=== PATIENT | female | born 1940 | race Asian ===

== ENCOUNTER 2017-07-13 07:22 | Emergency (ER) | payer MEDICARE, OTHER ==
[~2017-07-13] VITALS: Ht 157.5 cm; Wt 63.5 kg
[2017-07-13] MEDS ORDERED: UNOBMED (07:23)
--- NOTE | 2017-07-13 07:32 | Emergency Room Report ---
History of Present Illness General Chief Complaint: To Be Triaged Source: Patient, Family Member, EMS Present Illness HPI 76-year-old female brought in by ambulance with acute worsening of chronic dizziness now associated with headache on top of head and vomiting. The patient and daughter states that she has high blood pressure but neither of known medication she states her blood pressure. patient does take meclizine, Plavix, and Tylenol. Patient and daughter deny any recent trauma. The patient denies neck stiffness neck pain, fever chills, sick contacts recently Denied chest pain, shortness of breath. Allergies: Coded Allergies: SULFAMETHOXAZOLE (Verified Allergy, Unknown, 07/13/17) TRIMETHOPRIM (Verified Allergy, Unknown, 07/13/17) Uncoded Allergies: SULFA (Allergy, Unknown, 07/13/17) Patient History Past Medical History: other - ?HTN Past Surgical History: none Pertinent Family History: none Social History: Denies: smoking, alcohol use, drug use Last Menstrual Period: Unk Now: No Immunizations: UTD Reviewed Nursing Documentation: PMH: Agreed, PSxH: Agreed Nursing Documentation-PMH Hx Hypertension: Yes Review of Systems All Other Systems: negative except mentioned in HPI Physical Exam Vital Signs Date Time Temp Pulse Resp B/P (MAP) Pulse Ox O2 Delivery O2 Flow Rate FiO2 07/13/17 07:19 98.2 74 20 215/120 99 Room Air Sp02 EP Interpretation: reviewed, normal General Appearance: normal inspection, well appearing, alert, GCS 15, non-toxic , moderate distress, other - Writhing on stretcher, eyes closed Head: normocephalic, atraumatic Eyes: bilateral eye PERRL, bilateral eye EOMI ENT: normal ENT inspection, hearing grossly normal, normal pharynx, no angioedema, normal voice, TMs + canals normal, uvula midline, moist mucus membranes Neck: normal inspection, full range of motion, supple, thyroid normal, no meningismus, no bony tend Respiratory: normal inspection, lungs clear, normal breath sounds, no rhonchi, no respiratory distress, no retraction, no accessory muscle use, no wheezing, speaking full sentences Cardiovascular #1: regular rate, rhythm, no edema, no JVD, normal capillary refill Gastrointestinal: normal inspection, normal bowel sounds, non tender, soft, no mass, no peritonitis, non-distended, no guarding, no hernia, no pulsatile mass Genitourinary: no CVA tenderness Musculoskeletal: normal inspection, back normal, normal range of motion, no calf tenderness, pelvis stable, Krissy's Sign negative Neurologic: normal inspection, alert, oriented x3, responsive, hospice physician III-XII nml as tested, motor strength/tone normal, cerebellar normal, normal gait, speech normal Psychiatric: normal inspection, judgement/insight normal, mood/affect normal, no suicidal/homicidal ideation, no delusions Skin: normal inspection, normal color, no rash Lymphatic: normal inspection, no adenopathy Procedures Critical Care Time Critical Care Time CC time 45min Critical care time endorsed for this patient for acute posterior CVA with edema/ mass effect Critical care time includes review of laboratory tests, imaging, review of EMR, review of paperwork from SNF (if available), discussion with patient and family (if available), review of code status/POLS (if available). Critical care time also likely includes assessment of fluid status, stabilization of vital signs, dosing of mannitol, and discussion with neurosurgery Dr Baldwin at [facility]. Critical care time does not include any procedures which are documented elsewhere in this EMR. Medical Decision Making Diagnostic Impression: Primary Impression: Dizziness Additional Impressions: Headache Qualified Codes: G44.209 - Tension-type headache, unspecified, not intractable Cerebrovascular accident involving posterior circulation ER Course Patient found to have left cerebellar hemisphere infarct with associated edema, swelling and mild mass effect in the posterior fossa I spoke to Dr. Baldwin a [facility] neurosurgery, accepted the patient for immediate transfer to neurosurgical ICU Agrees with our plan to give IV mannitol at 1 g per kilogram Recommended keeping blood pressure high Recommended holding aspirin for now given possibility patient might need surgical decompression Patient endorsed for transfer at 8:20 AM. Airway patent, neurologically intact. Will initiate LAFD rescue transferred EKG Diagnostic Results Rate: normal Rhythm: NSR ST Segments: no acute changes ASA given to the pt in ED: No Rhythm Strip Diag. Results EP Interpretation: yes Rate: 70 Rhythm: NSR, no PVC's, no ectopy Last Vital Signs Date Time Temp Pulse Resp B/P (MAP) Pulse Ox O2 Delivery O2 Flow Rate FiO2 07/13/17 07:19 98.2 74 20 215/120 99 Room Air Status: improved Disposition: ADMITTED INPATIENT Condition: Critical SWATI YARBROUGH M.D. Jul 13, 2017 07:32
[2017-07-13 08:00] VITALS: BP 194/91
[2017-07-13 08:14] LABS: HEMATOCRIT 43.9 % (37.0-47.0); HEMOGLOBIN 14.8 G/DL (12.0-16.0); MEAN CORPUSCULAR VOLUME 90 FL (80-99); PLATELET COUNT 187 K/UL (150-450); RED BLOOD COUNT 4.88 M/UL (4.20-5.40); RED CELL DISTRIBUTION WIDTH 10.8 % (11.6-14.8); WHITE BLOOD COUNT 18.8 K/UL (4.8-10.8)
[2017-07-13 08:15] VITALS: BP 200/92
[2017-07-13] MEDS ORDERED: Mannitol 20% IV 500 ML IV ONE (08:15)
[2017-07-13 08:28] LABS: ANION GAP 13 mmol/L (5-15); BLOOD UREA NITROGEN 14 mg/dL (7-18); CALCIUM 8.8 MG/DL (8.5-10.1); CARBON DIOXIDE 24 MMOL/L (21-32); CHLORIDE 101 MMOL/L (98-107); POTASSIUM 3.3 MMOL/L (3.5-5.1); SODIUM 138 MMOL/L (136-145)
[2017-07-13 08:30] VITALS: BP 193/95
[2017-07-13 08:33] LABS: INR 0.9 (0.9-1.1)
[2017-07-13 08:43] LABS: ALANINE AMINOTRANSFERASE 25 U/L (12-78); ALBUMIN 4.2 G/DL (3.4-5.0); ALKALINE PHOSPHATASE 54 U/L (46-116); ASPARTATE AMINO TRANSFERASE 34 U/L (15-37); BILIRUBIN,TOTAL 0.7 MG/DL (0.2-1.0); CKMB 1.6 NG/ML (0.0-3.6); CREATINE KINASE 130 U/L (26-308)
[2017-07-13 08:45] VITALS: BP 193/95
[2017-07-13 08:50] VITALS: BP 193/95
[2017-07-13 09:44] LABS: APPEARANCE,URINE CLEAR; BILIRUBIN, URINE NEGATIVE (NEGATIVE); COLOR,URINE PALE YELLOW; GLUCOSE, URINE (UA) 3+ (NEGATIVE); KETONES,URINE NEGATIVE (NEGATIVE); LEUKOCYTE ESTERASE ,URINE NEGATIVE (NEGATIVE); NITRITE,URINE NEGATIVE (NEGATIVE); PH,URINE 7 (4.5-8.0); PROTEIN,URINE 2+ (NEGATIVE); UROBILINOGEN,URINE NORMAL MG/DL (0.0-1.0)
--- NOTE | 2017-07-16 00:06 | Cardiology Report ---
APPROVED REPORT EKG Measurement Heart [id number] Normal sinus rhythm Nonspecific T wave abnormality Prolonged QT Abnormal ECG
--- NOTE | 2017-07-16 13:44 | Diagnostic Imaging Report ---
Indication: Dizziness Technique: Continuous helical CT scanning of the head was performed utilizing automated exposure control without intravenous contrast material. Axial and coronal reconstructions were obtained. Comparison: None CT dose: Total DLP 1431 mGycm; CTDI vol 70.4 mGy Findings: There is an approximately 4.3 x 4.5 x 4 cm area of edema involving the left cerebellum with adjacent mass effect on the fourth ventricle. No intracranial hemorrhage is identified. There is atrophy. Periventricular and subcortical hypoattenuation are seen. Sellar and suprasellar regions are grossly unremarkable. There is mucosal thickening of the left maxillary sinus. Mastoid air cells are clear. No focal lesions of the bony calvarium or soft tissues of the scalp are seen. Impression: Low-density with mass effect in the left cerebellum suggestive of acute infarct. Correlation with MRI recommended. Atrophy and chronic ischemic microvascular changes. Findings discussed with Dr. Man at 0830 hours [address] phone. The CT scanner at [facility] is accredited by the [employer] and the scans are performed using protocols designed to limit radiation exposure to as low as reasonably achievable to attain images of sufficient resolution adequate for diagnostic evaluation.
--- NOTE | 2017-07-16 13:44 | Diagnostic Imaging Report ---
Indication: Chest pain Technique: XRAY Chest 1v Comparison: None Findings: Cardiac silhouette is prominent. There is mild central pulmonary vascular congestion. There is no consolidation or pleural effusion. Degenerative changes of the spine are seen. Impression: Cardiomegaly with mild pulmonary vascular congestion.
== END 2017-07-13 08:50 | disposition short-term general hospital (02) ==
LOC: EDBD 07:22 → EMR 08:17
DX: I63.9 Cerebral infarction, unspecified (principal); I10 Essential (primary) hypertension; Z88.2 Allergy status to sulfonamides
CPT/HCPCS: 36415; 70450; 71045; 80053; 81003; 82550; 82553; 84484; 85007; 85025; 85610; 93005; 99291; J2150; J2405

== ENCOUNTER 2017-09-12 19:06 | Inpatient (IN) | payer MEDICARE, OTHER ==
[~2017-09-12] VITALS: Ht 160 cm; Wt 61.0 kg
[~2017-09-12 19:06] MED LIST: UNOBMED
[2017-09-12 19:57] LABS: BASOPHILS % (AUTO) 0.7 % (0.0-2.0); EOSINOPHILS % (AUTO) 1.3 % (0.0-3.0); LYMPHOCYTES % (AUTO) 10.7 % (20.0-45.0); MEAN CORPUSCULAR VOLUME 88 FL (80-99); MONOCYTES % (AUTO) 4.8 % (1.0-10.0); NEUTROPHILS % (AUTO) 82.5 % (45.0-75.0); PLATELET COUNT 492 K/UL (150-450); RED BLOOD COUNT 4.31 M/UL (4.20-5.40); RED CELL DISTRIBUTION WIDTH 13.1 % (11.6-14.8); WHITE BLOOD COUNT 13.2 K/UL (4.8-10.8)
[2017-09-12 20:26] LABS: ANION GAP 12 mmol/L (5-15); BLOOD UREA NITROGEN 15 mg/dL (7-18); CALCIUM 10.2 MG/DL (8.5-10.1); CARBON DIOXIDE 26 MMOL/L (21-32); CHLORIDE 97 MMOL/L (98-107); CREATININE 0.6 MG/DL (0.55-1.30); POTASSIUM 4.1 MMOL/L (3.5-5.1); SODIUM 135 MMOL/L (136-145)
--- NOTE | 2017-09-12 20:37 | Emergency Room Report ---
History of Present Illness General Chief Complaint: Vomiting Source: Medical Record, EMS Present Illness HPI 76Female brought in by EMS for 1 episode of vomiting at custodial. Patient herself is nonverbal, has trach. Patient was transferred from here to [facility] 2 months prior for cerebellar infarct. There are no family members or friends bedside provide additional information at this time Allergies: Coded Allergies: SULFAMETHOXAZOLE (Verified Allergy, Unknown, 07/13/17) TRIMETHOPRIM (Verified Allergy, Unknown, 07/13/17) Uncoded Allergies: SULFA (Allergy, Unknown, 07/13/17) Patient History Past Medical History: CVA/TIA Past Surgical History: other - trach Pertinent Family History: none Social History: Denies: smoking, alcohol use, drug use Now: No Immunizations: UTD Reviewed Nursing Documentation: PMH: Agreed, PSxH: Agreed Nursing Documentation-PMH Hx Cardiac Problems: Yes Hx Hypertension: Yes Hx Diabetes: Yes Hx Cerebrovascular Accident: Yes Review of Systems All Other Systems: negative except mentioned in HPIlimited - non verbak Physical Exam Vital Signs Date Time Temp Pulse Resp B/P (MAP) Pulse Ox O2 Delivery O2 Flow Rate FiO2 09/12/17 19:08 98.2 78 20 111/74 96 Nasal Cannula 3.0 98.2 Sp02 EP Interpretation: reviewed, normal General Appearance: normal inspection, well appearing, no apparent distress, alert, non-toxic, other - Purposeful movement, not responding to commands Head: normocephalic, atraumatic Eyes: bilateral eye PERRL, bilateral eye EOMI ENT: normal ENT inspection, normal pharynx, TMs + canals normal, uvula midline , moist mucus membranes, other - Trach collar Neck: normal inspection, full range of motion, supple, thyroid normal, no meningismus, no bony tend Respiratory: normal inspection, lungs clear, normal breath sounds, no rhonchi, no respiratory distress, no retraction, no accessory muscle use, no wheezing, speaking full sentences Cardiovascular #1: regular rate, rhythm, no edema, no JVD, normal capillary refill Gastrointestinal: normal inspection, normal bowel sounds, non tender, soft, no mass, no peritonitis, non-distended, no guarding, no hernia, no pulsatile mass Genitourinary: no CVA tenderness, other - Myers cath in place Musculoskeletal: normal inspection, back normal, normal range of motion, no calf tenderness, pelvis stable, Krissy's Sign negative Neurologic: normal inspection, alert, responsive, router tender III-XII nml as tested, motor strength/tone normal, cerebellar normal, normal gait, speech normal Psychiatric: normal inspection, judgement/insight normal, mood/affect normal, no suicidal/homicidal ideation, no delusions Skin: normal inspection, normal color, no rash Lymphatic: normal inspection, no adenopathy Medical Decision Making Diagnostic Impression: Primary Impression: Vomiting Qualified Codes: R11.10 - Vomiting, unspecified Additional Impression: Status post CVA ER Course Vital signs are stable, afebrile Abdomen is soft nondistended nontender non-peritoneal ?Aspiration PNA given previous CVA, trach - no obvious infiltate on CXR UA pending no additional episodes of vomiting in ER since Zofran was given Leuks elevated Unknown source at this time - UA is pending Empiric Abx given Endorsed to Dr Rodriguez for med/surg admission at 836pm Rhythm Strip Diag. Results EP Interpretation: yes Rate: 97 Rhythm: NSR, no PVC's, no ectopy Last Vital Signs Date Time Temp Pulse Resp B/P (MAP) Pulse Ox O2 Delivery O2 Flow Rate FiO2 09/12/17 19:08 98.2 78 20 111/74 96 Nasal Cannula 3.0 98.2 Status: improved Disposition: ADMITTED INPATIENT Condition: Serious SWATI YARBROUGH M.D. Sep 12, 2017 20:37
[2017-09-12 20:38] VITALS: BP 111/70
[2017-09-12 20:40] LABS: ALANINE AMINOTRANSFERASE 43 U/L (12-78); ALBUMIN 2.7 G/DL (3.4-5.0); ALBUMIN/GLOBULIN RATIO 0.6 (1.0-2.7); ALKALINE PHOSPHATASE 92 U/L (46-116); ASPARTATE AMINO TRANSFERASE 24 U/L (15-37); BILIRUBIN,TOTAL 0.3 MG/DL (0.2-1.0); CKMB 1.4 NG/ML (0.0-3.6); CREATINE KINASE 28 U/L (26-308)
[2017-09-12] MEDS ORDERED: Clindamycin 900mg 50 ML IVPB ONE (20:45)
[2017-09-12] MEDS ORDERED: Nitroglycerin Subl 0.4mg tab SL PRN (21:30)
[2017-09-12] MEDS ORDERED: Miralax 17gm pkt ORAL PRN (21:30)
[2017-09-12] MEDS ORDERED: Mylanta II UD 30ml ORAL PRN (21:30)
[2017-09-12 21:41] LABS: APPEARANCE,URINE CLEAR; BILIRUBIN, URINE NEGATIVE (NEGATIVE); COLOR,URINE YELLOW; GLUCOSE, URINE (UA) NEGATIVE (NEGATIVE); KETONES,URINE NEGATIVE (NEGATIVE); LEUKOCYTE ESTERASE ,URINE NEGATIVE (NEGATIVE); NITRITE,URINE NEGATIVE (NEGATIVE); PH,URINE 6 (4.5-8.0); PROTEIN,URINE NEGATIVE (NEGATIVE); UROBILINOGEN,URINE NORMAL MG/DL (0.0-1.0)
[2017-09-12 22:20] VITALS: BP 131/80
[2017-09-12] MEDS ORDERED: METOPROLOL SUCC25 MG ORAL (22:50)
[2017-09-12] MEDS ORDERED: FLORASTOR250 MG ORAL (22:50)
[2017-09-12] MEDS ORDERED: ASPIR 8181 MG ORAL (22:50)
[2017-09-12] MEDS ORDERED: CIPROFLOXA400 MG/40 IV (22:50)
[2017-09-12] MEDS ORDERED: ATORVASTATIN CA40 MG ORAL (22:50)
[2017-09-12] MEDS ORDERED: HEPARIN SO5000 UNIT2 SUBQ (22:50)
[2017-09-12] MEDS ORDERED: FAMOTIDINE10 MG GT (22:50)
[2017-09-12 23:57] VITALS: BP 129/77
[2017-09-13] VITALS (7 sets, daily range): BP systolic 101–139; BP diastolic 66–92
[2017-09-13] MEDS: D5 1/2NS 1,000 ML IV SCH ×3 (01:59→23:44)
[2017-09-13 07:00] LABS: ALANINE AMINOTRANSFERASE 41 U/L (12-78); ALBUMIN 2.8 G/DL (3.4-5.0); ALBUMIN/GLOBULIN RATIO 0.6 (1.0-2.7); ALKALINE PHOSPHATASE 90 U/L (46-116); AMYLASE 74 U/L (25-115); ANION GAP 7 mmol/L (5-15); ASPARTATE AMINO TRANSFERASE 24 U/L (15-37); BILIRUBIN,TOTAL 0.3 MG/DL (0.2-1.0); BLOOD UREA NITROGEN 17 mg/dL (7-18); CALCIUM 9.8 MG/DL (8.5-10.1); CARBON DIOXIDE 28 MMOL/L (21-32); CHLORIDE 100 MMOL/L (98-107); CREATININE 0.7 MG/DL (0.55-1.30); SODIUM 135 MMOL/L (136-145)
[2017-09-13 07:10] LABS: BASOPHILS % (AUTO) 0.9 % (0.0-2.0); EOSINOPHILS % (AUTO) 1.2 % (0.0-3.0); HEMATOCRIT 36.2 % (37.0-47.0); HEMOGLOBIN 12.6 G/DL (12.0-16.0); LYMPHOCYTES % (AUTO) 17.5 % (20.0-45.0); MEAN CORPUSCULAR VOLUME 89 FL (80-99); MONOCYTES % (AUTO) 7.1 % (1.0-10.0); NEUTROPHILS % (AUTO) 73.4 % (45.0-75.0); PLATELET COUNT 468 K/UL (150-450); RED BLOOD COUNT 4.07 M/UL (4.20-5.40); RED CELL DISTRIBUTION WIDTH 12.9 % (11.6-14.8); WHITE BLOOD COUNT 12.1 K/UL (4.8-10.8)
[2017-09-13] MEDS: Piperacillin/Tazobactam 4.5 GM in D5W 110 ML IVPB SCH ×2 (08:50→15:25)
--- NOTE | 2017-09-13 08:58 | Diagnostic Imaging Report ---
Indication: Shortness of breath Technique: One view of the chest Comparison: 07/13/2017 Findings: Lungs and pleural spaces are clear. The heart size is normal. There is a tracheostomy, which is new since the prior study. Improved inspiration since the prior exam. Impression: Interim tracheostomy placement. No acute process
--- NOTE | 2017-09-13 10:42 | GI Initial Consult Note ---
Tiffanie Simeon N.PMikayla 09/13/17 1042: History of Present Illness General Date patient seen: Sep 13, 2017 Time patient seen: 10:40 Reason for Hospitalization: Vomiting Referring physician: KATIE MONTE Reason for Consultation: VOMITING Present Illness HPI 76Female brought in by EMS for 1 episode of vomiting at [facility]. Patient herself is nonverbal, has trach. Patient was transferred from here to [facility] 2 months prior for cerebellar infarct. There are no family members or friends bedside provide additional information at this time GI consulted for vomiting. ROS limited, nonverbal and trached. Pt assessed , no s/sx of active vomiting at this time. GT present, c/d/i NPO at this time. Patient presents today with mild leukocytosis. CXR reviewed shows no acute process. Unknown history of colonoscopy. Home Meds Reported Medications Saccharomyces Boulardii (FLORASTOR*) 250 Mg Capsule, 250 MG ORAL TWICE A DAY, CAP 09/12/17 Aspirin* (ASPIR 81*) 81 Mg Tablet.dr, 81 MG ORAL DAILY, TAB 09/12/17 Heparin Sod (Porcine) (HEPARIN SODIUM*) 5 000/1 Ml Vial, 5000 UNITS SUBQ EVERY 12 HOURS, VIAL 09/12/17 Famotidine (FAMOTIDINE) 10 Mg Tablet, 20 MG GT DAILY, #30 TAB 0 Refills 09/12/17 Metoprolol Succinate* (METOPROLOL SUCCINATE*) 25 Mg Tab.er.24h, 25 MG ORAL DAILY , TAB 09/12/17 Atorvastatin Calcium* (ATORVASTATIN CALCIUM*) 40 Mg Tablet, 40 MG ORAL BEDTIME, TAB 09/12/17 Ciprofloxacin Lactate (CIPROFLOXACIN) 400 Mg/40 Ml Vial, 500 MG IV, VIAL 09/12/17 Unable to Obtain Medications (UNABLE TO OBTAIN MEDS) 1 Ea Ea 07/13/17 Med list reviewed/reconciled: Yes Allergies: Coded Allergies: SULFAMETHOXAZOLE (Verified Allergy, Unknown, 07/13/17) TRIMETHOPRIM (Verified Allergy, Unknown, 07/13/17) Patient History Limited by: medical condition History Provided By: Medical Record PMH Narrative Past Medical History: CVA/TIA Past Surgical History: other - trach Pertinent Family History: none Social History: Denies: smoking, alcohol use, drug use Now: No Immunizations: UTD Reviewed Nursing Documentation: PMH: Agreed, PSxH: Agreed Nursing Documentation-PMH Hx Cardiac Problems: Yes Hx Hypertension: Yes Hx Diabetes: Yes Hx Cerebrovascular Accident: Yes Review of Systems All Other Systems: limited Physical Exam Vital Signs Date Time Temp Pulse Resp B/P (MAP) Pulse Ox O2 Delivery O2 Flow Rate FiO2 09/12/17 19:08 98.2 78 20 111/74 96 Nasal Cannula 3.0 98.2 09/13/17 01:00 35 Sp02 EP Interpretation: reviewed, normal Labs Laboratory Tests Test 09/12/17 19:30 09/12/17 20:45 09/13/17 05:40 White Blood Count 13.2 K/UL (4.8-10.8) H 12.1 K/UL (4.8-10.8) H Red Blood Count 4.31 M/UL (4.20-5.40) 4.07 M/UL (4.20-5.40) L Hemoglobin 13.0 G/DL (12.0-16.0) 12.6 G/DL (12.0-16.0) Hematocrit 38.0 % (37.0-47.0) 36.2 % (37.0-47.0) L Mean Corpuscular Volume 88 FL (80-99) 89 FL (80-99) Mean Corpuscular Hemoglobin 30.2 PG (27.0-31.0) 30.9 PG (27.0-31.0) Mean Corpuscular Hemoglobin Concent 34.2 G/DL (32.0-36.0) 34.8 G/DL (32.0-36.0) Red Cell Distribution Width 13.1 % (11.6-14.8) 12.9 % (11.6-14.8) Platelet Count 492 K/UL (150-450) H 468 K/UL (150-450) H Mean Platelet Volume 5.9 FL (6.5-10.1) L 6.2 FL (6.5-10.1) L Neutrophils (%) (Auto) 82.5 % (45.0-75.0) H 73.4 % (45.0-75.0) Lymphocytes (%) (Auto) 10.7 % (20.0-45.0) L 17.5 % (20.0-45.0) L Monocytes (%) (Auto) 4.8 % (1.0-10.0) 7.1 % (1.0-10.0) Eosinophils (%) (Auto) 1.3 % (0.0-3.0) 1.2 % (0.0-3.0) Basophils (%) (Auto) 0.7 % (0.0-2.0) 0.9 % (0.0-2.0) Sodium Level 135 MMOL/L (136-145) L 135 MMOL/L (136-145) L Potassium Level 4.1 MMOL/L (3.5-5.1) 4.0 MMOL/L (3.5-5.1) Chloride Level 97 MMOL/L (98-107) L 100 MMOL/L (98-107) Carbon Dioxide Level 26 MMOL/L (21-32) 28 MMOL/L (21-32) Anion Gap 12 mmol/L (5-15) 7 mmol/L (5-15) Blood Urea Nitrogen 15 mg/dL (7-18) 17 mg/dL (7-18) Creatinine 0.6 MG/DL (0.55-1.30) 0.7 MG/DL (0.55-1.30) Estimat Glomerular Filtration Rate mL/min (>60) mL/min (>60) Glucose Level 148 MG/DL (74-106) H 131 MG/DL (74-106) H Lactic Acid Level 0.80 mmol/L (0.66-2.22) Calcium Level 10.2 MG/DL (8.5-10.1) H 9.8 MG/DL (8.5-10.1) Total Bilirubin 0.3 MG/DL (0.2-1.0) 0.3 MG/DL (0.2-1.0) Aspartate Amino Transf (AST/SGOT) 24 U/L (15-37) 24 U/L (15-37) Alanine Aminotransferase (ALT/SGPT) 43 U/L (12-78) 41 U/L (12-78) Alkaline Phosphatase 92 U/L (46-116) 90 U/L (46-116) Total Creatine Kinase 28 U/L (26-308) Creatine Kinase MB 1.4 NG/ML (0.0-3.6) Creatine Kinase MB Relative Index 5.0 Troponin I 0.000 ng/mL (0.000-0.056) Total Protein 7.6 G/DL (6.4-8.2) 7.3 G/DL (6.4-8.2) Albumin 2.7 G/DL (3.4-5.0) L 2.8 G/DL (3.4-5.0) L Globulin 4.9 g/dL 4.5 g/dL Albumin/Globulin Ratio 0.6 (1.0-2.7) L 0.6 (1.0-2.7) L Urine Color Yellow Urine Appearance Clear Urine pH 6 (4.5-8.0) Urine Specific [place] 1.010 (1.005-1.035) Urine Protein Negative (NEGATIVE) Urine Glucose (UA) Negative (NEGATIVE) Urine Ketones Negative (NEGATIVE) Urine Occult Blood Negative (NEGATIVE) Urine Nitrite Negative (NEGATIVE) Urine Bilirubin Negative (NEGATIVE) Urine Urobilinogen Normal MG/DL (0.0-1.0) Urine Leukocyte Esterase Negative (NEGATIVE) Activated Partial Thromboplast Time 26 SEC (23-33) Amylase Level 74 U/L (25-115) Lipase 315 U/L (73-393) General Appearance: well appearing, no apparent distress, alert Head: normocephalic EENT: PERRL/EOMI, normal ENT inspection Neck: supple, tracheotomy Respiratory: normal breath sounds, no respiratory distress Cardiovascular: normal rate Gastrointestinal: normal inspection, non tender, soft, normal bowel sounds, non -distended, gt - c/d/i Rectal: deferred Genitourinary: no CVA tenderness Musculoskeletal: normal inspection, back normal Neurologic: alert, responsive Skin: normal inspection, normal color, no rash, warm/dry, palpation normal, well hydrated Lymphatic: normal inspection, no adenopathy Current Medications Current Medications Medications (Trade) Dose Ordered Sig/Gavino Route PRN Reason Start Time Stop Time Status Last Admin Dose Admin Acetaminophen (Tylenol) 650 mg Q4H PRN ORAL fever 09/12/17 21:30 10/12/17 21:29 Al Hydroxide/Mg Hydroxide (Mylanta II) 30 ml Q6H PRN ORAL dyspepsia 09/12/17 21:30 10/12/17 21:29 Dextrose (Dextrose 50%) STAT PRN IV Hypoglycemia 09/12/17 21:30 10/12/17 21:29 Dextrose/Sodium Chloride 1,000 ml @ 75 mls/hr [id number] IV 09/12/17 21:30 10/12/17 21:29 09/13/17 01:59 Diphenhydramine HCl (Benadryl) 25 mg Q6H PRN ORAL Itching/Pruritis 09/12/17 21:30 10/12/17 21:29 Heparin Sodium (Porcine) (Heparin 5000 units/ml) 5,000 units EVERY 12 HOURS SUBQ 09/13/17 09:00 10/13/17 08:59 Morphine Sulfate (Morphine Sulfate) 2 mg EVERY 4 HOURS PRN IVP severe Pain (Pain Scale 7-10) 09/12/17 21:30 09/19/17 21:29 Nitroglycerin (Ntg) 0.4 mg Q5M X 3 DOSES PRN SL Prn Chest Pain 09/12/17 21:30 10/12/17 21:29 Ondansetron HCl (Zofran) 4 mg Q6H PRN IVP Nausea & Vomiting 09/12/17 21:30 10/12/17 21:29 Pantoprazole (Protonix) 40 mg DAILY IVP 09/13/17 09:00 10/13/17 08:59 Piperacillin Sod/ Tazobactam Sod 4.5 gm/Dextrose 110 ml @ 27.5 mls/hr EVERY 8 HOURS IVPB 09/13/17 06:00 09/18/17 05:59 09/13/17 08:50 Polyethylene Glycol (Miralax) 17 gm HSPRN PRN ORAL Constipation 09/12/17 21:30 10/12/17 21:29 Temazepam (Restoril) 15 mg HSPRN PRN ORAL Insomnia 09/12/17 21:30 09/19/17 21:29 GI: Plan Problems: (1) G tube feedings (2) Tracheostomy in place (3) CVA (cerebral vascular accident) (4) Vomiting Plan symptomatic treatment start low dose reglan zofran prn ok to start GTFs per dietary electrolyte correction bowel regime ppi fu labs Discussed with Dr. Mendez. Thank you for this patient referral, we will follow. DOTTIE MENDEZ 09/23/17 2820: History of Present Illness General Reason for Hospitalization: Vomiting Present Illness Home Meds Reported Medications Saccharomyces Boulardii (FLORASTOR*) 250 Mg Capsule, 250 MG ORAL TWICE A DAY, CAP 09/12/17 Aspirin* (ASPIR 81*) 81 Mg Tablet.dr, 81 MG ORAL DAILY, TAB 09/12/17 Heparin Sod (Porcine) (HEPARIN SODIUM*) 5 000/1 Ml Vial, 5000 UNITS SUBQ EVERY 12 HOURS, VIAL 09/12/17 Famotidine (FAMOTIDINE) 10 Mg Tablet, 20 MG GT DAILY, #30 TAB 0 Refills 09/12/17 Metoprolol Succinate* (METOPROLOL SUCCINATE*) 25 Mg Tab.er.24h, 25 MG ORAL DAILY , TAB 09/12/17 Atorvastatin Calcium* (ATORVASTATIN CALCIUM*) 40 Mg Tablet, 40 MG ORAL BEDTIME, TAB 09/12/17 Ciprofloxacin Lactate (CIPROFLOXACIN) 400 Mg/40 Ml Vial, 500 MG IV, VIAL 09/12/17 Unable to Obtain Medications (UNABLE TO OBTAIN MEDS) 1 Ea Ea 07/13/17 Allergies: Coded Allergies: SULFAMETHOXAZOLE (Verified Allergy, Unknown, 07/13/17) TRIMETHOPRIM (Verified Allergy, Unknown, 07/13/17) GI: Plan Plan The patient was seen and examined at bedside and all new and available data was reviewed in the patients chart. I agree with the above findings, impression and plan. (Patient seen earlier today. Signature stamp does not reflect patient encounter time.). - MD Cailin Dacosta Anh Royal Soto Sep 13, 2017 10:42 DOTTIE MENDEZ Sep 23, 2017 12:27
[2017-09-13] MEDS: Pantoprazole Inj IVP SCH (11:01)
[2017-09-13] MEDS: Heparin 5000 units/ml inj SUBQ SCH ×2 (11:02→21:34)
--- NOTE | 2017-09-13 12:26 | Neurology Progress Note ---
Objective Physical Exam Last Vital Signs Date Time Temp Pulse Resp B/P (MAP) Pulse Ox O2 Delivery O2 Flow Rate FiO2 09/13/17 09:00 97.9 97 20 124/78 96 97.9 09/13/17 08:05 T-piece 10.0 35 Laboratory Tests Test 09/12/17 19:30 09/12/17 20:45 09/13/17 05:40 White Blood Count 13.2 K/UL (4.8-10.8) H 12.1 K/UL (4.8-10.8) H Red Blood Count 4.31 M/UL (4.20-5.40) 4.07 M/UL (4.20-5.40) L Hemoglobin 13.0 G/DL (12.0-16.0) 12.6 G/DL (12.0-16.0) Hematocrit 38.0 % (37.0-47.0) 36.2 % (37.0-47.0) L Mean Corpuscular Volume 88 FL (80-99) 89 FL (80-99) Mean Corpuscular Hemoglobin 30.2 PG (27.0-31.0) 30.9 PG (27.0-31.0) Mean Corpuscular Hemoglobin Concent 34.2 G/DL (32.0-36.0) 34.8 G/DL (32.0-36.0) Red Cell Distribution Width 13.1 % (11.6-14.8) 12.9 % (11.6-14.8) Platelet Count 492 K/UL (150-450) H 468 K/UL (150-450) H Mean Platelet Volume 5.9 FL (6.5-10.1) L 6.2 FL (6.5-10.1) L Neutrophils (%) (Auto) 82.5 % (45.0-75.0) H 73.4 % (45.0-75.0) Lymphocytes (%) (Auto) 10.7 % (20.0-45.0) L 17.5 % (20.0-45.0) L Monocytes (%) (Auto) 4.8 % (1.0-10.0) 7.1 % (1.0-10.0) Eosinophils (%) (Auto) 1.3 % (0.0-3.0) 1.2 % (0.0-3.0) Basophils (%) (Auto) 0.7 % (0.0-2.0) 0.9 % (0.0-2.0) Sodium Level 135 MMOL/L (136-145) L 135 MMOL/L (136-145) L Potassium Level 4.1 MMOL/L (3.5-5.1) 4.0 MMOL/L (3.5-5.1) Chloride Level 97 MMOL/L (98-107) L 100 MMOL/L (98-107) Carbon Dioxide Level 26 MMOL/L (21-32) 28 MMOL/L (21-32) Anion Gap 12 mmol/L (5-15) 7 mmol/L (5-15) Blood Urea Nitrogen 15 mg/dL (7-18) 17 mg/dL (7-18) Creatinine 0.6 MG/DL (0.55-1.30) 0.7 MG/DL (0.55-1.30) Estimat Glomerular Filtration Rate mL/min (>60) mL/min (>60) Glucose Level 148 MG/DL (74-106) H 131 MG/DL (74-106) H Lactic Acid Level 0.80 mmol/L (0.66-2.22) Calcium Level 10.2 MG/DL (8.5-10.1) H 9.8 MG/DL (8.5-10.1) Total Bilirubin 0.3 MG/DL (0.2-1.0) 0.3 MG/DL (0.2-1.0) Aspartate Amino Transf (AST/SGOT) 24 U/L (15-37) 24 U/L (15-37) Alanine Aminotransferase (ALT/SGPT) 43 U/L (12-78) 41 U/L (12-78) Alkaline Phosphatase 92 U/L (46-116) 90 U/L (46-116) Total Creatine Kinase 28 U/L (26-308) Creatine Kinase MB 1.4 NG/ML (0.0-3.6) Creatine Kinase MB Relative Index 5.0 Troponin I 0.000 ng/mL (0.000-0.056) Total Protein 7.6 G/DL (6.4-8.2) 7.3 G/DL (6.4-8.2) Albumin 2.7 G/DL (3.4-5.0) L 2.8 G/DL (3.4-5.0) L Globulin 4.9 g/dL 4.5 g/dL Albumin/Globulin Ratio 0.6 (1.0-2.7) L 0.6 (1.0-2.7) L Urine Color Yellow Urine Appearance Clear Urine pH 6 (4.5-8.0) Urine Specific [place] 1.010 (1.005-1.035) Urine Protein Negative (NEGATIVE) Urine Glucose (UA) Negative (NEGATIVE) Urine Ketones Negative (NEGATIVE) Urine Occult Blood Negative (NEGATIVE) Urine Nitrite Negative (NEGATIVE) Urine Bilirubin Negative (NEGATIVE) Urine Urobilinogen Normal MG/DL (0.0-1.0) Urine Leukocyte Esterase Negative (NEGATIVE) Activated Partial Thromboplast Time 26 SEC (23-33) Amylase Level 74 U/L (25-115) Lipase 315 U/L (73-393) Impression/Recommendations Recommendations #[id number] JOSÉ MIGUEL ODONNELL Sep 13, 2017 12:26
[2017-09-13 13:14] LABS: CHOLESTEROL 184 MG/DL (< 200); HDL CHOLESTEROL 53 MG/DL (40-60); TRIGLYCERIDES 207 MG/DL (30-150)
--- NOTE | 2017-09-13 13:39 | History & Physical ---
History and Physical History & Physicial [id number] Job ID [id number] Sep 13, 2017 13:39
--- NOTE | 2017-09-13 15:08 | Diagnostic Imaging Report ---
Indications: Altered mental status Technique: Spiral acquisitions obtained through the brain. Angled axial and coronal 5 x 5 mm slices were reconstructed. Total dose length product 1425.35 mGycm. CTDI vol(s) 70.38 mGy. Dose reduction achieved using automated exposure control Comparison: 07/13/2017 Findings: Interim occipital craniectomy. There is encephalomalacia of the left occipital lobe, consistent with postsurgical change. There is associated ex vacuo dilatation of the fourth ventricle. There is also ex vacuo dilatation of the extra-axial CSF space on the right. Interim development of focal area of encephalomalacia in the parasagittal high right frontal lobe. There is some overlying cortical calcifications or extra-axial calcifications, presumably dystrophic. No acute intracranial hemorrhage or edema. No mass effect or midline shift. There is generalized age-related enlargement of the ventricles and extra-axial CSF spaces. No mass effect nor midline shift. The remainder of the calvarium is intact. Impression: Postsurgical changes of the occiput and left side of the cerebellum, as described. Right frontal focal encephalomalacia, overlying cortical or extra-axial dystrophic calcifications, new since prior study Other chronic and age-related changes, as described Negative for acute intracranial bleed or mass effect The CT scanner at [facility] is accredited by the [employer] and the scans are performed using protocols designed to limit radiation exposure to as low as reasonably achievable to attain images of sufficient resolution adequate for diagnostic evaluation.
[2017-09-13] MEDS: Metoclopramide 10mg/10ml Liq GT SCH ×2 (15:26→21:33)
--- NOTE | 2017-09-13 15:38 | Consultation ---
History of Present Illness General Chief Complaint: Vomiting Referring physician: KATIE MONTE Reason for Consultation: VOMITING Present Illness Allergies: Coded Allergies: SULFAMETHOXAZOLE (Verified Allergy, Unknown, 07/13/17) TRIMETHOPRIM (Verified Allergy, Unknown, 07/13/17) Medication History Scheduled Aspirin* (Aspir 81*), 81 MG ORAL DAILY, (Reported) Atorvastatin Calcium* (Atorvastatin Calcium*), 40 MG ORAL BEDTIME, (Reported) Famotidine (Famotidine), 20 MG GT DAILY, (Reported) Heparin Sod (Porcine) (Heparin Sodium*), 5,000 UNITS SUBQ EVERY 12 HOURS, ( Reported) Metoprolol Succinate* (Metoprolol Succinate*), 25 MG ORAL DAILY, (Reported) Saccharomyces Boulardii (Florastor*), 250 MG ORAL TWICE A DAY, (Reported) Miscellaneous Medications Ciprofloxacin Lactate (Ciprofloxacin), 500 MG IV, (Reported) Unable to Obtain Medications (Unable To Obtain Meds), (Reported) Patient History Healthcare decision maker Resuscitation status Advanced Directive on File Yes Physical Exam Last 24 Hour Vital Signs Date Time Temp Pulse Resp B/P (MAP) Pulse Ox O2 Delivery O2 Flow Rate FiO2 09/13/17 14:28 T-piece 10.0 35 09/13/17 14:28 98 T-piece 10.0 35 09/13/17 12:00 97.9 101 20 116/70 98 97.9 09/13/17 09:00 97.9 97 20 124/78 96 97.9 09/13/17 08:05 96 T-piece 10.0 35 09/13/17 08:05 T-piece 10.0 35 09/13/17 08:00 97.9 103 20 113/78 100 97.9 09/13/17 04:00 98.4 98 18 139/92 98 Room Air 98.4 09/13/17 01:00 96 T-piece 10.0 35 09/13/17 01:00 T-piece 10.0 35 09/12/17 23:57 97.9 90 20 129/77 100 Trach Collar 97.9 09/12/17 23:11 98.2 105 16 131/80 99 Trach Collar 3.0 98.2 09/12/17 22:20 98.2 105 16 131/80 99 Trach Collar 98.2 09/12/17 20:38 98.2 97 15 111/70 100 Trach Collar 98.2 09/12/17 19:08 98.2 78 20 111/74 96 Nasal Cannula 3.0 98.2 Intake and Output 09/12/17 09/13/17 19:00 07:00 Output Total 700 ml Balance -700 ml Output Urine Total 700 ml Laboratory Tests Test 09/12/17 19:30 09/12/17 20:45 09/13/17 05:40 09/13/17 12:22 White Blood Count 13.2 K/UL (4.8-10.8) H 12.1 K/UL (4.8-10.8) H Red Blood Count 4.31 M/UL (4.20-5.40) 4.07 M/UL (4.20-5.40) L Hemoglobin 13.0 G/DL (12.0-16.0) 12.6 G/DL (12.0-16.0) Hematocrit 38.0 % (37.0-47.0) 36.2 % (37.0-47.0) L Mean Corpuscular Volume 88 FL (80-99) 89 FL (80-99) Mean Corpuscular Hemoglobin 30.2 PG (27.0-31.0) 30.9 PG (27.0-31.0) Mean Corpuscular Hemoglobin Concent 34.2 G/DL (32.0-36.0) 34.8 G/DL (32.0-36.0) Red Cell Distribution Width 13.1 % (11.6-14.8) 12.9 % (11.6-14.8) Platelet Count 492 K/UL (150-450) H 468 K/UL (150-450) H Mean Platelet Volume 5.9 FL (6.5-10.1) L 6.2 FL (6.5-10.1) L Neutrophils (%) (Auto) 82.5 % (45.0-75.0) H 73.4 % (45.0-75.0) Lymphocytes (%) (Auto) 10.7 % (20.0-45.0) L 17.5 % (20.0-45.0) L Monocytes (%) (Auto) 4.8 % (1.0-10.0) 7.1 % (1.0-10.0) Eosinophils (%) (Auto) 1.3 % (0.0-3.0) 1.2 % (0.0-3.0) Basophils (%) (Auto) 0.7 % (0.0-2.0) 0.9 % (0.0-2.0) Sodium Level 135 MMOL/L (136-145) L 135 MMOL/L (136-145) L Potassium Level 4.1 MMOL/L (3.5-5.1) 4.0 MMOL/L (3.5-5.1) Chloride Level 97 MMOL/L (98-107) L 100 MMOL/L (98-107) Carbon Dioxide Level 26 MMOL/L (21-32) 28 MMOL/L (21-32) Anion Gap 12 mmol/L (5-15) 7 mmol/L (5-15) Blood Urea Nitrogen 15 mg/dL (7-18) 17 mg/dL (7-18) Creatinine 0.6 MG/DL (0.55-1.30) 0.7 MG/DL (0.55-1.30) Estimat Glomerular Filtration Rate mL/min (>60) mL/min (>60) Glucose Level 148 MG/DL (74-106) H 131 MG/DL (74-106) H Lactic Acid Level 0.80 mmol/L (0.66-2.22) Calcium Level 10.2 MG/DL (8.5-10.1) H 9.8 MG/DL (8.5-10.1) Total Bilirubin 0.3 MG/DL (0.2-1.0) 0.3 MG/DL (0.2-1.0) Aspartate Amino Transf (AST/SGOT) 24 U/L (15-37) 24 U/L (15-37) Alanine Aminotransferase (ALT/SGPT) 43 U/L (12-78) 41 U/L (12-78) Alkaline Phosphatase 92 U/L (46-116) 90 U/L (46-116) Total Creatine Kinase 28 U/L (26-308) Creatine Kinase MB 1.4 NG/ML (0.0-3.6) Creatine Kinase MB Relative Index 5.0 Troponin I 0.000 ng/mL (0.000-0.056) Total Protein 7.6 G/DL (6.4-8.2) 7.3 G/DL (6.4-8.2) Albumin 2.7 G/DL (3.4-5.0) L 2.8 G/DL (3.4-5.0) L Globulin 4.9 g/dL 4.5 g/dL Albumin/Globulin Ratio 0.6 (1.0-2.7) L 0.6 (1.0-2.7) L Urine Color Yellow Urine Appearance Clear Urine pH 6 (4.5-8.0) Urine Specific [place] 1.010 (1.005-1.035) Urine Protein Negative (NEGATIVE) Urine Glucose (UA) Negative (NEGATIVE) Urine Ketones Negative (NEGATIVE) Urine Occult Blood Negative (NEGATIVE) Urine Nitrite Negative (NEGATIVE) Urine Bilirubin Negative (NEGATIVE) Urine Urobilinogen Normal MG/DL (0.0-1.0) Urine Leukocyte Esterase Negative (NEGATIVE) Activated Partial Thromboplast Time 26 SEC (23-33) Amylase Level 74 U/L (25-115) Lipase 315 U/L (73-393) Triglycerides Level 207 MG/DL (30-150) H Cholesterol Level 184 MG/DL (< 200) LDL Cholesterol 102 mg/dL (<100) H HDL Cholesterol 53 MG/DL (40-60) Cholesterol/HDL Ratio 3.5 (3.3-4.4) Vitamin B12 Level 1157 PG/ML (193-986) H Height (Feet): 5 Height (Inches): 3.00 Weight (Pounds): 130 Medications Current Medications Medications (Trade) Dose Ordered Sig/Gavino Route PRN Reason Start Time Stop Time Status Last Admin Dose Admin Acetaminophen (Tylenol) 650 mg Q4H PRN ORAL fever 09/12/17 21:30 10/12/17 21:29 Al Hydroxide/Mg Hydroxide (Mylanta II) 30 ml Q6H PRN ORAL dyspepsia 09/12/17 21:30 10/12/17 21:29 Dextrose (Dextrose 50%) STAT PRN IV Hypoglycemia 09/12/17 21:30 10/12/17 21:29 Dextrose/Sodium Chloride 1,000 ml @ 75 mls/hr [id number] IV 09/12/17 21:30 10/12/17 21:29 09/13/17 01:59 Diphenhydramine HCl (Benadryl) 25 mg Q6H PRN ORAL Itching/Pruritis 09/12/17 21:30 10/12/17 21:29 Docusate Sodium (Colace) 100 mg TWICE A DAY ORAL 09/13/17 18:00 10/13/17 17:59 Heparin Sodium (Porcine) (Heparin 5000 units/ml) 5,000 units EVERY 12 HOURS SUBQ 09/13/17 09:00 10/13/17 08:59 09/13/17 11:02 Metoclopramide HCl (Reglan) 5 mg Q8HR GT 09/13/17 14:00 10/13/17 17:59 09/13/17 15:26 Morphine Sulfate (Morphine Sulfate) 2 mg EVERY 4 HOURS PRN IVP severe Pain (Pain Scale 7-10) 09/12/17 21:30 09/19/17 21:29 Nitroglycerin (Ntg) 0.4 mg Q5M X 3 DOSES PRN SL Prn Chest Pain 09/12/17 21:30 10/12/17 21:29 Ondansetron HCl (Zofran) 4 mg Q6H PRN IVP Nausea & Vomiting 09/12/17 21:30 10/12/17 21:29 Pantoprazole (Protonix) 40 mg DAILY IVP 09/13/17 09:00 10/13/17 08:59 09/13/17 11:01 Piperacillin Sod/ Tazobactam Sod 4.5 gm/Dextrose 110 ml @ 27.5 mls/hr EVERY 8 HOURS IVPB 09/13/17 06:00 09/18/17 05:59 09/13/17 15:25 Polyethylene Glycol (Miralax) 17 gm HSPRN PRN ORAL Constipation 09/12/17 21:30 10/12/17 21:29 Temazepam (Restoril) 15 mg HSPRN PRN ORAL Insomnia 09/12/17 21:30 09/19/17 21:29 JEREMY ESQUEDA Sep 13, 2017 15:38
--- NOTE | 2017-09-13 16:26 | Consultation ---
Consult Note Consult Note [id number] ALEXANDER OTERO M.D. Sep 13, 2017 16:25
[2017-09-13] MEDS ORDERED: Metoclopramide 10mg/10ml Liq GT SCH (18:00)
[2017-09-13] MEDS: Docusate 100mg cap ORAL SCH (19:31)
--- NOTE | 2017-09-13 22:15 | Consultation ---
DATE OF CONSULTATION: 09/13/2017 NEUROLOGICAL CONSULTATION CONSULTING PHYSICIAN: Carlos Mustafa M.D. REQUESTING PHYSICIAN: Alexis Rodriguez D.O. HISTORY OF PRESENT ILLNESS: This 76-year-old female, resident of a nursing facility, was brought to emergency room, as she developed recurrent episodes of vomiting of dark coloration. The patient is nonverbal, unable provide with any history. This was compiled from medical records. Note that the patient who has multiple stroke risk factors developed a cerebellar stroke and was discharged from [facility] two months ago, now in a rehabilitation facility. As the patient was brought to emergency room, her vital signs were stable, blood pressure 111/74 and temperature 98.2 degrees. The patient has significant respiratory insufficiency. She is intubated and unable to speak. Her abdomen was soft. No distention, nontender and non-peritoneal. Suspected to have aspiration pneumonia. Her laboratory work included CBC study with WBC 13.2, normal coagulation. Chemistry panel with blood sugar 148, calcium 10.2 and repeat study of 9.8. Albumin 2.8. Urinalysis was normal. Imaging limited to chest x-ray revealed interim tracheostomy placement. No acute process noted. According to review of records, the patient was admitted to this facility on 07/13/2017 with worsening of her chronic dizziness, now associated with severe headache, nausea and vomiting, elevated blood pressure, as the patient was maintained on Plavix. She had a CT scan of the brain that was obtained, this revealed left cerebellar hemisphere infarct with associated edema, swelling, mild mass effect in the posterior fossa. The patient was transported to the neurosurgical ICU at [facility], being treated initially with IV Mannitol. At that point, she was still airway patent and neurologically intact. PAST MEDICAL HISTORY: The patient has a history of hypertension, diabetes and hyperlipidemia. MEDICATIONS: Treatment prior to admission included aspirin, atorvastatin, famotidine, subcutaneous heparin, metoprolol, and Florastor. ALLERGIES: Trimethoprim/sulfamethoxazole. SOCIAL HISTORY: The patient now resides in a nursing facility rehabilitation. FAMILY HISTORY: Noncontributory. REVIEW OF SYSTEMS: Unable to obtain due to the patient's status. PHYSICAL EXAMINATION: GENERAL: A well-developed and well-nourished female, not in acute distress. There is shaved area of the scalp in the frontal region. Neck is supple. The patient is intubated. The patient has a trach and somewhat labored breathing. VITAL SIGNS: Blood pressure 124/70, temperature 97.9 degrees and heart rate of 103. HEENT: Head normocephalic. Eyes, ears, nose and throat are clear. NECK: Supple. No meningeal signs. MUSCULOSKELETAL: Unremarkable . There are no deformities. Peripheral pulses are 1+ and symmetric. Both arms in soft restraints. MENTAL STATUS: The patient is drowsy, but arousable. She has a good eye contact. She was able to follow simple commands with normal right and left orientation. CRANIAL NERVE V: Normal corneal responses. CRANIAL NERVE VII: No facial asymmetry. CRANIAL NERVE VIII: Grossly normal hearing. CRANIAL NERVE IX THROUGH XII: Reduced gag response. MOTOR EXAMINATION: Able to lift both upper and lower extremities against the gravity. Normal hand track laminating machine tender. Deep tendon reflexes are 2+ on the left and 1+ on the right. Plantar responses flexor. SENSORY EXAMINATION: No response to pin stimulation. Unable to test coordination. IMPRESSION: 1. Status post recent ischemic cerebellar infarct with mass effect. 2. Respiratory insufficiency. 3. New onset of vomiting, rule out a stroke extension and posterior circulation. 4. Hypertension. 5. History of diabetes. RECOMMENDATION: Get a CT of the brain without contrast. Continue with GI workup. Continue symptomatic treatments including statins and aspirin. Thank you for allowing me to see this interesting patient in neurological consultation. Carlos Mustafa M.D. DR: SHIRLEY JOB#: [id number] CC:
--- NOTE | 2017-09-13 23:01 | History and Physical Report ---
DATE OF ADMISSION: 09/12/2017 INTERNAL MEDICINE HISTORY AND PHYSICAL REASON FOR ADMISSION: Nausea and vomiting, DNR/DNI. IDENTIFYING DATA: The patient is a pleasant 76-year-old female with past medical history for one episode of vomiting at the detention, is nonverbal, has a trach, difficult to obtain further history, history of CVA and TIA. The patient also was admitted to [facility] for a cerebral infarct in the past. There are no family members in the room at this time to obtain collaborative history. We have consulted gastrointestinal service as well as Neurology and Pulmonary team for further evaluation and care and Dr. Childs has left with orders at this time already. PAST MEDICAL HISTORY: CVA and TIA. PAST SURGICAL HISTORY: Tracheostomy. ALLERGIES: Bactrim and . FAMILY HISTORY: Noncontributory. SOCIAL HISTORY: No alcohol, tobacco, or illicit drug use noted in the past. REVIEW OF SYSTEMS: Difficult to obtain status. PHYSICAL EXAMINATION: GENERAL: No acute distress. VITAL SIGNS: Reviewed. PULMONARY: Decreased breath sounds. Some crackles at the bases. Status post trach. CARDIOVASCULAR: Regular rate. No S3 or S4. ABDOMEN: Soft, nontender, and nondistended. EXTREMITIES: No cyanosis, swelling, or edema noted. LABORATORY DATA: WBC is , and platelets 168,000. PTT of 26. BUN of 17, creatinine 0.7. ASSESSMENT AND RECOMMENDATIONS: 1. Nausea or vomiting, x1 episode. The patient has been seen by GI Service. Further recommendations to follow. Symptomatic treatment with low-dose Reglan as well as Zofran and continue G-tube feeds per dietary recommendations. 2. tracheostomy. Continue to monitor. 3. CVA history. Neurology has been consulted. 4. Hyponatremia . 5. Leukocytosis, potentially secondary to reactive process. 6. Thrombocytosis, potentially secondary to reactive process. Continue to closely monitor. Obtain CBC tomorrow morning. I appreciate the consultation and continue to closely monitor primary team. Nader Landis M.D. DR: CHERYL JOB#: [id number] CC:
--- NOTE | 2017-09-14 02:15 | Consultation ---
DATE OF CONSULTATION: 09/13/2017 INFECTIOUS DISEASE CONSULTATION CONSULTING PHYSICIAN: Melecio Walton M.D. REFERRING PHYSICIAN: Alexis Rodriguez D.O. REASON FOR CONSULTATION: Evaluation of patient for leukocytosis, possible need for antibiotics. HISTORY OF PRESENT ILLNESS: The patient is a 76-year-old year female, who [facility] and vomiting. The patient is nonverbal. The patient was found to have leukocytosis. An Infectious Disease consultation has been requested for further evaluation of the patient's antibiotic management. PAST MEDICAL HISTORY: 1. Hypertension. 2. COPD. 3. Diabetes. 4. History of CVA. ALLERGIES: Sulfa. MEDICATIONS: The patient is on IV Zosyn. SOCIAL HISTORY: [facility]. PHYSICAL EXAMINATION: VITAL SIGNS: Temperature 98 degrees, pulse 86, respiratory rate 18, and blood pressure 113/71. HEENT: No pale conjunctivae. No icterus. NECK: No lymphadenopathy. CHEST: Clear. HEART: S1 and S2. ABDOMEN: Soft. PEG tube in place. NEUROLOGIC: Nonverbal. SKIN: No rash. LABORATORY AND DIAGNOSTIC DATA: Labs, white blood cells at the time of admission is 18.8 and today is 12.1, hemoglobin 12.6. UA unremarkable. BUN 17 and creatinine 0.7. ALT, AST, and alkaline phosphatase unremarkable. Head CT, postsurgical changes of the left side of cerebellum. Chest x-ray, no acute process. ASSESSMENT: The patient is a 76-year-old female with: 1. Leukocytosis, mostly due to acute stress. 2. The patient is afebrile. 3. No evidence of pneumonia or urinary tract infection. PLAN: 1. We will discontinue antibiotics. 2. Monitor blood culture. 3. Monitor CBC. 4. Monitor BMP. 5. We will follow GI recommendations. 6. Based on the patient's clinical course and labs, we will do further recommendations. Thank you, Dr. Alexis Rodriguez, for allowing me to participate in the care of this patient. I will follow the patient with you during this hospitalization. Meleico Walton M.D. DR: DAVID JOB#: [id number] CC:
[2017-09-14 03:10] VITALS: BP 102/59
[2017-09-14] MEDS: Metoclopramide 10mg/10ml Liq GT SCH ×3 (05:57→22:23)
[2017-09-14 07:53] LABS: BASOPHILS % (AUTO) 1.6 % (0.0-2.0); EOSINOPHILS % (AUTO) 6.1 % (0.0-3.0); HEMATOCRIT 34.2 % (37.0-47.0); HEMOGLOBIN 11.6 G/DL (12.0-16.0); LYMPHOCYTES % (AUTO) 16.1 % (20.0-45.0); MEAN CORPUSCULAR VOLUME 89 FL (80-99); MONOCYTES % (AUTO) 7.6 % (1.0-10.0); NEUTROPHILS % (AUTO) 68.6 % (45.0-75.0); PLATELET COUNT 378 K/UL (150-450); RED BLOOD COUNT 3.83 M/UL (4.20-5.40); RED CELL DISTRIBUTION WIDTH 12.9 % (11.6-14.8); WHITE BLOOD COUNT 7.8 K/UL (4.8-10.8)
[2017-09-14 08:14] LABS: ALANINE AMINOTRANSFERASE 37 U/L (12-78); ALBUMIN 2.6 G/DL (3.4-5.0); ALBUMIN/GLOBULIN RATIO 0.6 (1.0-2.7); ALKALINE PHOSPHATASE 84 U/L (46-116); ANION GAP 9 mmol/L (5-15); ASPARTATE AMINO TRANSFERASE 27 U/L (15-37); BILIRUBIN,TOTAL 0.3 MG/DL (0.2-1.0); BLOOD UREA NITROGEN 11 mg/dL (7-18); CALCIUM 9.6 MG/DL (8.5-10.1); CARBON DIOXIDE 26 MMOL/L (21-32); CHLORIDE 101 MMOL/L (98-107); CREATININE 0.7 MG/DL (0.55-1.30); POTASSIUM 3.6 MMOL/L (3.5-5.1); SODIUM 136 MMOL/L (136-145)
[2017-09-14 08:18] LABS: PHOSPHORUS 3.4 MG/DL (2.5-4.9)
[2017-09-14 08:21] VITALS: BP 115/67
[2017-09-14] MEDS: Docusate 100mg cap ORAL SCH (09:31)
[2017-09-14] MEDS: Pantoprazole Inj IVP SCH (09:31)
[2017-09-14] MEDS: Heparin 5000 units/ml inj SUBQ SCH ×2 (09:46→22:26)
--- NOTE | 2017-09-14 11:14 | Pulmonology Progress Note ---
Assessment/Plan Problems: (1) Aspiration pneumonia (2) Vomiting (3) CVA (cerebral vascular accident) (4) Tracheostomy in place (5) G tube feedings (6) Status post CVA Assessment/Plan respiratory treatment iv abx check cultures tolerating feeding dvt prophylaxis. Subjective ROS Limited/Unobtainable: No Constitutional: Reports: no symptoms HEENT: Repors: no symptoms Respiratory: Reports: no symptoms Allergies: Coded Allergies: SULFAMETHOXAZOLE (Verified Allergy, Unknown, 07/13/17) TRIMETHOPRIM (Verified Allergy, Unknown, 07/13/17) Objective Last 24 Hour Vital Signs Date Time Temp Pulse Resp B/P (MAP) Pulse Ox O2 Delivery O2 Flow Rate FiO2 09/14/17 08:21 97.5 107 21 115/67 97 97.5 09/14/17 07:58 104 20 T-piece 10.0 35 09/14/17 07:58 T-piece 10.0 35 09/14/17 07:58 94 T-piece 10.0 35 09/14/17 03:10 97.3 101 20 102/59 93 T-piece 97.3 09/13/17 23:52 98.4 113 20 131/79 97 T-piece 98.4 09/13/17 23:50 95 T-piece 10.0 35 09/13/17 23:50 T-piece 10.0 35 09/13/17 23:50 110 20 T-piece 10.0 35 09/13/17 19:38 98 20 T-piece 10.0 35 09/13/17 19:37 T-piece 10.0 35 09/13/17 19:37 96 T-piece 10.0 35 09/13/17 19:21 97.7 100 20 101/66 T-piece 10.0 35 97.7 09/13/17 16:00 98.1 98 20 113/71 98 98.1 09/13/17 14:28 T-piece 10.0 35 09/13/17 14:28 98 T-piece 10.0 35 09/13/17 12:00 97.9 101 20 116/70 98 97.9 Intake and Output 09/13/17 09/14/17 19:00 07:00 Intake Total 110 ml 1400 ml Output Total 250 ml Balance -140 ml 1400 ml Intake Free Water 120 ml IV Total 75 ml 825 ml Tube Feeding 35 ml 455 ml Output Urine Total 250 ml Objective General Appearance: WD/WN HEENT: normocephalic, atraumatic, trach intact Respiratory/Chest: chest wall non-tender, lungs clear Breasts: no masses Cardiovascular: normal peripheral pulses, regular rhythm Abdomen: normal bowel sounds, soft, non tender, Gtube Genitourinary: normal external genitalia Extremities: no cyanosis Skin: no lesions Microbiology Date/Time Source Procedure Growth Status 09/12/17 19:40 Blood Blood Culture - Preliminary NO GROWTH AFTER 24 HOURS Resulted 09/12/17 19:30 Blood Blood Culture - Preliminary NO GROWTH AFTER 24 HOURS Resulted Laboratory Tests 09/13/17 12:22: Triglycerides Level 207H, Cholesterol Level 184, LDL Cholesterol 102H, HDL Cholesterol 53, Cholesterol/HDL Ratio 3.5, Vitamin B12 Level 1157H 09/14/17 06:05: White Blood Count 7.8, Red Blood Count 3.83L, Hemoglobin 11.6L, Hematocrit 34.2L , Mean Corpuscular Volume 89, Mean Corpuscular Hemoglobin 30.4, Mean Corpuscular Hemoglobin Concent 34.0, Red Cell Distribution Width 12.9, Platelet Count 378, Mean Platelet Volume 6.1L, Neutrophils (%) (Auto) 68.6, Lymphocytes ( %) (Auto) 16.1L, Monocytes (%) (Auto) 7.6, Eosinophils (%) (Auto) 6.1H, Basophils (%) (Auto) 1.6, Sodium Level 136, Potassium Level 3.6, Chloride Level 101, Carbon Dioxide Level 26, Anion Gap 9, Blood Urea Nitrogen 11, Creatinine 0.7, Estimat Glomerular Filtration Rate , Glucose Level 140H, Calcium Level 9.6 , Phosphorus Level 3.4, Magnesium Level 1.7L, Total Bilirubin 0.3, Aspartate Amino Transf (AST/SGOT) 27, Alanine Aminotransferase (ALT/SGPT) 37, Alkaline Phosphatase 84, Total Protein 6.9, Albumin 2.6L, Globulin 4.3, Albumin/Globulin Ratio 0.6L Current Medications Medications (Trade) Dose Ordered Sig/Gavino Route PRN Reason Start Time Stop Time Status Last Admin Dose Admin Acetaminophen (Tylenol) 650 mg Q4H PRN ORAL fever 09/12/17 21:30 10/12/17 21:29 Al Hydroxide/Mg Hydroxide (Mylanta II) 30 ml Q6H PRN ORAL dyspepsia 09/12/17 21:30 10/12/17 21:29 Dextrose (Dextrose 50%) STAT PRN IV Hypoglycemia 09/12/17 21:30 10/12/17 21:29 Dextrose/Sodium Chloride 1,000 ml @ 75 mls/hr [id number] IV 09/12/17 21:30 10/12/17 21:29 09/13/17 23:44 Diphenhydramine HCl (Benadryl) 25 mg Q6H PRN ORAL Itching/Pruritis 09/12/17 21:30 10/12/17 21:29 Docusate Sodium (Colace) 100 mg TWICE A DAY ORAL 09/13/17 18:00 10/13/17 17:59 09/14/17 09:31 Heparin Sodium (Porcine) (Heparin 5000 units/ml) 5,000 units EVERY 12 HOURS SUBQ 09/13/17 09:00 10/13/17 08:59 09/14/17 09:46 Magnesium Sulfate 100 ml @ 100 mls/hr Q1H IVPB 09/14/17 10:00 09/14/17 11:59 09/14/17 09:40 Metoclopramide HCl (Reglan) 5 mg Q8HR GT 09/13/17 14:00 10/13/17 17:59 09/14/17 05:57 Morphine Sulfate (Morphine Sulfate) 2 mg EVERY 4 HOURS PRN IVP severe Pain (Pain Scale 7-10) 09/12/17 21:30 09/19/17 21:29 Nitroglycerin (Ntg) 0.4 mg Q5M X 3 DOSES PRN SL Prn Chest Pain 09/12/17 21:30 10/12/17 21:29 Ondansetron HCl (Zofran) 4 mg Q6H PRN IVP Nausea & Vomiting 09/12/17 21:30 10/12/17 21:29 Pantoprazole (Protonix) 40 mg DAILY IVP 09/13/17 09:00 10/13/17 08:59 09/14/17 09:31 Polyethylene Glycol (Miralax) 17 gm HSPRN PRN ORAL Constipation 09/12/17 21:30 10/12/17 21:29 Temazepam (Restoril) 15 mg HSPRN PRN ORAL Insomnia 09/12/17 21:30 09/19/17 21:29 JEREMY ESQUEDA Sep 14, 2017 11:14
[2017-09-14 11:46] VITALS: BP 111/67
[2017-09-14 16:00] VITALS: BP 112/65
[2017-09-14] MEDS: D5 1/2NS 1,000 ML IV SCH (16:09)
[2017-09-14] MEDS: Docusate 100mg/10ml Liq GT SCH (18:00)
--- NOTE | 2017-09-14 18:59 | General Progress Note ---
Assessment/Plan Assessment/Plan Assessment (1) G tube feedings/dysphagia (2) Tracheostomy in place (3) CVA (cerebral vascular accident) (4) Vomiting Plan symptomatic treatment reglan zofran prn GTFs per dietary electrolyte correction bowel regime ppi fu labs Subjective Allergies: Coded Allergies: SULFAMETHOXAZOLE (Verified Allergy, Unknown, 07/13/17) TRIMETHOPRIM (Verified Allergy, Unknown, 07/13/17) Subjective minimally verbal no events overnight Objective Last 24 Hour Vital Signs Date Time Temp Pulse Resp B/P (MAP) Pulse Ox O2 Delivery O2 Flow Rate FiO2 09/14/17 16:00 98.1 98 20 112/65 96 98.1 09/14/17 12:48 T-piece 10.0 35 09/14/17 12:48 106 20 T-piece 10.0 35 09/14/17 12:48 95 T-piece 10.0 35 09/14/17 11:46 97.6 105 21 111/67 96 97.6 09/14/17 08:21 97.5 107 21 115/67 97 97.5 09/14/17 07:58 104 20 T-piece 10.0 35 09/14/17 07:58 T-piece 10.0 35 09/14/17 07:58 94 T-piece 10.0 35 09/14/17 03:10 97.3 101 20 102/59 93 T-piece 97.3 09/13/17 23:52 98.4 113 20 131/79 97 T-piece 98.4 09/13/17 23:50 95 T-piece 10.0 35 09/13/17 23:50 T-piece 10.0 35 09/13/17 23:50 110 20 T-piece 10.0 35 09/13/17 19:38 98 20 T-piece 10.0 35 09/13/17 19:37 T-piece 10.0 35 09/13/17 19:37 96 T-piece 10.0 35 09/13/17 19:21 97.7 100 20 101/66 T-piece 10.0 35 97.7 Intake and Output 09/13/17 09/14/17 19:00 07:00 Intake Total 110 ml 1515 ml Output Total 250 ml Balance -140 ml 1515 ml Free Water 180 ml IV Total 75 ml 825 ml Tube Feeding 35 ml 510 ml Output Urine Total 250 ml Laboratory Tests 09/14/17 06:05: White Blood Count 7.8, Red Blood Count 3.83L, Hemoglobin 11.6L, Hematocrit 34.2L , Mean Corpuscular Volume 89, Mean Corpuscular Hemoglobin 30.4, Mean Corpuscular Hemoglobin Concent 34.0, Red Cell Distribution Width 12.9, Platelet Count 378, Mean Platelet Volume 6.1L, Neutrophils (%) (Auto) 68.6, Lymphocytes ( %) (Auto) 16.1L, Monocytes (%) (Auto) 7.6, Eosinophils (%) (Auto) 6.1H, Basophils (%) (Auto) 1.6, Sodium Level 136, Potassium Level 3.6, Chloride Level 101, Carbon Dioxide Level 26, Anion Gap 9, Blood Urea Nitrogen 11, Creatinine 0.7, Estimat Glomerular Filtration Rate , Glucose Level 140H, Calcium Level 9.6 , Phosphorus Level 3.4, Magnesium Level 1.7L, Total Bilirubin 0.3, Aspartate Amino Transf (AST/SGOT) 27, Alanine Aminotransferase (ALT/SGPT) 37, Alkaline Phosphatase 84, Total Protein 6.9, Albumin 2.6L, Globulin 4.3, Albumin/Globulin Ratio 0.6L Height (Feet): 5 Height (Inches): 3.00 Weight (Pounds): 130 Objective Thin woman NCAT (+) trach coarse BS RR soft ND NT, (+) GT no edema HUMBERTO LOU Sep 14, 2017 18:59
[2017-09-14 20:00] VITALS: BP 115/66
--- NOTE | 2017-09-14 21:20 | Infectious Diseases Prog Note ---
Assessment/Plan Assessment/Plan ASSESSMENT: The patient is a 76-year-old female with: Leukocytosis, mostly due to acute stress, SP afebrile. No evidence of pneumonia or urinary tract infection. Chest x-ray, no acute process. Hypertension. COPD. Diabetes. History of CVA PLAN: monitor pt off of antibiotics Monitor blood culture. Monitor CBC. Monitor BMP. follow GI recommendations. Subjective Allergies: Coded Allergies: SULFAMETHOXAZOLE (Verified Allergy, Unknown, 07/13/17) TRIMETHOPRIM (Verified Allergy, Unknown, 07/13/17) Subjective WBC: Nl Objective Vital Signs Last 24 Hour Vital Signs Date Time Temp Pulse Resp B/P (MAP) Pulse Ox O2 Delivery O2 Flow Rate FiO2 09/14/17 20:00 97.3 94 16 115/66 99 97.3 09/14/17 19:13 97 T-piece 10.0 35 09/14/17 19:13 T-piece 10.0 35 09/14/17 19:13 102 20 T-piece 10.0 35 09/14/17 16:00 98.1 98 20 112/65 96 98.1 09/14/17 12:48 T-piece 10.0 35 09/14/17 12:48 106 20 T-piece 10.0 35 09/14/17 12:48 95 T-piece 10.0 35 09/14/17 11:46 97.6 105 21 111/67 96 97.6 09/14/17 08:21 97.5 107 21 115/67 97 97.5 09/14/17 07:58 104 20 T-piece 10.0 35 09/14/17 07:58 T-piece 10.0 35 09/14/17 07:58 94 T-piece 10.0 35 09/14/17 03:10 97.3 101 20 102/59 93 T-piece 97.3 09/13/17 23:52 98.4 113 20 131/79 97 T-piece 98.4 09/13/17 23:50 95 T-piece 10.0 35 09/13/17 23:50 T-piece 10.0 35 09/13/17 23:50 110 20 T-piece 10.0 35 Height (Feet): 5 Height (Inches): 3.00 Weight (Pounds): 130 HEENT: anicteric Respiratory/Chest: no respiratory distress Cardiovascular: regular rhythm Abdomen: soft, non tender Microbiology Date/Time Source Procedure Growth Status 09/12/17 19:40 Blood Blood Culture - Preliminary NO GROWTH AFTER 24 HOURS Resulted 09/12/17 19:30 Blood Blood Culture - Preliminary NO GROWTH AFTER 24 HOURS Resulted Laboratory Tests Test 09/14/17 06:05 White Blood Count 7.8 K/UL (4.8-10.8) Red Blood Count 3.83 M/UL (4.20-5.40) L Hemoglobin 11.6 G/DL (12.0-16.0) L Hematocrit 34.2 % (37.0-47.0) L Mean Corpuscular Volume 89 FL (80-99) Mean Corpuscular Hemoglobin 30.4 PG (27.0-31.0) Mean Corpuscular Hemoglobin Concent 34.0 G/DL (32.0-36.0) Red Cell Distribution Width 12.9 % (11.6-14.8) Platelet Count 378 K/UL (150-450) Mean Platelet Volume 6.1 FL (6.5-10.1) L Neutrophils (%) (Auto) 68.6 % (45.0-75.0) Lymphocytes (%) (Auto) 16.1 % (20.0-45.0) L Monocytes (%) (Auto) 7.6 % (1.0-10.0) Eosinophils (%) (Auto) 6.1 % (0.0-3.0) H Basophils (%) (Auto) 1.6 % (0.0-2.0) Sodium Level 136 MMOL/L (136-145) Potassium Level 3.6 MMOL/L (3.5-5.1) Chloride Level 101 MMOL/L (98-107) Carbon Dioxide Level 26 MMOL/L (21-32) Anion Gap 9 mmol/L (5-15) Blood Urea Nitrogen 11 mg/dL (7-18) Creatinine 0.7 MG/DL (0.55-1.30) Estimat Glomerular Filtration Rate mL/min (>60) Glucose Level 140 MG/DL (74-106) H Calcium Level 9.6 MG/DL (8.5-10.1) Phosphorus Level 3.4 MG/DL (2.5-4.9) Magnesium Level 1.7 MG/DL (1.8-2.4) L Total Bilirubin 0.3 MG/DL (0.2-1.0) Aspartate Amino Transf (AST/SGOT) 27 U/L (15-37) Alanine Aminotransferase (ALT/SGPT) 37 U/L (12-78) Alkaline Phosphatase 84 U/L (46-116) Total Protein 6.9 G/DL (6.4-8.2) Albumin 2.6 G/DL (3.4-5.0) L Globulin 4.3 g/dL Albumin/Globulin Ratio 0.6 (1.0-2.7) L Current Medications Medications (Trade) Dose Ordered Sig/Gavino Route PRN Reason Start Time Stop Time Status Last Admin Dose Admin Acetaminophen (Tylenol) 650 mg Q4H PRN ORAL fever 09/12/17 21:30 10/12/17 21:29 Al Hydroxide/Mg Hydroxide (Mylanta II) 30 ml Q6H PRN ORAL dyspepsia 09/12/17 21:30 10/12/17 21:29 Dextrose (Dextrose 50%) STAT PRN IV Hypoglycemia 09/12/17 21:30 10/12/17 21:29 Diphenhydramine HCl (Benadryl) 25 mg Q6H PRN ORAL Itching/Pruritis 09/12/17 21:30 10/12/17 21:29 Docusate Sodium (Colace) 100 mg BID GT 09/14/17 18:00 10/14/17 17:59 Heparin Sodium (Porcine) (Heparin 5000 units/ml) 5,000 units EVERY 12 HOURS SUBQ 09/13/17 09:00 10/13/17 08:59 09/14/17 09:46 Metoclopramide HCl (Reglan) 5 mg Q8HR GT 09/13/17 14:00 10/13/17 17:59 09/14/17 14:58 Morphine Sulfate (Morphine Sulfate) 2 mg EVERY 4 HOURS PRN IVP severe Pain (Pain Scale 7-10) 09/12/17 21:30 09/19/17 21:29 Nitroglycerin (Ntg) 0.4 mg Q5M X 3 DOSES PRN SL Prn Chest Pain 09/12/17 21:30 10/12/17 21:29 Ondansetron HCl (Zofran) 4 mg Q6H PRN IVP Nausea & Vomiting 09/12/17 21:30 10/12/17 21:29 Pantoprazole (Protonix) 40 mg DAILY IVP 09/13/17 09:00 10/13/17 08:59 09/14/17 09:31 Polyethylene Glycol (Miralax) 17 gm HSPRN PRN ORAL Constipation 09/12/17 21:30 10/12/17 21:29 Temazepam (Restoril) 15 mg HSPRN PRN ORAL Insomnia 09/12/17 21:30 09/19/17 21:29 ALEXANDER OTERO M.D. Sep 14, 2017 21:20
--- NOTE | 2017-09-14 22:05 | Wound Care Consultation ---
Wound Assessment Wound Assessment #1: Wound Number: 1 Wound Present on Admission: Yes New Wound: No Status Change of Wound: No Wound Location Body Site Modif: mid Wound Location Body Site: other - Sacrococcygeal Wound Type: pressure ulcer Nicol Test: Does not Nicol Pressure Ulcer Stage: Deep Tissue Injury - SDTI Wound Thickness: Full Thickness Wound Length: 5.5 Wound Width: 4.5 Wound Depth: utd Percent of Wound [place]/Red: 100 - DEEP Wound Drainage Amount: None Wound Drainage Odor: None/Absent Tissue Surrounding Wound: Erythemic Wound General Appearance: Reddened - DEEP Wound Assessment #2: Wound Number: 2 Wound Present on Admission: Yes New Wound: No Status Change of Wound: No Wound Location Body Site: perineal area Wound Type: erosion Nicol Test: Does not Nicol Rashes: Mable w/erosion Wound Thickness: Partial Thickness Percent of Wound [place]/Red: 100 Wound Drainage Amount: None Wound Drainage Odor: None/Absent Tissue Surrounding Wound: Erythemic Wound General Appearance: Reddened Wound Comment #1 Sacrococcygeal SDTI pressure ulcer #2 Mable with erosion on perineal/perianal area Recommendation -Local wound care per protocol -Keep clean and dry -Turn and reposition -Offload both heels -Heel protector on both heels -Optimize nutrition -Low air loss mattress -Assess and f/u accordingly for any changes JAVIER CARDENAS RN Sep 14, 2017 22:05
[2017-09-14] MEDS: Morphine Sulfate 2mg/ml Inj IVP PRN (22:24)
[2017-09-15] VITALS: BP 118/75
[2017-09-15 04:00] VITALS: BP 128/75
[2017-09-15] MEDS: Metoclopramide 10mg/10ml Liq GT SCH ×3 (05:20→21:31)
[2017-09-15] MEDS: Morphine Sulfate 2mg/ml Inj IVP PRN ×2 (05:21→21:38)
[2017-09-15 07:16] LABS: BASOPHILS % (AUTO) 1.5 % (0.0-2.0); EOSINOPHILS % (AUTO) 5.7 % (0.0-3.0); HEMATOCRIT 34.5 % (37.0-47.0); HEMOGLOBIN 11.9 G/DL (12.0-16.0); LYMPHOCYTES % (AUTO) 22.1 % (20.0-45.0); MEAN CORPUSCULAR VOLUME 90 FL (80-99); MONOCYTES % (AUTO) 9.6 % (1.0-10.0); NEUTROPHILS % (AUTO) 61.1 % (45.0-75.0); PLATELET COUNT 350 K/UL (150-450); RED BLOOD COUNT 3.85 M/UL (4.20-5.40); RED CELL DISTRIBUTION WIDTH 13.1 % (11.6-14.8); WHITE BLOOD COUNT 6.6 K/UL (4.8-10.8)
[2017-09-15 07:24] LABS: ALANINE AMINOTRANSFERASE 34 U/L (12-78); ALBUMIN 2.6 G/DL (3.4-5.0); ALBUMIN/GLOBULIN RATIO 0.6 (1.0-2.7); ALKALINE PHOSPHATASE 83 U/L (46-116); ANION GAP 8 mmol/L (5-15); ASPARTATE AMINO TRANSFERASE 21 U/L (15-37); BILIRUBIN,TOTAL 0.2 MG/DL (0.2-1.0); BLOOD UREA NITROGEN 10 mg/dL (7-18); CALCIUM 9.8 MG/DL (8.5-10.1); CARBON DIOXIDE 28 MMOL/L (21-32); CHLORIDE 102 MMOL/L (98-107); CREATININE 0.6 MG/DL (0.55-1.30); PHOSPHORUS 2.8 MG/DL (2.5-4.9); POTASSIUM 3.6 MMOL/L (3.5-5.1); SODIUM 138 MMOL/L (136-145)
[2017-09-15 08:00] VITALS: BP 123/77
[2017-09-15] MEDS: Docusate 100mg/10ml Liq GT SCH ×2 (08:26→17:41)
[2017-09-15] MEDS: Pantoprazole Inj IVP SCH (08:27)
[2017-09-15] MEDS: Heparin 5000 units/ml inj SUBQ SCH ×2 (08:29→21:39)
[2017-09-15 12:14] VITALS: BP 110/61
--- NOTE | 2017-09-15 12:31 | General Progress Note ---
Assessment/Plan Assessment/Plan 1. Nausea or vomiting, x1 episode. --> The patient has been seen by GI Service. Further recommendations to follow. --> Symptomatic treatment with low-dose Reglan as well as Zofran and continue G- tube feeds per dietary recommendations. 2. Status post tracheostomy. Continue to monitor. 3. CVA history. Neurology has been consulted. 4. Hyponatremia. 5. Leukocytosis, potentially secondary to reactive process. 6. Thrombocytosis, potentially secondary to reactive process. Continue to closely monitor. --> downtrended from yesterday and improved. Subjective Date patient seen: Sep 14, 2017 Constitutional: Denies: no symptoms, chills, diaphoresis, fever, malaise, weakness, other HEENT: Denies: no symptoms, eye pain, blurred vision, tearing, double vision, ear pain, ear discharge, nose pain, nose congestion, throat pain, throat swelling, mouth pain, mouth swelling, other Cardiovascular: Denies: no symptoms, chest pain, edema, irregular heart rate, lightheadedness, palpitations, syncope, other Respiratory: Denies: no symptoms, cough, orthopnea, shortness of breath, SOB with excertion, SOB at rest, sputum, stridor, wheezing, other Gastrointestinal/Abdominal: Denies: no symptoms, abdomen distended, abdominal pain, black stools, tarry stools, blood in stool, constipated, diarrhea, difficulty swallowing, nausea, poor appetite, poor fluid intake, rectal bleeding , vomiting, other Genitourinary: Denies: no symptoms, burning, discharge, frequency, flank pain, hematuria, incontinence, pain, urgency, other Neurologic/Psychiatric: Denies: no symptoms, anxiety, depressed, emotional problems, headache, numbness, paresthesia, pre-existing deficit, seizure, tingling, tremors, weakness, other Allergies: Coded Allergies: SULFAMETHOXAZOLE (Verified Allergy, Unknown, 07/13/17) TRIMETHOPRIM (Verified Allergy, Unknown, 07/13/17) Subjective Platelets downtrended and improved. No fever. Objective Last 24 Hour Vital Signs Date Time Temp Pulse Resp B/P (MAP) Pulse Ox O2 Delivery O2 Flow Rate FiO2 09/15/17 12:14 98.2 89 18 110/61 95 Trach Collar 98.2 09/15/17 08:00 97.9 95 18 123/77 97 Room Air 97.9 09/15/17 07:52 T-piece 8.0 35 09/15/17 07:50 103 20 T-piece 8.0 35 09/15/17 07:50 95 T-piece 8.0 35 09/15/17 05:51 97.3 09/15/17 05:21 97.3 09/15/17 04:00 97.3 93 17 128/75 97 97.3 09/15/17 00:00 97.0 99 18 118/75 93 97.0 09/14/17 23:51 T-piece 10.0 35 09/14/17 23:51 96 T-piece 10.0 35 09/14/17 23:51 104 20 T-piece 10.0 35 09/14/17 22:24 97.3 09/14/17 20:00 97.3 94 16 115/66 99 97.3 09/14/17 19:13 97 T-piece 10.0 35 09/14/17 19:13 T-piece 10.0 35 09/14/17 19:13 102 20 T-piece 10.0 35 09/14/17 16:00 98.1 98 20 112/65 96 98.1 09/14/17 12:48 T-piece 10.0 35 09/14/17 12:48 106 20 T-piece 10.0 35 09/14/17 12:48 95 T-piece 10.0 35 09/14/17 11:46 97.6 105 21 111/67 96 97.6 Intake and Output 09/14/17 09/15/17 20:00 08:00 Intake Total 665 ml 730 ml Output Total 850 ml Balance -185 ml 730 ml Intake Oral 0 ml Free Water 60 ml 120 ml Tube Feeding 605 ml 610 ml Output Urine Total 850 ml # Bowel Movements 4 1 Laboratory Tests 09/15/17 05:30: White Blood Count 6.6, Red Blood Count 3.85L, Hemoglobin 11.9L, Hematocrit 34.5L , Mean Corpuscular Volume 90, Mean Corpuscular Hemoglobin 31.0, Mean Corpuscular Hemoglobin Concent 34.6, Red Cell Distribution Width 13.1, Platelet Count 350, Mean Platelet Volume 6.0L, Neutrophils (%) (Auto) 61.1, Lymphocytes ( %) (Auto) 22.1, Monocytes (%) (Auto) 9.6, Eosinophils (%) (Auto) 5.7H, Basophils (%) (Auto) 1.5, Sodium Level 138, Potassium Level 3.6, Chloride Level 102, Carbon Dioxide Level 28, Anion Gap 8, Blood Urea Nitrogen 10, Creatinine 0.6, Estimat Glomerular Filtration Rate , Glucose Level 138H, Calcium Level 9.8 , Phosphorus Level 2.8, Magnesium Level 1.7L, Total Bilirubin 0.2, Aspartate Amino Transf (AST/SGOT) 21, Alanine Aminotransferase (ALT/SGPT) 34, Alkaline Phosphatase 83, Total Protein 7.0, Albumin 2.6L, Globulin 4.4, Albumin/Globulin Ratio 0.6L Height (Feet): 5 Height (Inches): 3.00 Weight (Pounds): 130 General Appearance: no apparent distress Respiratory/Chest: decreased breath sounds Abdomen: non tender, soft Edema: trace edema Nader Landis Sep 15, 2017 12:31
--- NOTE | 2017-09-15 12:42 | Pulmonology Progress Note ---
Assessment/Plan Problems: (1) Aspiration pneumonia (2) Vomiting (3) CVA (cerebral vascular accident) (4) Tracheostomy in place (5) G tube feedings (6) Status post CVA Assessment/Plan respiratory treatment iv abx check cultures tolerating feeding dvt prophylaxis. Subjective ROS Limited/Unobtainable: No Constitutional: Reports: no symptoms HEENT: Repors: no symptoms Respiratory: Reports: no symptoms Allergies: Coded Allergies: SULFAMETHOXAZOLE (Verified Allergy, Unknown, 07/13/17) TRIMETHOPRIM (Verified Allergy, Unknown, 07/13/17) Objective Last 24 Hour Vital Signs Date Time Temp Pulse Resp B/P (MAP) Pulse Ox O2 Delivery O2 Flow Rate FiO2 09/15/17 12:14 98.2 89 18 110/61 95 Trach Collar 98.2 09/15/17 08:00 97.9 95 18 123/77 97 Room Air 97.9 09/15/17 07:52 T-piece 8.0 35 09/15/17 07:50 103 20 T-piece 8.0 35 09/15/17 07:50 95 T-piece 8.0 35 09/15/17 05:51 97.3 09/15/17 05:21 97.3 09/15/17 04:00 97.3 93 17 128/75 97 97.3 09/15/17 00:00 97.0 99 18 118/75 93 97.0 09/14/17 23:51 T-piece 10.0 35 09/14/17 23:51 96 T-piece 10.0 35 09/14/17 23:51 104 20 T-piece 10.0 35 09/14/17 22:24 97.3 09/14/17 20:00 97.3 94 16 115/66 99 97.3 09/14/17 19:13 97 T-piece 10.0 35 09/14/17 19:13 T-piece 10.0 35 09/14/17 19:13 102 20 T-piece 10.0 35 09/14/17 16:00 98.1 98 20 112/65 96 98.1 09/14/17 12:48 T-piece 10.0 35 09/14/17 12:48 106 20 T-piece 10.0 35 09/14/17 12:48 95 T-piece 10.0 35 Intake and Output 09/14/17 09/15/17 19:00 07:00 Intake Total 665 ml 785 ml Output Total 850 ml Balance -185 ml 785 ml Intake Oral 0 ml Free Water 60 ml 120 ml Tube Feeding 605 ml 665 ml Output Urine Total 850 ml # Bowel Movements 4 1 Objective General Appearance: WD/WN HEENT: normocephalic, atraumatic, trach intact Respiratory/Chest: chest wall non-tender, lungs clear Breasts: no masses Cardiovascular: normal peripheral pulses, regular rhythm Abdomen: normal bowel sounds, soft, non tender, Gtube Genitourinary: normal external genitalia Extremities: no cyanosis Skin: no lesions Microbiology Date/Time Source Procedure Growth Status 09/12/17 19:40 Blood Blood Culture - Preliminary NO GROWTH AFTER 48 HOURS Resulted 09/12/17 19:30 Blood Blood Culture - Preliminary NO GROWTH AFTER 48 HOURS Resulted 09/12/17 20:26 Nasal Nares MRSA Culture - Final NO METHICILLIN RESISTANT STAPH AUREUS... Complete 09/12/17 20:26 Rectum VRE Culture - Final NO VANCOMYCIN RESISTANT ENTEROCOCCUS ... Complete Laboratory Tests 09/15/17 05:30: White Blood Count 6.6, Red Blood Count 3.85L, Hemoglobin 11.9L, Hematocrit 34.5L , Mean Corpuscular Volume 90, Mean Corpuscular Hemoglobin 31.0, Mean Corpuscular Hemoglobin Concent 34.6, Red Cell Distribution Width 13.1, Platelet Count 350, Mean Platelet Volume 6.0L, Neutrophils (%) (Auto) 61.1, Lymphocytes ( %) (Auto) 22.1, Monocytes (%) (Auto) 9.6, Eosinophils (%) (Auto) 5.7H, Basophils (%) (Auto) 1.5, Sodium Level 138, Potassium Level 3.6, Chloride Level 102, Carbon Dioxide Level 28, Anion Gap 8, Blood Urea Nitrogen 10, Creatinine 0.6, Estimat Glomerular Filtration Rate , Glucose Level 138H, Calcium Level 9.8 , Phosphorus Level 2.8, Magnesium Level 1.7L, Total Bilirubin 0.2, Aspartate Amino Transf (AST/SGOT) 21, Alanine Aminotransferase (ALT/SGPT) 34, Alkaline Phosphatase 83, Total Protein 7.0, Albumin 2.6L, Globulin 4.4, Albumin/Globulin Ratio 0.6L Current Medications Medications (Trade) Dose Ordered Sig/Gavino Route PRN Reason Start Time Stop Time Status Last Admin Dose Admin Acetaminophen (Tylenol) 650 mg Q4H PRN ORAL fever 09/12/17 21:30 10/12/17 21:29 Al Hydroxide/Mg Hydroxide (Mylanta II) 30 ml Q6H PRN ORAL dyspepsia 09/12/17 21:30 10/12/17 21:29 Clotrimazole (Lotrimin) 1 applic EVERY 12 HOURS TOPIC 09/15/17 09:00 10/15/17 08:59 09/15/17 10:25 Dextrose (Dextrose 50%) STAT PRN IV Hypoglycemia 09/12/17 21:30 10/12/17 21:29 Diphenhydramine HCl (Benadryl) 25 mg Q6H PRN ORAL Itching/Pruritis 09/12/17 21:30 10/12/17 21:29 Docusate Sodium (Colace) 100 mg BID GT 09/14/17 18:00 10/14/17 17:59 Heparin Sodium (Porcine) (Heparin 5000 units/ml) 5,000 units EVERY 12 HOURS SUBQ 09/13/17 09:00 10/13/17 08:59 09/15/17 08:29 Magnesium Sulfate 100 ml @ 100 mls/hr Q1H IVPB 09/15/17 12:30 09/15/17 14:29 09/15/17 12:33 Metoclopramide HCl (Reglan) 5 mg Q8HR GT 09/13/17 14:00 10/13/17 17:59 09/15/17 05:20 Morphine Sulfate (Morphine Sulfate) 2 mg EVERY 4 HOURS PRN IVP severe Pain (Pain Scale 7-10) 09/12/17 21:30 09/19/17 21:29 09/15/17 05:21 Nitroglycerin (Ntg) 0.4 mg Q5M X 3 DOSES PRN SL Prn Chest Pain 09/12/17 21:30 10/12/17 21:29 Ondansetron HCl (Zofran) 4 mg Q6H PRN IVP Nausea & Vomiting 09/12/17 21:30 10/12/17 21:29 Pantoprazole (Protonix) 40 mg DAILY IVP 09/13/17 09:00 10/13/17 08:59 09/15/17 08:27 Polyethylene Glycol (Miralax) 17 gm HSPRN PRN ORAL Constipation 09/12/17 21:30 10/12/17 21:29 Temazepam (Restoril) 15 mg HSPRN PRN ORAL Insomnia 09/12/17 21:30 09/19/17 21:29 09/14/17 22:24 JEREMY ESQUEDA Sep 15, 2017 12:41
[2017-09-15 16:00] VITALS: BP 117/74
--- NOTE | 2017-09-15 16:34 | Cardiology Report ---
APPROVED REPORT EKG Measurement Heart [id number] Normal sinus rhythm Left axis deviation Possible Lateral infarct, age undetermined Inferior infarct, age undetermined Abnormal ECG
--- NOTE | 2017-09-15 17:08 | General Progress Note ---
Assessment/Plan Assessment/Plan Assessment (1) G tube feedings/dysphagia (2) Tracheostomy in place (3) CVA (cerebral vascular accident) (4) Vomiting Plan symptomatic treatment reglan zofran prn GTFs per dietary electrolyte correction bowel regime ppi fu labs Subjective Allergies: Coded Allergies: SULFAMETHOXAZOLE (Verified Allergy, Unknown, 07/13/17) TRIMETHOPRIM (Verified Allergy, Unknown, 07/13/17) Subjective minimally verbal no events overnight Objective Last 24 Hour Vital Signs Date Time Temp Pulse Resp B/P (MAP) Pulse Ox O2 Delivery O2 Flow Rate FiO2 09/15/17 16:00 97.3 92 20 117/74 99 Room Air 97.3 09/15/17 12:59 T-piece 8.0 35 09/15/17 12:58 97 T-piece 8.0 35 09/15/17 12:14 98.2 89 18 110/61 95 Trach Collar 98.2 09/15/17 08:00 97.9 95 18 123/77 97 Room Air 97.9 09/15/17 07:52 T-piece 8.0 35 09/15/17 07:50 103 20 T-piece 8.0 35 09/15/17 07:50 95 T-piece 8.0 35 09/15/17 05:51 97.3 09/15/17 05:21 97.3 09/15/17 04:00 97.3 93 17 128/75 97 97.3 09/15/17 00:00 97.0 99 18 118/75 93 97.0 09/14/17 23:51 T-piece 10.0 35 09/14/17 23:51 96 T-piece 10.0 35 09/14/17 23:51 104 20 T-piece 10.0 35 09/14/17 22:24 97.3 09/14/17 20:00 97.3 94 16 115/66 99 97.3 09/14/17 19:13 97 T-piece 10.0 35 09/14/17 19:13 T-piece 10.0 35 09/14/17 19:13 102 20 T-piece 10.0 35 Intake and Output 09/14/17 09/15/17 19:00 07:00 Intake Total 665 ml 785 ml Output Total 850 ml Balance -185 ml 785 ml Intake Oral 0 ml Free Water 60 ml 120 ml Tube Feeding 605 ml 665 ml Output Urine Total 850 ml # Bowel Movements 4 1 Laboratory Tests 09/15/17 05:30: White Blood Count 6.6, Red Blood Count 3.85L, Hemoglobin 11.9L, Hematocrit 34.5L , Mean Corpuscular Volume 90, Mean Corpuscular Hemoglobin 31.0, Mean Corpuscular Hemoglobin Concent 34.6, Red Cell Distribution Width 13.1, Platelet Count 350, Mean Platelet Volume 6.0L, Neutrophils (%) (Auto) 61.1, Lymphocytes ( %) (Auto) 22.1, Monocytes (%) (Auto) 9.6, Eosinophils (%) (Auto) 5.7H, Basophils (%) (Auto) 1.5, Sodium Level 138, Potassium Level 3.6, Chloride Level 102, Carbon Dioxide Level 28, Anion Gap 8, Blood Urea Nitrogen 10, Creatinine 0.6, Estimat Glomerular Filtration Rate , Glucose Level 138H, Calcium Level 9.8 , Phosphorus Level 2.8, Magnesium Level 1.7L, Total Bilirubin 0.2, Aspartate Amino Transf (AST/SGOT) 21, Alanine Aminotransferase (ALT/SGPT) 34, Alkaline Phosphatase 83, Total Protein 7.0, Albumin 2.6L, Globulin 4.4, Albumin/Globulin Ratio 0.6L Height (Feet): 5 Height (Inches): 3.00 Weight (Pounds): 130 Objective Thin woman NCAT (+) trach coarse BS RR soft ND NT, (+) GT no edema HUMBERTO LOU Sep 15, 2017 17:07
[2017-09-15 20:00] VITALS: BP 111/62
[2017-09-16] VITALS: BP 116/68
[2017-09-16 04:00] VITALS: BP 114/72
[2017-09-16] MEDS: Metoclopramide 10mg/10ml Liq GT SCH ×3 (05:21→20:57)
[2017-09-16 07:26] LABS: ALANINE AMINOTRANSFERASE 32 U/L (12-78); ALBUMIN 2.7 G/DL (3.4-5.0); ALBUMIN/GLOBULIN RATIO 0.6 (1.0-2.7); ALKALINE PHOSPHATASE 86 U/L (46-116); ANION GAP 5 mmol/L (5-15); ASPARTATE AMINO TRANSFERASE 23 U/L (15-37); BILIRUBIN,TOTAL 0.2 MG/DL (0.2-1.0); BLOOD UREA NITROGEN 12 mg/dL (7-18); CALCIUM 9.5 MG/DL (8.5-10.1); CARBON DIOXIDE 30 MMOL/L (21-32); CHLORIDE 101 MMOL/L (98-107); CREATININE 0.7 MG/DL (0.55-1.30); POTASSIUM 4.1 MMOL/L (3.5-5.1); SODIUM 136 MMOL/L (136-145)
[2017-09-16 07:29] LABS: BASOPHILS % (AUTO) 0.9 % (0.0-2.0); EOSINOPHILS % (AUTO) 2.5 % (0.0-3.0); HEMATOCRIT 34.9 % (37.0-47.0); HEMOGLOBIN 12.1 G/DL (12.0-16.0); LYMPHOCYTES % (AUTO) 12.4 % (20.0-45.0); MEAN CORPUSCULAR VOLUME 90 FL (80-99); MONOCYTES % (AUTO) 6.8 % (1.0-10.0); NEUTROPHILS % (AUTO) 77.4 % (45.0-75.0); PLATELET COUNT 350 K/UL (150-450); RED BLOOD COUNT 3.88 M/UL (4.20-5.40)
[2017-09-16 08:00] VITALS: BP 102/66
[2017-09-16] MEDS: Docusate 100mg/10ml Liq GT SCH ×2 (09:28→17:04)
[2017-09-16] MEDS: Pantoprazole Inj IVP SCH (09:28)
[2017-09-16] MEDS: Heparin 5000 units/ml inj SUBQ SCH ×2 (09:30→20:49)
--- NOTE | 2017-09-16 10:56 | General Progress Note ---
Assessment/Plan Assessment/Plan 1. Nausea or vomiting, x1 episode. --> The patient has been seen by GI Service. Further recommendations to follow. --> Symptomatic treatment with low-dose Reglan as well as Zofran and continue G- tube feeds per dietary recommendations. 2. Status post tracheostomy. Continue to monitor. 3. CVA history. Neurology has been consulted. 4. Hyponatremia. 5. Leukocytosis, potentially secondary to reactive process. 6. Thrombocytosis, potentially secondary to reactive process. Continue to closely monitor. --> downtrended from yesterday and improved. Subjective Date patient seen: Sep 15, 2017 Constitutional: Denies: no symptoms, chills, diaphoresis, fever, malaise, weakness, other HEENT: Denies: no symptoms, eye pain, blurred vision, tearing, double vision, ear pain, ear discharge, nose pain, nose congestion, throat pain, throat swelling, mouth pain, mouth swelling, other Cardiovascular: Denies: no symptoms, chest pain, edema, irregular heart rate, lightheadedness, palpitations, syncope, other Respiratory: Denies: no symptoms, cough, orthopnea, shortness of breath, SOB with excertion, SOB at rest, sputum, stridor, wheezing, other Gastrointestinal/Abdominal: Denies: no symptoms, abdomen distended, abdominal pain, black stools, tarry stools, blood in stool, constipated, diarrhea, difficulty swallowing, nausea, poor appetite, poor fluid intake, rectal bleeding , vomiting, other Genitourinary: Denies: no symptoms, burning, discharge, frequency, flank pain, hematuria, incontinence, pain, urgency, other Allergies: Coded Allergies: SULFAMETHOXAZOLE (Verified Allergy, Unknown, 07/13/17) TRIMETHOPRIM (Verified Allergy, Unknown, 07/13/17) Subjective On Gtube feedings. H/H stable. No acute events. Objective Last 24 Hour Vital Signs Date Time Temp Pulse Resp B/P (MAP) Pulse Ox O2 Delivery O2 Flow Rate FiO2 09/16/17 08:00 98.4 104 18 102/66 97 98.4 09/16/17 07:16 116 20 T-piece 10.0 35 09/16/17 07:16 T-piece 10.0 35 09/16/17 07:16 96 T-piece 8.0 35 09/16/17 04:00 98.1 90 18 114/72 100 Trach Collar 10.0 35 98.1 09/16/17 01:11 T-piece 10.0 35 09/16/17 01:11 98 T-piece 10.0 35 09/16/17 00:00 98.4 91 18 116/68 100 Trach Collar 10.0 35 98.4 09/15/17 22:08 97.3 09/15/17 21:38 97.3 09/15/17 20:04 Room Air 10.0 35 09/15/17 20:04 99 Room Air 10.0 35 09/15/17 20:03 90 20 Room Air 10.0 35 09/15/17 20:00 98.2 90 20 111/62 100 Trach Collar 10.0 35 98.2 09/15/17 16:00 97.3 92 20 117/74 99 Room Air 97.3 09/15/17 12:59 T-piece 8.0 35 09/15/17 12:58 97 T-piece 8.0 35 09/15/17 12:14 98.2 89 18 110/61 95 Trach Collar 98.2 Intake and Output 09/15/17 09/16/17 19:00 07:00 Intake Total 505 ml 900 ml Output Total 500 ml 500 ml Balance 5 ml 400 ml Free Water 120 ml Tube Feeding 505 ml 780 ml Output Urine Total 500 ml 500 ml # Voids 4 # Bowel Movements 2 1 Laboratory Tests 09/16/17 06:00: White Blood Count 11.0#H, Red Blood Count 3.88L, Hemoglobin 12.1, Hematocrit 34.9L, Mean Corpuscular Volume 90, Mean Corpuscular Hemoglobin 31.3H, Mean Corpuscular Hemoglobin Concent 34.8, Red Cell Distribution Width 13.0, Platelet Count 350, Mean Platelet Volume 6.3L, Neutrophils (%) (Auto) 77.4H, Lymphocytes (%) (Auto) 12.4L, Monocytes (%) (Auto) 6.8, Eosinophils (%) (Auto) 2.5, Basophils (%) (Auto) 0.9, Sodium Level 136, Potassium Level 4.1, Chloride Level 101, Carbon Dioxide Level 30, Anion Gap 5, Blood Urea Nitrogen 12, Creatinine 0.7, Estimat Glomerular Filtration Rate , Glucose Level 141H, Calcium Level 9.5 , Phosphorus Level 3.0, Magnesium Level 1.9, Total Bilirubin 0.2, Aspartate Amino Transf (AST/SGOT) 23, Alanine Aminotransferase (ALT/SGPT) 32, Alkaline Phosphatase 86, Total Protein 7.1, Albumin 2.7L, Globulin 4.4, Albumin/Globulin Ratio 0.6L Height (Feet): 5 Height (Inches): 3.00 Weight (Pounds): 130 General Appearance: confused Respiratory/Chest: decreased breath sounds Abdomen: non tender, soft Nader Landis Sep 16, 2017 10:56
[2017-09-16 12:00] VITALS: BP 127/74
--- NOTE | 2017-09-16 12:27 | GI Progress Note ---
Assessment/Plan Problems: (1) G tube feedings ICD Codes: Z93.1 - Gastrostomy status SNOMED: 872888529, 133222530 (2) Vomiting ICD Codes: R11.10 - Vomiting, unspecified SNOMED: 795487920 Qualifiers: Qualified Codes: R11.10 - Vomiting, unspecified Status: stable Status Narrative Discussed with Dr. Jhaveri. Assessment/Plan symptomatic treatment reglan zofran prn GTFs per dietary electrolyte correction bowel regime ppi fu labs Subjective Gastrointestinal/Abdominal: Reports: no symptoms Objective Last 24 Hour Vital Signs Date Time Temp Pulse Resp B/P (MAP) Pulse Ox O2 Delivery O2 Flow Rate FiO2 09/16/17 12:00 98.8 108 19 127/74 98 98.8 09/16/17 11:42 T-piece 10.0 35 09/16/17 11:42 95 T-piece 8.0 35 09/16/17 08:00 98.4 104 18 102/66 97 98.4 09/16/17 07:16 116 20 T-piece 10.0 35 09/16/17 07:16 T-piece 10.0 35 09/16/17 07:16 96 T-piece 8.0 35 09/16/17 04:00 98.1 90 18 114/72 100 Trach Collar 10.0 35 98.1 09/16/17 01:11 T-piece 10.0 35 09/16/17 01:11 98 T-piece 10.0 35 09/16/17 00:00 98.4 91 18 116/68 100 Trach Collar 10.0 35 98.4 09/15/17 22:08 97.3 09/15/17 21:38 97.3 09/15/17 20:04 Room Air 10.0 35 09/15/17 20:04 99 Room Air 10.0 35 09/15/17 20:03 90 20 Room Air 10.0 35 09/15/17 20:00 98.2 90 20 111/62 100 Trach Collar 10.0 35 98.2 09/15/17 16:00 97.3 92 20 117/74 99 Room Air 97.3 09/15/17 12:59 T-piece 8.0 35 09/15/17 12:58 97 T-piece 8.0 35 Intake and Output 09/15/17 09/16/17 19:00 07:00 Intake Total 505 ml 965 ml Output Total 500 ml 500 ml Balance 5 ml 465 ml Free Water 120 ml Tube Feeding 505 ml 845 ml Output Urine Total 500 ml 500 ml # Voids 4 # Bowel Movements 2 1 Laboratory Tests Test 09/16/17 06:00 White Blood Count 11.0 K/UL (4.8-10.8) #H Red Blood Count 3.88 M/UL (4.20-5.40) L Hemoglobin 12.1 G/DL (12.0-16.0) Hematocrit 34.9 % (37.0-47.0) L Mean Corpuscular Volume 90 FL (80-99) Mean Corpuscular Hemoglobin 31.3 PG (27.0-31.0) H Mean Corpuscular Hemoglobin Concent 34.8 G/DL (32.0-36.0) Red Cell Distribution Width 13.0 % (11.6-14.8) Platelet Count 350 K/UL (150-450) Mean Platelet Volume 6.3 FL (6.5-10.1) L Neutrophils (%) (Auto) 77.4 % (45.0-75.0) H Lymphocytes (%) (Auto) 12.4 % (20.0-45.0) L Monocytes (%) (Auto) 6.8 % (1.0-10.0) Eosinophils (%) (Auto) 2.5 % (0.0-3.0) Basophils (%) (Auto) 0.9 % (0.0-2.0) Sodium Level 136 MMOL/L (136-145) Potassium Level 4.1 MMOL/L (3.5-5.1) Chloride Level 101 MMOL/L (98-107) Carbon Dioxide Level 30 MMOL/L (21-32) Anion Gap 5 mmol/L (5-15) Blood Urea Nitrogen 12 mg/dL (7-18) Creatinine 0.7 MG/DL (0.55-1.30) Estimat Glomerular Filtration Rate mL/min (>60) Glucose Level 141 MG/DL (74-106) H Calcium Level 9.5 MG/DL (8.5-10.1) Phosphorus Level 3.0 MG/DL (2.5-4.9) Magnesium Level 1.9 MG/DL (1.8-2.4) Total Bilirubin 0.2 MG/DL (0.2-1.0) Aspartate Amino Transf (AST/SGOT) 23 U/L (15-37) Alanine Aminotransferase (ALT/SGPT) 32 U/L (12-78) Alkaline Phosphatase 86 U/L (46-116) Total Protein 7.1 G/DL (6.4-8.2) Albumin 2.7 G/DL (3.4-5.0) L Globulin 4.4 g/dL Albumin/Globulin Ratio 0.6 (1.0-2.7) L Height (Feet): 5 Height (Inches): 3.00 Weight (Pounds): 130 General Appearance: WD/WN, no apparent distress, alert Cardiovascular: normal rate Respiratory/Chest: normal breath sounds, no respiratory distress Abdominal Exam: normal bowel sounds, non tender, soft, GT site - c/d/i Extremities: non-tender Tiffanie Simeon N.P. Sep 16, 2017 12:27
--- NOTE | 2017-09-16 13:54 | General Progress Note ---
Assessment/Plan Problem List: (1) Status post CVA ICD Codes: Z86.73 - Personal history of transient ischemic attack (TIA), and cerebral infarction without residual deficits SNOMED: 618693027 (2) Vomiting ICD Codes: R11.10 - Vomiting, unspecified SNOMED: 575798500 Qualifiers: Qualified Codes: R11.10 - Vomiting, unspecified (3) CVA (cerebral vascular accident) ICD Codes: I63.9 - Cerebral infarction, unspecified SNOMED: 257300506 (4) Tracheostomy in place ICD Codes: Z93.0 - Tracheostomy status SNOMED: 591251281 (5) G tube feedings ICD Codes: Z93.1 - Gastrostomy status SNOMED: 694368949, 541218095 (6) Aspiration pneumonia ICD Codes: J69.0 - Pneumonitis due to inhalation of food and vomit SNOMED: 315385748 Status: unchanged Assessment/Plan vetn abx bp bs control cbc bmp am Subjective Constitutional: Reports: weakness Allergies: Coded Allergies: SULFAMETHOXAZOLE (Verified Allergy, Unknown, 07/13/17) TRIMETHOPRIM (Verified Allergy, Unknown, 07/13/17) All Systems: reviewed and negative except above Subjective trach vent asleep Objective Last 24 Hour Vital Signs Date Time Temp Pulse Resp B/P (MAP) Pulse Ox O2 Delivery O2 Flow Rate FiO2 09/16/17 12:00 98.8 108 19 127/74 98 98.8 09/16/17 11:42 T-piece 10.0 35 09/16/17 11:42 95 T-piece 8.0 35 09/16/17 08:00 98.4 104 18 102/66 97 98.4 09/16/17 07:16 116 20 T-piece 10.0 35 09/16/17 07:16 T-piece 10.0 35 09/16/17 07:16 96 T-piece 8.0 35 09/16/17 04:00 98.1 90 18 114/72 100 Trach Collar 10.0 35 98.1 09/16/17 01:11 T-piece 10.0 35 09/16/17 01:11 98 T-piece 10.0 35 09/16/17 00:00 98.4 91 18 116/68 100 Trach Collar 10.0 35 98.4 09/15/17 22:08 97.3 09/15/17 21:38 97.3 09/15/17 20:04 Room Air 10.0 35 09/15/17 20:04 99 Room Air 10.0 35 09/15/17 20:03 90 20 Room Air 10.0 35 09/15/17 20:00 98.2 90 20 111/62 100 Trach Collar 10.0 35 98.2 09/15/17 16:00 97.3 92 20 117/74 99 Room Air 97.3 Intake and Output 09/15/17 09/16/17 19:00 07:00 Intake Total 505 ml 965 ml Output Total 500 ml 500 ml Balance 5 ml 465 ml Free Water 120 ml Tube Feeding 505 ml 845 ml Output Urine Total 500 ml 500 ml # Voids 4 # Bowel Movements 2 1 Laboratory Tests 09/16/17 06:00: White Blood Count 11.0#H, Red Blood Count 3.88L, Hemoglobin 12.1, Hematocrit 34.9L, Mean Corpuscular Volume 90, Mean Corpuscular Hemoglobin 31.3H, Mean Corpuscular Hemoglobin Concent 34.8, Red Cell Distribution Width 13.0, Platelet Count 350, Mean Platelet Volume 6.3L, Neutrophils (%) (Auto) 77.4H, Lymphocytes (%) (Auto) 12.4L, Monocytes (%) (Auto) 6.8, Eosinophils (%) (Auto) 2.5, Basophils (%) (Auto) 0.9, Sodium Level 136, Potassium Level 4.1, Chloride Level 101, Carbon Dioxide Level 30, Anion Gap 5, Blood Urea Nitrogen 12, Creatinine 0.7, Estimat Glomerular Filtration Rate , Glucose Level 141H, Calcium Level 9.5 , Phosphorus Level 3.0, Magnesium Level 1.9, Total Bilirubin 0.2, Aspartate Amino Transf (AST/SGOT) 23, Alanine Aminotransferase (ALT/SGPT) 32, Alkaline Phosphatase 86, Total Protein 7.1, Albumin 2.7L, Globulin 4.4, Albumin/Globulin Ratio 0.6L Height (Feet): 5 Height (Inches): 3.00 Weight (Pounds): 130 General Appearance: lethargic EENT: normal ENT inspection Neck: normal alignment Cardiovascular: normal peripheral pulses, normal rate, regular rhythm Respiratory/Chest: decreased breath sounds Abdomen: normal bowel sounds, non tender, soft Extremities: normal inspection Edema: no edema noted Arm (L), no edema noted Arm (R), no edema noted Leg (L), no edema noted Leg (R), no edema noted Pedal (L), no edema noted Pedal (R), no edema noted Generalized Neurologic: motor weakness Skin: normal pigmentation, warm/dry KATIE MONTE Sep 16, 2017 13:54
--- NOTE | 2017-09-16 14:03 | Infectious Diseases Prog Note ---
Assessment/Plan Assessment/Plan ASSESSMENT: The patient is a 76-year-old female with: Leukocytosis, mostly due to acute stress, -mild, recurrent afebrile. -u/a neg -Bcx NTD No evidence of pneumonia or urinary tract infection. Chest x-ray, no acute process. Hypertension. COPD. Diabetes. History of CVA PLAN: monitor pt off of antibiotics Monitor blood culture. Monitor CBC. Monitor BMP. Subjective Allergies: Coded Allergies: SULFAMETHOXAZOLE (Verified Allergy, Unknown, 07/13/17) TRIMETHOPRIM (Verified Allergy, Unknown, 07/13/17) Subjective afebrile mild leukocytosis cx NTD Objective Vital Signs Last 24 Hour Vital Signs Date Time Temp Pulse Resp B/P (MAP) Pulse Ox O2 Delivery O2 Flow Rate FiO2 09/16/17 12:00 98.8 108 19 127/74 98 98.8 09/16/17 11:42 T-piece 10.0 35 09/16/17 11:42 95 T-piece 8.0 35 09/16/17 08:00 98.4 104 18 102/66 97 98.4 09/16/17 07:16 116 20 T-piece 10.0 35 09/16/17 07:16 T-piece 10.0 35 09/16/17 07:16 96 T-piece 8.0 35 09/16/17 04:00 98.1 90 18 114/72 100 Trach Collar 10.0 35 98.1 09/16/17 01:11 T-piece 10.0 35 09/16/17 01:11 98 T-piece 10.0 35 09/16/17 00:00 98.4 91 18 116/68 100 Trach Collar 10.0 35 98.4 09/15/17 22:08 97.3 09/15/17 21:38 97.3 09/15/17 20:04 Room Air 10.0 35 09/15/17 20:04 99 Room Air 10.0 35 09/15/17 20:03 90 20 Room Air 10.0 35 09/15/17 20:00 98.2 90 20 111/62 100 Trach Collar 10.0 35 98.2 09/15/17 16:00 97.3 92 20 117/74 99 Room Air 97.3 Height (Feet): 5 Height (Inches): 3.00 Weight (Pounds): 130 Objective General Appearance: lethargic EENT: normal ENT inspection Neck: normal alignment Cardiovascular: normal peripheral pulses, normal rate, regular rhythm Respiratory/Chest: decreased breath sounds Abdomen: normal bowel sounds, non tender, soft Extremities: normal inspection Edema: no edema noted Arm (L), no edema noted Arm (R), no edema noted Leg (L), no edema noted Leg (R), no edema noted Pedal (L), no edema noted Pedal (R), no edema noted Generalized Neurologic: motor weakness Skin: normal pigmentation, warm/dry Laboratory Tests Test 09/16/17 06:00 White Blood Count 11.0 K/UL (4.8-10.8) #H Red Blood Count 3.88 M/UL (4.20-5.40) L Hemoglobin 12.1 G/DL (12.0-16.0) Hematocrit 34.9 % (37.0-47.0) L Mean Corpuscular Volume 90 FL (80-99) Mean Corpuscular Hemoglobin 31.3 PG (27.0-31.0) H Mean Corpuscular Hemoglobin Concent 34.8 G/DL (32.0-36.0) Red Cell Distribution Width 13.0 % (11.6-14.8) Platelet Count 350 K/UL (150-450) Mean Platelet Volume 6.3 FL (6.5-10.1) L Neutrophils (%) (Auto) 77.4 % (45.0-75.0) H Lymphocytes (%) (Auto) 12.4 % (20.0-45.0) L Monocytes (%) (Auto) 6.8 % (1.0-10.0) Eosinophils (%) (Auto) 2.5 % (0.0-3.0) Basophils (%) (Auto) 0.9 % (0.0-2.0) Sodium Level 136 MMOL/L (136-145) Potassium Level 4.1 MMOL/L (3.5-5.1) Chloride Level 101 MMOL/L (98-107) Carbon Dioxide Level 30 MMOL/L (21-32) Anion Gap 5 mmol/L (5-15) Blood Urea Nitrogen 12 mg/dL (7-18) Creatinine 0.7 MG/DL (0.55-1.30) Estimat Glomerular Filtration Rate mL/min (>60) Glucose Level 141 MG/DL (74-106) H Calcium Level 9.5 MG/DL (8.5-10.1) Phosphorus Level 3.0 MG/DL (2.5-4.9) Magnesium Level 1.9 MG/DL (1.8-2.4) Total Bilirubin 0.2 MG/DL (0.2-1.0) Aspartate Amino Transf (AST/SGOT) 23 U/L (15-37) Alanine Aminotransferase (ALT/SGPT) 32 U/L (12-78) Alkaline Phosphatase 86 U/L (46-116) Total Protein 7.1 G/DL (6.4-8.2) Albumin 2.7 G/DL (3.4-5.0) L Globulin 4.4 g/dL Albumin/Globulin Ratio 0.6 (1.0-2.7) L Current Medications Medications (Trade) Dose Ordered Sig/Gavino Route PRN Reason Start Time Stop Time Status Last Admin Dose Admin Acetaminophen (Tylenol) 650 mg Q4H PRN ORAL fever 09/12/17 21:30 10/12/17 21:29 Al Hydroxide/Mg Hydroxide (Mylanta II) 30 ml Q6H PRN ORAL dyspepsia 09/12/17 21:30 10/12/17 21:29 Clotrimazole (Lotrimin) 1 applic EVERY 12 HOURS TOPIC 09/15/17 09:00 10/15/17 08:59 09/16/17 09:28 Dextrose (Dextrose 50%) STAT PRN IV Hypoglycemia 09/12/17 21:30 10/12/17 21:29 Diphenhydramine HCl (Benadryl) 25 mg Q6H PRN ORAL Itching/Pruritis 09/12/17 21:30 10/12/17 21:29 Docusate Sodium (Colace) 100 mg BID GT 09/14/17 18:00 10/14/17 17:59 09/16/17 09:28 Heparin Sodium (Porcine) (Heparin 5000 units/ml) 5,000 units EVERY 12 HOURS SUBQ 09/13/17 09:00 10/13/17 08:59 09/16/17 09:30 Metoclopramide HCl (Reglan) 5 mg Q8HR GT 09/13/17 14:00 10/13/17 17:59 09/15/17 05:20 Morphine Sulfate (Morphine Sulfate) 2 mg EVERY 4 HOURS PRN IVP severe Pain (Pain Scale 7-10) 09/12/17 21:30 09/19/17 21:29 09/15/17 21:38 Nitroglycerin (Ntg) 0.4 mg Q5M X 3 DOSES PRN SL Prn Chest Pain 09/12/17 21:30 10/12/17 21:29 Ondansetron HCl (Zofran) 4 mg Q6H PRN IVP Nausea & Vomiting 09/12/17 21:30 10/12/17 21:29 Pantoprazole (Protonix) 40 mg DAILY IVP 09/13/17 09:00 10/13/17 08:59 09/16/17 09:28 Polyethylene Glycol (Miralax) 17 gm HSPRN PRN ORAL Constipation 09/12/17 21:30 10/12/17 21:29 Temazepam (Restoril) 15 mg HSPRN PRN ORAL Insomnia 09/12/17 21:30 09/19/17 21:29 09/15/17 21:38 Marion Conway M.D. Sep 16, 2017 14:03
[2017-09-16 16:00] VITALS: BP 120/69
--- NOTE | 2017-09-16 18:00 | Pulmonology Progress Note ---
Assessment/Plan Problems: (1) Aspiration pneumonia (2) Vomiting (3) CVA (cerebral vascular accident) (4) Tracheostomy in place (5) G tube feedings (6) Status post CVA Assessment/Plan improving respiratory treatment iv abx check cultures tolerating feeding dvt prophylaxis. Subjective ROS Limited/Unobtainable: No Constitutional: Reports: no symptoms HEENT: Repors: no symptoms Respiratory: Reports: no symptoms Allergies: Coded Allergies: SULFAMETHOXAZOLE (Verified Allergy, Unknown, 07/13/17) TRIMETHOPRIM (Verified Allergy, Unknown, 07/13/17) Objective Last 24 Hour Vital Signs Date Time Temp Pulse Resp B/P (MAP) Pulse Ox O2 Delivery O2 Flow Rate FiO2 09/16/17 16:00 101.7 120 20 120/69 Room Air 101.7 09/16/17 12:00 98.8 108 19 127/74 98 98.8 09/16/17 11:42 T-piece 10.0 35 09/16/17 11:42 95 T-piece 8.0 35 09/16/17 08:00 98.4 104 18 102/66 97 98.4 09/16/17 07:16 116 20 T-piece 10.0 35 09/16/17 07:16 T-piece 10.0 35 09/16/17 07:16 96 T-piece 8.0 35 09/16/17 04:00 98.1 90 18 114/72 100 Trach Collar 10.0 35 98.1 09/16/17 01:11 T-piece 10.0 35 09/16/17 01:11 98 T-piece 10.0 35 09/16/17 00:00 98.4 91 18 116/68 100 Trach Collar 10.0 35 98.4 09/15/17 22:08 97.3 09/15/17 21:38 97.3 09/15/17 20:04 Room Air 10.0 35 09/15/17 20:04 99 Room Air 10.0 35 09/15/17 20:03 90 20 Room Air 10.0 35 09/15/17 20:00 98.2 90 20 111/62 100 Trach Collar 10.0 35 98.2 Intake and Output 09/15/17 09/16/17 19:00 07:00 Intake Total 505 ml 965 ml Output Total 500 ml 500 ml Balance 5 ml 465 ml Free Water 120 ml Tube Feeding 505 ml 845 ml Output Urine Total 500 ml 500 ml # Voids 4 # Bowel Movements 2 1 Objective General Appearance: WD/WN HEENT: normocephalic, atraumatic, trach intact Respiratory/Chest: chest wall non-tender, lungs clear Breasts: no masses Cardiovascular: normal peripheral pulses, regular rhythm Abdomen: normal bowel sounds, soft, non tender, Gtube Genitourinary: normal external genitalia Extremities: no cyanosis Skin: no lesions Laboratory Tests 09/16/17 06:00: White Blood Count 11.0#H, Red Blood Count 3.88L, Hemoglobin 12.1, Hematocrit 34.9L, Mean Corpuscular Volume 90, Mean Corpuscular Hemoglobin 31.3H, Mean Corpuscular Hemoglobin Concent 34.8, Red Cell Distribution Width 13.0, Platelet Count 350, Mean Platelet Volume 6.3L, Neutrophils (%) (Auto) 77.4H, Lymphocytes (%) (Auto) 12.4L, Monocytes (%) (Auto) 6.8, Eosinophils (%) (Auto) 2.5, Basophils (%) (Auto) 0.9, Sodium Level 136, Potassium Level 4.1, Chloride Level 101, Carbon Dioxide Level 30, Anion Gap 5, Blood Urea Nitrogen 12, Creatinine 0.7, Estimat Glomerular Filtration Rate , Glucose Level 141H, Calcium Level 9.5 , Phosphorus Level 3.0, Magnesium Level 1.9, Total Bilirubin 0.2, Aspartate Amino Transf (AST/SGOT) 23, Alanine Aminotransferase (ALT/SGPT) 32, Alkaline Phosphatase 86, Total Protein 7.1, Albumin 2.7L, Globulin 4.4, Albumin/Globulin Ratio 0.6L Current Medications Medications (Trade) Dose Ordered Sig/Gavino Route PRN Reason Start Time Stop Time Status Last Admin Dose Admin Acetaminophen (Tylenol) 650 mg Q4H PRN ORAL fever 09/12/17 21:30 10/12/17 21:29 Al Hydroxide/Mg Hydroxide (Mylanta II) 30 ml Q6H PRN ORAL dyspepsia 09/12/17 21:30 10/12/17 21:29 Clotrimazole (Lotrimin) 1 applic EVERY 12 HOURS TOPIC 09/15/17 09:00 10/15/17 08:59 09/16/17 09:28 Dextrose (Dextrose 50%) STAT PRN IV Hypoglycemia 09/12/17 21:30 10/12/17 21:29 Diphenhydramine HCl (Benadryl) 25 mg Q6H PRN ORAL Itching/Pruritis 09/12/17 21:30 10/12/17 21:29 Docusate Sodium (Colace) 100 mg BID GT 09/14/17 18:00 10/14/17 17:59 09/16/17 09:28 Heparin Sodium (Porcine) (Heparin 5000 units/ml) 5,000 units EVERY 12 HOURS SUBQ 09/13/17 09:00 10/13/17 08:59 09/16/17 09:30 Metoclopramide HCl (Reglan) 5 mg Q8HR GT 09/13/17 14:00 10/13/17 17:59 09/15/17 05:20 Morphine Sulfate (Morphine Sulfate) 2 mg EVERY 4 HOURS PRN IVP severe Pain (Pain Scale 7-10) 09/12/17 21:30 09/19/17 21:29 09/15/17 21:38 Nitroglycerin (Ntg) 0.4 mg Q5M X 3 DOSES PRN SL Prn Chest Pain 09/12/17 21:30 10/12/17 21:29 Ondansetron HCl (Zofran) 4 mg Q6H PRN IVP Nausea & Vomiting 09/12/17 21:30 10/12/17 21:29 Pantoprazole (Protonix) 40 mg DAILY IVP 09/13/17 09:00 10/13/17 08:59 09/16/17 09:28 Polyethylene Glycol (Miralax) 17 gm HSPRN PRN ORAL Constipation 09/12/17 21:30 10/12/17 21:29 Temazepam (Restoril) 15 mg HSPRN PRN ORAL Insomnia 09/12/17 21:30 09/19/17 21:29 09/15/17 21:38 JEREMY ESQUEDA Sep 16, 2017 18:00
[2017-09-16 20:00] VITALS: BP_SYST 147; BP_SYST 91; BP_DIAS 57; BP_DIAS 83
[2017-09-17] VITALS: BP 103/59
[2017-09-17 04:00] VITALS: BP 113/73
[2017-09-17] MEDS: Metoclopramide 10mg/10ml Liq GT SCH ×3 (05:04→21:31)
[2017-09-17 05:30] LABS: BILIRUBIN, URINE NEGATIVE (NEGATIVE); GLUCOSE, URINE (UA) NEGATIVE (NEGATIVE); KETONES,URINE NEGATIVE (NEGATIVE); NITRITE,URINE NEGATIVE (NEGATIVE); PH,URINE 6.5 (4.5-8.0); PROTEIN,URINE 2+ (NEGATIVE); UROBILINOGEN,URINE NORMAL MG/DL (0.0-1.0)
[2017-09-17 06:30] LABS: APPEARANCE,URINE SLIGHTLY CLOUDY; COLOR,URINE YELLOW; LEUKOCYTE ESTERASE ,URINE 2+ (NEGATIVE)
[2017-09-17 06:58] LABS: EOSINOPHILS % (AUTO) 1.6 % (0.0-3.0); HEMATOCRIT 34.7 % (37.0-47.0); HEMOGLOBIN 11.9 G/DL (12.0-16.0); LYMPHOCYTES % (AUTO) 16.3 % (20.0-45.0); MEAN CORPUSCULAR VOLUME 90 FL (80-99); MONOCYTES % (AUTO) 8.2 % (1.0-10.0); NEUTROPHILS % (AUTO) 72.8 % (45.0-75.0); PLATELET COUNT 300 K/UL (150-450); RED BLOOD COUNT 3.84 M/UL (4.20-5.40); RED CELL DISTRIBUTION WIDTH 13.3 % (11.6-14.8)
[2017-09-17 07:11] LABS: ANION GAP 8 mmol/L (5-15); BLOOD UREA NITROGEN 17 mg/dL (7-18); CARBON DIOXIDE 30 MMOL/L (21-32); CHLORIDE 100 MMOL/L (98-107); CREATININE 0.8 MG/DL (0.55-1.30); POTASSIUM 3.9 MMOL/L (3.5-5.1); SODIUM 138 MMOL/L (136-145)
[2017-09-17 08:00] VITALS: BP 116/69
[2017-09-17] MEDS: Pantoprazole Inj IVP SCH (08:31)
[2017-09-17] MEDS: Docusate 100mg/10ml Liq GT SCH ×2 (08:33→17:26)
[2017-09-17] MEDS: Heparin 5000 units/ml inj SUBQ SCH ×2 (08:33→21:30)
--- NOTE | 2017-09-17 10:05 | Diagnostic Imaging Report ---
Indication: Abnormal chest sounds Technique: One view of the chest Comparison: 09/12/2017 Findings: Patient is rotated to the right. There is a tracheostomy. There is equivocal minimal interstitial congestion. Heart size is normal. The aorta is tortuous Impression: Very questionable minimal interstitial congestion No acute process otherwise. This agrees with the preliminary interpretation provided overnight by [facility] teleradiology service.
[2017-09-17 11:41] VITALS: BP 101/55
--- NOTE | 2017-09-17 12:39 | General Progress Note ---
Assessment/Plan Assessment/Plan 1. Nausea or vomiting, x1 episode. --> The patient has been seen by GI Service. Further recommendations to follow. --> Symptomatic treatment with low-dose Reglan as well as Zofran and continue G- tube feeds per dietary recommendations. 2. Status post tracheostomy. Continue to monitor. 3. CVA history. Neurology has been consulted. 4. Hyponatremia. 5. Leukocytosis, potentially secondary to reactive process. 6. Thrombocytosis, potentially secondary to reactive process. Continue to closely monitor. --> downtrended from yesterday and improved. --> Platelets now WNL Subjective Date patient seen: Sep 16, 2017 Constitutional: Denies: no symptoms, chills, diaphoresis, fever, malaise, weakness, other HEENT: Denies: no symptoms, eye pain, blurred vision, tearing, double vision, ear pain, ear discharge, nose pain, nose congestion, throat pain, throat swelling, mouth pain, mouth swelling, other Cardiovascular: Denies: no symptoms, chest pain, edema, irregular heart rate, lightheadedness, palpitations, syncope, other Respiratory: Denies: no symptoms, cough, orthopnea, shortness of breath, SOB with excertion, SOB at rest, sputum, stridor, wheezing, other Gastrointestinal/Abdominal: Denies: no symptoms, abdomen distended, abdominal pain, black stools, tarry stools, blood in stool, constipated, diarrhea, difficulty swallowing, nausea, poor appetite, poor fluid intake, rectal bleeding , vomiting, other Genitourinary: Denies: no symptoms, burning, discharge, frequency, flank pain, hematuria, incontinence, pain, urgency, other Neurologic/Psychiatric: Denies: no symptoms, anxiety, depressed, emotional problems, headache, numbness, paresthesia, pre-existing deficit, seizure, tingling, tremors, weakness, other Hematologic/Lymphatic: Reports: anemia Allergies: Coded Allergies: SULFAMETHOXAZOLE (Verified Allergy, Unknown, 07/13/17) TRIMETHOPRIM (Verified Allergy, Unknown, 07/13/17) Subjective On Gtube feedings. H/H stable. On vent. No fever. Objective Last 24 Hour Vital Signs Date Time Temp Pulse Resp B/P (MAP) Pulse Ox O2 Delivery O2 Flow Rate FiO2 09/17/17 11:41 98.2 96 20 101/55 96 98.2 09/17/17 08:20 101 20 T-piece 10.0 35 09/17/17 08:20 T-piece 10.0 35 09/17/17 08:20 98 T-piece 8.0 35 09/17/17 08:00 98.2 107 20 116/69 95 98.2 09/17/17 04:49 98.6 09/17/17 04:45 98.6 98.6 09/17/17 04:00 100.7 105 19 113/73 97 100.7 09/17/17 03:50 100.7 09/17/17 00:00 99.0 111 19 103/59 95 99.0 09/16/17 23:57 98 T-piece 8.0 35 09/16/17 23:57 T-piece 10.0 35 09/16/17 20:00 99.3 113 19 147/83 96 99.3 09/16/17 19:19 T-piece 10.0 35 09/16/17 19:19 95 T-piece 8.0 35 09/16/17 19:19 109 20 T-piece 10.0 35 09/16/17 18:15 100.6 09/16/17 16:00 101.7 120 20 120/69 Room Air 101.7 Intake and Output 09/16/17 09/17/17 19:00 07:00 Intake Total 915 ml 780 ml Output Total 375 ml 275 ml Balance 540 ml 505 ml Free Water 200 ml Tube Feeding 715 ml 780 ml Output Urine Total 375 ml 275 ml # Bowel Movements 3 3 Laboratory Tests 09/17/17 03:45: Urine Color Yellow, Urine Appearance Slightly cloudy, Urine pH 6.5, Urine Specific Clements 1.010, Urine Protein 2+H, Urine Glucose (UA) Negative, Urine Ketones Negative, Urine Occult Blood 5+H, Urine Nitrite Negative, Urine Bilirubin Negative, Urine Urobilinogen Normal, Urine Leukocyte Esterase 2+H, Urine RBC TntcH, Urine WBC 15-20H, Urine Squamous Epithelial Cells Few, Urine Bacteria Few 09/17/17 05:35: White Blood Count 12.0H, Red Blood Count 3.84L, Hemoglobin 11.9L, Hematocrit 34.7L, Mean Corpuscular Volume 90, Mean Corpuscular Hemoglobin 31.0, Mean Corpuscular Hemoglobin Concent 34.3, Red Cell Distribution Width 13.3, Platelet Count 300, Mean Platelet Volume 6.7, Neutrophils (%) (Auto) 72.8, Lymphocytes (% ) (Auto) 16.3L, Monocytes (%) (Auto) 8.2, Eosinophils (%) (Auto) 1.6, Basophils (%) (Auto) 1.0, Sodium Level 138, Potassium Level 3.9, Chloride Level 100, Carbon Dioxide Level 30, Anion Gap 8, Blood Urea Nitrogen 17, Creatinine 0.8, Estimat Glomerular Filtration Rate , Glucose Level 150H, Calcium Level 10.0 Height (Feet): 5 Height (Inches): 3.00 Weight (Pounds): 130 General Appearance: no apparent distress Respiratory/Chest: lungs clear Abdomen: soft Nader Landis Sep 17, 2017 12:39
--- NOTE | 2017-09-17 12:56 | Infectious Diseases Prog Note ---
Assessment/Plan Assessment/Plan ASSESSMENT: The patient is a 76-year-old female with: Fever/leukocytosis (recurrent)- possible due to UTI. r/o bacteremia; r/o DVT -repeat u/a 09/16 wbc 15-20; ucx p -Bcx p -CXR: Very questionable minimal interstitial congestion. No acute process otherwise. Previous Leukocytosis, mostly due to acute stress -u/a neg -Bcx NTD No evidence of pneumonia or urinary tract infection. Chest x-ray, no acute process. Hypertension. COPD. Diabetes. History of CVA PLAN: -Start empiric IV Cefepime pending cultures Monitor blood culture. Monitor CBC. Monitor BMP. V.duplex BLE Subjective Allergies: Coded Allergies: SULFAMETHOXAZOLE (Verified Allergy, Unknown, 07/13/17) TRIMETHOPRIM (Verified Allergy, Unknown, 07/13/17) Subjective febrile Tm 101.7 yesterday, today Tm 100.7 WBC 12 u/a with pyuria CXR no acute disease. Objective Vital Signs Last 24 Hour Vital Signs Date Time Temp Pulse Resp B/P (MAP) Pulse Ox O2 Delivery O2 Flow Rate FiO2 09/17/17 11:41 98.2 96 20 101/55 96 98.2 09/17/17 08:20 101 20 T-piece 10.0 35 09/17/17 08:20 T-piece 10.0 35 09/17/17 08:20 98 T-piece 8.0 35 09/17/17 08:00 98.2 107 20 116/69 95 98.2 09/17/17 04:49 98.6 09/17/17 04:45 98.6 98.6 09/17/17 04:00 100.7 105 19 113/73 97 100.7 09/17/17 03:50 100.7 09/17/17 00:00 99.0 111 19 103/59 95 99.0 09/16/17 23:57 98 T-piece 8.0 35 09/16/17 23:57 T-piece 10.0 35 09/16/17 20:00 99.3 113 19 147/83 96 99.3 09/16/17 19:19 T-piece 10.0 35 09/16/17 19:19 95 T-piece 8.0 35 09/16/17 19:19 109 20 T-piece 10.0 35 09/16/17 18:15 100.6 09/16/17 16:00 101.7 120 20 120/69 Room Air 101.7 Height (Feet): 5 Height (Inches): 3.00 Weight (Pounds): 130 Objective General Appearance: lethargic EENT: normal ENT inspection Neck: normal alignment Cardiovascular: normal peripheral pulses, normal rate, regular rhythm Respiratory/Chest: decreased breath sounds Abdomen: normal bowel sounds, non tender, soft Extremities: normal inspection Edema: no edema noted Arm (L), no edema noted Arm (R), no edema noted Leg (L), no edema noted Leg (R), no edema noted Pedal (L), no edema noted Pedal (R), no edema noted Generalized Neurologic: motor weakness Skin: normal pigmentation, warm/dry Laboratory Tests Test 09/17/17 03:45 09/17/17 05:35 Urine Color Yellow Urine Appearance Slightly cloudy Urine pH 6.5 (4.5-8.0) Urine Specific [place] 1.010 (1.005-1.035) Urine Protein 2+ (NEGATIVE) H Urine Glucose (UA) Negative (NEGATIVE) Urine Ketones Negative (NEGATIVE) Urine Occult Blood 5+ (NEGATIVE) H Urine Nitrite Negative (NEGATIVE) Urine Bilirubin Negative (NEGATIVE) Urine Urobilinogen Normal MG/DL (0.0-1.0) Urine Leukocyte Esterase 2+ (NEGATIVE) H Urine RBC Tntc /HPF (0 - 2) H Urine WBC 15-20 /HPF (0 - 2) H Urine Squamous Epithelial Cells Few /LPF (NONE/OCC) Urine Bacteria Few /HPF (NONE) White Blood Count 12.0 K/UL (4.8-10.8) H Red Blood Count 3.84 M/UL (4.20-5.40) L Hemoglobin 11.9 G/DL (12.0-16.0) L Hematocrit 34.7 % (37.0-47.0) L Mean Corpuscular Volume 90 FL (80-99) Mean Corpuscular Hemoglobin 31.0 PG (27.0-31.0) Mean Corpuscular Hemoglobin Concent 34.3 G/DL (32.0-36.0) Red Cell Distribution Width 13.3 % (11.6-14.8) Platelet Count 300 K/UL (150-450) Mean Platelet Volume 6.7 FL (6.5-10.1) Neutrophils (%) (Auto) 72.8 % (45.0-75.0) Lymphocytes (%) (Auto) 16.3 % (20.0-45.0) L Monocytes (%) (Auto) 8.2 % (1.0-10.0) Eosinophils (%) (Auto) 1.6 % (0.0-3.0) Basophils (%) (Auto) 1.0 % (0.0-2.0) Sodium Level 138 MMOL/L (136-145) Potassium Level 3.9 MMOL/L (3.5-5.1) Chloride Level 100 MMOL/L (98-107) Carbon Dioxide Level 30 MMOL/L (21-32) Anion Gap 8 mmol/L (5-15) Blood Urea Nitrogen 17 mg/dL (7-18) Creatinine 0.8 MG/DL (0.55-1.30) Estimat Glomerular Filtration Rate mL/min (>60) Glucose Level 150 MG/DL (74-106) H Calcium Level 10.0 MG/DL (8.5-10.1) Current Medications Medications (Trade) Dose Ordered Sig/Gavino Route PRN Reason Start Time Stop Time Status Last Admin Dose Admin Acetaminophen (Tylenol) 650 mg Q4H PRN ORAL fever 09/12/17 21:30 10/12/17 21:29 09/17/17 03:50 Al Hydroxide/Mg Hydroxide (Mylanta II) 30 ml Q6H PRN ORAL dyspepsia 09/12/17 21:30 10/12/17 21:29 Clotrimazole (Lotrimin) 1 applic EVERY 12 HOURS TOPIC 09/15/17 09:00 10/15/17 08:59 09/17/17 08:34 Dextrose (Dextrose 50%) STAT PRN IV Hypoglycemia 09/12/17 21:30 10/12/17 21:29 Diphenhydramine HCl (Benadryl) 25 mg Q6H PRN ORAL Itching/Pruritis 09/12/17 21:30 10/12/17 21:29 Docusate Sodium (Colace) 100 mg BID GT 09/14/17 18:00 10/14/17 17:59 09/17/17 08:33 Heparin Sodium (Porcine) (Heparin 5000 units/ml) 5,000 units EVERY 12 HOURS SUBQ 09/13/17 09:00 10/13/17 08:59 09/17/17 08:33 Metoclopramide HCl (Reglan) 5 mg Q8HR GT 09/13/17 14:00 10/13/17 17:59 09/17/17 05:04 Morphine Sulfate (Morphine Sulfate) 2 mg EVERY 4 HOURS PRN IVP severe Pain (Pain Scale 7-10) 09/12/17 21:30 09/19/17 21:29 09/15/17 21:38 Nitroglycerin (Ntg) 0.4 mg Q5M X 3 DOSES PRN SL Prn Chest Pain 09/12/17 21:30 10/12/17 21:29 Ondansetron HCl (Zofran) 4 mg Q6H PRN IVP Nausea & Vomiting 09/12/17 21:30 10/12/17 21:29 Pantoprazole (Protonix) 40 mg DAILY IVP 09/13/17 09:00 10/13/17 08:59 09/17/17 08:31 Polyethylene Glycol (Miralax) 17 gm HSPRN PRN ORAL Constipation 09/12/17 21:30 10/12/17 21:29 Temazepam (Restoril) 15 mg HSPRN PRN ORAL Insomnia 09/12/17 21:30 09/19/17 21:29 09/15/17 21:38 Marion Conway M.D. Sep 17, 2017 12:56
--- NOTE | 2017-09-17 14:51 | General Progress Note ---
Assessment/Plan Problem List: (1) Status post CVA ICD Codes: Z86.73 - Personal history of transient ischemic attack (TIA), and cerebral infarction without residual deficits SNOMED: 084511647 (2) Vomiting ICD Codes: R11.10 - Vomiting, unspecified SNOMED: 558723300 Qualifiers: Qualified Codes: R11.10 - Vomiting, unspecified (3) CVA (cerebral vascular accident) ICD Codes: I63.9 - Cerebral infarction, unspecified SNOMED: 842507780 (4) Tracheostomy in place ICD Codes: Z93.0 - Tracheostomy status SNOMED: 560097197 (5) G tube feedings ICD Codes: Z93.1 - Gastrostomy status SNOMED: 889866921, 652791016 (6) Aspiration pneumonia ICD Codes: J69.0 - Pneumonitis due to inhalation of food and vomit SNOMED: 219336574 Status: unchanged Assessment/Plan vetn abx bp bs control cbc bmp am ltach eval Subjective Constitutional: Reports: weakness Allergies: Coded Allergies: SULFAMETHOXAZOLE (Verified Allergy, Unknown, 07/13/17) TRIMETHOPRIM (Verified Allergy, Unknown, 07/13/17) All Systems: reviewed and negative except above Subjective trach vent asleep Objective Last 24 Hour Vital Signs Date Time Temp Pulse Resp B/P (MAP) Pulse Ox O2 Delivery O2 Flow Rate FiO2 09/17/17 11:41 98.2 96 20 101/55 96 98.2 09/17/17 08:20 101 20 T-piece 10.0 35 09/17/17 08:20 T-piece 10.0 35 09/17/17 08:20 98 T-piece 8.0 35 09/17/17 08:00 98.2 107 20 116/69 95 98.2 09/17/17 04:49 98.6 09/17/17 04:45 98.6 98.6 09/17/17 04:00 100.7 105 19 113/73 97 100.7 09/17/17 03:50 100.7 09/17/17 00:00 99.0 111 19 103/59 95 99.0 09/16/17 23:57 98 T-piece 8.0 35 09/16/17 23:57 T-piece 10.0 35 09/16/17 20:00 99.3 113 19 147/83 96 99.3 09/16/17 19:19 T-piece 10.0 35 09/16/17 19:19 95 T-piece 8.0 35 09/16/17 19:19 109 20 T-piece 10.0 35 09/16/17 18:15 100.6 09/16/17 16:00 101.7 120 20 120/69 Room Air 101.7 Intake and Output 09/16/17 09/17/17 19:00 07:00 Intake Total 915 ml 895 ml Output Total 375 ml 275 ml Balance 540 ml 620 ml Free Water 200 ml 50 ml Tube Feeding 715 ml 845 ml Output Urine Total 375 ml 275 ml # Bowel Movements 3 3 Laboratory Tests 09/17/17 03:45: Urine Color Yellow, Urine Appearance Slightly cloudy, Urine pH 6.5, Urine Specific [place] 1.010, Urine Protein 2+H, Urine Glucose (UA) Negative, Urine Ketones Negative, Urine Occult Blood 5+H, Urine Nitrite Negative, Urine Bilirubin Negative, Urine Urobilinogen Normal, Urine Leukocyte Esterase 2+H, Urine RBC TntcH, Urine WBC 15-20H, Urine Squamous Epithelial Cells Few, Urine Bacteria Few 09/17/17 05:35: White Blood Count 12.0H, Red Blood Count 3.84L, Hemoglobin 11.9L, Hematocrit 34.7L, Mean Corpuscular Volume 90, Mean Corpuscular Hemoglobin 31.0, Mean Corpuscular Hemoglobin Concent 34.3, Red Cell Distribution Width 13.3, Platelet Count 300, Mean Platelet Volume 6.7, Neutrophils (%) (Auto) 72.8, Lymphocytes (% ) (Auto) 16.3L, Monocytes (%) (Auto) 8.2, Eosinophils (%) (Auto) 1.6, Basophils (%) (Auto) 1.0, Sodium Level 138, Potassium Level 3.9, Chloride Level 100, Carbon Dioxide Level 30, Anion Gap 8, Blood Urea Nitrogen 17, Creatinine 0.8, Estimat Glomerular Filtration Rate , Glucose Level 150H, Calcium Level 10.0 Height (Feet): 5 Height (Inches): 3.00 Weight (Pounds): 130 General Appearance: lethargic EENT: normal ENT inspection Neck: normal alignment Cardiovascular: normal peripheral pulses, normal rate, regular rhythm Respiratory/Chest: decreased breath sounds Abdomen: normal bowel sounds, non tender, soft Extremities: normal inspection Edema: no edema noted Arm (L), no edema noted Arm (R), no edema noted Leg (L), no edema noted Leg (R), no edema noted Pedal (L), no edema noted Pedal (R), no edema noted Generalized Neurologic: motor weakness Skin: normal pigmentation, warm/dry KATIE MONTE Sep 17, 2017 14:51
[2017-09-17] MEDS ORDERED: Cefepime HCl 1 GM in D5W 55 ML IVPB SCH (15:00)
[2017-09-17] MEDS: Cefepime HCl 1 GM in NS 55 ML IVPB SCH (15:15)
[2017-09-17 16:00] VITALS: BP 114/68
--- NOTE | 2017-09-17 16:35 | GI Progress Note ---
Assessment/Plan Problems: (1) G tube feedings ICD Codes: Z93.1 - Gastrostomy status SNOMED: 762494509, 771114730 (2) Vomiting ICD Codes: R11.10 - Vomiting, unspecified SNOMED: 891227413 Qualifiers: Qualified Codes: R11.10 - Vomiting, unspecified Status: unchanged Status Narrative Discussed with Dr. Jhaveri. Assessment/Plan symptomatic treatment / supportive care reglan zofran prn GTFs per dietary electrolyte correction bowel regime ppi fu labs Subjective Subjective limited Objective Last 24 Hour Vital Signs Date Time Temp Pulse Resp B/P (MAP) Pulse Ox O2 Delivery O2 Flow Rate FiO2 09/17/17 11:41 98.2 96 20 101/55 96 98.2 09/17/17 08:20 101 20 T-piece 10.0 35 09/17/17 08:20 T-piece 10.0 35 09/17/17 08:20 98 T-piece 8.0 35 09/17/17 08:00 98.2 107 20 116/69 95 98.2 09/17/17 04:49 98.6 09/17/17 04:45 98.6 98.6 09/17/17 04:00 100.7 105 19 113/73 97 100.7 09/17/17 03:50 100.7 09/17/17 00:00 99.0 111 19 103/59 95 99.0 09/16/17 23:57 98 T-piece 8.0 35 09/16/17 23:57 T-piece 10.0 35 09/16/17 20:00 99.3 113 19 147/83 96 99.3 09/16/17 19:19 T-piece 10.0 35 09/16/17 19:19 95 T-piece 8.0 35 09/16/17 19:19 109 20 T-piece 10.0 35 09/16/17 18:15 100.6 Intake and Output 09/16/17 09/17/17 19:00 07:00 Intake Total 915 ml 895 ml Output Total 375 ml 275 ml Balance 540 ml 620 ml Free Water 200 ml 50 ml Tube Feeding 715 ml 845 ml Output Urine Total 375 ml 275 ml # Bowel Movements 3 3 Laboratory Tests Test 09/17/17 03:45 09/17/17 05:35 Urine Color Yellow Urine Appearance Slightly cloudy Urine pH 6.5 (4.5-8.0) Urine Specific [place] 1.010 (1.005-1.035) Urine Protein 2+ (NEGATIVE) H Urine Glucose (UA) Negative (NEGATIVE) Urine Ketones Negative (NEGATIVE) Urine Occult Blood 5+ (NEGATIVE) H Urine Nitrite Negative (NEGATIVE) Urine Bilirubin Negative (NEGATIVE) Urine Urobilinogen Normal MG/DL (0.0-1.0) Urine Leukocyte Esterase 2+ (NEGATIVE) H Urine RBC Tntc /HPF (0 - 2) H Urine WBC 15-20 /HPF (0 - 2) H Urine Squamous Epithelial Cells Few /LPF (NONE/OCC) Urine Bacteria Few /HPF (NONE) White Blood Count 12.0 K/UL (4.8-10.8) H Red Blood Count 3.84 M/UL (4.20-5.40) L Hemoglobin 11.9 G/DL (12.0-16.0) L Hematocrit 34.7 % (37.0-47.0) L Mean Corpuscular Volume 90 FL (80-99) Mean Corpuscular Hemoglobin 31.0 PG (27.0-31.0) Mean Corpuscular Hemoglobin Concent 34.3 G/DL (32.0-36.0) Red Cell Distribution Width 13.3 % (11.6-14.8) Platelet Count 300 K/UL (150-450) Mean Platelet Volume 6.7 FL (6.5-10.1) Neutrophils (%) (Auto) 72.8 % (45.0-75.0) Lymphocytes (%) (Auto) 16.3 % (20.0-45.0) L Monocytes (%) (Auto) 8.2 % (1.0-10.0) Eosinophils (%) (Auto) 1.6 % (0.0-3.0) Basophils (%) (Auto) 1.0 % (0.0-2.0) Sodium Level 138 MMOL/L (136-145) Potassium Level 3.9 MMOL/L (3.5-5.1) Chloride Level 100 MMOL/L (98-107) Carbon Dioxide Level 30 MMOL/L (21-32) Anion Gap 8 mmol/L (5-15) Blood Urea Nitrogen 17 mg/dL (7-18) Creatinine 0.8 MG/DL (0.55-1.30) Estimat Glomerular Filtration Rate mL/min (>60) Glucose Level 150 MG/DL (74-106) H Calcium Level 10.0 MG/DL (8.5-10.1) Height (Feet): 5 Height (Inches): 3.00 Weight (Pounds): 130 Abdominal Exam: GT site - c/d/i Tiffanie Simeon N.P. Sep 17, 2017 16:35
[2017-09-17 20:00] VITALS: BP 110/64
--- NOTE | 2017-09-17 21:30 | Pulmonology Progress Note ---
Assessment/Plan Problems: (1) Aspiration pneumonia (2) Vomiting (3) CVA (cerebral vascular accident) (4) Tracheostomy in place (5) G tube feedings (6) Status post CVA Assessment/Plan improving respiratory treatment iv abx check cultures tolerating feeding dvt prophylaxis. Subjective ROS Limited/Unobtainable: No Allergies: Coded Allergies: SULFAMETHOXAZOLE (Verified Allergy, Unknown, 07/13/17) TRIMETHOPRIM (Verified Allergy, Unknown, 07/13/17) Objective Last 24 Hour Vital Signs Date Time Temp Pulse Resp B/P (MAP) Pulse Ox O2 Delivery O2 Flow Rate FiO2 09/17/17 20:00 98.2 101 18 110/64 97 98.2 09/17/17 16:00 98.2 101 20 114/68 97 98.2 09/17/17 11:41 98.2 96 20 101/55 96 98.2 09/17/17 08:20 101 20 T-piece 10.0 35 09/17/17 08:20 T-piece 10.0 35 09/17/17 08:20 98 T-piece 8.0 35 09/17/17 08:00 98.2 107 20 116/69 95 98.2 09/17/17 04:49 98.6 09/17/17 04:45 98.6 98.6 09/17/17 04:00 100.7 105 19 113/73 97 100.7 09/17/17 03:50 100.7 09/17/17 00:00 99.0 111 19 103/59 95 99.0 09/16/17 23:57 98 T-piece 8.0 35 09/16/17 23:57 T-piece 10.0 35 Intake and Output 09/16/17 09/17/17 19:00 07:00 Intake Total 915 ml 895 ml Output Total 375 ml 275 ml Balance 540 ml 620 ml Free Water 200 ml 50 ml Tube Feeding 715 ml 845 ml Output Urine Total 375 ml 275 ml # Bowel Movements 3 3 Objective General Appearance: WD/WN HEENT: normocephalic, atraumatic, trach intact Respiratory/Chest: chest wall non-tender, lungs clear Breasts: no masses Cardiovascular: normal peripheral pulses, regular rhythm Abdomen: normal bowel sounds, soft, non tender, Gtube Genitourinary: normal external genitalia Extremities: no cyanosis Skin: no lesions Laboratory Tests 09/17/17 03:45: Urine Color Yellow, Urine Appearance Slightly cloudy, Urine pH 6.5, Urine Specific [place] 1.010, Urine Protein 2+H, Urine Glucose (UA) Negative, Urine Ketones Negative, Urine Occult Blood 5+H, Urine Nitrite Negative, Urine Bilirubin Negative, Urine Urobilinogen Normal, Urine Leukocyte Esterase 2+H, Urine RBC TntcH, Urine WBC 15-20H, Urine Squamous Epithelial Cells Few, Urine Bacteria Few 09/17/17 05:35: White Blood Count 12.0H, Red Blood Count 3.84L, Hemoglobin 11.9L, Hematocrit 34.7L, Mean Corpuscular Volume 90, Mean Corpuscular Hemoglobin 31.0, Mean Corpuscular Hemoglobin Concent 34.3, Red Cell Distribution Width 13.3, Platelet Count 300, Mean Platelet Volume 6.7, Neutrophils (%) (Auto) 72.8, Lymphocytes (% ) (Auto) 16.3L, Monocytes (%) (Auto) 8.2, Eosinophils (%) (Auto) 1.6, Basophils (%) (Auto) 1.0, Sodium Level 138, Potassium Level 3.9, Chloride Level 100, Carbon Dioxide Level 30, Anion Gap 8, Blood Urea Nitrogen 17, Creatinine 0.8, Estimat Glomerular Filtration Rate , Glucose Level 150H, Calcium Level 10.0 Current Medications Medications (Trade) Dose Ordered Sig/Gavino Route PRN Reason Start Time Stop Time Status Last Admin Dose Admin Acetaminophen (Tylenol) 650 mg Q4H PRN ORAL fever 09/12/17 21:30 10/12/17 21:29 09/17/17 03:50 Al Hydroxide/Mg Hydroxide (Mylanta II) 30 ml Q6H PRN ORAL dyspepsia 09/12/17 21:30 10/12/17 21:29 Cefepime HCl 1 gm/ Sodium Chloride 55 ml @ 110 mls/hr Q12H IVPB 09/17/17 15:00 09/24/17 23:59 09/17/17 15:15 Clotrimazole (Lotrimin) 1 applic EVERY 12 HOURS TOPIC 09/15/17 09:00 10/15/17 08:59 09/17/17 08:34 Dextrose (Dextrose 50%) STAT PRN IV Hypoglycemia 09/12/17 21:30 10/12/17 21:29 Diphenhydramine HCl (Benadryl) 25 mg Q6H PRN ORAL Itching/Pruritis 09/12/17 21:30 10/12/17 21:29 Docusate Sodium (Colace) 100 mg BID GT 09/14/17 18:00 10/14/17 17:59 09/17/17 08:33 Heparin Sodium (Porcine) (Heparin 5000 units/ml) 5,000 units EVERY 12 HOURS SUBQ 09/13/17 09:00 10/13/17 08:59 09/17/17 08:33 Metoclopramide HCl (Reglan) 5 mg Q8HR GT 09/13/17 14:00 10/13/17 17:59 09/17/17 14:56 Morphine Sulfate (Morphine Sulfate) 2 mg EVERY 4 HOURS PRN IVP severe Pain (Pain Scale 7-10) 09/12/17 21:30 09/19/17 21:29 09/15/17 21:38 Nitroglycerin (Ntg) 0.4 mg Q5M X 3 DOSES PRN SL Prn Chest Pain 09/12/17 21:30 10/12/17 21:29 Ondansetron HCl (Zofran) 4 mg Q6H PRN IVP Nausea & Vomiting 09/12/17 21:30 10/12/17 21:29 Pantoprazole (Protonix) 40 mg DAILY IVP 09/13/17 09:00 10/13/17 08:59 09/17/17 08:31 Polyethylene Glycol (Miralax) 17 gm HSPRN PRN ORAL Constipation 09/12/17 21:30 10/12/17 21:29 Temazepam (Restoril) 15 mg HSPRN PRN ORAL Insomnia 09/12/17 21:30 09/19/17 21:29 09/15/17 21:38 Valerio Childs MD Sep 17, 2017 21:30
[2017-09-18] VITALS (7 sets, daily range): BP systolic 110–150; BP diastolic 61–112
[2017-09-18] MEDS: Cefepime HCl 1 GM in NS 55 ML IVPB SCH ×2 (03:29→14:06)
[2017-09-18] MEDS: Metoclopramide 10mg/10ml Liq GT SCH ×3 (06:07→21:39)
[2017-09-18] MEDS: Docusate 100mg/10ml Liq GT SCH ×3 (08:48→18:00)
[2017-09-18] MEDS: Pantoprazole Inj IVP SCH (08:48)
[2017-09-18] MEDS: Heparin 5000 units/ml inj SUBQ SCH ×2 (08:50→21:45)
[2017-09-18 09:30] LABS: BASOPHILS % (AUTO) 1.2 % (0.0-2.0); EOSINOPHILS % (AUTO) 3.3 % (0.0-3.0); HEMATOCRIT 34.8 % (37.0-47.0); HEMOGLOBIN 11.9 G/DL (12.0-16.0); LYMPHOCYTES % (AUTO) 15.4 % (20.0-45.0); MEAN CORPUSCULAR VOLUME 90 FL (80-99); MONOCYTES % (AUTO) 7.6 % (1.0-10.0); NEUTROPHILS % (AUTO) 72.5 % (45.0-75.0); PLATELET COUNT 243 K/UL (150-450); RED BLOOD COUNT 3.85 M/UL (4.20-5.40); RED CELL DISTRIBUTION WIDTH 12.8 % (11.6-14.8); WHITE BLOOD COUNT 9.8 K/UL (4.8-10.8)
[2017-09-18 09:53] LABS: ANION GAP 8 mmol/L (5-15); BLOOD UREA NITROGEN 16 mg/dL (7-18); CALCIUM 10.1 MG/DL (8.5-10.1); CARBON DIOXIDE 28 MMOL/L (21-32); CHLORIDE 101 MMOL/L (98-107); CREATININE 0.6 MG/DL (0.55-1.30); POTASSIUM 4.6 MMOL/L (3.5-5.1); SODIUM 137 MMOL/L (136-145)
--- NOTE | 2017-09-18 10:00 | General Progress Note ---
Assessment/Plan Assessment/Plan 1. Nausea or vomiting, x1 episode. --> The patient has been seen by GI Service. Further recommendations to follow. --> Symptomatic treatment with low-dose Reglan as well as Zofran and continue G- tube feeds per dietary recommendations. 2. Status post tracheostomy. Continue to monitor. 3. CVA history. Neurology has been consulted. 4. Hyponatremia. 5. Leukocytosis, potentially secondary to reactive process. --> Improved 6. Thrombocytosis, potentially secondary to reactive process. Continue to closely monitor. --> downtrended from yesterday and improved. --> Platelets now WNL Subjective Date patient seen: Sep 17, 2017 Constitutional: Denies: no symptoms, chills, diaphoresis, fever, malaise, weakness, other HEENT: Denies: no symptoms, eye pain, blurred vision, tearing, double vision, ear pain, ear discharge, nose pain, nose congestion, throat pain, throat swelling, mouth pain, mouth swelling, other Cardiovascular: Denies: no symptoms, chest pain, edema, irregular heart rate, lightheadedness, palpitations, syncope, other Respiratory: Denies: no symptoms, cough, orthopnea, shortness of breath, SOB with excertion, SOB at rest, sputum, stridor, wheezing, other Gastrointestinal/Abdominal: Denies: no symptoms, abdomen distended, abdominal pain, black stools, tarry stools, blood in stool, constipated, diarrhea, difficulty swallowing, nausea, poor appetite, poor fluid intake, rectal bleeding , vomiting, other Genitourinary: Denies: no symptoms, burning, discharge, frequency, flank pain, hematuria, incontinence, pain, urgency, other Neurologic/Psychiatric: Denies: no symptoms, anxiety, depressed, emotional problems, headache, numbness, paresthesia, pre-existing deficit, seizure, tingling, tremors, weakness, other Hematologic/Lymphatic: Reports: anemia Allergies: Coded Allergies: SULFAMETHOXAZOLE (Verified Allergy, Unknown, 07/13/17) TRIMETHOPRIM (Verified Allergy, Unknown, 07/13/17) Subjective On trach/vent. No new events overnight. Objective Last 24 Hour Vital Signs Date Time Temp Pulse Resp B/P (MAP) Pulse Ox O2 Delivery O2 Flow Rate FiO2 09/18/17 08:00 98.1 104 20 150/112 96 98.1 09/18/17 07:23 95 T-piece 8.0 35 09/18/17 07:23 T-piece 8.0 35 09/18/17 07:22 73 20 T-piece 8.0 35 09/18/17 04:00 98.6 105 19 120/62 94 98.6 09/18/17 00:00 98.4 102 17 110/61 98.4 09/17/17 20:00 98.2 101 18 110/64 97 98.2 09/17/17 19:00 T-piece 10.0 35 09/17/17 19:00 99 T-piece 8.0 35 09/17/17 19:00 100 20 T-piece 10.0 35 09/17/17 16:00 98.2 101 20 114/68 97 98.2 09/17/17 11:41 98.2 96 20 101/55 96 98.2 Intake and Output 09/17/17 09/18/17 19:00 07:00 Intake Total 860 ml 490 ml Output Total 400 ml Balance 460 ml 490 ml Free Water 80 ml 100 ml Tube Feeding 780 ml 390 ml Output Urine Total 400 ml # Bowel Movements 1 2 Laboratory Tests 09/18/17 08:55: White Blood Count 9.8, Red Blood Count 3.85L, Hemoglobin 11.9L, Hematocrit 34.8L , Mean Corpuscular Volume 90, Mean Corpuscular Hemoglobin 30.8, Mean Corpuscular Hemoglobin Concent 34.1, Red Cell Distribution Width 12.8, Platelet Count 243, Mean Platelet Volume 7.0, Neutrophils (%) (Auto) 72.5, Lymphocytes (% ) (Auto) 15.4L, Monocytes (%) (Auto) 7.6, Eosinophils (%) (Auto) 3.3H, Basophils (%) (Auto) 1.2, Sodium Level [Pending], Potassium Level [Pending], Chloride Level [Pending], Carbon Dioxide Level [Pending], Blood Urea Nitrogen [ Pending], Creatinine [Pending], Estimat Glomerular Filtration Rate [Pending], Glucose Level [Pending], Calcium Level [Pending] Height (Feet): 5 Height (Inches): 3.00 Weight (Pounds): 130 General Appearance: no apparent distress Respiratory/Chest: decreased breath sounds Abdomen: soft Kleynberg,Nader L. Sep 18, 2017 10:00
--- NOTE | 2017-09-18 11:17 | GI Progress Note ---
Assessment/Plan Problems: (1) G tube feedings ICD Codes: Z93.1 - Gastrostomy status SNOMED: 416307687, 044493278 (2) Vomiting ICD Codes: R11.10 - Vomiting, unspecified SNOMED: 106171914 Qualifiers: Qualified Codes: R11.10 - Vomiting, unspecified Status: stable Status Narrative Discussed with Dr. Jhaveri. Assessment/Plan symptomatic treatment / supportive care reglan zofran prn GTFs per dietary electrolyte correction bowel regime ppi fu labs Subjective Subjective limited Objective Last 24 Hour Vital Signs Date Time Temp Pulse Resp B/P (MAP) Pulse Ox O2 Delivery O2 Flow Rate FiO2 09/18/17 08:05 98 131/70 09/18/17 08:00 98.1 104 20 150/112 96 98.1 09/18/17 07:23 95 T-piece 8.0 35 09/18/17 07:23 T-piece 8.0 35 09/18/17 07:22 73 20 T-piece 8.0 35 09/18/17 04:00 98.6 105 19 120/62 94 98.6 09/18/17 00:00 98.4 102 17 110/61 98.4 09/17/17 20:00 98.2 101 18 110/64 97 98.2 09/17/17 19:00 T-piece 10.0 35 09/17/17 19:00 99 T-piece 8.0 35 09/17/17 19:00 100 20 T-piece 10.0 35 09/17/17 16:00 98.2 101 20 114/68 97 98.2 09/17/17 11:41 98.2 96 20 101/55 96 98.2 Intake and Output 09/17/17 09/18/17 19:00 07:00 Intake Total 860 ml 490 ml Output Total 400 ml Balance 460 ml 490 ml Free Water 80 ml 100 ml Tube Feeding 780 ml 390 ml Output Urine Total 400 ml # Bowel Movements 1 2 Laboratory Tests Test 09/18/17 08:55 White Blood Count 9.8 K/UL (4.8-10.8) Red Blood Count 3.85 M/UL (4.20-5.40) L Hemoglobin 11.9 G/DL (12.0-16.0) L Hematocrit 34.8 % (37.0-47.0) L Mean Corpuscular Volume 90 FL (80-99) Mean Corpuscular Hemoglobin 30.8 PG (27.0-31.0) Mean Corpuscular Hemoglobin Concent 34.1 G/DL (32.0-36.0) Red Cell Distribution Width 12.8 % (11.6-14.8) Platelet Count 243 K/UL (150-450) Mean Platelet Volume 7.0 FL (6.5-10.1) Neutrophils (%) (Auto) 72.5 % (45.0-75.0) Lymphocytes (%) (Auto) 15.4 % (20.0-45.0) L Monocytes (%) (Auto) 7.6 % (1.0-10.0) Eosinophils (%) (Auto) 3.3 % (0.0-3.0) H Basophils (%) (Auto) 1.2 % (0.0-2.0) Sodium Level 137 MMOL/L (136-145) Potassium Level 4.6 MMOL/L (3.5-5.1) Chloride Level 101 MMOL/L (98-107) Carbon Dioxide Level 28 MMOL/L (21-32) Anion Gap 8 mmol/L (5-15) Blood Urea Nitrogen 16 mg/dL (7-18) Creatinine 0.6 MG/DL (0.55-1.30) Estimat Glomerular Filtration Rate mL/min (>60) Glucose Level 143 MG/DL (74-106) H Calcium Level 10.1 MG/DL (8.5-10.1) Height (Feet): 5 Height (Inches): 3.00 Weight (Pounds): 130 General Appearance: WD/WN, no apparent distress, alert Cardiovascular: normal rate Respiratory/Chest: normal breath sounds, no respiratory distress Abdominal Exam: normal bowel sounds, non tender, soft Extremities: normal range of motion, non-tender Tiffanie Simeon N.P. Sep 18, 2017 11:17
--- NOTE | 2017-09-18 14:17 | General Progress Note ---
Assessment/Plan Problem List: (1) Status post CVA ICD Codes: Z86.73 - Personal history of transient ischemic attack (TIA), and cerebral infarction without residual deficits SNOMED: 310789679 (2) Vomiting ICD Codes: R11.10 - Vomiting, unspecified SNOMED: 622609981 Qualifiers: Qualified Codes: R11.10 - Vomiting, unspecified (3) CVA (cerebral vascular accident) ICD Codes: I63.9 - Cerebral infarction, unspecified SNOMED: 712516134 (4) Tracheostomy in place ICD Codes: Z93.0 - Tracheostomy status SNOMED: 930673672 (5) G tube feedings ICD Codes: Z93.1 - Gastrostomy status SNOMED: 784421095, 788061901 (6) Aspiration pneumonia ICD Codes: J69.0 - Pneumonitis due to inhalation of food and vomit SNOMED: 640975391 Status: unchanged Assessment/Plan vetn abx bp bs control dc if clear by id gi and pulm Subjective Constitutional: Reports: weakness Allergies: Coded Allergies: SULFAMETHOXAZOLE (Verified Allergy, Unknown, 07/13/17) TRIMETHOPRIM (Verified Allergy, Unknown, 07/13/17) All Systems: reviewed and negative except above Subjective trach vent asleep Objective Last 24 Hour Vital Signs Date Time Temp Pulse Resp B/P (MAP) Pulse Ox O2 Delivery O2 Flow Rate FiO2 09/18/17 12:36 T-piece 8.0 35 09/18/17 12:35 97 T-piece 8.0 35 09/18/17 12:00 98.2 90 14 141/98 98 98.2 09/18/17 08:05 98 131/70 09/18/17 08:00 98.1 104 20 150/112 96 98.1 09/18/17 07:23 95 T-piece 8.0 35 09/18/17 07:23 T-piece 8.0 35 09/18/17 07:22 73 20 T-piece 8.0 35 09/18/17 04:00 98.6 105 19 120/62 94 98.6 09/18/17 00:00 98.4 102 17 110/61 98.4 09/17/17 20:00 98.2 101 18 110/64 97 98.2 09/17/17 19:00 T-piece 10.0 35 09/17/17 19:00 99 T-piece 8.0 35 09/17/17 19:00 100 20 T-piece 10.0 35 09/17/17 16:00 98.2 101 20 114/68 97 98.2 Intake and Output 09/17/17 09/18/17 19:00 07:00 Intake Total 860 ml 555 ml Output Total 400 ml Balance 460 ml 555 ml Free Water 80 ml 100 ml Tube Feeding 780 ml 455 ml Output Urine Total 400 ml # Bowel Movements 1 2 Laboratory Tests 09/18/17 08:55: White Blood Count 9.8, Red Blood Count 3.85L, Hemoglobin 11.9L, Hematocrit 34.8L , Mean Corpuscular Volume 90, Mean Corpuscular Hemoglobin 30.8, Mean Corpuscular Hemoglobin Concent 34.1, Red Cell Distribution Width 12.8, Platelet Count 243, Mean Platelet Volume 7.0, Neutrophils (%) (Auto) 72.5, Lymphocytes (% ) (Auto) 15.4L, Monocytes (%) (Auto) 7.6, Eosinophils (%) (Auto) 3.3H, Basophils (%) (Auto) 1.2, Sodium Level 137, Potassium Level 4.6, Chloride Level 101, Carbon Dioxide Level 28, Anion Gap 8, Blood Urea Nitrogen 16, Creatinine 0.6, Estimat Glomerular Filtration Rate , Glucose Level 143H, Calcium Level 10.1 Height (Feet): 5 Height (Inches): 3.00 Weight (Pounds): 130 General Appearance: lethargic EENT: normal ENT inspection Neck: normal alignment Cardiovascular: normal peripheral pulses, normal rate, regular rhythm Respiratory/Chest: chest wall non-tender, lungs clear, normal breath sounds Abdomen: normal bowel sounds, non tender, soft Extremities: normal inspection Edema: no edema noted Arm (L), no edema noted Arm (R), no edema noted Leg (L), no edema noted Leg (R), no edema noted Pedal (L), no edema noted Pedal (R), no edema noted Generalized Neurologic: motor weakness Skin: normal pigmentation, warm/dry KATIE MONTE Sep 18, 2017 14:17
--- NOTE | 2017-09-18 16:25 | Infectious Diseases Prog Note ---
Assessment/Plan Assessment/Plan ASSESSMENT: The patient is a 76-year-old female with: Fever/leukocytosis (recurrent); improving- possible due to UTI. r/o bacteremia; r/o DVT -repeat u/a 09/16 wbc 15-20; ucx p -Bcx NTD -CXR: Very questionable minimal interstitial congestion. No acute process otherwise. -v. duplex no DVT Previous Leukocytosis, mostly due to acute stress -u/a neg -Bcx NTD No evidence of pneumonia or urinary tract infection. Chest x-ray, no acute process. Hypertension. COPD. Diabetes. History of CVA PLAN: -Continue empiric IV Cefepime #2 pending cultures Monitor blood culture. Monitor CBC. Monitor BMP. Subjective Allergies: Coded Allergies: SULFAMETHOXAZOLE (Verified Allergy, Unknown, 07/13/17) TRIMETHOPRIM (Verified Allergy, Unknown, 07/13/17) Subjective afebrile in 36hrs leukocytosis resolved ucx p bcx NTD Objective Vital Signs Last 24 Hour Vital Signs Date Time Temp Pulse Resp B/P (MAP) Pulse Ox O2 Delivery O2 Flow Rate FiO2 09/18/17 12:36 T-piece 8.0 35 09/18/17 12:35 97 T-piece 8.0 35 09/18/17 12:00 98.2 90 14 141/98 98 98.2 09/18/17 08:05 98 131/70 09/18/17 08:00 98.1 104 20 150/112 96 98.1 09/18/17 07:23 95 T-piece 8.0 35 09/18/17 07:23 T-piece 8.0 35 09/18/17 07:22 73 20 T-piece 8.0 35 09/18/17 04:00 98.6 105 19 120/62 94 98.6 09/18/17 00:00 98.4 102 17 110/61 98.4 09/17/17 20:00 98.2 101 18 110/64 97 98.2 09/17/17 19:00 T-piece 10.0 35 09/17/17 19:00 99 T-piece 8.0 35 09/17/17 19:00 100 20 T-piece 10.0 35 Height (Feet): 5 Height (Inches): 3.00 Weight (Pounds): 130 Objective General Appearance: lethargic EENT: normal ENT inspection Neck: normal alignment Cardiovascular: normal peripheral pulses, normal rate, regular rhythm Respiratory/Chest: decreased breath sounds Abdomen: normal bowel sounds, non tender, soft Extremities: normal inspection Edema: no edema noted Arm (L), no edema noted Arm (R), no edema noted Leg (L), no edema noted Leg (R), no edema noted Pedal (L), no edema noted Pedal (R), no edema noted Generalized Neurologic: motor weakness Skin: normal pigmentation, warm/dry Microbiology Date/Time Source Procedure Growth Status 09/16/17 21:13 Blood Blood Culture - Preliminary NO GROWTH AFTER 24 HOURS Resulted 09/16/17 21:08 Blood Blood Culture - Preliminary NO GROWTH AFTER 24 HOURS Resulted 09/17/17 03:45 Urine,Clean Catch Urine Culture - Preliminary Resulted Laboratory Tests Test 09/18/17 08:55 White Blood Count 9.8 K/UL (4.8-10.8) Red Blood Count 3.85 M/UL (4.20-5.40) L Hemoglobin 11.9 G/DL (12.0-16.0) L Hematocrit 34.8 % (37.0-47.0) L Mean Corpuscular Volume 90 FL (80-99) Mean Corpuscular Hemoglobin 30.8 PG (27.0-31.0) Mean Corpuscular Hemoglobin Concent 34.1 G/DL (32.0-36.0) Red Cell Distribution Width 12.8 % (11.6-14.8) Platelet Count 243 K/UL (150-450) Mean Platelet Volume 7.0 FL (6.5-10.1) Neutrophils (%) (Auto) 72.5 % (45.0-75.0) Lymphocytes (%) (Auto) 15.4 % (20.0-45.0) L Monocytes (%) (Auto) 7.6 % (1.0-10.0) Eosinophils (%) (Auto) 3.3 % (0.0-3.0) H Basophils (%) (Auto) 1.2 % (0.0-2.0) Sodium Level 137 MMOL/L (136-145) Potassium Level 4.6 MMOL/L (3.5-5.1) Chloride Level 101 MMOL/L (98-107) Carbon Dioxide Level 28 MMOL/L (21-32) Anion Gap 8 mmol/L (5-15) Blood Urea Nitrogen 16 mg/dL (7-18) Creatinine 0.6 MG/DL (0.55-1.30) Estimat Glomerular Filtration Rate mL/min (>60) Glucose Level 143 MG/DL (74-106) H Calcium Level 10.1 MG/DL (8.5-10.1) Current Medications Medications (Trade) Dose Ordered Sig/Gavino Route PRN Reason Start Time Stop Time Status Last Admin Dose Admin Acetaminophen (Tylenol) 650 mg Q4H PRN ORAL fever 09/12/17 21:30 10/12/17 21:29 09/17/17 03:50 Al Hydroxide/Mg Hydroxide (Mylanta II) 30 ml Q6H PRN ORAL dyspepsia 09/12/17 21:30 10/12/17 21:29 Cefepime HCl 1 gm/ Sodium Chloride 55 ml @ 110 mls/hr Q12H IVPB 09/17/17 15:00 09/24/17 23:59 09/18/17 14:06 Clotrimazole (Lotrimin) 1 applic EVERY 12 HOURS TOPIC 09/15/17 09:00 10/15/17 08:59 09/18/17 08:51 Dextrose (Dextrose 50%) STAT PRN IV Hypoglycemia 09/12/17 21:30 10/12/17 21:29 Diphenhydramine HCl (Benadryl) 25 mg Q6H PRN ORAL Itching/Pruritis 09/12/17 21:30 10/12/17 21:29 Docusate Sodium (Colace) 100 mg BID GT 09/14/17 18:00 10/14/17 17:59 09/17/17 08:33 Heparin Sodium (Porcine) (Heparin 5000 units/ml) 5,000 units EVERY 12 HOURS SUBQ 09/13/17 09:00 10/13/17 08:59 09/18/17 08:50 Metoclopramide HCl (Reglan) 5 mg Q8HR GT 09/13/17 14:00 10/13/17 17:59 09/18/17 13:52 Morphine Sulfate (Morphine Sulfate) 2 mg EVERY 4 HOURS PRN IVP severe Pain (Pain Scale 7-10) 09/12/17 21:30 09/19/17 21:29 09/15/17 21:38 Nitroglycerin (Ntg) 0.4 mg Q5M X 3 DOSES PRN SL Prn Chest Pain 09/12/17 21:30 10/12/17 21:29 Ondansetron HCl (Zofran) 4 mg Q6H PRN IVP Nausea & Vomiting 09/12/17 21:30 10/12/17 21:29 Pantoprazole (Protonix) 40 mg DAILY IVP 09/13/17 09:00 10/13/17 08:59 09/18/17 08:48 Polyethylene Glycol (Miralax) 17 gm HSPRN PRN ORAL Constipation 09/12/17 21:30 10/12/17 21:29 Temazepam (Restoril) 15 mg HSPRN PRN ORAL Insomnia 09/12/17 21:30 09/19/17 21:29 09/15/17 21:38 Marion Conway M.D. Sep 18, 2017 16:24
--- NOTE | 2017-09-18 19:56 | Pulmonology Progress Note ---
Assessment/Plan Problems: (1) Aspiration pneumonia (2) Vomiting (3) CVA (cerebral vascular accident) (4) Tracheostomy in place (5) G tube feedings (6) Status post CVA Assessment/Plan improving respiratory treatment iv abx check cultures tolerating feeding dvt prophylaxis. Subjective ROS Limited/Unobtainable: Yes Allergies: Coded Allergies: SULFAMETHOXAZOLE (Verified Allergy, Unknown, 07/13/17) TRIMETHOPRIM (Verified Allergy, Unknown, 07/13/17) Objective Last 24 Hour Vital Signs Date Time Temp Pulse Resp B/P (MAP) Pulse Ox O2 Delivery O2 Flow Rate FiO2 09/18/17 19:23 T-piece 10.0 35 09/18/17 19:23 114 20 T-piece 10.0 35 09/18/17 19:23 96 T-piece 10.0 35 09/18/17 16:00 97.9 100 20 127/88 100 97.9 09/18/17 12:36 T-piece 8.0 35 09/18/17 12:35 97 T-piece 8.0 35 09/18/17 12:00 98.2 90 14 141/98 98 98.2 09/18/17 08:05 98 131/70 09/18/17 08:00 98.1 104 20 150/112 96 98.1 09/18/17 07:23 95 T-piece 8.0 35 09/18/17 07:23 T-piece 8.0 35 09/18/17 07:22 73 20 T-piece 8.0 35 09/18/17 04:00 98.6 105 19 120/62 94 98.6 09/18/17 00:00 98.4 102 17 110/61 98.4 09/17/17 20:00 98.2 101 18 110/64 97 98.2 Intake and Output 09/17/17 09/18/17 19:00 07:00 Intake Total 860 ml 555 ml Output Total 400 ml Balance 460 ml 555 ml Free Water 80 ml 100 ml Tube Feeding 780 ml 455 ml Output Urine Total 400 ml # Bowel Movements 1 2 Objective General Appearance: WD/WN HEENT: normocephalic, atraumatic, trach intact Respiratory/Chest: chest wall non-tender, lungs clear Breasts: no masses Cardiovascular: normal peripheral pulses, regular rhythm Abdomen: normal bowel sounds, soft, non tender, Gtube Genitourinary: normal external genitalia Extremities: no cyanosis Skin: no lesions Microbiology Date/Time Source Procedure Growth Status 09/16/17 21:13 Blood Blood Culture - Preliminary NO GROWTH AFTER 24 HOURS Resulted 09/16/17 21:08 Blood Blood Culture - Preliminary NO GROWTH AFTER 24 HOURS Resulted 09/17/17 03:45 Urine,Clean Catch Urine Culture - Preliminary Resulted Laboratory Tests 09/18/17 08:55: White Blood Count 9.8, Red Blood Count 3.85L, Hemoglobin 11.9L, Hematocrit 34.8L , Mean Corpuscular Volume 90, Mean Corpuscular Hemoglobin 30.8, Mean Corpuscular Hemoglobin Concent 34.1, Red Cell Distribution Width 12.8, Platelet Count 243, Mean Platelet Volume 7.0, Neutrophils (%) (Auto) 72.5, Lymphocytes (% ) (Auto) 15.4L, Monocytes (%) (Auto) 7.6, Eosinophils (%) (Auto) 3.3H, Basophils (%) (Auto) 1.2, Sodium Level 137, Potassium Level 4.6, Chloride Level 101, Carbon Dioxide Level 28, Anion Gap 8, Blood Urea Nitrogen 16, Creatinine 0.6, Estimat Glomerular Filtration Rate , Glucose Level 143H, Calcium Level 10.1 Current Medications Medications (Trade) Dose Ordered Sig/Gavino Route PRN Reason Start Time Stop Time Status Last Admin Dose Admin Acetaminophen (Tylenol) 650 mg Q4H PRN ORAL fever 09/12/17 21:30 10/12/17 21:29 09/17/17 03:50 Al Hydroxide/Mg Hydroxide (Mylanta II) 30 ml Q6H PRN ORAL dyspepsia 09/12/17 21:30 10/12/17 21:29 Cefepime HCl 1 gm/ Sodium Chloride 55 ml @ 110 mls/hr Q12H IVPB 09/17/17 15:00 09/24/17 23:59 09/18/17 14:06 Clotrimazole (Lotrimin) 1 applic EVERY 12 HOURS TOPIC 09/15/17 09:00 10/15/17 08:59 09/18/17 08:51 Dextrose (Dextrose 50%) STAT PRN IV Hypoglycemia 09/12/17 21:30 10/12/17 21:29 Diphenhydramine HCl (Benadryl) 25 mg Q6H PRN ORAL Itching/Pruritis 09/12/17 21:30 10/12/17 21:29 Docusate Sodium (Colace) 100 mg BID GT 09/14/17 18:00 10/14/17 17:59 09/17/17 08:33 Heparin Sodium (Porcine) (Heparin 5000 units/ml) 5,000 units EVERY 12 HOURS SUBQ 09/13/17 09:00 10/13/17 08:59 09/18/17 08:50 Metoclopramide HCl (Reglan) 5 mg Q8HR GT 09/13/17 14:00 10/13/17 17:59 09/18/17 13:52 Morphine Sulfate (Morphine Sulfate) 2 mg EVERY 4 HOURS PRN IVP severe Pain (Pain Scale 7-10) 09/12/17 21:30 09/19/17 21:29 09/15/17 21:38 Nitroglycerin (Ntg) 0.4 mg Q5M X 3 DOSES PRN SL Prn Chest Pain 09/12/17 21:30 10/12/17 21:29 Ondansetron HCl (Zofran) 4 mg Q6H PRN IVP Nausea & Vomiting 09/12/17 21:30 10/12/17 21:29 Pantoprazole (Protonix) 40 mg DAILY IVP 09/13/17 09:00 10/13/17 08:59 09/18/17 08:48 Polyethylene Glycol (Miralax) 17 gm HSPRN PRN ORAL Constipation 09/12/17 21:30 10/12/17 21:29 Temazepam (Restoril) 15 mg HSPRN PRN ORAL Insomnia 09/12/17 21:30 09/19/17 21:29 09/15/17 21:38 Valerio Childs MD Sep 18, 2017 19:56
[2017-09-19] VITALS (7 sets, daily range): BP systolic 103–143; BP diastolic 63–82
[2017-09-19] MEDS: Cefepime HCl 1 GM in NS 55 ML IVPB SCH ×2 (03:19→15:21)
[2017-09-19] MEDS: Metoclopramide 10mg/10ml Liq GT SCH ×3 (05:14→22:36)
[2017-09-19 06:46] LABS: BASOPHILS % (AUTO) 1.1 % (0.0-2.0); EOSINOPHILS % (AUTO) 0.4 % (0.0-3.0); HEMATOCRIT 34.8 % (37.0-47.0); HEMOGLOBIN 11.7 G/DL (12.0-16.0); LYMPHOCYTES % (AUTO) 14.7 % (20.0-45.0); MEAN CORPUSCULAR VOLUME 90 FL (80-99); MONOCYTES % (AUTO) 7.8 % (1.0-10.0); PLATELET COUNT 326 K/UL (150-450); RED BLOOD COUNT 3.85 M/UL (4.20-5.40); WHITE BLOOD COUNT 11.8 K/UL (4.8-10.8)
[2017-09-19 07:11] LABS: ALANINE AMINOTRANSFERASE 22 U/L (12-78); ALBUMIN 2.5 G/DL (3.4-5.0); ALBUMIN/GLOBULIN RATIO 0.5 (1.0-2.7); ALKALINE PHOSPHATASE 88 U/L (46-116); ANION GAP 10 mmol/L (5-15); ASPARTATE AMINO TRANSFERASE 16 U/L (15-37); BILIRUBIN,TOTAL 0.4 MG/DL (0.2-1.0); BLOOD UREA NITROGEN 28 mg/dL (7-18); CALCIUM 10.2 MG/DL (8.5-10.1); CARBON DIOXIDE 27 MMOL/L (21-32); CHLORIDE 101 MMOL/L (98-107); CREATININE 0.9 MG/DL (0.55-1.30); POTASSIUM 4.6 MMOL/L (3.5-5.1); SODIUM 138 MMOL/L (136-145)
[2017-09-19] MEDS: Pantoprazole Inj IVP SCH (09:15)
[2017-09-19] MEDS: Docusate 100mg/10ml Liq GT SCH ×2 (09:15→17:57)
[2017-09-19] MEDS: Heparin 5000 units/ml inj SUBQ SCH ×2 (09:21→22:37)
--- NOTE | 2017-09-19 11:21 | GI Progress Note ---
Assessment/Plan Problems: (1) G tube feedings ICD Codes: Z93.1 - Gastrostomy status SNOMED: 215484486, 647967412 (2) Vomiting ICD Codes: R11.10 - Vomiting, unspecified SNOMED: 375753010 Qualifiers: Qualified Codes: R11.10 - Vomiting, unspecified Status: stable Status Narrative Discussed with Dr. Jhaveri. Assessment/Plan symptomatic treatment / supportive care reglan zofran prn GTFs per dietary electrolyte correction bowel regime ppi fu labs dc planning Subjective Subjective limited Objective Last 24 Hour Vital Signs Date Time Temp Pulse Resp B/P (MAP) Pulse Ox O2 Delivery O2 Flow Rate FiO2 09/19/17 08:00 98.6 83 20 143/75 91 Room Air 98.6 09/19/17 07:30 T-piece 10.0 35 09/19/17 07:30 97 T-piece 10.0 35 09/19/17 07:30 94 18 T-piece 10.0 35 09/19/17 03:47 98.4 110 20 123/75 92 Room Air 98.4 09/19/17 01:28 T-piece 10.0 35 09/19/17 01:28 95 T-piece 10.0 35 09/19/17 00:54 97.9 107 20 129/79 95 T-piece 97.9 09/18/17 19:56 96.8 122 20 124/70 93 Room Air 96.8 09/18/17 19:23 T-piece 10.0 35 09/18/17 19:23 114 20 T-piece 10.0 35 09/18/17 19:23 96 T-piece 10.0 35 09/18/17 16:00 97.9 100 20 127/88 100 97.9 09/18/17 12:36 T-piece 8.0 35 09/18/17 12:35 97 T-piece 8.0 35 09/18/17 12:00 98.2 90 14 141/98 98 98.2 Intake and Output 09/18/17 09/19/17 18:59 06:59 Intake Total 710 ml 570 ml Output Total 250 ml Balance 460 ml 570 ml Free Water 60 ml 60 ml IV Total 55 ml Tube Feeding 650 ml 455 ml Output Urine Total 250 ml # Bowel Movements 3 1 Laboratory Tests Test 09/19/17 05:30 White Blood Count 11.8 K/UL (4.8-10.8) H Red Blood Count 3.85 M/UL (4.20-5.40) L Hemoglobin 11.7 G/DL (12.0-16.0) L Hematocrit 34.8 % (37.0-47.0) L Mean Corpuscular Volume 90 FL (80-99) Mean Corpuscular Hemoglobin 30.4 PG (27.0-31.0) Mean Corpuscular Hemoglobin Concent 33.7 G/DL (32.0-36.0) Red Cell Distribution Width 13.0 % (11.6-14.8) Platelet Count 326 K/UL (150-450) Mean Platelet Volume 6.9 FL (6.5-10.1) Neutrophils (%) (Auto) 76.0 % (45.0-75.0) H Lymphocytes (%) (Auto) 14.7 % (20.0-45.0) L Monocytes (%) (Auto) 7.8 % (1.0-10.0) Eosinophils (%) (Auto) 0.4 % (0.0-3.0) Basophils (%) (Auto) 1.1 % (0.0-2.0) Sodium Level 138 MMOL/L (136-145) Potassium Level 4.6 MMOL/L (3.5-5.1) Chloride Level 101 MMOL/L (98-107) Carbon Dioxide Level 27 MMOL/L (21-32) Anion Gap 10 mmol/L (5-15) Blood Urea Nitrogen 28 mg/dL (7-18) H Creatinine 0.9 MG/DL (0.55-1.30) Estimat Glomerular Filtration Rate mL/min (>60) Glucose Level 157 MG/DL (74-106) H Calcium Level 10.2 MG/DL (8.5-10.1) H Total Bilirubin 0.4 MG/DL (0.2-1.0) Aspartate Amino Transf (AST/SGOT) 16 U/L (15-37) Alanine Aminotransferase (ALT/SGPT) 22 U/L (12-78) Alkaline Phosphatase 88 U/L (46-116) Total Protein 7.9 G/DL (6.4-8.2) Albumin 2.5 G/DL (3.4-5.0) L Globulin 5.4 g/dL Albumin/Globulin Ratio 0.5 (1.0-2.7) L Height (Feet): 5 Height (Inches): 3.00 Weight (Pounds): 130 General Appearance: WD/WN, no apparent distress, alert Cardiovascular: normal rate Respiratory/Chest: normal breath sounds, no respiratory distress Abdominal Exam: normal bowel sounds, non tender, soft, GT site - c/d/i Extremities: normal range of motion, non-tender Tiffanie Simeon N.P. Sep 19, 2017 11:21
--- NOTE | 2017-09-19 13:10 | General Progress Note ---
Assessment/Plan Assessment/Plan 1. Nausea or vomiting, x1 episode. --> The patient has been seen by GI Service. Further recommendations to follow. --> Symptomatic treatment with low-dose Reglan as well as Zofran and continue G- tube feeds per dietary recommendations. 2. Status post tracheostomy. Continue to monitor. 3. CVA history. Neurology has been consulted. 4. Hyponatremia. 5. Leukocytosis, potentially secondary to reactive process. --> Improved and downtrended. 6. Thrombocytosis, potentially secondary to reactive process. Continue to closely monitor. --> downtrended from yesterday and improved. --> Platelets now WNL Subjective Date patient seen: Sep 18, 2017 Constitutional: Denies: no symptoms, chills, diaphoresis, fever, malaise, weakness, other HEENT: Denies: no symptoms, eye pain, blurred vision, tearing, double vision, ear pain, ear discharge, nose pain, nose congestion, throat pain, throat swelling, mouth pain, mouth swelling, other Cardiovascular: Denies: no symptoms, chest pain, edema, irregular heart rate, lightheadedness, palpitations, syncope, other Respiratory: Denies: no symptoms, cough, orthopnea, shortness of breath, SOB with excertion, SOB at rest, sputum, stridor, wheezing, other Gastrointestinal/Abdominal: Denies: no symptoms, abdomen distended, abdominal pain, black stools, tarry stools, blood in stool, constipated, diarrhea, difficulty swallowing, nausea, poor appetite, poor fluid intake, rectal bleeding , vomiting, other Genitourinary: Denies: no symptoms, burning, discharge, frequency, flank pain, hematuria, incontinence, pain, urgency, other Neurologic/Psychiatric: Denies: no symptoms, anxiety, depressed, emotional problems, headache, numbness, paresthesia, pre-existing deficit, seizure, tingling, tremors, weakness, other Hematologic/Lymphatic: Reports: anemia Allergies: Coded Allergies: SULFAMETHOXAZOLE (Verified Allergy, Unknown, 07/13/17) TRIMETHOPRIM (Verified Allergy, Unknown, 07/13/17) Subjective On trach/vent. No new events overnight. Leukocytosis improved. Objective Last 24 Hour Vital Signs Date Time Temp Pulse Resp B/P (MAP) Pulse Ox O2 Delivery O2 Flow Rate FiO2 09/19/17 08:00 98.6 83 20 143/75 91 Room Air 98.6 09/19/17 07:30 T-piece 10.0 35 09/19/17 07:30 97 T-piece 10.0 35 09/19/17 07:30 94 18 T-piece 10.0 35 09/19/17 03:47 98.4 110 20 123/75 92 Room Air 98.4 09/19/17 01:28 T-piece 10.0 35 09/19/17 01:28 95 T-piece 10.0 35 09/19/17 00:54 97.9 107 20 129/79 95 T-piece 97.9 09/18/17 19:56 96.8 122 20 124/70 93 Room Air 96.8 09/18/17 19:23 T-piece 10.0 35 09/18/17 19:23 114 20 T-piece 10.0 35 09/18/17 19:23 96 T-piece 10.0 35 09/18/17 16:00 97.9 100 20 127/88 100 97.9 Intake and Output 09/18/17 09/19/17 19:00 07:00 Intake Total 710 ml 505 ml Output Total 250 ml Balance 460 ml 505 ml Free Water 60 ml 60 ml IV Total 55 ml Tube Feeding 650 ml 390 ml Output Urine Total 250 ml # Bowel Movements 3 1 Laboratory Tests 09/19/17 05:30: White Blood Count 11.8H, Red Blood Count 3.85L, Hemoglobin 11.7L, Hematocrit 34.8L, Mean Corpuscular Volume 90, Mean Corpuscular Hemoglobin 30.4, Mean Corpuscular Hemoglobin Concent 33.7, Red Cell Distribution Width 13.0, Platelet Count 326, Mean Platelet Volume 6.9, Neutrophils (%) (Auto) 76.0H, Lymphocytes ( %) (Auto) 14.7L, Monocytes (%) (Auto) 7.8, Eosinophils (%) (Auto) 0.4, Basophils (%) (Auto) 1.1, Sodium Level 138, Potassium Level 4.6, Chloride Level 101, Carbon Dioxide Level 27, Anion Gap 10, Blood Urea Nitrogen 28H, Creatinine 0.9, Estimat Glomerular Filtration Rate , Glucose Level 157H, Calcium Level 10.2H, Total Bilirubin 0.4, Aspartate Amino Transf (AST/SGOT) 16, Alanine Aminotransferase (ALT/SGPT) 22, Alkaline Phosphatase 88, Total Protein 7.9, Albumin 2.5L, Globulin 5.4, Albumin/Globulin Ratio 0.5L Height (Feet): 5 Height (Inches): 3.00 Weight (Pounds): 130 General Appearance: no apparent distress Respiratory/Chest: decreased breath sounds Abdomen: soft Nader Landis Sep 19, 2017 13:09
--- NOTE | 2017-09-19 14:21 | General Progress Note ---
Assessment/Plan Problem List: (1) Status post CVA ICD Codes: Z86.73 - Personal history of transient ischemic attack (TIA), and cerebral infarction without residual deficits SNOMED: 483385226 (2) Vomiting ICD Codes: R11.10 - Vomiting, unspecified SNOMED: 357869048 Qualifiers: Qualified Codes: R11.10 - Vomiting, unspecified (3) CVA (cerebral vascular accident) ICD Codes: I63.9 - Cerebral infarction, unspecified SNOMED: 266174038 (4) Tracheostomy in place ICD Codes: Z93.0 - Tracheostomy status SNOMED: 639258592 (5) G tube feedings ICD Codes: Z93.1 - Gastrostomy status SNOMED: 889881312, 980711294 (6) Aspiration pneumonia ICD Codes: J69.0 - Pneumonitis due to inhalation of food and vomit SNOMED: 457089705 Status: unchanged Assessment/Plan vent abx bp bs control cbc bmp am ltach if ok w family Subjective Constitutional: Reports: weakness Allergies: Coded Allergies: SULFAMETHOXAZOLE (Verified Allergy, Unknown, 07/13/17) TRIMETHOPRIM (Verified Allergy, Unknown, 07/13/17) All Systems: reviewed and negative except above Subjective trach vent asleep Objective Last 24 Hour Vital Signs Date Time Temp Pulse Resp B/P (MAP) Pulse Ox O2 Delivery O2 Flow Rate FiO2 09/19/17 13:20 98 T-piece 10.0 35 09/19/17 13:20 T-piece 10.0 35 09/19/17 08:00 98.6 83 20 143/75 91 Room Air 98.6 09/19/17 07:30 T-piece 10.0 35 09/19/17 07:30 97 T-piece 10.0 35 09/19/17 07:30 94 18 T-piece 10.0 35 09/19/17 03:47 98.4 110 20 123/75 92 Room Air 98.4 09/19/17 01:28 T-piece 10.0 35 09/19/17 01:28 95 T-piece 10.0 35 09/19/17 00:54 97.9 107 20 129/79 95 T-piece 97.9 09/18/17 19:56 96.8 122 20 124/70 93 Room Air 96.8 3/14/18 19:23 T-piece 10.0 35 09/18/17 19:23 114 20 T-piece 10.0 35 09/18/17 19:23 96 T-piece 10.0 35 09/18/17 16:00 97.9 100 20 127/88 100 97.9 Intake and Output 09/18/17 09/19/17 19:00 07:00 Intake Total 710 ml 505 ml Output Total 250 ml Balance 460 ml 505 ml Free Water 60 ml 60 ml IV Total 55 ml Tube Feeding 650 ml 390 ml Output Urine Total 250 ml # Bowel Movements 3 1 Laboratory Tests 09/19/17 05:30: White Blood Count 11.8H, Red Blood Count 3.85L, Hemoglobin 11.7L, Hematocrit 34.8L, Mean Corpuscular Volume 90, Mean Corpuscular Hemoglobin 30.4, Mean Corpuscular Hemoglobin Concent 33.7, Red Cell Distribution Width 13.0, Platelet Count 326, Mean Platelet Volume 6.9, Neutrophils (%) (Auto) 76.0H, Lymphocytes ( %) (Auto) 14.7L, Monocytes (%) (Auto) 7.8, Eosinophils (%) (Auto) 0.4, Basophils (%) (Auto) 1.1, Sodium Level 138, Potassium Level 4.6, Chloride Level 101, Carbon Dioxide Level 27, Anion Gap 10, Blood Urea Nitrogen 28H, Creatinine 0.9, Estimat Glomerular Filtration Rate , Glucose Level 157H, Calcium Level 10.2H, Total Bilirubin 0.4, Aspartate Amino Transf (AST/SGOT) 16, Alanine Aminotransferase (ALT/SGPT) 22, Alkaline Phosphatase 88, Total Protein 7.9, Albumin 2.5L, Globulin 5.4, Albumin/Globulin Ratio 0.5L Height (Feet): 5 Height (Inches): 3.00 Weight (Pounds): 130 General Appearance: lethargic EENT: normal ENT inspection Neck: normal alignment Cardiovascular: normal peripheral pulses, normal rate, regular rhythm Respiratory/Chest: chest wall non-tender, lungs clear, normal breath sounds Abdomen: normal bowel sounds, non tender, soft Extremities: normal inspection Edema: no edema noted Arm (L), no edema noted Arm (R), no edema noted Leg (L), no edema noted Leg (R), no edema noted Pedal (L), no edema noted Pedal (R), no edema noted Generalized Neurologic: motor weakness Skin: normal pigmentation, warm/dry KATIE MONTE Sep 19, 2017 14:21
--- NOTE | 2017-09-19 17:45 | Infectious Diseases Prog Note ---
Assessment/Plan Assessment/Plan ASSESSMENT: The patient is a 76-year-old female with: Fever/leukocytosis (recurrent); improving- ?aspiration pneumontiis- no obvious PNA on CXR. Ucx with <10K colonies, probably not significant -repeat u/a 09/16 wbc 15-20; ucx <10K GPC -Bcx NTD -CXR: Very questionable minimal interstitial congestion. No acute process otherwise. -v. duplex no DVT Previous Leukocytosis, mostly due to acute stress -u/a neg -Bcx NTD No evidence of pneumonia or urinary tract infection. Chest x-ray, no acute process. Hypertension. COPD. Diabetes. History of CVA PLAN: -Continue empiric IV Cefepime #3 pending cultures Monitor blood culture. Monitor CBC. Monitor BMP. -CXR am, sputum cx Subjective Allergies: Coded Allergies: SULFAMETHOXAZOLE (Verified Allergy, Unknown, 07/13/17) TRIMETHOPRIM (Verified Allergy, Unknown, 07/13/17) Subjective afebrile in> 48hrs leukocytosis recurrent mild ucx <10K GPC bcx NTD Objective Vital Signs Last 24 Hour Vital Signs Date Time Temp Pulse Resp B/P (MAP) Pulse Ox O2 Delivery O2 Flow Rate FiO2 09/19/17 16:00 97.5 70 20 121/63 99 97.5 09/19/17 13:20 98 T-piece 10.0 35 09/19/17 13:20 T-piece 10.0 35 09/19/17 12:00 97.9 90 18 113/74 90 Room Air 97.9 09/19/17 08:00 98.6 83 20 143/75 91 Room Air 98.6 09/19/17 07:30 T-piece 10.0 35 09/19/17 07:30 97 T-piece 10.0 35 09/19/17 07:30 94 18 T-piece 10.0 35 09/19/17 03:47 98.4 110 20 123/75 92 Room Air 98.4 09/19/17 01:28 T-piece 10.0 35 09/19/17 01:28 95 T-piece 10.0 35 09/19/17 00:54 97.9 107 20 129/79 95 T-piece 97.9 09/18/17 19:56 96.8 122 20 124/70 93 Room Air 96.8 09/18/17 19:23 T-piece 10.0 35 09/18/17 19:23 114 20 T-piece 10.0 35 09/18/17 19:23 96 T-piece 10.0 35 Height (Feet): 5 Height (Inches): 3.00 Weight (Pounds): 130 Objective General Appearance: lethargic EENT: normal ENT inspection Neck: normal alignment Cardiovascular: normal peripheral pulses, normal rate, regular rhythm Respiratory/Chest: decreased breath sounds Abdomen: normal bowel sounds, non tender, soft Extremities: normal inspection Edema: no edema noted Arm (L), no edema noted Arm (R), no edema noted Leg (L), no edema noted Leg (R), no edema noted Pedal (L), no edema noted Pedal (R), no edema noted Generalized Neurologic: motor weakness Skin: normal pigmentation, warm/dry Microbiology Date/Time Source Procedure Growth Status 09/16/17 21:13 Blood Blood Culture - Preliminary NO GROWTH AFTER 48 HOURS Resulted 09/16/17 21:08 Blood Blood Culture - Preliminary NO GROWTH AFTER 48 HOURS Resulted 09/17/17 03:45 Urine,Clean Catch Urine Culture - Preliminary Gram Positive Cocci Resulted Laboratory Tests Test 09/19/17 05:30 White Blood Count 11.8 K/UL (4.8-10.8) H Red Blood Count 3.85 M/UL (4.20-5.40) L Hemoglobin 11.7 G/DL (12.0-16.0) L Hematocrit 34.8 % (37.0-47.0) L Mean Corpuscular Volume 90 FL (80-99) Mean Corpuscular Hemoglobin 30.4 PG (27.0-31.0) Mean Corpuscular Hemoglobin Concent 33.7 G/DL (32.0-36.0) Red Cell Distribution Width 13.0 % (11.6-14.8) Platelet Count 326 K/UL (150-450) Mean Platelet Volume 6.9 FL (6.5-10.1) Neutrophils (%) (Auto) 76.0 % (45.0-75.0) H Lymphocytes (%) (Auto) 14.7 % (20.0-45.0) L Monocytes (%) (Auto) 7.8 % (1.0-10.0) Eosinophils (%) (Auto) 0.4 % (0.0-3.0) Basophils (%) (Auto) 1.1 % (0.0-2.0) Sodium Level 138 MMOL/L (136-145) Potassium Level 4.6 MMOL/L (3.5-5.1) Chloride Level 101 MMOL/L (98-107) Carbon Dioxide Level 27 MMOL/L (21-32) Anion Gap 10 mmol/L (5-15) Blood Urea Nitrogen 28 mg/dL (7-18) H Creatinine 0.9 MG/DL (0.55-1.30) Estimat Glomerular Filtration Rate mL/min (>60) Glucose Level 157 MG/DL (74-106) H Calcium Level 10.2 MG/DL (8.5-10.1) H Total Bilirubin 0.4 MG/DL (0.2-1.0) Aspartate Amino Transf (AST/SGOT) 16 U/L (15-37) Alanine Aminotransferase (ALT/SGPT) 22 U/L (12-78) Alkaline Phosphatase 88 U/L (46-116) Total Protein 7.9 G/DL (6.4-8.2) Albumin 2.5 G/DL (3.4-5.0) L Globulin 5.4 g/dL Albumin/Globulin Ratio 0.5 (1.0-2.7) L Current Medications Medications (Trade) Dose Ordered Sig/Gavino Route PRN Reason Start Time Stop Time Status Last Admin Dose Admin Acetaminophen (Tylenol) 650 mg Q4H PRN ORAL fever 09/12/17 21:30 10/12/17 21:29 09/17/17 03:50 Al Hydroxide/Mg Hydroxide (Mylanta II) 30 ml Q6H PRN ORAL dyspepsia 09/12/17 21:30 10/12/17 21:29 Cefepime HCl 1 gm/ Sodium Chloride 55 ml @ 110 mls/hr Q12H IVPB 09/17/17 15:00 09/24/17 23:59 09/19/17 15:21 Clotrimazole (Lotrimin) 1 applic EVERY 12 HOURS TOPIC 09/15/17 09:00 10/15/17 08:59 09/19/17 09:15 Dextrose (Dextrose 50%) STAT PRN IV Hypoglycemia 09/12/17 21:30 10/12/17 21:29 Diphenhydramine HCl (Benadryl) 25 mg Q6H PRN ORAL Itching/Pruritis 09/12/17 21:30 10/12/17 21:29 Docusate Sodium (Colace) 100 mg BID GT 09/14/17 18:00 10/14/17 17:59 09/19/17 09:15 Heparin Sodium (Porcine) (Heparin 5000 units/ml) 5,000 units EVERY 12 HOURS SUBQ 09/13/17 09:00 10/13/17 08:59 09/19/17 09:21 Metoclopramide HCl (Reglan) 5 mg Q8HR GT 09/13/17 14:00 10/13/17 17:59 09/19/17 05:14 Morphine Sulfate (Morphine Sulfate) 2 mg EVERY 4 HOURS PRN IVP severe Pain (Pain Scale 7-10) 09/12/17 21:30 09/19/17 21:29 09/15/17 21:38 Nitroglycerin (Ntg) 0.4 mg Q5M X 3 DOSES PRN SL Prn Chest Pain 09/12/17 21:30 10/12/17 21:29 Ondansetron HCl (Zofran) 4 mg Q6H PRN IVP Nausea & Vomiting 09/12/17 21:30 10/12/17 21:29 Pantoprazole (Protonix) 40 mg DAILY IVP 09/13/17 09:00 10/13/17 08:59 09/19/17 09:15 Polyethylene Glycol (Miralax) 17 gm HSPRN PRN ORAL Constipation 09/12/17 21:30 10/12/17 21:29 Temazepam (Restoril) 15 mg HSPRN PRN ORAL Insomnia 09/12/17 21:30 09/19/17 21:29 09/18/17 21:39 Marion Conway M.D. Sep 19, 2017 17:45
--- NOTE | 2017-09-19 22:13 | Pulmonology Progress Note ---
Assessment/Plan Problems: (1) Aspiration pneumonia (2) Vomiting (3) CVA (cerebral vascular accident) (4) Tracheostomy in place (5) G tube feedings (6) Status post CVA Assessment/Plan improving respiratory treatment iv abx check cultures tolerating feeding dvt prophylaxis. dc planning in process Subjective ROS Limited/Unobtainable: No Allergies: Coded Allergies: SULFAMETHOXAZOLE (Verified Allergy, Unknown, 07/13/17) TRIMETHOPRIM (Verified Allergy, Unknown, 07/13/17) Objective Last 24 Hour Vital Signs Date Time Temp Pulse Resp B/P (MAP) Pulse Ox O2 Delivery O2 Flow Rate FiO2 09/19/17 20:30 98.4 104 21 103/64 95 98.4 09/19/17 20:00 105 22 T-piece 12.0 40 09/19/17 20:00 97.3 81 20 121/82 98 97.3 09/19/17 20:00 T-piece 12.0 40 09/19/17 20:00 95 T-piece 12.0 40 09/19/17 16:00 97.5 70 20 121/63 99 97.5 09/19/17 13:20 98 T-piece 10.0 35 09/19/17 13:20 T-piece 10.0 35 09/19/17 12:00 97.9 90 18 113/74 90 Room Air 97.9 09/19/17 08:00 98.6 83 20 143/75 91 Room Air 98.6 09/19/17 07:30 T-piece 10.0 35 09/19/17 07:30 97 T-piece 10.0 35 09/19/17 07:30 94 18 T-piece 10.0 35 09/19/17 03:47 98.4 110 20 123/75 92 Room Air 98.4 09/19/17 01:28 T-piece 10.0 35 09/19/17 01:28 95 T-piece 10.0 35 09/19/17 00:54 97.9 107 20 129/79 95 T-piece 97.9 Intake and Output 09/18/17 09/19/17 19:00 07:00 Intake Total 710 ml 505 ml Output Total 250 ml Balance 460 ml 505 ml Free Water 60 ml 60 ml IV Total 55 ml Tube Feeding 650 ml 390 ml Output Urine Total 250 ml # Bowel Movements 3 1 Objective General Appearance: WD/WN HEENT: normocephalic, atraumatic, trach intact Respiratory/Chest: chest wall non-tender, lungs clear Breasts: no masses Cardiovascular: normal peripheral pulses, regular rhythm Abdomen: normal bowel sounds, soft, non tender, Gtube Genitourinary: normal external genitalia Extremities: no cyanosis Skin: no lesions Microbiology Date/Time Source Procedure Growth Status 09/17/17 03:45 Urine,Clean Catch Urine Culture - Preliminary Gram Positive Cocci Resulted Laboratory Tests 09/19/17 05:30: White Blood Count 11.8H, Red Blood Count 3.85L, Hemoglobin 11.7L, Hematocrit 34.8L, Mean Corpuscular Volume 90, Mean Corpuscular Hemoglobin 30.4, Mean Corpuscular Hemoglobin Concent 33.7, Red Cell Distribution Width 13.0, Platelet Count 326, Mean Platelet Volume 6.9, Neutrophils (%) (Auto) 76.0H, Lymphocytes ( %) (Auto) 14.7L, Monocytes (%) (Auto) 7.8, Eosinophils (%) (Auto) 0.4, Basophils (%) (Auto) 1.1, Sodium Level 138, Potassium Level 4.6, Chloride Level 101, Carbon Dioxide Level 27, Anion Gap 10, Blood Urea Nitrogen 28H, Creatinine 0.9, Estimat Glomerular Filtration Rate , Glucose Level 157H, Calcium Level 10.2H, Total Bilirubin 0.4, Aspartate Amino Transf (AST/SGOT) 16, Alanine Aminotransferase (ALT/SGPT) 22, Alkaline Phosphatase 88, Total Protein 7.9, Albumin 2.5L, Globulin 5.4, Albumin/Globulin Ratio 0.5L Current Medications Medications (Trade) Dose Ordered Sig/Gavino Route PRN Reason Start Time Stop Time Status Last Admin Dose Admin Acetaminophen (Tylenol) 650 mg Q4H PRN ORAL fever 09/12/17 21:30 10/12/17 21:29 09/17/17 03:50 Al Hydroxide/Mg Hydroxide (Mylanta II) 30 ml Q6H PRN ORAL dyspepsia 09/12/17 21:30 10/12/17 21:29 Cefepime HCl 1 gm/ Sodium Chloride 55 ml @ 110 mls/hr Q12H IVPB 09/17/17 15:00 09/24/17 23:59 09/19/17 15:21 Clotrimazole (Lotrimin) 1 applic EVERY 12 HOURS TOPIC 09/15/17 09:00 10/15/17 08:59 09/19/17 09:15 Dextrose (Dextrose 50%) STAT PRN IV Hypoglycemia 09/12/17 21:30 10/12/17 21:29 Diphenhydramine HCl (Benadryl) 25 mg Q6H PRN ORAL Itching/Pruritis 09/12/17 21:30 10/12/17 21:29 Docusate Sodium (Colace) 100 mg BID GT 09/14/17 18:00 10/14/17 17:59 09/19/17 09:15 Heparin Sodium (Porcine) (Heparin 5000 units/ml) 5,000 units EVERY 12 HOURS SUBQ 09/13/17 09:00 10/13/17 08:59 09/19/17 09:21 Metoclopramide HCl (Reglan) 5 mg Q8HR GT 09/13/17 14:00 10/13/17 17:59 09/19/17 05:14 Nitroglycerin (Ntg) 0.4 mg Q5M X 3 DOSES PRN SL Prn Chest Pain 09/12/17 21:30 10/12/17 21:29 Ondansetron HCl (Zofran) 4 mg Q6H PRN IVP Nausea & Vomiting 09/12/17 21:30 10/12/17 21:29 Pantoprazole (Protonix) 40 mg DAILY IVP 09/13/17 09:00 10/13/17 08:59 09/19/17 09:15 Polyethylene Glycol (Miralax) 17 gm HSPRN PRN ORAL Constipation 09/12/17 21:30 10/12/17 21:29 Valerio Childs MD Sep 19, 2017 22:13
[2017-09-20 00:30] VITALS: BP 105/66
[2017-09-20] MEDS: Cefepime HCl 1 GM in NS 55 ML IVPB SCH ×2 (03:52→15:17)
[2017-09-20 04:30] VITALS: BP 105/66
[2017-09-20] MEDS: Metoclopramide 10mg/10ml Liq GT SCH ×3 (05:58→23:08)
[2017-09-20 06:34] LABS: HEMATOCRIT 35.3 % (37.0-47.0); HEMOGLOBIN 11.9 G/DL (12.0-16.0); MEAN CORPUSCULAR VOLUME 90 FL (80-99); PLATELET COUNT 310 K/UL (150-450); RED BLOOD COUNT 3.94 M/UL (4.20-5.40); RED CELL DISTRIBUTION WIDTH 13.3 % (11.6-14.8); WHITE BLOOD COUNT 17.4 K/UL (4.8-10.8)
[2017-09-20 07:00] LABS: ANION GAP 11 mmol/L (5-15); BLOOD UREA NITROGEN 34 mg/dL (7-18); CALCIUM 9.8 MG/DL (8.5-10.1); CARBON DIOXIDE 27 MMOL/L (21-32); CHLORIDE 104 MMOL/L (98-107); CREATININE 0.9 MG/DL (0.55-1.30); POTASSIUM 4.4 MMOL/L (3.5-5.1); SODIUM 141 MMOL/L (136-145)
[2017-09-20 08:00] VITALS: BP 139/83
[2017-09-20] MEDS: Pantoprazole Inj IVP SCH (08:47)
[2017-09-20] MEDS: Docusate 100mg/10ml Liq GT SCH ×2 (09:02→16:44)
[2017-09-20] MEDS: Heparin 5000 units/ml inj SUBQ SCH ×2 (09:05→21:47)
--- NOTE | 2017-09-20 10:25 | Diagnostic Imaging Report ---
Indication: Shortness of breath Technique: One view of the chest Comparison: 09/16/2017 Findings: Tracheostomy remains. There is retrocardiac atelectasis. Lungs and pleural spaces are otherwise clear. Previously questioned interstitial congestive changes are not evident previously Impression: Retrocardiac atelectasis. No acute process otherwise
--- NOTE | 2017-09-20 11:03 | Infectious Diseases Prog Note ---
Assessment/Plan Assessment/Plan ASSESSMENT: The patient is a 76-year-old female with: Fever/leukocytosis (recurrent); fever improving, leukocytosis worsening- ? aspiration pneumonitis- no obvious PNA on CXR. Ucx with <10K MRSA, typically this organisms doesnt cause UTI but may cause with presence of regan catheter; also may represent seeding from blood; so far Bcx NTD -repeat u/a 09/16 wbc 15-20; ucx <10K MRSA (S Vanco, bactrim; R Tetracycline) -CXR 09/20: Retrocardiac atelectasis. No acute process otherwise -Bcx 09/16 NTD -CXR: Very questionable minimal interstitial congestion. No acute process otherwise. -v. duplex no DVT Previous Leukocytosis, mostly due to acute stress -u/a neg -Bcx NTD No evidence of pneumonia or urinary tract infection. Chest x-ray, no acute process. Hypertension. COPD. Diabetes. History of CVA PLAN: -D/c empiric IV Cefepime #3 and start IV Vancomycin pending repeat Bcx, Echo, u/ a with reflex -2 set bcx, 2d Echo, u/a with reflex, Cdiff -Switch Regan Monitor blood culture. Monitor CBC. Monitor BMP. Discussed with RN Subjective Allergies: Coded Allergies: SULFAMETHOXAZOLE (Verified Allergy, Unknown, 07/13/17) TRIMETHOPRIM (Verified Allergy, Unknown, 07/13/17) Subjective afebrile in 72hrs leukocytosis worsening ucx <10K MRSA repeat CXR clear lungs bcx NTD Objective Vital Signs Last 24 Hour Vital Signs Date Time Temp Pulse Resp B/P (MAP) Pulse Ox O2 Delivery O2 Flow Rate FiO2 09/20/17 08:00 98.1 95 20 139/83 98 98.1 09/20/17 07:29 97 20 T-piece 12.0 40 09/20/17 07:29 97 T-piece 12.0 40 09/20/17 07:29 T-piece 12.0 40 09/20/17 04:30 98.2 117 23 105/66 93 98.2 09/20/17 01:30 94 T-piece 12.0 40 09/20/17 01:30 T-piece 12.0 40 09/20/17 00:30 98.2 117 23 105/66 93 98.2 09/19/17 20:30 98.4 104 21 103/64 95 98.4 09/19/17 20:00 105 22 T-piece 12.0 40 09/19/17 20:00 97.3 81 20 121/82 98 97.3 09/19/17 20:00 T-piece 12.0 40 09/19/17 20:00 95 T-piece 12.0 40 09/19/17 16:00 97.5 70 20 121/63 99 97.5 09/19/17 13:20 98 T-piece 10.0 35 09/19/17 13:20 T-piece 10.0 35 09/19/17 12:00 97.9 90 18 113/74 90 Room Air 97.9 Height (Feet): 5 Height (Inches): 3.00 Weight (Pounds): 130 Objective General Appearance: lethargic EENT: normal ENT inspection Neck: normal alignment Cardiovascular: normal peripheral pulses, normal rate, regular rhythm Respiratory/Chest: decreased breath sounds Abdomen: normal bowel sounds, non tender, soft Extremities: normal inspection Edema: no edema noted Arm (L), no edema noted Arm (R), no edema noted Leg (L), no edema noted Leg (R), no edema noted Pedal (L), no edema noted Pedal (R), no edema noted Generalized Neurologic: motor weakness Skin: normal pigmentation, warm/dry Laboratory Tests Test 09/20/17 05:40 White Blood Count 17.4 K/UL (4.8-10.8) H Red Blood Count 3.94 M/UL (4.20-5.40) L Hemoglobin 11.9 G/DL (12.0-16.0) L Hematocrit 35.3 % (37.0-47.0) L Mean Corpuscular Volume 90 FL (80-99) Mean Corpuscular Hemoglobin 30.3 PG (27.0-31.0) Mean Corpuscular Hemoglobin Concent 33.8 G/DL (32.0-36.0) Red Cell Distribution Width 13.3 % (11.6-14.8) Platelet Count 310 K/UL (150-450) Mean Platelet Volume 7.1 FL (6.5-10.1) Neutrophils (%) (Auto) % (45.0-75.0) Lymphocytes (%) (Auto) % (20.0-45.0) Monocytes (%) (Auto) % (1.0-10.0) Eosinophils (%) (Auto) % (0.0-3.0) Basophils (%) (Auto) % (0.0-2.0) Differential Total Cells Counted 100 Neutrophils % (Manual) 82 % (45-75) H Lymphocytes % (Manual) 7 % (20-45) L Monocytes % (Manual) 6 % (1-10) Eosinophils % (Manual) 0 % (0-3) Basophils % (Manual) 0 % (0-2) Band Neutrophils 5 % (0-8) Platelet Estimate Adequate Platelet Morphology Normal Red Blood Cell Morphology Normal Sodium Level 141 MMOL/L (136-145) Potassium Level 4.4 MMOL/L (3.5-5.1) Chloride Level 104 MMOL/L (98-107) Carbon Dioxide Level 27 MMOL/L (21-32) Anion Gap 11 mmol/L (5-15) Blood Urea Nitrogen 34 mg/dL (7-18) H Creatinine 0.9 MG/DL (0.55-1.30) Estimat Glomerular Filtration Rate mL/min (>60) Glucose Level 190 MG/DL (74-106) H Calcium Level 9.8 MG/DL (8.5-10.1) Current Medications Medications (Trade) Dose Ordered Sig/Gavino Route PRN Reason Start Time Stop Time Status Last Admin Dose Admin Acetaminophen (Tylenol) 650 mg Q4H PRN ORAL fever 09/12/17 21:30 10/12/17 21:29 09/17/17 03:50 Al Hydroxide/Mg Hydroxide (Mylanta II) 30 ml Q6H PRN ORAL dyspepsia 09/12/17 21:30 10/12/17 21:29 Cefepime HCl 1 gm/ Sodium Chloride 55 ml @ 110 mls/hr Q12H IVPB 09/17/17 15:00 09/24/17 23:59 09/20/17 03:52 Clotrimazole (Lotrimin) 1 applic EVERY 12 HOURS TOPIC 09/15/17 09:00 10/15/17 08:59 09/20/17 09:02 Dextrose (Dextrose 50%) STAT PRN IV Hypoglycemia 09/12/17 21:30 10/12/17 21:29 Diphenhydramine HCl (Benadryl) 25 mg Q6H PRN ORAL Itching/Pruritis 09/12/17 21:30 10/12/17 21:29 Docusate Sodium (Colace) 100 mg BID GT 09/14/17 18:00 10/14/17 17:59 09/20/17 09:02 Heparin Sodium (Porcine) (Heparin 5000 units/ml) 5,000 units EVERY 12 HOURS SUBQ 09/13/17 09:00 10/13/17 08:59 09/20/17 09:05 Metoclopramide HCl (Reglan) 5 mg Q8HR GT 09/13/17 14:00 10/13/17 17:59 09/20/17 05:58 Nitroglycerin (Ntg) 0.4 mg Q5M X 3 DOSES PRN SL Prn Chest Pain 09/12/17 21:30 10/12/17 21:29 Ondansetron HCl (Zofran) 4 mg Q6H PRN IVP Nausea & Vomiting 09/12/17 21:30 10/12/17 21:29 Pantoprazole (Protonix) 40 mg DAILY IVP 09/13/17 09:00 10/13/17 08:59 09/20/17 08:47 Polyethylene Glycol (Miralax) 17 gm HSPRN PRN ORAL Constipation 09/12/17 21:30 10/12/17 21:29 Marion Conway M.D. Sep 20, 2017 11:03
[2017-09-20 12:00] VITALS: BP 134/85
[2017-09-20] MEDS ORDERED: Vancomycin 1250mg/D5W 250ml IVPB ONE (12:00)
--- NOTE | 2017-09-20 12:21 | General Progress Note ---
Assessment/Plan Assessment/Plan 1. Nausea or vomiting, x1 episode. --> The patient has been seen by GI Service. Further recommendations to follow. --> Symptomatic treatment with low-dose Reglan as well as Zofran and continue G- tube feeds per dietary recommendations. --> Has improved. 2. Status post tracheostomy. --> Continue to monitor. 3. CVA history. Neurology has been consulted. 4. Hyponatremia. 5. Leukocytosis, potentially secondary to reactive process. --> Improved and downtrended. 6. Thrombocytosis, potentially secondary to reactive process. Continue to closely monitor. --> downtrended from yesterday and improved. --> Platelets now WNL Subjective Date patient seen: Sep 19, 2017 Constitutional: Denies: no symptoms, chills, diaphoresis, fever, malaise, weakness, other HEENT: Denies: no symptoms, eye pain, blurred vision, tearing, double vision, ear pain, ear discharge, nose pain, nose congestion, throat pain, throat swelling, mouth pain, mouth swelling, other Cardiovascular: Denies: no symptoms, chest pain, edema, irregular heart rate, lightheadedness, palpitations, syncope, other Respiratory: Denies: no symptoms, cough, orthopnea, shortness of breath, SOB with excertion, SOB at rest, sputum, stridor, wheezing, other Gastrointestinal/Abdominal: Denies: no symptoms, abdomen distended, abdominal pain, black stools, tarry stools, blood in stool, constipated, diarrhea, difficulty swallowing, nausea, poor appetite, poor fluid intake, rectal bleeding , vomiting, other Genitourinary: Denies: no symptoms, burning, discharge, frequency, flank pain, hematuria, incontinence, pain, urgency, other Neurologic/Psychiatric: Denies: no symptoms, anxiety, depressed, emotional problems, headache, numbness, paresthesia, pre-existing deficit, seizure, tingling, tremors, weakness, other Allergies: Coded Allergies: SULFAMETHOXAZOLE (Verified Allergy, Unknown, 07/13/17) TRIMETHOPRIM (Verified Allergy, Unknown, 07/13/17) Subjective On trach/vent. No fever or chills. Objective Last 24 Hour Vital Signs Date Time Temp Pulse Resp B/P (MAP) Pulse Ox O2 Delivery O2 Flow Rate FiO2 09/20/17 08:00 98.1 95 20 139/83 98 98.1 09/20/17 07:29 97 20 T-piece 12.0 40 09/20/17 07:29 97 T-piece 12.0 40 09/20/17 07:29 T-piece 12.0 40 09/20/17 04:30 98.2 117 23 105/66 93 98.2 09/20/17 01:30 94 T-piece 12.0 40 09/20/17 01:30 T-piece 12.0 40 09/20/17 00:30 98.2 117 23 105/66 93 98.2 09/19/17 20:30 98.4 104 21 103/64 95 98.4 09/19/17 20:00 105 22 T-piece 12.0 40 09/19/17 20:00 97.3 81 20 121/82 98 97.3 09/19/17 20:00 T-piece 12.0 40 09/19/17 20:00 95 T-piece 12.0 40 09/19/17 16:00 97.5 70 20 121/63 99 97.5 09/19/17 13:20 98 T-piece 10.0 35 09/19/17 13:20 T-piece 10.0 35 Intake and Output 09/19/17 09/20/17 18:59 06:59 Intake Total 1080 ml Output Total 300 ml 550 ml Balance -300 ml 530 ml Free Water 180 ml IV Total 55 ml Tube Feeding 845 ml Output Urine Total 300 ml 550 ml # Voids 1 # Bowel Movements 1 2 Laboratory Tests 09/20/17 05:40: White Blood Count 17.4H, Red Blood Count 3.94L, Hemoglobin 11.9L, Hematocrit 35.3L, Mean Corpuscular Volume 90, Mean Corpuscular Hemoglobin 30.3, Mean Corpuscular Hemoglobin Concent 33.8, Red Cell Distribution Width 13.3, Platelet Count 310, Mean Platelet Volume 7.1, Neutrophils (%) (Auto) , Lymphocytes (%) ( Auto) , Monocytes (%) (Auto) , Eosinophils (%) (Auto) , Basophils (%) (Auto) , Differential Total Cells Counted 100, Neutrophils % (Manual) 82H, Lymphocytes % (Manual) 7L, Monocytes % (Manual) 6, Eosinophils % (Manual) 0, Basophils % ( Manual) 0, Band Neutrophils 5, Platelet Estimate Adequate, Platelet Morphology Normal, Red Blood Cell Morphology Normal, Sodium Level 141, Potassium Level 4.4 , Chloride Level 104, Carbon Dioxide Level 27, Anion Gap 11, Blood Urea Nitrogen 34H, Creatinine 0.9, Estimat Glomerular Filtration Rate , Glucose Level 190H, Calcium Level 9.8 Height (Feet): 5 Height (Inches): 3.00 Weight (Pounds): 130 General Appearance: no apparent distress Respiratory/Chest: decreased breath sounds Abdomen: soft Nader Landis MD Sep 20, 2017 12:21
--- NOTE | 2017-09-20 13:06 | GI Progress Note ---
Assessment/Plan Problems: (1) G tube feedings ICD Codes: Z93.1 - Gastrostomy status SNOMED: 273895296, 077067555 (2) Vomiting ICD Codes: R11.10 - Vomiting, unspecified SNOMED: 814194736 Qualifiers: Qualified Codes: R11.10 - Vomiting, unspecified Status: stable Status Narrative Discussed with Dr. Jhaveri. Assessment/Plan symptomatic treatment / supportive care low dose reglan zofran prn GTFs per dietary electrolyte correction bowel regime ppi fu labs dc planning Subjective Subjective limited Objective Last 24 Hour Vital Signs Date Time Temp Pulse Resp B/P (MAP) Pulse Ox O2 Delivery O2 Flow Rate FiO2 09/20/17 12:31 T-piece 12.0 40 09/20/17 12:31 96 T-piece 12.0 40 09/20/17 12:00 97.6 98 22 134/85 100 97.6 09/20/17 08:00 98.1 95 20 139/83 98 98.1 09/20/17 07:29 97 20 T-piece 12.0 40 09/20/17 07:29 97 T-piece 12.0 40 09/20/17 07:29 T-piece 12.0 40 09/20/17 04:30 98.2 117 23 105/66 93 98.2 09/20/17 01:30 94 T-piece 12.0 40 09/20/17 01:30 T-piece 12.0 40 09/20/17 00:30 98.2 117 23 105/66 93 98.2 09/19/17 20:30 98.4 104 21 103/64 95 98.4 09/19/17 20:00 105 22 T-piece 12.0 40 09/19/17 20:00 97.3 81 20 121/82 98 97.3 09/19/17 20:00 T-piece 12.0 40 09/19/17 20:00 95 T-piece 12.0 40 09/19/17 16:00 97.5 70 20 121/63 99 97.5 09/19/17 13:20 98 T-piece 10.0 35 09/19/17 13:20 T-piece 10.0 35 Intake and Output 09/19/17 09/20/17 19:00 07:00 Intake Total 65 ml 1015 ml Output Total 300 ml 550 ml Balance -235 ml 465 ml Free Water 180 ml IV Total 55 ml Tube Feeding 65 ml 780 ml Output Urine Total 300 ml 550 ml # Voids 1 # Bowel Movements 1 2 Laboratory Tests Test 09/20/17 05:40 White Blood Count 17.4 K/UL (4.8-10.8) H Red Blood Count 3.94 M/UL (4.20-5.40) L Hemoglobin 11.9 G/DL (12.0-16.0) L Hematocrit 35.3 % (37.0-47.0) L Mean Corpuscular Volume 90 FL (80-99) Mean Corpuscular Hemoglobin 30.3 PG (27.0-31.0) Mean Corpuscular Hemoglobin Concent 33.8 G/DL (32.0-36.0) Red Cell Distribution Width 13.3 % (11.6-14.8) Platelet Count 310 K/UL (150-450) Mean Platelet Volume 7.1 FL (6.5-10.1) Neutrophils (%) (Auto) % (45.0-75.0) Lymphocytes (%) (Auto) % (20.0-45.0) Monocytes (%) (Auto) % (1.0-10.0) Eosinophils (%) (Auto) % (0.0-3.0) Basophils (%) (Auto) % (0.0-2.0) Differential Total Cells Counted 100 Neutrophils % (Manual) 82 % (45-75) H Lymphocytes % (Manual) 7 % (20-45) L Monocytes % (Manual) 6 % (1-10) Eosinophils % (Manual) 0 % (0-3) Basophils % (Manual) 0 % (0-2) Band Neutrophils 5 % (0-8) Platelet Estimate Adequate Platelet Morphology Normal Red Blood Cell Morphology Normal Sodium Level 141 MMOL/L (136-145) Potassium Level 4.4 MMOL/L (3.5-5.1) Chloride Level 104 MMOL/L (98-107) Carbon Dioxide Level 27 MMOL/L (21-32) Anion Gap 11 mmol/L (5-15) Blood Urea Nitrogen 34 mg/dL (7-18) H Creatinine 0.9 MG/DL (0.55-1.30) Estimat Glomerular Filtration Rate mL/min (>60) Glucose Level 190 MG/DL (74-106) H Calcium Level 9.8 MG/DL (8.5-10.1) Height (Feet): 5 Height (Inches): 3.00 Weight (Pounds): 130 General Appearance: WD/WN, no apparent distress, alert Cardiovascular: normal rate Respiratory/Chest: normal breath sounds, no respiratory distress, other - trach Abdominal Exam: normal bowel sounds, non tender, soft, GT site - c/d/i Extremities: non-tender Tiffanie Simeon N.P. Sep 20, 2017 13:06
--- NOTE | 2017-09-20 13:31 | General Progress Note ---
Assessment/Plan Problem List: (1) Status post CVA ICD Codes: Z86.73 - Personal history of transient ischemic attack (TIA), and cerebral infarction without residual deficits SNOMED: 639859786 (2) Vomiting ICD Codes: R11.10 - Vomiting, unspecified SNOMED: 079445516 Qualifiers: Qualified Codes: R11.10 - Vomiting, unspecified (3) CVA (cerebral vascular accident) ICD Codes: I63.9 - Cerebral infarction, unspecified SNOMED: 637935034 (4) Tracheostomy in place ICD Codes: Z93.0 - Tracheostomy status SNOMED: 547471530 (5) G tube feedings ICD Codes: Z93.1 - Gastrostomy status SNOMED: 400885002, 524556193 (6) Aspiration pneumonia ICD Codes: J69.0 - Pneumonitis due to inhalation of food and vomit SNOMED: 732909133 Status: unchanged Assessment/Plan vent abx bp bs control cbc bmp am ltach if ok w family Subjective Constitutional: Reports: weakness Allergies: Coded Allergies: SULFAMETHOXAZOLE (Verified Allergy, Unknown, 07/13/17) TRIMETHOPRIM (Verified Allergy, Unknown, 07/13/17) All Systems: reviewed and negative except above Subjective trach vent asleep Objective Last 24 Hour Vital Signs Date Time Temp Pulse Resp B/P (MAP) Pulse Ox O2 Delivery O2 Flow Rate FiO2 09/20/17 12:31 T-piece 12.0 40 09/20/17 12:31 96 T-piece 12.0 40 09/20/17 12:00 97.6 98 22 134/85 100 97.6 09/20/17 08:00 98.1 95 20 139/83 98 98.1 09/20/17 07:29 97 20 T-piece 12.0 40 09/20/17 07:29 97 T-piece 12.0 40 09/20/17 07:29 T-piece 12.0 40 09/20/17 04:30 98.2 117 23 105/66 93 98.2 09/20/17 01:30 94 T-piece 12.0 40 09/20/17 01:30 T-piece 12.0 40 09/20/17 00:30 98.2 117 23 105/66 93 98.2 09/19/17 20:30 98.4 104 21 103/64 95 98.4 09/19/17 20:00 105 22 T-piece 12.0 40 09/19/17 20:00 97.3 81 20 121/82 98 97.3 09/19/17 20:00 T-piece 12.0 40 09/19/17 20:00 95 T-piece 12.0 40 09/19/17 16:00 97.5 70 20 121/63 99 97.5 Intake and Output 09/19/17 09/20/17 19:00 07:00 Intake Total 65 ml 1015 ml Output Total 300 ml 550 ml Balance -235 ml 465 ml Free Water 180 ml IV Total 55 ml Tube Feeding 65 ml 780 ml Output Urine Total 300 ml 550 ml # Voids 1 # Bowel Movements 1 2 Laboratory Tests 09/20/17 05:40: White Blood Count 17.4H, Red Blood Count 3.94L, Hemoglobin 11.9L, Hematocrit 35.3L, Mean Corpuscular Volume 90, Mean Corpuscular Hemoglobin 30.3, Mean Corpuscular Hemoglobin Concent 33.8, Red Cell Distribution Width 13.3, Platelet Count 310, Mean Platelet Volume 7.1, Neutrophils (%) (Auto) , Lymphocytes (%) ( Auto) , Monocytes (%) (Auto) , Eosinophils (%) (Auto) , Basophils (%) (Auto) , Differential Total Cells Counted 100, Neutrophils % (Manual) 82H, Lymphocytes % (Manual) 7L, Monocytes % (Manual) 6, Eosinophils % (Manual) 0, Basophils % ( Manual) 0, Band Neutrophils 5, Platelet Estimate Adequate, Platelet Morphology Normal, Red Blood Cell Morphology Normal, Sodium Level 141, Potassium Level 4.4 , Chloride Level 104, Carbon Dioxide Level 27, Anion Gap 11, Blood Urea Nitrogen 34H, Creatinine 0.9, Estimat Glomerular Filtration Rate , Glucose Level 190H, Calcium Level 9.8 Height (Feet): 5 Height (Inches): 3.00 Weight (Pounds): 130 General Appearance: lethargic EENT: normal ENT inspection Neck: normal alignment Cardiovascular: normal peripheral pulses, normal rate, regular rhythm Respiratory/Chest: chest wall non-tender, lungs clear, normal breath sounds Abdomen: normal bowel sounds, non tender, soft Extremities: normal inspection Edema: no edema noted Arm (L), no edema noted Arm (R), no edema noted Leg (L), no edema noted Leg (R), no edema noted Pedal (L), no edema noted Pedal (R), no edema noted Generalized Neurologic: motor weakness Skin: normal pigmentation, warm/dry KATIE MONTE Sep 20, 2017 13:31
--- NOTE | 2017-09-20 13:35 | Wound Nurse Progress Note ---
Wound RN Progress Note Wound Consult Reassessment- no further deterioration present to admitted sites. #1 Sacrococcygeal SDTI pressure ulcer- remains as dti noted deep red color remains present. skin still intact #2 Mable with erosion on perineal/perianal area- erosion remains present no further deterioration , noted patient with loose BM. continue to provide colette care and treatment as recommended Recommendation -Local wound care per protocol -Colette care PRN. -Keep clean and dry -Turn and reposition -Offload both heels -Heel protector on both heels -Optimize nutrition -Low air loss mattress -Assess and f/u accordingly for any changes CAROLE LLANES Sep 20, 2017 13:35
[2017-09-20] MEDS: Vancomycin oral 125mg/2.5ml ORAL SCH ×3 (13:47→21:17)
[2017-09-20 16:00] VITALS: BP 105/60
[2017-09-20 16:05] LABS: APPEARANCE,URINE SLIGHTLY CLOUDY; BILIRUBIN, URINE NEGATIVE (NEGATIVE); GLUCOSE, URINE (UA) NEGATIVE (NEGATIVE); KETONES,URINE 1+ (NEGATIVE); LEUKOCYTE ESTERASE ,URINE 1+ (NEGATIVE); NITRITE,URINE NEGATIVE (NEGATIVE); PH,URINE 5 (4.5-8.0); PROTEIN,URINE 2+ (NEGATIVE); UROBILINOGEN,URINE NORMAL MG/DL (0.0-1.0)
[2017-09-20 16:08] LABS: COLOR,URINE YELLOW
--- NOTE | 2017-09-20 16:26 | Pulmonology Progress Note ---
Assessment/Plan Problems: (1) Aspiration pneumonia (2) Vomiting (3) CVA (cerebral vascular accident) (4) Tracheostomy in place (5) G tube feedings (6) Status post CVA Assessment/Plan improving respiratory treatment iv abx check cultures tolerating feeding dvt prophylaxis. dc planning in process Subjective ROS Limited/Unobtainable: No Constitutional: Reports: no symptoms HEENT: Repors: no symptoms Respiratory: Reports: no symptoms Allergies: Coded Allergies: SULFAMETHOXAZOLE (Verified Allergy, Unknown, 07/13/17) TRIMETHOPRIM (Verified Allergy, Unknown, 07/13/17) Objective Last 24 Hour Vital Signs Date Time Temp Pulse Resp B/P (MAP) Pulse Ox O2 Delivery O2 Flow Rate FiO2 09/20/17 16:00 98.1 114 20 105/60 98 98.1 09/20/17 12:31 T-piece 12.0 40 09/20/17 12:31 96 T-piece 12.0 40 09/20/17 12:00 T-piece 15.0 35 09/20/17 12:00 97.6 98 22 134/85 100 97.6 09/20/17 08:05 T-piece 15.0 35 09/20/17 08:00 98.1 95 20 139/83 98 98.1 09/20/17 07:29 97 20 T-piece 12.0 40 09/20/17 07:29 97 T-piece 12.0 40 09/20/17 07:29 T-piece 12.0 40 09/20/17 04:30 98.2 117 23 105/66 93 98.2 09/20/17 01:30 94 T-piece 12.0 40 09/20/17 01:30 T-piece 12.0 40 09/20/17 00:30 98.2 117 23 105/66 93 98.2 09/19/17 20:30 98.4 104 21 103/64 95 98.4 09/19/17 20:00 105 22 T-piece 12.0 40 09/19/17 20:00 97.3 81 20 121/82 98 97.3 09/19/17 20:00 T-piece 12.0 40 09/19/17 20:00 95 T-piece 12.0 40 Intake and Output 09/19/17 09/20/17 19:00 07:00 Intake Total 65 ml 1015 ml Output Total 300 ml 550 ml Balance -235 ml 465 ml Free Water 180 ml IV Total 55 ml Tube Feeding 65 ml 780 ml Output Urine Total 300 ml 550 ml # Voids 1 # Bowel Movements 1 2 Objective General Appearance: WD/WN HEENT: normocephalic, atraumatic, trach intact Respiratory/Chest: chest wall non-tender, lungs clear Breasts: no masses Cardiovascular: normal peripheral pulses, regular rhythm Abdomen: normal bowel sounds, soft, non tender, Gtube Genitourinary: normal external genitalia Extremities: no cyanosis Skin: no lesions Laboratory Tests 09/20/17 05:40: White Blood Count 17.4H, Red Blood Count 3.94L, Hemoglobin 11.9L, Hematocrit 35.3L, Mean Corpuscular Volume 90, Mean Corpuscular Hemoglobin 30.3, Mean Corpuscular Hemoglobin Concent 33.8, Red Cell Distribution Width 13.3, Platelet Count 310, Mean Platelet Volume 7.1, Neutrophils (%) (Auto) , Lymphocytes (%) ( Auto) , Monocytes (%) (Auto) , Eosinophils (%) (Auto) , Basophils (%) (Auto) , Differential Total Cells Counted 100, Neutrophils % (Manual) 82H, Lymphocytes % (Manual) 7L, Monocytes % (Manual) 6, Eosinophils % (Manual) 0, Basophils % ( Manual) 0, Band Neutrophils 5, Platelet Estimate Adequate, Platelet Morphology Normal, Red Blood Cell Morphology Normal, Sodium Level 141, Potassium Level 4.4 , Chloride Level 104, Carbon Dioxide Level 27, Anion Gap 11, Blood Urea Nitrogen 34H, Creatinine 0.9, Estimat Glomerular Filtration Rate , Glucose Level 190H, Calcium Level 9.8 09/20/17 15:15: Urine Color Yellow, Urine Appearance Slightly cloudy, Urine pH 5, Urine Specific [place] 1.020, Urine Protein 2+H, Urine Glucose (UA) Negative, Urine Ketones 1+H, Urine Occult Blood 2+H, Urine Nitrite Negative, Urine Bilirubin Negative, Urine Urobilinogen Normal, Urine Leukocyte Esterase 1+H, Urine RBC 0-2 , Urine WBC 0-2, Urine Squamous Epithelial Cells Occasional, Urine Bacteria ModerateH Current Medications Medications (Trade) Dose Ordered Sig/Gavino Route PRN Reason Start Time Stop Time Status Last Admin Dose Admin Acetaminophen (Tylenol) 650 mg Q4H PRN ORAL fever 09/12/17 21:30 10/12/17 21:29 09/17/17 03:50 Al Hydroxide/Mg Hydroxide (Mylanta II) 30 ml Q6H PRN ORAL dyspepsia 09/12/17 21:30 10/12/17 21:29 Cefepime HCl 1 gm/ Sodium Chloride 55 ml @ 110 mls/hr Q12H IVPB 09/17/17 15:00 09/24/17 23:59 09/20/17 15:17 Clotrimazole (Lotrimin) 1 applic EVERY 12 HOURS TOPIC 09/15/17 09:00 10/15/17 08:59 09/20/17 09:02 Dextrose (Dextrose 50%) STAT PRN IV Hypoglycemia 09/12/17 21:30 10/12/17 21:29 Diphenhydramine HCl (Benadryl) 25 mg Q6H PRN ORAL Itching/Pruritis 09/12/17 21:30 10/12/17 21:29 Docusate Sodium (Colace) 100 mg BID GT 09/14/17 18:00 10/14/17 17:59 09/20/17 09:02 Heparin Sodium (Porcine) (Heparin 5000 units/ml) 5,000 units EVERY 12 HOURS SUBQ 09/13/17 09:00 10/13/17 08:59 09/20/17 09:05 Metoclopramide HCl (Reglan) 5 mg Q8HR GT 09/13/17 14:00 10/13/17 17:59 09/20/17 13:47 Nitroglycerin (Ntg) 0.4 mg Q5M X 3 DOSES PRN SL Prn Chest Pain 09/12/17 21:30 10/12/17 21:29 Ondansetron HCl (Zofran) 4 mg Q6H PRN IVP Nausea & Vomiting 09/12/17 21:30 10/12/17 21:29 Pantoprazole (Protonix) 40 mg DAILY IVP 09/13/17 09:00 10/13/17 08:59 09/20/17 08:47 Polyethylene Glycol (Miralax) 17 gm HSPRN PRN ORAL Constipation 09/12/17 21:30 10/12/17 21:29 Vancomycin HCl (Vanco rx to dose) 1 ea DAILY PRN MISC Per rx protocol 09/20/17 11:00 10/20/17 10:59 Vancomycin HCl (Vancomycin) 125 mg FOUR TIMES A DAY ORAL 09/20/17 13:00 09/27/17 12:59 09/20/17 13:47 Vancomycin HCl/ Dextrose 250 ml @ 166.667 mls/hr Q24H IVPB 09/21/17 11:00 09/26/17 10:59 Valerio Childs MD Sep 20, 2017 16:26
--- NOTE | 2017-09-20 17:54 | Cardiology Report ---
APPROVED REPORT EXAM: Two-dimensional and M-mode echocardiogram with Doppler and color Doppler. INDICATION R/O Endocarditis Technically difficult and limited study due to poor acoustic windows and patient position. Study quality precludes accurate assessment of regional wall motion. M-mode measurements of left ventricle not obtainable due to cardiac position (angle). Normal left ventricular chamber size, systolic function and wall motion to extent visualized. Left ventricular ejection fraction estimated to be 60-65 %. Mild left ventricular hypertrophy. Anterior Echo-free space, may be due to pericardial fat or effusion. All other cardiac chamber sizes are within normal limits. Focal aortic valve sclerosis with adequate cusp excursion. Thickened mitral valve leaflets with normal excursion. Mild mitral annulus and aortic root calcification. Pulmonic valve not visualized. Normal tricuspid valve structure. Subcostal views not obtained due to GI tube. No discrete vegetations seen, however poor valvular definition . A color flow and spectral Doppler study was performed and revealed: No aortic regurgitation. No mitral regurgitation. Mitral diastolic velocities suggest mild left ventricular dysfunction (Grade I ). Trace tricuspid regurgitation. Tricuspid systolic velocities suggests peak right ventricular systolic pressure of 22 mmHg.
[2017-09-20 20:00] VITALS: BP 93/65
[2017-09-21] VITALS: BP 124/77
[2017-09-21] MEDS: Cefepime HCl 1 GM in NS 55 ML IVPB SCH ×2 (03:43→14:49)
[2017-09-21 04:45] VITALS: BP 117/72
[2017-09-21] MEDS: Metoclopramide 10mg/10ml Liq GT SCH ×3 (06:08→21:57)
[2017-09-21 07:26] LABS: BASOPHILS % (AUTO) 1.1 % (0.0-2.0); HEMATOCRIT 34.5 % (37.0-47.0); HEMOGLOBIN 11.6 G/DL (12.0-16.0); LYMPHOCYTES % (AUTO) 18.7 % (20.0-45.0); MEAN CORPUSCULAR VOLUME 90 FL (80-99); MONOCYTES % (AUTO) 7.5 % (1.0-10.0); NEUTROPHILS % (AUTO) 68.8 % (45.0-75.0); PLATELET COUNT 277 K/UL (150-450); RED BLOOD COUNT 3.82 M/UL (4.20-5.40); RED CELL DISTRIBUTION WIDTH 12.9 % (11.6-14.8); WHITE BLOOD COUNT 9.7 K/UL (4.8-10.8)
[2017-09-21 07:53] LABS: ANION GAP 8 mmol/L (5-15); BLOOD UREA NITROGEN 27 mg/dL (7-18); CALCIUM 9.4 MG/DL (8.5-10.1); CARBON DIOXIDE 30 MMOL/L (21-32); CHLORIDE 108 MMOL/L (98-107); CREATININE 0.7 MG/DL (0.55-1.30); POTASSIUM 4.6 MMOL/L (3.5-5.1); SODIUM 145 MMOL/L (136-145)
[2017-09-21 08:00] VITALS: BP 125/61
--- NOTE | 2017-09-21 08:35 | General Progress Note ---
Assessment/Plan Problem List: (1) Status post CVA ICD Codes: Z86.73 - Personal history of transient ischemic attack (TIA), and cerebral infarction without residual deficits SNOMED: 780742046 (2) Vomiting ICD Codes: R11.10 - Vomiting, unspecified SNOMED: 917589559 Qualifiers: Qualified Codes: R11.10 - Vomiting, unspecified (3) CVA (cerebral vascular accident) ICD Codes: I63.9 - Cerebral infarction, unspecified SNOMED: 098506984 (4) Tracheostomy in place ICD Codes: Z93.0 - Tracheostomy status SNOMED: 251424928 (5) G tube feedings ICD Codes: Z93.1 - Gastrostomy status SNOMED: 973998287, 598875445 (6) Aspiration pneumonia ICD Codes: J69.0 - Pneumonitis due to inhalation of food and vomit SNOMED: 418234822 (7) UTI (urinary tract infection) ICD Codes: N39.0 - Urinary tract infection, site not specified SNOMED: 86853205 Status: unchanged Assessment/Plan vent abx bp bs control cbc bmp am ltach if ok w family Subjective Constitutional: Reports: weakness Allergies: Coded Allergies: SULFAMETHOXAZOLE (Verified Allergy, Unknown, 07/13/17) TRIMETHOPRIM (Verified Allergy, Unknown, 07/13/17) All Systems: reviewed and negative except above Subjective trach vent asleep Objective Last 24 Hour Vital Signs Date Time Temp Pulse Resp B/P (MAP) Pulse Ox O2 Delivery O2 Flow Rate FiO2 09/21/17 08:00 97.7 77 22 125/61 98 97.7 09/21/17 04:45 96.8 97 22 117/72 96 Room Air 96.8 09/21/17 03:28 T-piece 12.0 40 09/21/17 03:28 95 T-piece 12.0 40 09/21/17 00:00 97.9 81 19 124/77 97 97.9 09/20/17 21:00 98 T-piece 12.0 40 09/20/17 21:00 T-piece 12.0 40 09/20/17 20:00 111 20 T-piece 12.0 40 09/20/17 20:00 98.2 102 18 93/65 97 98.2 09/20/17 16:56 T-piece 15.0 35 09/20/17 16:00 98.1 114 20 105/60 98 98.1 09/20/17 12:31 T-piece 12.0 40 09/20/17 12:31 96 T-piece 12.0 40 09/20/17 12:00 T-piece 15.0 35 09/20/17 12:00 97.6 98 22 134/85 100 97.6 Intake and Output 09/20/17 09/21/17 19:00 07:00 Intake Total 979.99 ml 745 ml Output Total 250 ml 800 ml Balance 729.99 ml -55 ml Free Water 90 ml 30 ml IV Total 304.99 ml Tube Feeding 585 ml 715 ml Output Urine Total 250 ml 800 ml # Bowel Movements 5 8 Laboratory Tests 09/20/17 15:15: Urine Color Yellow, Urine Appearance Slightly cloudy, Urine pH 5, Urine Specific [place] 1.020, Urine Protein 2+H, Urine Glucose (UA) Negative, Urine Ketones 1+H, Urine Occult Blood 2+H, Urine Nitrite Negative, Urine Bilirubin Negative, Urine Urobilinogen Normal, Urine Leukocyte Esterase 1+H, Urine RBC 0-2 , Urine WBC 0-2, Urine Squamous Epithelial Cells Occasional, Urine Bacteria ModerateH 09/21/17 06:20: White Blood Count 9.7, Red Blood Count 3.82L, Hemoglobin 11.6L, Hematocrit 34.5L , Mean Corpuscular Volume 90, Mean Corpuscular Hemoglobin 30.3, Mean Corpuscular Hemoglobin Concent 33.6, Red Cell Distribution Width 12.9, Platelet Count 277, Mean Platelet Volume 7.3, Neutrophils (%) (Auto) 68.8, Lymphocytes (% ) (Auto) 18.7L, Monocytes (%) (Auto) 7.5, Eosinophils (%) (Auto) 4.0H, Basophils (%) (Auto) 1.1, Sodium Level 145, Potassium Level 4.6, Chloride Level 108H, Carbon Dioxide Level 30, Anion Gap 8, Blood Urea Nitrogen 27H, Creatinine 0.7, Estimat Glomerular Filtration Rate , Glucose Level 130H, Calcium Level 9.4 Height (Feet): 5 Height (Inches): 3.00 Weight (Pounds): 130 General Appearance: lethargic EENT: normal ENT inspection Neck: normal alignment Cardiovascular: normal peripheral pulses, normal rate, regular rhythm Respiratory/Chest: chest wall non-tender, lungs clear, normal breath sounds Abdomen: normal bowel sounds, non tender, soft Extremities: normal inspection Edema: no edema noted Arm (L), no edema noted Arm (R), no edema noted Leg (L), no edema noted Leg (R), no edema noted Pedal (L), no edema noted Pedal (R), no edema noted Generalized Neurologic: motor weakness Skin: normal pigmentation, warm/dry KATIE MONTE Sep 21, 2017 08:35
[2017-09-21] MEDS: Docusate 100mg/10ml Liq GT SCH ×2 (10:10→18:00)
[2017-09-21] MEDS: Pantoprazole Inj IVP SCH (10:10)
[2017-09-21] MEDS: Vancomycin oral 125mg/2.5ml ORAL SCH (10:10)
[2017-09-21] MEDS: Heparin 5000 units/ml inj SUBQ SCH ×2 (10:15→22:02)
--- NOTE | 2017-09-21 11:41 | General Progress Note ---
Assessment/Plan Problem List: (1) G tube feedings ICD Codes: Z93.1 - Gastrostomy status SNOMED: 607143582, 546056375 (2) CVA (cerebral vascular accident) ICD Codes: I63.9 - Cerebral infarction, unspecified SNOMED: 989699180 (3) Vomiting ICD Codes: R11.10 - Vomiting, unspecified SNOMED: 661394866 Qualifiers: Qualified Codes: R11.10 - Vomiting, unspecified (4) UTI (urinary tract infection) ICD Codes: N39.0 - Urinary tract infection, site not specified SNOMED: 91445740 Assessment/Plan tolerating GTF monitor labs DVT prophylaxis pending dc planning Subjective ROS Limited/Unobtainable: No Allergies: Coded Allergies: SULFAMETHOXAZOLE (Verified Allergy, Unknown, 07/13/17) TRIMETHOPRIM (Verified Allergy, Unknown, 07/13/17) Objective Last 24 Hour Vital Signs Date Time Temp Pulse Resp B/P (MAP) Pulse Ox O2 Delivery O2 Flow Rate FiO2 09/21/17 08:37 97 20 T-piece 12.0 40 09/21/17 08:37 T-piece 12.0 40 09/21/17 08:37 97 T-piece 12.0 40 09/21/17 08:00 97.7 77 22 125/61 98 97.7 09/21/17 04:45 96.8 97 22 117/72 96 Room Air 96.8 09/21/17 03:28 T-piece 12.0 40 09/21/17 03:28 95 T-piece 12.0 40 09/21/17 00:00 97.9 81 19 124/77 97 97.9 09/20/17 21:00 98 T-piece 12.0 40 09/20/17 21:00 T-piece 12.0 40 09/20/17 20:00 111 20 T-piece 12.0 40 09/20/17 20:00 98.2 102 18 93/65 97 98.2 09/20/17 16:56 T-piece 15.0 35 09/20/17 16:00 98.1 114 20 105/60 98 98.1 09/20/17 12:31 T-piece 12.0 40 09/20/17 12:31 96 T-piece 12.0 40 09/20/17 12:00 T-piece 15.0 35 09/20/17 12:00 97.6 98 22 134/85 100 97.6 Intake and Output 09/20/17 09/21/17 19:00 07:00 Intake Total 979.99 ml 745 ml Output Total 250 ml 800 ml Balance 729.99 ml -55 ml Free Water 90 ml 30 ml IV Total 304.99 ml Tube Feeding 585 ml 715 ml Output Urine Total 250 ml 800 ml # Bowel Movements 5 8 Laboratory Tests 09/20/17 15:15: Urine Color Yellow, Urine Appearance Slightly cloudy, Urine pH 5, Urine Specific [place] 1.020, Urine Protein 2+H, Urine Glucose (UA) Negative, Urine Ketones 1+H, Urine Occult Blood 2+H, Urine Nitrite Negative, Urine Bilirubin Negative, Urine Urobilinogen Normal, Urine Leukocyte Esterase 1+H, Urine RBC 0-2 , Urine WBC 0-2, Urine Squamous Epithelial Cells Occasional, Urine Bacteria ModerateH 09/21/17 06:20: White Blood Count 9.7, Red Blood Count 3.82L, Hemoglobin 11.6L, Hematocrit 34.5L , Mean Corpuscular Volume 90, Mean Corpuscular Hemoglobin 30.3, Mean Corpuscular Hemoglobin Concent 33.6, Red Cell Distribution Width 12.9, Platelet Count 277, Mean Platelet Volume 7.3, Neutrophils (%) (Auto) 68.8, Lymphocytes (% ) (Auto) 18.7L, Monocytes (%) (Auto) 7.5, Eosinophils (%) (Auto) 4.0H, Basophils (%) (Auto) 1.1, Sodium Level 145, Potassium Level 4.6, Chloride Level 108H, Carbon Dioxide Level 30, Anion Gap 8, Blood Urea Nitrogen 27H, Creatinine 0.7, Estimat Glomerular Filtration Rate , Glucose Level 130H, Calcium Level 9.4 Height (Feet): 5 Height (Inches): 3.00 Weight (Pounds): 130 General Appearance: no apparent distress EENT: normal ENT inspection Neck: supple Cardiovascular: normal rate Respiratory/Chest: decreased breath sounds Abdomen: normal bowel sounds, non tender, soft Extremities: non-tender DOTTIE MENDEZ Sep 21, 2017 11:40
[2017-09-21] MEDS: Vancomycin 1250mg/D5W 250ml IVPB SCH (11:50)
[2017-09-21 12:00] VITALS: BP 146/96
--- NOTE | 2017-09-21 12:02 | General Progress Note ---
Assessment/Plan Assessment/Plan #. Leukocytosis, potentially secondary to reactive process. --> Worsened from yesterday. --> On antibiotics. Monitor and trend cbc. #. Nausea or vomiting, x1 episode. --> The patient has been seen by GI Service. Further recommendations to follow. --> Symptomatic treatment with low-dose Reglan as well as Zofran and continue G- tube feeds per dietary recommendations. --> Has improved. #. Status post tracheostomy. --> Continue to monitor. #. CVA history. Neurology has been consulted. #. Hyponatremia. #. Thrombocytosis, potentially secondary to reactive process. Continue to closely monitor. --> downtrended from yesterday and improved. --> Platelets now WNL Subjective Date patient seen: Sep 20, 2017 Constitutional: Denies: no symptoms, chills, diaphoresis, fever, malaise, weakness, other HEENT: Denies: no symptoms, eye pain, blurred vision, tearing, double vision, ear pain, ear discharge, nose pain, nose congestion, throat pain, throat swelling, mouth pain, mouth swelling, other Cardiovascular: Denies: no symptoms, chest pain, edema, irregular heart rate, lightheadedness, palpitations, syncope, other Respiratory: Denies: no symptoms, cough, orthopnea, shortness of breath, SOB with excertion, SOB at rest, sputum, stridor, wheezing, other Gastrointestinal/Abdominal: Denies: no symptoms, abdomen distended, abdominal pain, black stools, tarry stools, blood in stool, constipated, diarrhea, difficulty swallowing, nausea, poor appetite, poor fluid intake, rectal bleeding , vomiting, other Genitourinary: Denies: no symptoms, burning, discharge, frequency, flank pain, hematuria, incontinence, pain, urgency, other Neurologic/Psychiatric: Denies: no symptoms, anxiety, depressed, emotional problems, headache, numbness, paresthesia, pre-existing deficit, seizure, tingling, tremors, weakness, other Hematologic/Lymphatic: Reports: anemia Allergies: Coded Allergies: SULFAMETHOXAZOLE (Verified Allergy, Unknown, 07/13/17) TRIMETHOPRIM (Verified Allergy, Unknown, 07/13/17) Subjective On trach/vent. Leukocytosis. On antibiotics and was seen by wound care nurse. Objective Last 24 Hour Vital Signs Date Time Temp Pulse Resp B/P (MAP) Pulse Ox O2 Delivery O2 Flow Rate FiO2 09/21/17 08:37 97 20 T-piece 12.0 40 09/21/17 08:37 T-piece 12.0 40 09/21/17 08:37 97 T-piece 12.0 40 09/21/17 08:00 97.7 77 22 125/61 98 97.7 09/21/17 04:45 96.8 97 22 117/72 96 Room Air 96.8 09/21/17 03:28 T-piece 12.0 40 09/21/17 03:28 95 T-piece 12.0 40 09/21/17 00:00 97.9 81 19 124/77 97 97.9 09/20/17 21:00 98 T-piece 12.0 40 09/20/17 21:00 T-piece 12.0 40 09/20/17 20:00 111 20 T-piece 12.0 40 09/20/17 20:00 98.2 102 18 93/65 97 98.2 09/20/17 16:56 T-piece 15.0 35 09/20/17 16:00 98.1 114 20 105/60 98 98.1 09/20/17 12:31 T-piece 12.0 40 09/20/17 12:31 96 T-piece 12.0 40 09/20/17 12:00 T-piece 15.0 35 09/20/17 12:00 97.6 98 22 134/85 100 97.6 Intake and Output 09/20/17 09/21/17 18:59 06:59 Intake Total 884.99 ml 840 ml Output Total 250 ml 800 ml Balance 634.99 ml 40 ml Free Water 60 ml 60 ml IV Total 304.99 ml Tube Feeding 520 ml 780 ml Output Urine Total 250 ml 800 ml # Bowel Movements 5 8 Laboratory Tests 09/20/17 15:15: Urine Color Yellow, Urine Appearance Slightly cloudy, Urine pH 5, Urine Specific [place] 1.020, Urine Protein 2+H, Urine Glucose (UA) Negative, Urine Ketones 1+H, Urine Occult Blood 2+H, Urine Nitrite Negative, Urine Bilirubin Negative, Urine Urobilinogen Normal, Urine Leukocyte Esterase 1+H, Urine RBC 0-2 , Urine WBC 0-2, Urine Squamous Epithelial Cells Occasional, Urine Bacteria ModerateH 09/21/17 06:20: White Blood Count 9.7, Red Blood Count 3.82L, Hemoglobin 11.6L, Hematocrit 34.5L , Mean Corpuscular Volume 90, Mean Corpuscular Hemoglobin 30.3, Mean Corpuscular Hemoglobin Concent 33.6, Red Cell Distribution Width 12.9, Platelet Count 277, Mean Platelet Volume 7.3, Neutrophils (%) (Auto) 68.8, Lymphocytes (% ) (Auto) 18.7L, Monocytes (%) (Auto) 7.5, Eosinophils (%) (Auto) 4.0H, Basophils (%) (Auto) 1.1, Sodium Level 145, Potassium Level 4.6, Chloride Level 108H, Carbon Dioxide Level 30, Anion Gap 8, Blood Urea Nitrogen 27H, Creatinine 0.7, Estimat Glomerular Filtration Rate , Glucose Level 130H, Calcium Level 9.4 Height (Feet): 5 Height (Inches): 3.00 Weight (Pounds): 130 General Appearance: confused Respiratory/Chest: decreased breath sounds Abdomen: soft Nader Landis MD Sep 21, 2017 12:02
[2017-09-21] MEDS: Vancomycin oral 125mg/2.5ml GT SCH ×3 (14:48→21:56)
[2017-09-21 15:51] VITALS: BP 132/76
--- NOTE | 2017-09-21 17:20 | Pulmonology Progress Note ---
Assessment/Plan Problems: (1) Aspiration pneumonia (2) Vomiting (3) CVA (cerebral vascular accident) (4) Tracheostomy in place (5) G tube feedings (6) Status post CVA Assessment/Plan check wbc improving respiratory treatment iv abx check cultures tolerating feeding dvt prophylaxis. dc planning in process Subjective ROS Limited/Unobtainable: Yes Interval Events: continues to be in vegatative state Allergies: Coded Allergies: SULFAMETHOXAZOLE (Verified Allergy, Unknown, 07/13/17) TRIMETHOPRIM (Verified Allergy, Unknown, 07/13/17) Objective Last 24 Hour Vital Signs Date Time Temp Pulse Resp B/P (MAP) Pulse Ox O2 Delivery O2 Flow Rate FiO2 09/21/17 15:51 97.5 81 20 132/76 98 97.5 09/21/17 12:18 98 T-piece 12.0 40 09/21/17 12:18 T-piece 12.0 40 09/21/17 12:00 97.0 89 20 146/96 99 97.0 09/21/17 08:37 97 20 T-piece 12.0 40 09/21/17 08:37 T-piece 12.0 40 09/21/17 08:37 97 T-piece 12.0 40 09/21/17 08:00 97.7 77 22 125/61 98 97.7 09/21/17 04:45 96.8 97 22 117/72 96 Room Air 96.8 09/21/17 03:28 T-piece 12.0 40 09/21/17 03:28 95 T-piece 12.0 40 09/21/17 00:00 97.9 81 19 124/77 97 97.9 09/20/17 21:00 98 T-piece 12.0 40 09/20/17 21:00 T-piece 12.0 40 09/20/17 20:00 111 20 T-piece 12.0 40 09/20/17 20:00 98.2 102 18 93/65 97 98.2 Intake and Output 09/20/17 09/21/17 19:00 07:00 Intake Total 979.99 ml 745 ml Output Total 250 ml 800 ml Balance 729.99 ml -55 ml Free Water 90 ml 30 ml IV Total 304.99 ml Tube Feeding 585 ml 715 ml Output Urine Total 250 ml 800 ml # Bowel Movements 5 8 Objective General Appearance: WD/WN HEENT: normocephalic, atraumatic, trach intact Respiratory/Chest: chest wall non-tender, lungs clear Breasts: no masses Cardiovascular: normal peripheral pulses, regular rhythm Abdomen: normal bowel sounds, soft, non tender, Gtube Genitourinary: normal external genitalia Extremities: no cyanosis Skin: no lesions Microbiology Date/Time Source Procedure Growth Status 09/19/17 20:19 Sputum Gram Stain - Final Resulted 09/19/17 20:19 Sputum Culture - Preliminary Gram Negative Naif Resulted 09/20/17 15:15 Stool Clostridium difficile Toxin Assay - Final Complete 09/20/17 15:15 Urine,Clean Catch Urine Culture - Preliminary NO GROWTH Resulted Laboratory Tests 09/21/17 06:20: White Blood Count 9.7, Red Blood Count 3.82L, Hemoglobin 11.6L, Hematocrit 34.5L , Mean Corpuscular Volume 90, Mean Corpuscular Hemoglobin 30.3, Mean Corpuscular Hemoglobin Concent 33.6, Red Cell Distribution Width 12.9, Platelet Count 277, Mean Platelet Volume 7.3, Neutrophils (%) (Auto) 68.8, Lymphocytes (% ) (Auto) 18.7L, Monocytes (%) (Auto) 7.5, Eosinophils (%) (Auto) 4.0H, Basophils (%) (Auto) 1.1, Sodium Level 145, Potassium Level 4.6, Chloride Level 108H, Carbon Dioxide Level 30, Anion Gap 8, Blood Urea Nitrogen 27H, Creatinine 0.7, Estimat Glomerular Filtration Rate , Glucose Level 130H, Calcium Level 9.4 Current Medications Medications (Trade) Dose Ordered Sig/Gavino Route PRN Reason Start Time Stop Time Status Last Admin Dose Admin Acetaminophen (Tylenol) 650 mg Q4H PRN ORAL fever 09/12/17 21:30 10/12/17 21:29 09/17/17 03:50 Al Hydroxide/Mg Hydroxide (Mylanta II) 30 ml Q6H PRN ORAL dyspepsia 09/12/17 21:30 10/12/17 21:29 Cefepime HCl 1 gm/ Sodium Chloride 55 ml @ 110 mls/hr Q12H IVPB 09/17/17 15:00 09/24/17 23:59 09/21/17 14:49 Clotrimazole (Lotrimin) 1 applic EVERY 12 HOURS TOPIC 09/15/17 09:00 10/15/17 08:59 09/21/17 09:00 Dextrose (Dextrose 50%) STAT PRN IV Hypoglycemia 09/12/17 21:30 10/12/17 21:29 Diphenhydramine HCl (Benadryl) 25 mg Q6H PRN ORAL Itching/Pruritis 09/12/17 21:30 10/12/17 21:29 Docusate Sodium (Colace) 100 mg BID GT 09/14/17 18:00 10/14/17 17:59 09/21/17 10:10 Heparin Sodium (Porcine) (Heparin 5000 units/ml) 5,000 units EVERY 12 HOURS SUBQ 09/13/17 09:00 10/13/17 08:59 09/21/17 10:15 Metoclopramide HCl (Reglan) 5 mg Q8HR GT 09/13/17 14:00 10/13/17 17:59 09/21/17 14:48 Nitroglycerin (Ntg) 0.4 mg Q5M X 3 DOSES PRN SL Prn Chest Pain 09/12/17 21:30 10/12/17 21:29 Ondansetron HCl (Zofran) 4 mg Q6H PRN IVP Nausea & Vomiting 09/12/17 21:30 10/12/17 21:29 Pantoprazole (Protonix) 40 mg DAILY IVP 09/13/17 09:00 10/13/17 08:59 09/21/17 10:10 Polyethylene Glycol (Miralax) 17 gm HSPRN PRN ORAL Constipation 09/12/17 21:30 10/12/17 21:29 Vancomycin HCl (Vanco rx to dose) 1 ea DAILY PRN MISC Per rx protocol 09/20/17 11:00 10/20/17 10:59 Vancomycin HCl (Vancomycin) 125 mg FOUR TIMES A DAY GT 09/21/17 13:00 09/28/17 12:59 09/21/17 14:48 Vancomycin HCl/ Dextrose 250 ml @ 166.667 mls/hr Q24H IVPB 09/21/17 11:00 09/26/17 10:59 09/21/17 11:50 Valerio Childs MD Sep 21, 2017 17:20
[2017-09-21 20:00] VITALS: BP 115/75
--- NOTE | 2017-09-21 20:39 | Infectious Diseases Prog Note ---
Assessment/Plan Assessment/Plan ASSESSMENT: The patient is a 76-year-old female with: Fever, SP leukocytosis (recurrent); SP f ?aspiration pneumonitis - no obvious PNA on CXR. Ucx with <10K MRSA, typically this organisms doesnt cause UTI but may cause with presence of regan catheter; also may represent seeding from blood; so far Bcx NTD -repeat u/a 09/16 wbc 15-20; ucx <10K MRSA (S Vanco, bactrim; R Tetracycline) -CXR 09/20: Retrocardiac atelectasis. No acute process otherwise -Bcx 09/16 NTD -CXR: Very questionable minimal interstitial congestion. No acute process otherwise. -v. duplex no DVT Previous Leukocytosis, mostly due to acute stress -u/a neg -Bcx NTD No evidence of pneumonia or urinary tract infection. Chest x-ray, no acute process 2d Echo,: no Veg C diff : neg Hypertension. COPD. Diabetes. History of CVA PLAN: - on empiric IV Cefepime # 4 and IV Vancomycin d# 2 pending repeat Bcx, Echo, u /a with reflex -2 set bcx, Ucx -Switch Regan Monitor blood culture. Monitor CBC. Monitor BMP. Subjective Allergies: Coded Allergies: SULFAMETHOXAZOLE (Verified Allergy, Unknown, 07/13/17) TRIMETHOPRIM (Verified Allergy, Unknown, 07/13/17) Subjective afebrile nl WBC Objective Vital Signs Last 24 Hour Vital Signs Date Time Temp Pulse Resp B/P (MAP) Pulse Ox O2 Delivery O2 Flow Rate FiO2 09/21/17 15:51 97.5 81 20 132/76 98 97.5 09/21/17 12:18 98 T-piece 12.0 40 09/21/17 12:18 T-piece 12.0 40 09/21/17 12:00 97.0 89 20 146/96 99 97.0 09/21/17 08:37 97 20 T-piece 12.0 40 09/21/17 08:37 T-piece 12.0 40 09/21/17 08:37 97 T-piece 12.0 40 09/21/17 08:00 97.7 77 22 125/61 98 97.7 09/21/17 04:45 96.8 97 22 117/72 96 Room Air 96.8 09/21/17 03:28 T-piece 12.0 40 09/21/17 03:28 95 T-piece 12.0 40 09/21/17 00:00 97.9 81 19 124/77 97 97.9 09/20/17 21:00 98 T-piece 12.0 40 09/20/17 21:00 T-piece 12.0 40 Height (Feet): 5 Height (Inches): 3.00 Weight (Pounds): 130 HEENT: anicteric Respiratory/Chest: no respiratory distress Cardiovascular: regularly irregular Abdomen: no organomegaly Microbiology Date/Time Source Procedure Growth Status 09/19/17 20:19 Sputum Gram Stain - Final Resulted 09/19/17 20:19 Sputum Culture - Preliminary Gram Negative Naif Resulted 09/20/17 15:15 Stool Clostridium difficile Toxin Assay - Final Complete 09/20/17 15:15 Urine,Clean Catch Urine Culture - Preliminary NO GROWTH Resulted Laboratory Tests Test 09/21/17 06:20 White Blood Count 9.7 K/UL (4.8-10.8) Red Blood Count 3.82 M/UL (4.20-5.40) L Hemoglobin 11.6 G/DL (12.0-16.0) L Hematocrit 34.5 % (37.0-47.0) L Mean Corpuscular Volume 90 FL (80-99) Mean Corpuscular Hemoglobin 30.3 PG (27.0-31.0) Mean Corpuscular Hemoglobin Concent 33.6 G/DL (32.0-36.0) Red Cell Distribution Width 12.9 % (11.6-14.8) Platelet Count 277 K/UL (150-450) Mean Platelet Volume 7.3 FL (6.5-10.1) Neutrophils (%) (Auto) 68.8 % (45.0-75.0) Lymphocytes (%) (Auto) 18.7 % (20.0-45.0) L Monocytes (%) (Auto) 7.5 % (1.0-10.0) Eosinophils (%) (Auto) 4.0 % (0.0-3.0) H Basophils (%) (Auto) 1.1 % (0.0-2.0) Sodium Level 145 MMOL/L (136-145) Potassium Level 4.6 MMOL/L (3.5-5.1) Chloride Level 108 MMOL/L (98-107) H Carbon Dioxide Level 30 MMOL/L (21-32) Anion Gap 8 mmol/L (5-15) Blood Urea Nitrogen 27 mg/dL (7-18) H Creatinine 0.7 MG/DL (0.55-1.30) Estimat Glomerular Filtration Rate mL/min (>60) Glucose Level 130 MG/DL (74-106) H Calcium Level 9.4 MG/DL (8.5-10.1) Current Medications Medications (Trade) Dose Ordered Sig/Gavino Route PRN Reason Start Time Stop Time Status Last Admin Dose Admin Acetaminophen (Tylenol) 650 mg Q4H PRN ORAL fever 09/12/17 21:30 10/12/17 21:29 09/17/17 03:50 Al Hydroxide/Mg Hydroxide (Mylanta II) 30 ml Q6H PRN ORAL dyspepsia 09/12/17 21:30 10/12/17 21:29 Cefepime HCl 1 gm/ Sodium Chloride 55 ml @ 110 mls/hr Q12H IVPB 09/17/17 15:00 09/24/17 23:59 09/21/17 14:49 Clotrimazole (Lotrimin) 1 applic EVERY 12 HOURS TOPIC 09/15/17 09:00 10/15/17 08:59 09/21/17 09:00 Dextrose (Dextrose 50%) STAT PRN IV Hypoglycemia 09/12/17 21:30 10/12/17 21:29 Diphenhydramine HCl (Benadryl) 25 mg Q6H PRN ORAL Itching/Pruritis 09/12/17 21:30 10/12/17 21:29 Docusate Sodium (Colace) 100 mg BID GT 09/14/17 18:00 10/14/17 17:59 09/21/17 10:10 Heparin Sodium (Porcine) (Heparin 5000 units/ml) 5,000 units EVERY 12 HOURS SUBQ 09/13/17 09:00 10/13/17 08:59 09/21/17 10:15 Metoclopramide HCl (Reglan) 5 mg Q8HR GT 09/13/17 14:00 10/13/17 17:59 09/21/17 14:48 Nitroglycerin (Ntg) 0.4 mg Q5M X 3 DOSES PRN SL Prn Chest Pain 3/8/18 21:30 10/12/17 21:29 Ondansetron HCl (Zofran) 4 mg Q6H PRN IVP Nausea & Vomiting 09/12/17 21:30 10/12/17 21:29 Pantoprazole (Protonix) 40 mg DAILY IVP 09/13/17 09:00 10/13/17 08:59 09/21/17 10:10 Polyethylene Glycol (Miralax) 17 gm HSPRN PRN ORAL Constipation 09/12/17 21:30 10/12/17 21:29 Vancomycin HCl (Vanco rx to dose) 1 ea DAILY PRN MISC Per rx protocol 09/20/17 11:00 10/20/17 10:59 Vancomycin HCl (Vancomycin) 125 mg FOUR TIMES A DAY GT 09/21/17 13:00 09/28/17 12:59 09/21/17 18:47 Vancomycin HCl/ Dextrose 250 ml @ 166.667 mls/hr Q24H IVPB 09/21/17 11:00 09/26/17 10:59 09/21/17 11:50 ALEXANDER OTERO M.D. Sep 21, 2017 20:39
--- NOTE | 2017-09-21 22:38 | Diagnostic Imaging Report ---
APPROVED REPORT CPT Code: 72709 Present Symptoms Comments: Swelling R/O DVT BILATERAL: Imaging reveals a patent deep venous system bilaterally. There is no evidence of thrombus within the femoral, popliteal or tibial segments. The greater saphenous veins are also within normal limits. Doppler indicates normal spontaneous flow within these segments.
[2017-09-22] VITALS: BP 127/79
[2017-09-22 04:00] VITALS: BP 145/93
[2017-09-22] MEDS: Cefepime HCl 1 GM in NS 55 ML IVPB SCH ×2 (04:06→15:07)
[2017-09-22] MEDS: Metoclopramide 10mg/10ml Liq GT SCH ×3 (06:41→22:19)
[2017-09-22 07:33] LABS: BASOPHILS % (AUTO) 1.3 % (0.0-2.0); EOSINOPHILS % (AUTO) 7.8 % (0.0-3.0); HEMATOCRIT 34.2 % (37.0-47.0); HEMOGLOBIN 11.6 G/DL (12.0-16.0); LYMPHOCYTES % (AUTO) 20.4 % (20.0-45.0); MEAN CORPUSCULAR VOLUME 90 FL (80-99); MONOCYTES % (AUTO) 10.2 % (1.0-10.0); NEUTROPHILS % (AUTO) 60.3 % (45.0-75.0); PLATELET COUNT 266 K/UL (150-450); RED BLOOD COUNT 3.79 M/UL (4.20-5.40); RED CELL DISTRIBUTION WIDTH 12.9 % (11.6-14.8); WHITE BLOOD COUNT 7.5 K/UL (4.8-10.8)
[2017-09-22 07:47] LABS: ANION GAP 6 mmol/L (5-15); BLOOD UREA NITROGEN 24 mg/dL (7-18); CALCIUM 9.6 MG/DL (8.5-10.1); CARBON DIOXIDE 31 MMOL/L (21-32); CHLORIDE 106 MMOL/L (98-107); CREATININE 0.7 MG/DL (0.55-1.30); POTASSIUM 4.5 MMOL/L (3.5-5.1); SODIUM 143 MMOL/L (136-145)
[2017-09-22 08:00] VITALS: BP 129/79
[2017-09-22] MEDS: Docusate 100mg/10ml Liq GT SCH ×2 (08:26→18:00)
[2017-09-22] MEDS: Pantoprazole Inj IVP SCH (08:27)
[2017-09-22] MEDS: Vancomycin oral 125mg/2.5ml GT SCH ×4 (08:27→22:19)
[2017-09-22] MEDS: Heparin 5000 units/ml inj SUBQ SCH ×2 (08:28→22:27)
--- NOTE | 2017-09-22 08:57 | General Progress Note ---
Assessment/Plan Problem List: (1) G tube feedings ICD Codes: Z93.1 - Gastrostomy status SNOMED: 240761494, 828199595 (2) CVA (cerebral vascular accident) ICD Codes: I63.9 - Cerebral infarction, unspecified SNOMED: 561050192 (3) Vomiting ICD Codes: R11.10 - Vomiting, unspecified SNOMED: 607983313 Qualifiers: Qualified Codes: R11.10 - Vomiting, unspecified (4) UTI (urinary tract infection) ICD Codes: N39.0 - Urinary tract infection, site not specified SNOMED: 68416022 Assessment/Plan tolerating GTF monitor labs DVT prophylaxis pending dc planning Subjective ROS Limited/Unobtainable: No Allergies: Coded Allergies: SULFAMETHOXAZOLE (Verified Allergy, Unknown, 07/13/17) TRIMETHOPRIM (Verified Allergy, Unknown, 07/13/17) Objective Last 24 Hour Vital Signs Date Time Temp Pulse Resp B/P (MAP) Pulse Ox O2 Delivery O2 Flow Rate FiO2 09/22/17 08:00 97.7 84 20 129/79 98 97.7 09/22/17 07:17 89 20 T-piece 12.0 40 09/22/17 07:17 99 T-piece 12.0 40 09/22/17 07:17 T-piece 12.0 40 09/22/17 04:00 97.5 98 21 145/93 99 97.5 09/22/17 01:23 T-piece 12.0 40 09/22/17 01:23 99 T-piece 12.0 40 09/22/17 00:00 98.6 92 21 127/79 97 Room Air 98.6 09/21/17 21:12 T-piece 12.0 40 09/21/17 21:12 99 T-piece 12.0 40 09/21/17 20:00 T-piece 40 09/21/17 20:00 97.5 86 21 115/75 99 Room Air 97.5 09/21/17 18:30 86 20 T-piece 12.0 40 09/21/17 15:51 97.5 81 20 132/76 98 97.5 09/21/17 12:18 98 T-piece 12.0 40 09/21/17 12:18 T-piece 12.0 40 09/21/17 12:00 97.0 89 20 146/96 99 97.0 Intake and Output 09/21/17 09/22/17 19:00 07:00 Intake Total 65 ml 800 ml Output Total 450 ml Balance -385 ml 800 ml Free Water 30 ml IV Total 55 ml Tube Feeding 65 ml 715 ml Output Urine Total 450 ml # Bowel Movements 1 Laboratory Tests 09/22/17 05:50: White Blood Count 7.5, Red Blood Count 3.79L, Hemoglobin 11.6L, Hematocrit 34.2L , Mean Corpuscular Volume 90, Mean Corpuscular Hemoglobin 30.6, Mean Corpuscular Hemoglobin Concent 33.9, Red Cell Distribution Width 12.9, Platelet Count 266, Mean Platelet Volume 7.3, Neutrophils (%) (Auto) 60.3, Lymphocytes (% ) (Auto) 20.4, Monocytes (%) (Auto) 10.2H, Eosinophils (%) (Auto) 7.8H, Basophils (%) (Auto) 1.3, Sodium Level 143, Potassium Level 4.5, Chloride Level 106, Carbon Dioxide Level 31, Anion Gap 6, Blood Urea Nitrogen 24H, Creatinine 0.7, Estimat Glomerular Filtration Rate , Glucose Level 130H, Calcium Level 9.6 Height (Feet): 5 Height (Inches): 3.00 Weight (Pounds): 130 General Appearance: no apparent distress EENT: normal ENT inspection Neck: supple Cardiovascular: normal rate Respiratory/Chest: decreased breath sounds Abdomen: normal bowel sounds, non tender, soft Extremities: non-tender DOTTIE MENDEZ Sep 22, 2017 08:57
--- NOTE | 2017-09-22 08:58 | General Progress Note ---
Assessment/Plan Problem List: (1) Status post CVA ICD Codes: Z86.73 - Personal history of transient ischemic attack (TIA), and cerebral infarction without residual deficits SNOMED: 180144325 (2) Vomiting ICD Codes: R11.10 - Vomiting, unspecified SNOMED: 908585031 Qualifiers: Qualified Codes: R11.10 - Vomiting, unspecified (3) CVA (cerebral vascular accident) ICD Codes: I63.9 - Cerebral infarction, unspecified SNOMED: 861628596 (4) Tracheostomy in place ICD Codes: Z93.0 - Tracheostomy status SNOMED: 859090430 (5) G tube feedings ICD Codes: Z93.1 - Gastrostomy status SNOMED: 029175770, 515911798 (6) Aspiration pneumonia ICD Codes: J69.0 - Pneumonitis due to inhalation of food and vomit SNOMED: 076111433 (7) UTI (urinary tract infection) ICD Codes: N39.0 - Urinary tract infection, site not specified SNOMED: 42594506 Status: unchanged Assessment/Plan vent abx bp bs control cbc bmp am ltach if ok w family Subjective Constitutional: Reports: weakness Allergies: Coded Allergies: SULFAMETHOXAZOLE (Verified Allergy, Unknown, 07/13/17) TRIMETHOPRIM (Verified Allergy, Unknown, 07/13/17) All Systems: reviewed and negative except above Subjective trach vent asleep Objective Last 24 Hour Vital Signs Date Time Temp Pulse Resp B/P (MAP) Pulse Ox O2 Delivery O2 Flow Rate FiO2 09/22/17 08:00 97.7 84 20 129/79 98 97.7 09/22/17 07:17 89 20 T-piece 12.0 40 09/22/17 07:17 99 T-piece 12.0 40 09/22/17 07:17 T-piece 12.0 40 09/22/17 04:00 97.5 98 21 145/93 99 97.5 09/22/17 01:23 T-piece 12.0 40 09/22/17 01:23 99 T-piece 12.0 40 09/22/17 00:00 98.6 92 21 127/79 97 Room Air 98.6 09/21/17 21:12 T-piece 12.0 40 09/21/17 21:12 99 T-piece 12.0 40 09/21/17 20:00 T-piece 40 09/21/17 20:00 97.5 86 21 115/75 99 Room Air 97.5 09/21/17 18:30 86 20 T-piece 12.0 40 09/21/17 15:51 97.5 81 20 132/76 98 97.5 09/21/17 12:18 98 T-piece 12.0 40 09/21/17 12:18 T-piece 12.0 40 09/21/17 12:00 97.0 89 20 146/96 99 97.0 Intake and Output 09/21/17 09/22/17 19:00 07:00 Intake Total 65 ml 800 ml Output Total 450 ml Balance -385 ml 800 ml Free Water 30 ml IV Total 55 ml Tube Feeding 65 ml 715 ml Output Urine Total 450 ml # Bowel Movements 1 Laboratory Tests 09/22/17 05:50: White Blood Count 7.5, Red Blood Count 3.79L, Hemoglobin 11.6L, Hematocrit 34.2L , Mean Corpuscular Volume 90, Mean Corpuscular Hemoglobin 30.6, Mean Corpuscular Hemoglobin Concent 33.9, Red Cell Distribution Width 12.9, Platelet Count 266, Mean Platelet Volume 7.3, Neutrophils (%) (Auto) 60.3, Lymphocytes (% ) (Auto) 20.4, Monocytes (%) (Auto) 10.2H, Eosinophils (%) (Auto) 7.8H, Basophils (%) (Auto) 1.3, Sodium Level 143, Potassium Level 4.5, Chloride Level 106, Carbon Dioxide Level 31, Anion Gap 6, Blood Urea Nitrogen 24H, Creatinine 0.7, Estimat Glomerular Filtration Rate , Glucose Level 130H, Calcium Level 9.6 Height (Feet): 5 Height (Inches): 3.00 Weight (Pounds): 130 General Appearance: lethargic EENT: normal ENT inspection Neck: normal alignment Cardiovascular: normal peripheral pulses, normal rate, regular rhythm Respiratory/Chest: chest wall non-tender, lungs clear, normal breath sounds Abdomen: normal bowel sounds, non tender, soft Extremities: normal inspection Edema: no edema noted Arm (L), no edema noted Arm (R), no edema noted Leg (L), no edema noted Leg (R), no edema noted Pedal (L), no edema noted Pedal (R), no edema noted Generalized Neurologic: motor weakness Skin: normal pigmentation, warm/dry KATIE MONTE Sep 22, 2017 08:58
[2017-09-22] MEDS: Vancomycin 1250mg/D5W 250ml IVPB SCH (10:22)
[2017-09-22 12:00] VITALS: BP 137/84
--- NOTE | 2017-09-22 12:56 | General Progress Note ---
Assessment/Plan Assessment/Plan #. Leukocytosis, potentially secondary to reactive process. --> Resolved today. --> On antibiotics. Monitor and trend cbc. #. Nausea or vomiting, x1 episode. --> The patient has been seen by GI Service. Further recommendations to follow. --> Symptomatic treatment with low-dose Reglan as well as Zofran and continue G- tube feeds per dietary recommendations. --> Has improved. #. Status post tracheostomy. --> Continue to monitor. #. CVA history. Neurology has been consulted. #. Hyponatremia. #. Thrombocytosis, potentially secondary to reactive process. Continue to closely monitor. --> downtrended from yesterday and improved. --> Platelets now WNL Subjective Date patient seen: Sep 21, 2017 Constitutional: Denies: no symptoms, chills, diaphoresis, fever, malaise, weakness, other HEENT: Denies: no symptoms, eye pain, blurred vision, tearing, double vision, ear pain, ear discharge, nose pain, nose congestion, throat pain, throat swelling, mouth pain, mouth swelling, other Cardiovascular: Denies: no symptoms, chest pain, edema, irregular heart rate, lightheadedness, palpitations, syncope, other Respiratory: Denies: no symptoms, cough, orthopnea, shortness of breath, SOB with excertion, SOB at rest, sputum, stridor, wheezing, other Gastrointestinal/Abdominal: Denies: no symptoms, abdomen distended, abdominal pain, black stools, tarry stools, blood in stool, constipated, diarrhea, difficulty swallowing, nausea, poor appetite, poor fluid intake, rectal bleeding , vomiting, other Genitourinary: Denies: no symptoms, burning, discharge, frequency, flank pain, hematuria, incontinence, pain, urgency, other Neurologic/Psychiatric: Denies: no symptoms, anxiety, depressed, emotional problems, headache, numbness, paresthesia, pre-existing deficit, seizure, tingling, tremors, weakness, other Allergies: Coded Allergies: SULFAMETHOXAZOLE (Verified Allergy, Unknown, 07/13/17) TRIMETHOPRIM (Verified Allergy, Unknown, 07/13/17) Subjective On trach/vent. Leukocytosis resolved. NAD. Objective Last 24 Hour Vital Signs Date Time Temp Pulse Resp B/P (MAP) Pulse Ox O2 Delivery O2 Flow Rate FiO2 09/22/17 12:00 98.1 91 20 137/84 98 98.1 09/22/17 08:00 97.7 84 20 129/79 98 97.7 09/22/17 07:17 89 20 T-piece 12.0 40 09/22/17 07:17 99 T-piece 12.0 40 09/22/17 07:17 T-piece 12.0 40 09/22/17 04:00 97.5 98 21 145/93 99 97.5 09/22/17 01:23 T-piece 12.0 40 09/22/17 01:23 99 T-piece 12.0 40 09/22/17 00:00 98.6 92 21 127/79 97 Room Air 98.6 09/21/17 21:12 T-piece 12.0 40 09/21/17 21:12 99 T-piece 12.0 40 09/21/17 20:00 T-piece 40 09/21/17 20:00 97.5 86 21 115/75 99 Room Air 97.5 09/21/17 18:30 86 20 T-piece 12.0 40 09/21/17 15:51 97.5 81 20 132/76 98 97.5 Intake and Output 09/21/17 09/22/17 19:00 07:00 Intake Total 65 ml 800 ml Output Total 450 ml Balance -385 ml 800 ml Free Water 30 ml IV Total 55 ml Tube Feeding 65 ml 715 ml Output Urine Total 450 ml # Bowel Movements 1 Laboratory Tests 09/22/17 05:50: White Blood Count 7.5, Red Blood Count 3.79L, Hemoglobin 11.6L, Hematocrit 34.2L , Mean Corpuscular Volume 90, Mean Corpuscular Hemoglobin 30.6, Mean Corpuscular Hemoglobin Concent 33.9, Red Cell Distribution Width 12.9, Platelet Count 266, Mean Platelet Volume 7.3, Neutrophils (%) (Auto) 60.3, Lymphocytes (% ) (Auto) 20.4, Monocytes (%) (Auto) 10.2H, Eosinophils (%) (Auto) 7.8H, Basophils (%) (Auto) 1.3, Sodium Level 143, Potassium Level 4.5, Chloride Level 106, Carbon Dioxide Level 31, Anion Gap 6, Blood Urea Nitrogen 24H, Creatinine 0.7, Estimat Glomerular Filtration Rate , Glucose Level 130H, Calcium Level 9.6 Height (Feet): 5 Height (Inches): 3.00 Weight (Pounds): 130 General Appearance: no apparent distress Respiratory/Chest: decreased breath sounds Abdomen: soft Nader Landis MD Sep 22, 2017 12:56
[2017-09-22 16:00] VITALS: BP 124/73
[2017-09-22] MEDS ORDERED: Tubing IV Secondary IV ONE (18:45)
[2017-09-22] MEDS ORDERED: NS 275ml ONE (18:45)
[2017-09-22 20:00] VITALS: BP 133/89
--- NOTE | 2017-09-22 22:19 | Pulmonology Progress Note ---
Assessment/Plan Problems: (1) Aspiration pneumonia (2) Vomiting (3) CVA (cerebral vascular accident) (4) Tracheostomy in place (5) G tube feedings (6) Status post CVA Assessment/Plan check wbc improving respiratory treatment iv abx check cultures tolerating feeding dvt prophylaxis. dc planning in process Subjective ROS Limited/Unobtainable: No Allergies: Coded Allergies: SULFAMETHOXAZOLE (Verified Allergy, Unknown, 07/13/17) TRIMETHOPRIM (Verified Allergy, Unknown, 07/13/17) Objective Last 24 Hour Vital Signs Date Time Temp Pulse Resp B/P (MAP) Pulse Ox O2 Delivery O2 Flow Rate FiO2 09/22/17 20:08 T-piece 12.0 40 09/22/17 20:08 99 T-piece 12.0 40 09/22/17 20:07 98 20 T-piece 12.0 40 09/22/17 20:00 97.5 105 17 133/89 97.5 09/22/17 16:00 98.1 89 20 124/73 99 98.1 09/22/17 13:10 T-piece 12.0 40 09/22/17 13:10 98 T-piece 12.0 40 09/22/17 12:00 98.1 91 20 137/84 98 98.1 09/22/17 08:00 97.7 84 20 129/79 98 97.7 09/22/17 07:17 89 20 T-piece 12.0 40 09/22/17 07:17 99 T-piece 12.0 40 09/22/17 07:17 T-piece 12.0 40 09/22/17 04:00 97.5 98 21 145/93 99 97.5 09/22/17 01:23 T-piece 12.0 40 09/22/17 01:23 99 T-piece 12.0 40 09/22/17 00:00 98.6 92 21 127/79 97 Room Air 98.6 Intake and Output 09/21/17 09/22/17 19:00 07:00 Intake Total 65 ml 800 ml Output Total 450 ml Balance -385 ml 800 ml Free Water 30 ml IV Total 55 ml Tube Feeding 65 ml 715 ml Output Urine Total 450 ml # Bowel Movements 1 Objective General Appearance: WD/WN HEENT: normocephalic, atraumatic, trach intact Respiratory/Chest: chest wall non-tender, lungs clear Breasts: no masses Cardiovascular: normal peripheral pulses, regular rhythm Abdomen: normal bowel sounds, soft, non tender, Gtube Genitourinary: normal external genitalia Extremities: no cyanosis Skin: no lesions Microbiology Date/Time Source Procedure Growth Status 09/20/17 12:20 Blood Blood Culture - Preliminary Resulted 09/20/17 12:05 Blood Blood Culture - Preliminary NO GROWTH AFTER 24 HOURS Resulted 09/20/17 15:15 Stool Clostridium difficile Toxin Assay - Final Complete 09/20/17 15:15 Urine,Clean Catch Urine Culture - Preliminary NO GROWTH AFTER 24 HOURS Resulted Laboratory Tests 09/22/17 05:50: White Blood Count 7.5, Red Blood Count 3.79L, Hemoglobin 11.6L, Hematocrit 34.2L , Mean Corpuscular Volume 90, Mean Corpuscular Hemoglobin 30.6, Mean Corpuscular Hemoglobin Concent 33.9, Red Cell Distribution Width 12.9, Platelet Count 266, Mean Platelet Volume 7.3, Neutrophils (%) (Auto) 60.3, Lymphocytes (% ) (Auto) 20.4, Monocytes (%) (Auto) 10.2H, Eosinophils (%) (Auto) 7.8H, Basophils (%) (Auto) 1.3, Sodium Level 143, Potassium Level 4.5, Chloride Level 106, Carbon Dioxide Level 31, Anion Gap 6, Blood Urea Nitrogen 24H, Creatinine 0.7, Estimat Glomerular Filtration Rate , Glucose Level 130H, Calcium Level 9.6 Current Medications Medications (Trade) Dose Ordered Sig/Gavino Route PRN Reason Start Time Stop Time Status Last Admin Dose Admin Acetaminophen (Tylenol) 650 mg Q4H PRN ORAL fever 09/12/17 21:30 10/12/17 21:29 09/17/17 03:50 Al Hydroxide/Mg Hydroxide (Mylanta II) 30 ml Q6H PRN ORAL dyspepsia 09/12/17 21:30 10/12/17 21:29 Cefepime HCl 1 gm/ Sodium Chloride 55 ml @ 110 mls/hr Q12H IVPB 09/17/17 15:00 09/24/17 23:59 09/22/17 15:07 Clotrimazole (Lotrimin) 1 applic EVERY 12 HOURS TOPIC 09/15/17 09:00 10/15/17 08:59 09/22/17 09:34 Dextrose (Dextrose 50%) STAT PRN IV Hypoglycemia 09/12/17 21:30 10/12/17 21:29 Diphenhydramine HCl (Benadryl) 25 mg Q6H PRN ORAL Itching/Pruritis 09/12/17 21:30 10/12/17 21:29 Docusate Sodium (Colace) 100 mg BID GT 09/14/17 18:00 10/14/17 17:59 09/22/17 08:26 Heparin Sodium (Porcine) (Heparin 5000 units/ml) 5,000 units EVERY 12 HOURS SUBQ 09/13/17 09:00 10/13/17 08:59 09/22/17 08:28 Metoclopramide HCl (Reglan) 5 mg Q8HR GT 09/13/17 14:00 10/13/17 17:59 09/22/17 13:08 Nitroglycerin (Ntg) 0.4 mg Q5M X 3 DOSES PRN SL Prn Chest Pain 09/12/17 21:30 10/12/17 21:29 Ondansetron HCl (Zofran) 4 mg Q6H PRN IVP Nausea & Vomiting 09/12/17 21:30 10/12/17 21:29 Pantoprazole (Protonix) 40 mg DAILY IVP 09/13/17 09:00 10/13/17 08:59 09/22/17 08:27 Polyethylene Glycol (Miralax) 17 gm HSPRN PRN ORAL Constipation 09/12/17 21:30 10/12/17 21:29 Vancomycin HCl (Vanco rx to dose) 1 ea DAILY PRN MISC Per rx protocol 09/20/17 11:00 10/20/17 10:59 Vancomycin HCl (Vancomycin) 125 mg FOUR TIMES A DAY GT 09/21/17 13:00 09/28/17 12:59 09/22/17 17:02 Vancomycin HCl/ Dextrose 250 ml @ 166.667 mls/hr Q24H IVPB 09/21/17 11:00 09/26/17 10:59 09/22/17 10:22 Valerio Childs MD Sep 22, 2017 22:19
--- NOTE | 2017-09-22 23:21 | General Progress Note ---
Assessment/Plan Assessment/Plan #. Nausea or vomiting, x1 episode. --> The patient has been seen by GI Service. Further recommendations to follow. --> Symptomatic treatment with low-dose Reglan as well as Zofran and continue G- tube feeds per dietary recommendations. --> Has improved. #. Status post tracheostomy. --> Continue to monitor. #. CVA history. Neurology has been consulted. #. Hyponatremia. #. Thrombocytosis, potentially secondary to reactive process. Continue to closely monitor. --> downtrended from yesterday and improved. --> Platelets now WNL #. Leukocytosis, potentially secondary to reactive process. --> Resolved today. --> On antibiotics. Monitor and trend cbc. Subjective Date patient seen: Sep 22, 2017 Constitutional: Denies: no symptoms, chills, diaphoresis, fever, malaise, weakness, other HEENT: Denies: no symptoms, eye pain, blurred vision, tearing, double vision, ear pain, ear discharge, nose pain, nose congestion, throat pain, throat swelling, mouth pain, mouth swelling, other Cardiovascular: Denies: no symptoms, chest pain, edema, irregular heart rate, lightheadedness, palpitations, syncope, other Respiratory: Denies: no symptoms, cough, orthopnea, shortness of breath, SOB with excertion, SOB at rest, sputum, stridor, wheezing, other Gastrointestinal/Abdominal: Denies: no symptoms, abdomen distended, abdominal pain, black stools, tarry stools, blood in stool, constipated, diarrhea, difficulty swallowing, nausea, poor appetite, poor fluid intake, rectal bleeding , vomiting, other Genitourinary: Denies: no symptoms, burning, discharge, frequency, flank pain, hematuria, incontinence, pain, urgency, other Neurologic/Psychiatric: Denies: no symptoms, anxiety, depressed, emotional problems, headache, numbness, paresthesia, pre-existing deficit, seizure, tingling, tremors, weakness, other Hematologic/Lymphatic: Reports: anemia Allergies: Coded Allergies: SULFAMETHOXAZOLE (Verified Allergy, Unknown, 07/13/17) TRIMETHOPRIM (Verified Allergy, Unknown, 07/13/17) Subjective NAD. H/H stable. Afebrile. Objective Last 24 Hour Vital Signs Date Time Temp Pulse Resp B/P (MAP) Pulse Ox O2 Delivery O2 Flow Rate FiO2 3/18/18 20:08 T-piece 12.0 40 09/22/17 20:08 99 T-piece 12.0 40 09/22/17 20:07 98 20 T-piece 12.0 40 09/22/17 20:00 97.5 105 17 133/89 97.5 09/22/17 16:00 98.1 89 20 124/73 99 98.1 09/22/17 13:10 T-piece 12.0 40 09/22/17 13:10 98 T-piece 12.0 40 09/22/17 12:00 98.1 91 20 137/84 98 98.1 09/22/17 08:00 97.7 84 20 129/79 98 97.7 09/22/17 07:17 89 20 T-piece 12.0 40 09/22/17 07:17 99 T-piece 12.0 40 09/22/17 07:17 T-piece 12.0 40 09/22/17 04:00 97.5 98 21 145/93 99 97.5 09/22/17 01:23 T-piece 12.0 40 09/22/17 01:23 99 T-piece 12.0 40 09/22/17 00:00 98.6 92 21 127/79 97 Room Air 98.6 Intake and Output 09/21/17 09/22/17 19:00 07:00 Intake Total 65 ml 800 ml Output Total 450 ml Balance -385 ml 800 ml Free Water 30 ml IV Total 55 ml Tube Feeding 65 ml 715 ml Output Urine Total 450 ml # Bowel Movements 1 Laboratory Tests 09/22/17 05:50: White Blood Count 7.5, Red Blood Count 3.79L, Hemoglobin 11.6L, Hematocrit 34.2L , Mean Corpuscular Volume 90, Mean Corpuscular Hemoglobin 30.6, Mean Corpuscular Hemoglobin Concent 33.9, Red Cell Distribution Width 12.9, Platelet Count 266, Mean Platelet Volume 7.3, Neutrophils (%) (Auto) 60.3, Lymphocytes (% ) (Auto) 20.4, Monocytes (%) (Auto) 10.2H, Eosinophils (%) (Auto) 7.8H, Basophils (%) (Auto) 1.3, Sodium Level 143, Potassium Level 4.5, Chloride Level 106, Carbon Dioxide Level 31, Anion Gap 6, Blood Urea Nitrogen 24H, Creatinine 0.7, Estimat Glomerular Filtration Rate , Glucose Level 130H, Calcium Level 9.6 Height (Feet): 5 Height (Inches): 3.00 Weight (Pounds): 130 General Appearance: no apparent distress Respiratory/Chest: decreased breath sounds Abdomen: soft Nader Landis MD Sep 22, 2017 23:21
[2017-09-23] MEDS: Cefepime HCl 1 GM in NS 55 ML IVPB SCH ×2 (03:15→15:21)
[2017-09-23 04:00] VITALS: BP 129/84
[2017-09-23] MEDS: Metoclopramide 10mg/10ml Liq GT SCH ×3 (05:20→21:04)
[2017-09-23 08:00] VITALS: BP 131/82
[2017-09-23 08:02] LABS: BASOPHILS % (AUTO) 0.8 % (0.0-2.0); EOSINOPHILS % (AUTO) 5.6 % (0.0-3.0); HEMATOCRIT 35.5 % (37.0-47.0); LYMPHOCYTES % (AUTO) 24.9 % (20.0-45.0); MEAN CORPUSCULAR VOLUME 89 FL (80-99); MONOCYTES % (AUTO) 7.1 % (1.0-10.0); NEUTROPHILS % (AUTO) 61.6 % (45.0-75.0); PLATELET COUNT 289 K/UL (150-450); RED BLOOD COUNT 3.97 M/UL (4.20-5.40); RED CELL DISTRIBUTION WIDTH 12.6 % (11.6-14.8); WHITE BLOOD COUNT 8.7 K/UL (4.8-10.8)
[2017-09-23 08:16] LABS: ANION GAP 7 mmol/L (5-15); BLOOD UREA NITROGEN 20 mg/dL (7-18); CALCIUM 9.7 MG/DL (8.5-10.1); CARBON DIOXIDE 31 MMOL/L (21-32); CHLORIDE 107 MMOL/L (98-107); CREATININE 0.7 MG/DL (0.55-1.30); POTASSIUM 4.4 MMOL/L (3.5-5.1); SODIUM 144 MMOL/L (136-145)
[2017-09-23] MEDS: Vancomycin oral 125mg/2.5ml GT SCH ×4 (09:00→21:04)
[2017-09-23] MEDS: Docusate 100mg/10ml Liq GT SCH ×2 (09:00→17:02)
[2017-09-23] MEDS: Pantoprazole Inj IVP SCH (09:45)
[2017-09-23] MEDS: Heparin 5000 units/ml inj SUBQ SCH ×2 (09:46→21:06)
--- NOTE | 2017-09-23 11:22 | GI Progress Note ---
Assessment/Plan Problems: (1) G tube feedings ICD Codes: Z93.1 - Gastrostomy status SNOMED: 179904715, 986071721 (2) Vomiting ICD Codes: R11.10 - Vomiting, unspecified SNOMED: 201476708 Qualifiers: Qualified Codes: R11.10 - Vomiting, unspecified Status: stable Status Narrative Discussed with Dr. Jhaveri. Assessment/Plan symptomatic treatment / supportive care low dose reglan tolerating GTF monitor labs DVT prophylaxis pending dc planning Subjective Subjective limited Objective Last 24 Hour Vital Signs Date Time Temp Pulse Resp B/P (MAP) Pulse Ox O2 Delivery O2 Flow Rate FiO2 09/23/17 08:07 89 20 T-piece 12.0 40 09/23/17 08:07 T-piece 12.0 40 09/23/17 08:07 99 T-piece 12.0 40 09/23/17 08:00 97.8 87 19 131/82 100 97.8 09/23/17 04:00 97.7 100 20 129/84 97 Room Air 97.7 09/23/17 01:51 T-piece 12.0 40 09/23/17 01:51 98 T-piece 12.0 40 09/23/17 00:00 T-piece 40 09/22/17 20:08 T-piece 12.0 40 09/22/17 20:08 99 T-piece 12.0 40 09/22/17 20:07 98 20 T-piece 12.0 40 09/22/17 20:00 T-piece 40 09/22/17 20:00 97.5 105 17 133/89 97.5 09/22/17 16:00 98.1 89 20 124/73 99 98.1 09/22/17 13:10 T-piece 12.0 40 09/22/17 13:10 98 T-piece 12.0 40 09/22/17 12:00 98.1 91 20 137/84 98 98.1 Intake and Output 09/22/17 09/23/17 19:00 07:00 Intake Total 610 ml 865 ml Output Total 1100 ml Balance 610 ml -235 ml Free Water 90 ml 30 ml IV Total 55 ml Tube Feeding 520 ml 780 ml Output Urine Total 1100 ml # Bowel Movements 1 Laboratory Tests Test 09/23/17 05:30 09/23/17 10:30 White Blood Count 8.7 K/UL (4.8-10.8) Red Blood Count 3.97 M/UL (4.20-5.40) L Hemoglobin 12.0 G/DL (12.0-16.0) Hematocrit 35.5 % (37.0-47.0) L Mean Corpuscular Volume 89 FL (80-99) Mean Corpuscular Hemoglobin 30.3 PG (27.0-31.0) Mean Corpuscular Hemoglobin Concent 33.9 G/DL (32.0-36.0) Red Cell Distribution Width 12.6 % (11.6-14.8) Platelet Count 289 K/UL (150-450) Mean Platelet Volume 7.2 FL (6.5-10.1) Neutrophils (%) (Auto) 61.6 % (45.0-75.0) Lymphocytes (%) (Auto) 24.9 % (20.0-45.0) Monocytes (%) (Auto) 7.1 % (1.0-10.0) Eosinophils (%) (Auto) 5.6 % (0.0-3.0) H Basophils (%) (Auto) 0.8 % (0.0-2.0) Sodium Level 144 MMOL/L (136-145) Potassium Level 4.4 MMOL/L (3.5-5.1) Chloride Level 107 MMOL/L (98-107) Carbon Dioxide Level 31 MMOL/L (21-32) Anion Gap 7 mmol/L (5-15) Blood Urea Nitrogen 20 mg/dL (7-18) H Creatinine 0.7 MG/DL (0.55-1.30) Estimat Glomerular Filtration Rate mL/min (>60) Glucose Level 126 MG/DL (74-106) H Calcium Level 9.7 MG/DL (8.5-10.1) Vancomycin Level Trough Pending Height (Feet): 5 Height (Inches): 3.00 Weight (Pounds): 130 General Appearance: WD/WN, no apparent distress, alert Cardiovascular: normal rate Respiratory/Chest: normal breath sounds, no respiratory distress Abdominal Exam: normal bowel sounds, non tender, soft, GT site - c/d/i Extremities: non-tender Tiffanie Simeon N.PMikayla Sep 23, 2017 11:22
[2017-09-23] MEDS: Vancomycin 1250mg/D5W 250ml IVPB SCH (11:59)
[2017-09-23 12:00] VITALS: BP 130/86
--- NOTE | 2017-09-23 14:51 | General Progress Note ---
Assessment/Plan Problem List: (1) Status post CVA ICD Codes: Z86.73 - Personal history of transient ischemic attack (TIA), and cerebral infarction without residual deficits SNOMED: 829188570 (2) Vomiting ICD Codes: R11.10 - Vomiting, unspecified SNOMED: 308481601 Qualifiers: Qualified Codes: R11.10 - Vomiting, unspecified (3) CVA (cerebral vascular accident) ICD Codes: I63.9 - Cerebral infarction, unspecified SNOMED: 482011709 (4) Tracheostomy in place ICD Codes: Z93.0 - Tracheostomy status SNOMED: 859360286 (5) G tube feedings ICD Codes: Z93.1 - Gastrostomy status SNOMED: 679956325, 966680520 (6) Aspiration pneumonia ICD Codes: J69.0 - Pneumonitis due to inhalation of food and vomit SNOMED: 119809276 (7) UTI (urinary tract infection) ICD Codes: N39.0 - Urinary tract infection, site not specified SNOMED: 14734566 Status: unchanged Assessment/Plan vent abx bp bs control cbc bmp am dc to snf if claer and if ok w family Subjective Constitutional: Reports: weakness Allergies: Coded Allergies: SULFAMETHOXAZOLE (Verified Allergy, Unknown, 07/13/17) TRIMETHOPRIM (Verified Allergy, Unknown, 07/13/17) All Systems: reviewed and negative except above Subjective trach vent asleep Objective Last 24 Hour Vital Signs Date Time Temp Pulse Resp B/P (MAP) Pulse Ox O2 Delivery O2 Flow Rate FiO2 09/23/17 12:33 98 T-piece 12.0 40 09/23/17 12:33 T-piece 12.0 40 09/23/17 12:00 97.4 91 19 130/86 96 97.4 09/23/17 08:07 89 20 T-piece 12.0 40 09/23/17 08:07 T-piece 12.0 40 09/23/17 08:07 99 T-piece 12.0 40 09/23/17 08:00 97.8 87 19 131/82 100 97.8 09/23/17 04:00 97.7 100 20 129/84 97 Room Air 97.7 09/23/17 01:51 T-piece 12.0 40 09/23/17 01:51 98 T-piece 12.0 40 09/23/17 00:00 T-piece 40 09/22/17 20:08 T-piece 12.0 40 09/22/17 20:08 99 T-piece 12.0 40 09/22/17 20:07 98 20 T-piece 12.0 40 09/22/17 20:00 T-piece 40 09/22/17 20:00 97.5 105 17 133/89 97.5 09/22/17 16:00 98.1 89 20 124/73 99 98.1 Intake and Output 09/22/17 09/23/17 19:00 07:00 Intake Total 610 ml 865 ml Output Total 1100 ml Balance 610 ml -235 ml Free Water 90 ml 30 ml IV Total 55 ml Tube Feeding 520 ml 780 ml Output Urine Total 1100 ml # Bowel Movements 1 Laboratory Tests 09/23/17 05:30: White Blood Count 8.7, Red Blood Count 3.97L, Hemoglobin 12.0, Hematocrit 35.5L , Mean Corpuscular Volume 89, Mean Corpuscular Hemoglobin 30.3, Mean Corpuscular Hemoglobin Concent 33.9, Red Cell Distribution Width 12.6, Platelet Count 289, Mean Platelet Volume 7.2, Neutrophils (%) (Auto) 61.6, Lymphocytes (% ) (Auto) 24.9, Monocytes (%) (Auto) 7.1, Eosinophils (%) (Auto) 5.6H, Basophils (%) (Auto) 0.8, Sodium Level 144, Potassium Level 4.4, Chloride Level 107, Carbon Dioxide Level 31, Anion Gap 7, Blood Urea Nitrogen 20H, Creatinine 0.7, Estimat Glomerular Filtration Rate , Glucose Level 126H, Calcium Level 9.7 09/23/17 10:30: Vancomycin Level Trough 6.8 Height (Feet): 5 Height (Inches): 3.00 Weight (Pounds): 130 General Appearance: lethargic EENT: normal ENT inspection Neck: normal alignment Cardiovascular: normal peripheral pulses, normal rate, regular rhythm, no JVD Respiratory/Chest: chest wall non-tender, lungs clear, normal breath sounds Abdomen: normal bowel sounds, non tender, soft Extremities: normal inspection Edema: no edema noted Arm (L), no edema noted Arm (R), no edema noted Leg (L), no edema noted Leg (R), no edema noted Pedal (L), no edema noted Pedal (R), no edema noted Generalized Neurologic: motor weakness Skin: normal pigmentation, warm/dry KATIE MONTE Sep 23, 2017 14:51
[2017-09-23 15:59] VITALS: BP 132/77
--- NOTE | 2017-09-23 19:02 | Infectious Diseases Prog Note ---
Assessment/Plan Assessment/Plan ASSESSMENT: The patient is a 76-year-old female with: Fever, SP leukocytosis (recurrent); SP f ?aspiration pneumonitis - resolved - no obvious PNA on CXR. Ucx with <10K MRSA, typically this organisms doesnt cause UTI but may cause with presence of regan catheter; also may represent seeding from blood; so far Bcx NTD -repeat u/a 09/16 wbc 15-20; ucx <10K MRSA (S Vanco, bactrim; R Tetracycline); rpeat u/a neg; ucx NTD -CXR 09/20: Retrocardiac atelectasis. No acute process otherwise -Bcx 09/16 NTeg -CXR: Very questionable minimal interstitial congestion. No acute process otherwise. -v. duplex no DVT 2d Echo,: (limited)no Veg C diff : neg ConS bacteremica 07/11; likelyu contaminant -09/20 + Previous Leukocytosis, mostly due to acute stress -u/a neg -Bcx NTD No evidence of pneumonia or urinary tract infection. Chest x-ray, no acute process Hypertension. COPD. Diabetes. History of CVA PLAN: - on empiric IV Cefepime # 6/7 and IV Vancomycin d# 4/5 -f/u repeat bcx 09/22 Monitor blood culture. Monitor CBC. Monitor BMP. Subjective Allergies: Coded Allergies: SULFAMETHOXAZOLE (Verified Allergy, Unknown, 07/13/17) TRIMETHOPRIM (Verified Allergy, Unknown, 07/13/17) Subjective afebrile leukocytosis resolved repeat Bcx p repaet u/a neg Objective Vital Signs Last 24 Hour Vital Signs Date Time Temp Pulse Resp B/P (MAP) Pulse Ox O2 Delivery O2 Flow Rate FiO2 09/23/17 15:59 97.6 89 21 132/77 98 97.6 09/23/17 12:33 98 T-piece 12.0 40 09/23/17 12:33 T-piece 12.0 40 09/23/17 12:00 97.4 91 19 130/86 96 97.4 09/23/17 08:07 89 20 T-piece 12.0 40 09/23/17 08:07 T-piece 12.0 40 09/23/17 08:07 99 T-piece 12.0 40 09/23/17 08:00 97.8 87 19 131/82 100 97.8 09/23/17 04:00 97.7 100 20 129/84 97 Room Air 97.7 09/23/17 01:51 T-piece 12.0 40 09/23/17 01:51 98 T-piece 12.0 40 09/23/17 00:00 T-piece 40 09/22/17 20:08 T-piece 12.0 40 09/22/17 20:08 99 T-piece 12.0 40 09/22/17 20:07 98 20 T-piece 12.0 40 09/22/17 20:00 T-piece 40 09/22/17 20:00 97.5 105 17 133/89 97.5 Height (Feet): 5 Height (Inches): 3.00 Weight (Pounds): 130 Objective General Appearance: lethargic EENT: normal ENT inspection Neck: normal alignment Cardiovascular: normal peripheral pulses, normal rate, regular rhythm Respiratory/Chest: decreased breath sounds Abdomen: normal bowel sounds, non tender, soft Extremities: normal inspection Edema: no edema noted Arm (L), no edema noted Arm (R), no edema noted Leg (L), no edema noted Leg (R), no edema noted Pedal (L), no edema noted Pedal (R), no edema noted Generalized Neurologic: motor weakness Skin: normal pigmentation, warm/dry Laboratory Tests Test 09/23/17 05:30 09/23/17 10:30 White Blood Count 8.7 K/UL (4.8-10.8) Red Blood Count 3.97 M/UL (4.20-5.40) L Hemoglobin 12.0 G/DL (12.0-16.0) Hematocrit 35.5 % (37.0-47.0) L Mean Corpuscular Volume 89 FL (80-99) Mean Corpuscular Hemoglobin 30.3 PG (27.0-31.0) Mean Corpuscular Hemoglobin Concent 33.9 G/DL (32.0-36.0) Red Cell Distribution Width 12.6 % (11.6-14.8) Platelet Count 289 K/UL (150-450) Mean Platelet Volume 7.2 FL (6.5-10.1) Neutrophils (%) (Auto) 61.6 % (45.0-75.0) Lymphocytes (%) (Auto) 24.9 % (20.0-45.0) Monocytes (%) (Auto) 7.1 % (1.0-10.0) Eosinophils (%) (Auto) 5.6 % (0.0-3.0) H Basophils (%) (Auto) 0.8 % (0.0-2.0) Sodium Level 144 MMOL/L (136-145) Potassium Level 4.4 MMOL/L (3.5-5.1) Chloride Level 107 MMOL/L (98-107) Carbon Dioxide Level 31 MMOL/L (21-32) Anion Gap 7 mmol/L (5-15) Blood Urea Nitrogen 20 mg/dL (7-18) H Creatinine 0.7 MG/DL (0.55-1.30) Estimat Glomerular Filtration Rate mL/min (>60) Glucose Level 126 MG/DL (74-106) H Calcium Level 9.7 MG/DL (8.5-10.1) Vancomycin Level Trough 6.8 ug/mL (5.0-12.0) Current Medications Medications (Trade) Dose Ordered Sig/Gavino Route PRN Reason Start Time Stop Time Status Last Admin Dose Admin Acetaminophen (Tylenol) 650 mg Q4H PRN ORAL fever 09/12/17 21:30 10/12/17 21:29 09/17/17 03:50 Al Hydroxide/Mg Hydroxide (Mylanta II) 30 ml Q6H PRN ORAL dyspepsia 09/12/17 21:30 10/12/17 21:29 Cefepime HCl 1 gm/ Sodium Chloride 55 ml @ 110 mls/hr Q12H IVPB 09/17/17 15:00 09/24/17 23:59 09/23/17 15:21 Clotrimazole (Lotrimin) 1 applic EVERY 12 HOURS TOPIC 09/15/17 09:00 10/15/17 08:59 09/23/17 09:46 Dextrose (Dextrose 50%) STAT PRN IV Hypoglycemia 09/12/17 21:30 10/12/17 21:29 Diphenhydramine HCl (Benadryl) 25 mg Q6H PRN ORAL Itching/Pruritis 09/12/17 21:30 10/12/17 21:29 Docusate Sodium (Colace) 100 mg BID GT 09/14/17 18:00 10/14/17 17:59 09/22/17 08:26 Heparin Sodium (Porcine) (Heparin 5000 units/ml) 5,000 units EVERY 12 HOURS SUBQ 09/13/17 09:00 10/13/17 08:59 09/23/17 09:46 Metoclopramide HCl (Reglan) 5 mg Q8HR GT 09/13/17 14:00 10/13/17 17:59 09/23/17 15:21 Nitroglycerin (Ntg) 0.4 mg Q5M X 3 DOSES PRN SL Prn Chest Pain 09/12/17 21:30 10/12/17 21:29 Ondansetron HCl (Zofran) 4 mg Q6H PRN IVP Nausea & Vomiting 09/12/17 21:30 10/12/17 21:29 Pantoprazole (Protonix) 40 mg DAILY IVP 09/13/17 09:00 10/13/17 08:59 09/23/17 09:45 Polyethylene Glycol (Miralax) 17 gm HSPRN PRN ORAL Constipation 09/12/17 21:30 10/12/17 21:29 Vancomycin HCl (Vanco rx to dose) 1 ea DAILY PRN MISC Per rx protocol 09/20/17 11:00 10/20/17 10:59 Vancomycin HCl (Vancomycin) 125 mg FOUR TIMES A DAY GT 09/21/17 13:00 09/28/17 12:59 09/23/17 17:02 Vancomycin/Sodium Chloride 250 ml @ 166.667 mls/hr Q12HR@0000,1200 IVPB 09/24/17 00:00 09/29/17 00:00 Marion Conway M.D. Sep 23, 2017 19:02
[2017-09-23 20:31] VITALS: BP 133/67
--- NOTE | 2017-09-23 22:36 | Pulmonology Progress Note ---
Assessment/Plan Problems: (1) Aspiration pneumonia (2) Vomiting (3) CVA (cerebral vascular accident) (4) Tracheostomy in place (5) G tube feedings (6) Status post CVA Assessment/Plan check wbc improving respiratory treatment iv abx check cultures tolerating feeding dvt prophylaxis. dc planning in process Subjective ROS Limited/Unobtainable: No Allergies: Coded Allergies: SULFAMETHOXAZOLE (Verified Allergy, Unknown, 07/13/17) TRIMETHOPRIM (Verified Allergy, Unknown, 07/13/17) Objective Last 24 Hour Vital Signs Date Time Temp Pulse Resp B/P (MAP) Pulse Ox O2 Delivery O2 Flow Rate FiO2 09/23/17 20:31 96.4 87 20 133/67 94 Room Air 96.4 09/23/17 19:10 T-piece 12.0 40 09/23/17 19:10 98 T-piece 12.0 40 09/23/17 19:10 82 21 T-piece 12.0 40 09/23/17 15:59 97.6 89 21 132/77 98 97.6 09/23/17 12:33 98 T-piece 12.0 40 09/23/17 12:33 T-piece 12.0 40 09/23/17 12:00 97.4 91 19 130/86 96 97.4 09/23/17 08:07 89 20 T-piece 12.0 40 09/23/17 08:07 T-piece 12.0 40 09/23/17 08:07 99 T-piece 12.0 40 09/23/17 08:00 97.8 87 19 131/82 100 97.8 09/23/17 04:00 97.7 100 20 129/84 97 Room Air 97.7 09/23/17 01:51 T-piece 12.0 40 09/23/17 01:51 98 T-piece 12.0 40 09/23/17 00:00 T-piece 40 Intake and Output 09/22/17 09/23/17 19:00 07:00 Intake Total 610 ml 800 ml Output Total 1100 ml Balance 610 ml -300 ml Free Water 90 ml 30 ml IV Total 55 ml Tube Feeding 520 ml 715 ml Output Urine Total 1100 ml # Bowel Movements 1 Objective General Appearance: WD/WN HEENT: normocephalic, atraumatic, trach intact Respiratory/Chest: chest wall non-tender, lungs clear Breasts: no masses Cardiovascular: normal peripheral pulses, regular rhythm Abdomen: normal bowel sounds, soft, non tender, Gtube Genitourinary: normal external genitalia Extremities: no cyanosis Skin: no lesions Laboratory Tests 09/23/17 05:30: White Blood Count 8.7, Red Blood Count 3.97L, Hemoglobin 12.0, Hematocrit 35.5L , Mean Corpuscular Volume 89, Mean Corpuscular Hemoglobin 30.3, Mean Corpuscular Hemoglobin Concent 33.9, Red Cell Distribution Width 12.6, Platelet Count 289, Mean Platelet Volume 7.2, Neutrophils (%) (Auto) 61.6, Lymphocytes (% ) (Auto) 24.9, Monocytes (%) (Auto) 7.1, Eosinophils (%) (Auto) 5.6H, Basophils (%) (Auto) 0.8, Sodium Level 144, Potassium Level 4.4, Chloride Level 107, Carbon Dioxide Level 31, Anion Gap 7, Blood Urea Nitrogen 20H, Creatinine 0.7, Estimat Glomerular Filtration Rate , Glucose Level 126H, Calcium Level 9.7 09/23/17 10:30: Vancomycin Level Trough 6.8 Current Medications Medications (Trade) Dose Ordered Sig/Gavino Route PRN Reason Start Time Stop Time Status Last Admin Dose Admin Acetaminophen (Tylenol) 650 mg Q4H PRN ORAL fever 09/12/17 21:30 10/12/17 21:29 09/17/17 03:50 Al Hydroxide/Mg Hydroxide (Mylanta II) 30 ml Q6H PRN ORAL dyspepsia 09/12/17 21:30 10/12/17 21:29 Cefepime HCl 1 gm/ Sodium Chloride 55 ml @ 110 mls/hr Q12H IVPB 09/17/17 15:00 09/24/17 23:59 09/23/17 15:21 Clotrimazole (Lotrimin) 1 applic EVERY 12 HOURS TOPIC 09/15/17 09:00 10/15/17 08:59 09/23/17 21:04 Dextrose (Dextrose 50%) STAT PRN IV Hypoglycemia 09/12/17 21:30 10/12/17 21:29 Diphenhydramine HCl (Benadryl) 25 mg Q6H PRN ORAL Itching/Pruritis 09/12/17 21:30 10/12/17 21:29 Docusate Sodium (Colace) 100 mg BID GT 09/14/17 18:00 10/14/17 17:59 09/22/17 08:26 Heparin Sodium (Porcine) (Heparin 5000 units/ml) 5,000 units EVERY 12 HOURS SUBQ 09/13/17 09:00 10/13/17 08:59 09/23/17 21:06 Metoclopramide HCl (Reglan) 5 mg Q8HR GT 09/13/17 14:00 10/13/17 17:59 09/23/17 21:04 Nitroglycerin (Ntg) 0.4 mg Q5M X 3 DOSES PRN SL Prn Chest Pain 09/12/17 21:30 10/12/17 21:29 Ondansetron HCl (Zofran) 4 mg Q6H PRN IVP Nausea & Vomiting 09/12/17 21:30 10/12/17 21:29 Pantoprazole (Protonix) 40 mg DAILY IVP 09/13/17 09:00 10/13/17 08:59 09/23/17 09:45 Polyethylene Glycol (Miralax) 17 gm HSPRN PRN ORAL Constipation 09/12/17 21:30 10/12/17 21:29 Vancomycin HCl (Vanco rx to dose) 1 ea DAILY PRN MISC Per rx protocol 09/20/17 11:00 10/20/17 10:59 Vancomycin HCl (Vancomycin) 125 mg FOUR TIMES A DAY GT 09/21/17 13:00 09/28/17 12:59 09/23/17 21:04 Vancomycin/Sodium Chloride 250 ml @ 166.667 mls/hr Q12HR@0000,1200 IVPB 09/24/17 00:00 09/29/17 00:00 Valerio Childs MD Sep 23, 2017 22:36
[2017-09-23] MEDS: Vancomycin 750mg/NS 250ml 250 ML IVPB SCH (23:51)
[2017-09-24 00:40] VITALS: BP 119/66
[2017-09-24] MEDS: Cefepime HCl 1 GM in NS 55 ML IVPB SCH ×2 (03:30→14:07)
[2017-09-24 04:59] VITALS: BP 146/96
[2017-09-24] MEDS: Metoclopramide 10mg/10ml Liq GT SCH ×3 (05:20→20:47)
[2017-09-24 07:41] LABS: BASOPHILS % (AUTO) 1.4 % (0.0-2.0); EOSINOPHILS % (AUTO) 6.9 % (0.0-3.0); HEMATOCRIT 35.5 % (37.0-47.0); HEMOGLOBIN 12.1 G/DL (12.0-16.0); LYMPHOCYTES % (AUTO) 27.8 % (20.0-45.0); MEAN CORPUSCULAR VOLUME 89 FL (80-99); MONOCYTES % (AUTO) 7.5 % (1.0-10.0); NEUTROPHILS % (AUTO) 56.4 % (45.0-75.0); PLATELET COUNT 273 K/UL (150-450); RED CELL DISTRIBUTION WIDTH 12.7 % (11.6-14.8); WHITE BLOOD COUNT 8.4 K/UL (4.8-10.8)
[2017-09-24 08:00] VITALS: BP 111/66
[2017-09-24 08:12] LABS: ANION GAP 8 mmol/L (5-15); BLOOD UREA NITROGEN 19 mg/dL (7-18); CALCIUM 9.7 MG/DL (8.5-10.1); CARBON DIOXIDE 30 MMOL/L (21-32); CHLORIDE 105 MMOL/L (98-107); CREATININE 0.6 MG/DL (0.55-1.30); POTASSIUM 4.4 MMOL/L (3.5-5.1); SODIUM 142 MMOL/L (136-145)
[2017-09-24] MEDS: Docusate 100mg/10ml Liq GT SCH ×2 (08:42→17:41)
[2017-09-24] MEDS: Vancomycin oral 125mg/2.5ml GT SCH (08:44)
[2017-09-24] MEDS: Pantoprazole Inj IVP SCH (08:44)
[2017-09-24] MEDS: Heparin 5000 units/ml inj SUBQ SCH ×2 (08:46→20:49)
--- NOTE | 2017-09-24 10:47 | Infectious Diseases Prog Note ---
Assessment/Plan Assessment/Plan ASSESSMENT: The patient is a 76-year-old female with: Fever, SP leukocytosis (recurrent); SP f ?aspiration pneumonitis - resolved - no obvious PNA on CXR. Ucx with <10K MRSA, typically this organisms doesnt cause UTI but may cause with presence of regan catheter; also may represent seeding from blood; so far Bcx NTD -repeat u/a 09/16 wbc 15-20; ucx <10K MRSA (S Vanco, bactrim; R Tetracycline); rpeat u/a neg; ucx NTD -CXR 09/20: Retrocardiac atelectasis. No acute process otherwise -Bcx 09/16 NTeg; 09/22 NTD x4 -CXR: Very questionable minimal interstitial congestion. No acute process otherwise. -v. duplex no DVT 2d Echo,: (limited)no Veg C diff : neg ConS bacteremica 07/11; likelyu contaminant -09/20 + Previous Leukocytosis, mostly due to acute stress -u/a neg -Bcx NTD No evidence of pneumonia or urinary tract infection. Chest x-ray, no acute process Hypertension. COPD. Diabetes. History of CVA PLAN: - on empiric IV Cefepime # 7/7 and IV Vancomycin d# 5/5 and d/c PO Vancomycin # 4; ok to discharge to SNF from ID perspective -f/u repeat bcx 09/22 Monitor blood culture. Monitor CBC. Monitor BMP. Subjective Allergies: Coded Allergies: SULFAMETHOXAZOLE (Verified Allergy, Unknown, 07/13/17) TRIMETHOPRIM (Verified Allergy, Unknown, 07/13/17) Subjective afebrile leukocytosis resolved repeat Bcx NTD Objective Vital Signs Last 24 Hour Vital Signs Date Time Temp Pulse Resp B/P (MAP) Pulse Ox O2 Delivery O2 Flow Rate FiO2 09/24/17 08:00 97.2 72 12 111/66 99 97.2 09/24/17 07:55 T-piece 12.0 40 09/24/17 07:55 86 20 T-piece 12.0 40 09/24/17 07:54 98 T-piece 12.0 40 09/24/17 04:59 97.7 85 20 146/96 94 Room Air 97.7 09/24/17 04:00 T-piece 40 09/24/17 00:40 96.3 81 20 119/66 98 Room Air 96.3 09/24/17 00:00 T-piece 40 09/23/17 23:50 T-piece 12.0 40 09/23/17 23:50 98 T-piece 12.0 40 09/23/17 20:31 96.4 87 20 133/67 94 Room Air 96.4 09/23/17 20:00 T-piece 40 09/23/17 19:10 T-piece 12.0 40 09/23/17 19:10 98 T-piece 12.0 40 09/23/17 19:10 82 21 T-piece 12.0 40 09/23/17 15:59 97.6 89 21 132/77 98 97.6 09/23/17 12:33 98 T-piece 12.0 40 09/23/17 12:33 T-piece 12.0 40 09/23/17 12:00 97.4 91 19 130/86 96 97.4 Height (Feet): 5 Height (Inches): 3.00 Weight (Pounds): 130 Objective General Appearance: lethargic EENT: normal ENT inspection Neck: normal alignment Cardiovascular: normal peripheral pulses, normal rate, regular rhythm Respiratory/Chest: decreased breath sounds Abdomen: normal bowel sounds, non tender, soft Extremities: normal inspection Edema: no edema noted Arm (L), no edema noted Arm (R), no edema noted Leg (L), no edema noted Leg (R), no edema noted Pedal (L), no edema noted Pedal (R), no edema noted Generalized Neurologic: motor weakness Skin: normal pigmentation, warm/dry Microbiology Date/Time Source Procedure Growth Status 09/22/17 15:05 Blood Blood Culture - Preliminary NO GROWTH AFTER 24 HOURS Resulted 09/22/17 15:00 Blood Blood Culture - Preliminary NO GROWTH AFTER 24 HOURS Resulted Laboratory Tests Test 09/24/17 06:30 White Blood Count 8.4 K/UL (4.8-10.8) Red Blood Count 4.00 M/UL (4.20-5.40) L Hemoglobin 12.1 G/DL (12.0-16.0) Hematocrit 35.5 % (37.0-47.0) L Mean Corpuscular Volume 89 FL (80-99) Mean Corpuscular Hemoglobin 30.1 PG (27.0-31.0) Mean Corpuscular Hemoglobin Concent 34.0 G/DL (32.0-36.0) Red Cell Distribution Width 12.7 % (11.6-14.8) Platelet Count 273 K/UL (150-450) Mean Platelet Volume 7.4 FL (6.5-10.1) Neutrophils (%) (Auto) 56.4 % (45.0-75.0) Lymphocytes (%) (Auto) 27.8 % (20.0-45.0) Monocytes (%) (Auto) 7.5 % (1.0-10.0) Eosinophils (%) (Auto) 6.9 % (0.0-3.0) H Basophils (%) (Auto) 1.4 % (0.0-2.0) Sodium Level 142 MMOL/L (136-145) Potassium Level 4.4 MMOL/L (3.5-5.1) Chloride Level 105 MMOL/L (98-107) Carbon Dioxide Level 30 MMOL/L (21-32) Anion Gap 8 mmol/L (5-15) Blood Urea Nitrogen 19 mg/dL (7-18) H Creatinine 0.6 MG/DL (0.55-1.30) Estimat Glomerular Filtration Rate mL/min (>60) Glucose Level 126 MG/DL (74-106) H Calcium Level 9.7 MG/DL (8.5-10.1) Phosphorus Level 4.0 MG/DL (2.5-4.9) Magnesium Level 1.7 MG/DL (1.8-2.4) L Current Medications Medications (Trade) Dose Ordered Sig/Gavino Route PRN Reason Start Time Stop Time Status Last Admin Dose Admin Acetaminophen (Tylenol) 650 mg Q4H PRN ORAL fever 09/12/17 21:30 10/12/17 21:29 09/17/17 03:50 Al Hydroxide/Mg Hydroxide (Mylanta II) 30 ml Q6H PRN ORAL dyspepsia 09/12/17 21:30 10/12/17 21:29 Cefepime HCl 1 gm/ Sodium Chloride 55 ml @ 110 mls/hr Q12H IVPB 09/17/17 15:00 09/24/17 23:59 09/24/17 03:30 Clotrimazole (Lotrimin) 1 applic EVERY 12 HOURS TOPIC 09/15/17 09:00 10/15/17 08:59 09/24/17 08:48 Dextrose (Dextrose 50%) STAT PRN IV Hypoglycemia 09/12/17 21:30 10/12/17 21:29 Diphenhydramine HCl (Benadryl) 25 mg Q6H PRN ORAL Itching/Pruritis 09/12/17 21:30 10/12/17 21:29 Docusate Sodium (Colace) 100 mg BID GT 09/14/17 18:00 10/14/17 17:59 09/22/17 08:26 Heparin Sodium (Porcine) (Heparin 5000 units/ml) 5,000 units EVERY 12 HOURS SUBQ 09/13/17 09:00 10/13/17 08:59 09/24/17 08:46 Magnesium Sulfate 100 ml @ 100 mls/hr Q1H IVPB 09/24/17 10:00 09/24/17 11:59 09/24/17 09:55 Metoclopramide HCl (Reglan) 5 mg Q8HR GT 09/13/17 14:00 10/13/17 17:59 09/24/17 05:20 Nitroglycerin (Ntg) 0.4 mg Q5M X 3 DOSES PRN SL Prn Chest Pain 09/12/17 21:30 10/12/17 21:29 Ondansetron HCl (Zofran) 4 mg Q6H PRN IVP Nausea & Vomiting 09/12/17 21:30 10/12/17 21:29 Pantoprazole (Protonix) 40 mg DAILY IVP 09/13/17 09:00 10/13/17 08:59 09/24/17 08:44 Polyethylene Glycol (Miralax) 17 gm HSPRN PRN ORAL Constipation 09/12/17 21:30 10/12/17 21:29 Vancomycin HCl (Vanco rx to dose) 1 ea DAILY PRN MISC Per rx protocol 09/20/17 11:00 10/20/17 10:59 Vancomycin HCl (Vancomycin) 125 mg FOUR TIMES A DAY GT 09/21/17 13:00 09/28/17 12:59 09/24/17 08:44 Vancomycin/Sodium Chloride 250 ml @ 166.667 mls/hr Q12HR@0000,1200 IVPB 09/24/17 00:00 09/29/17 00:00 09/23/17 23:51 Marion Conway M.D. Sep 24, 2017 10:47
--- NOTE | 2017-09-24 11:11 | GI Progress Note ---
Assessment/Plan Problems: (1) G tube feedings ICD Codes: Z93.1 - Gastrostomy status SNOMED: 397551219, 934126879 (2) Vomiting ICD Codes: R11.10 - Vomiting, unspecified SNOMED: 460323530 Qualifiers: Qualified Codes: R11.10 - Vomiting, unspecified Status: stable Status Narrative Discussed with Dr. Jhaveri. Assessment/Plan symptomatic treatment / supportive care low dose reglan tolerating GTF monitor labs DVT prophylaxis pending dc planning Subjective Subjective limited Objective Last 24 Hour Vital Signs Date Time Temp Pulse Resp B/P (MAP) Pulse Ox O2 Delivery O2 Flow Rate FiO2 09/24/17 08:00 97.2 72 12 111/66 99 97.2 09/24/17 07:55 T-piece 12.0 40 09/24/17 07:55 86 20 T-piece 12.0 40 09/24/17 07:54 98 T-piece 12.0 40 09/24/17 04:59 97.7 85 20 146/96 94 Room Air 97.7 09/24/17 04:00 T-piece 40 09/24/17 00:40 96.3 81 20 119/66 98 Room Air 96.3 09/24/17 00:00 T-piece 40 09/23/17 23:50 T-piece 12.0 40 09/23/17 23:50 98 T-piece 12.0 40 09/23/17 20:31 96.4 87 20 133/67 94 Room Air 96.4 09/23/17 20:00 T-piece 40 09/23/17 19:10 T-piece 12.0 40 09/23/17 19:10 98 T-piece 12.0 40 09/23/17 19:10 82 21 T-piece 12.0 40 09/23/17 15:59 97.6 89 21 132/77 98 97.6 09/23/17 12:33 98 T-piece 12.0 40 09/23/17 12:33 T-piece 12.0 40 09/23/17 12:00 97.4 91 19 130/86 96 97.4 Intake and Output 09/23/17 09/24/17 19:00 07:00 Intake Total 370.00 ml 1080.000 ml Output Total 450 ml 450 ml Balance -80.00 ml 630.000 ml Free Water 60 ml IV Total 305.00 ml 305.000 ml Tube Feeding 65 ml 715 ml Output Urine Total 450 ml 450 ml # Bowel Movements 4 Laboratory Tests Test 09/24/17 06:30 White Blood Count 8.4 K/UL (4.8-10.8) Red Blood Count 4.00 M/UL (4.20-5.40) L Hemoglobin 12.1 G/DL (12.0-16.0) Hematocrit 35.5 % (37.0-47.0) L Mean Corpuscular Volume 89 FL (80-99) Mean Corpuscular Hemoglobin 30.1 PG (27.0-31.0) Mean Corpuscular Hemoglobin Concent 34.0 G/DL (32.0-36.0) Red Cell Distribution Width 12.7 % (11.6-14.8) Platelet Count 273 K/UL (150-450) Mean Platelet Volume 7.4 FL (6.5-10.1) Neutrophils (%) (Auto) 56.4 % (45.0-75.0) Lymphocytes (%) (Auto) 27.8 % (20.0-45.0) Monocytes (%) (Auto) 7.5 % (1.0-10.0) Eosinophils (%) (Auto) 6.9 % (0.0-3.0) H Basophils (%) (Auto) 1.4 % (0.0-2.0) Sodium Level 142 MMOL/L (136-145) Potassium Level 4.4 MMOL/L (3.5-5.1) Chloride Level 105 MMOL/L (98-107) Carbon Dioxide Level 30 MMOL/L (21-32) Anion Gap 8 mmol/L (5-15) Blood Urea Nitrogen 19 mg/dL (7-18) H Creatinine 0.6 MG/DL (0.55-1.30) Estimat Glomerular Filtration Rate mL/min (>60) Glucose Level 126 MG/DL (74-106) H Calcium Level 9.7 MG/DL (8.5-10.1) Phosphorus Level 4.0 MG/DL (2.5-4.9) Magnesium Level 1.7 MG/DL (1.8-2.4) L Height (Feet): 5 Height (Inches): 3.00 Weight (Pounds): 130 General Appearance: WD/WN, no apparent distress, alert Cardiovascular: normal rate Respiratory/Chest: normal breath sounds, no respiratory distress Abdominal Exam: normal bowel sounds, non tender, soft, GT site - c/d/i Extremities: normal range of motion, non-tender Tiffanie Simeon N.P. Sep 24, 2017 11:11
[2017-09-24 12:00] VITALS: BP 123/72
[2017-09-24] MEDS: Vancomycin 750mg/NS 250ml 250 ML IVPB SCH (12:13)
--- NOTE | 2017-09-24 13:08 | General Progress Note ---
Assessment/Plan Assessment/Plan #. Nausea or vomiting, x1 episode. --> The patient has been seen by GI Service. Further recommendations to follow. --> Symptomatic treatment with low-dose Reglan as well as Zofran and continue G- tube feeds per dietary recommendations. --> Has improved. #. Status post tracheostomy. --> Continue to monitor. #. CVA history. Neurology has been consulted. #. Hyponatremia. #. Thrombocytosis, potentially secondary to reactive process. Continue to closely monitor. --> downtrended from yesterday and improved. --> Platelets now WNL #. Leukocytosis, potentially secondary to reactive process. --> Resolved today. --> On antibiotics. Monitor and trend cbc. Subjective Date patient seen: Sep 23, 2017 Constitutional: Denies: no symptoms, chills, diaphoresis, fever, malaise, weakness, other HEENT: Denies: no symptoms, eye pain, blurred vision, tearing, double vision, ear pain, ear discharge, nose pain, nose congestion, throat pain, throat swelling, mouth pain, mouth swelling, other Cardiovascular: Denies: no symptoms, chest pain, edema, irregular heart rate, lightheadedness, palpitations, syncope, other Respiratory: Denies: no symptoms, cough, orthopnea, shortness of breath, SOB with excertion, SOB at rest, sputum, stridor, wheezing, other Gastrointestinal/Abdominal: Denies: no symptoms, abdomen distended, abdominal pain, black stools, tarry stools, blood in stool, constipated, diarrhea, difficulty swallowing, nausea, poor appetite, poor fluid intake, rectal bleeding , vomiting, other Genitourinary: Denies: no symptoms, burning, discharge, frequency, flank pain, hematuria, incontinence, pain, urgency, other Neurologic/Psychiatric: Denies: no symptoms, anxiety, depressed, emotional problems, headache, numbness, paresthesia, pre-existing deficit, seizure, tingling, tremors, weakness, other Allergies: Coded Allergies: SULFAMETHOXAZOLE (Verified Allergy, Unknown, 07/13/17) TRIMETHOPRIM (Verified Allergy, Unknown, 07/13/17) Subjective No new events overnight. No fever or chills. Objective Last 24 Hour Vital Signs Date Time Temp Pulse Resp B/P (MAP) Pulse Ox O2 Delivery O2 Flow Rate FiO2 09/24/17 08:00 97.2 72 12 111/66 99 97.2 09/24/17 07:55 T-piece 12.0 40 09/24/17 07:55 86 20 T-piece 12.0 40 09/24/17 07:54 98 T-piece 12.0 40 09/24/17 04:59 97.7 85 20 146/96 94 Room Air 97.7 09/24/17 04:00 T-piece 40 09/24/17 00:40 96.3 81 20 119/66 98 Room Air 96.3 09/24/17 00:00 T-piece 40 09/23/17 23:50 T-piece 12.0 40 09/23/17 23:50 98 T-piece 12.0 40 09/23/17 20:31 96.4 87 20 133/67 94 Room Air 96.4 09/23/17 20:00 T-piece 40 09/23/17 19:10 T-piece 12.0 40 09/23/17 19:10 98 T-piece 12.0 40 09/23/17 19:10 82 21 T-piece 12.0 40 09/23/17 15:59 97.6 89 21 132/77 98 97.6 Intake and Output 09/23/17 09/24/17 19:00 07:00 Intake Total 370.00 ml 1080.000 ml Output Total 450 ml 450 ml Balance -80.00 ml 630.000 ml Free Water 60 ml IV Total 305.00 ml 305.000 ml Tube Feeding 65 ml 715 ml Output Urine Total 450 ml 450 ml # Bowel Movements 4 Laboratory Tests 09/24/17 06:30: White Blood Count 8.4, Red Blood Count 4.00L, Hemoglobin 12.1, Hematocrit 35.5L , Mean Corpuscular Volume 89, Mean Corpuscular Hemoglobin 30.1, Mean Corpuscular Hemoglobin Concent 34.0, Red Cell Distribution Width 12.7, Platelet Count 273, Mean Platelet Volume 7.4, Neutrophils (%) (Auto) 56.4, Lymphocytes (% ) (Auto) 27.8, Monocytes (%) (Auto) 7.5, Eosinophils (%) (Auto) 6.9H, Basophils (%) (Auto) 1.4, Sodium Level 142, Potassium Level 4.4, Chloride Level 105, Carbon Dioxide Level 30, Anion Gap 8, Blood Urea Nitrogen 19H, Creatinine 0.6, Estimat Glomerular Filtration Rate , Glucose Level 126H, Calcium Level 9.7, Phosphorus Level 4.0, Magnesium Level 1.7L Height (Feet): 5 Height (Inches): 3.00 Weight (Pounds): 130 General Appearance: no apparent distress Respiratory/Chest: decreased breath sounds Abdomen: non tender, soft Nader Landis MD Sep 24, 2017 13:07
--- NOTE | 2017-09-24 14:30 | General Progress Note ---
Assessment/Plan Problem List: (1) Status post CVA ICD Codes: Z86.73 - Personal history of transient ischemic attack (TIA), and cerebral infarction without residual deficits SNOMED: 435227698 (2) Vomiting ICD Codes: R11.10 - Vomiting, unspecified SNOMED: 220376070 Qualifiers: Qualified Codes: R11.10 - Vomiting, unspecified (3) CVA (cerebral vascular accident) ICD Codes: I63.9 - Cerebral infarction, unspecified SNOMED: 711412585 (4) Tracheostomy in place ICD Codes: Z93.0 - Tracheostomy status SNOMED: 817060649 (5) G tube feedings ICD Codes: Z93.1 - Gastrostomy status SNOMED: 233683215, 843682854 (6) Aspiration pneumonia ICD Codes: J69.0 - Pneumonitis due to inhalation of food and vomit SNOMED: 899103257 (7) UTI (urinary tract infection) ICD Codes: N39.0 - Urinary tract infection, site not specified SNOMED: 39992032 Status: unchanged Assessment/Plan vent abx bp bs control cbc bmp am dc to snf or ltach if clear and if ok w family Subjective Constitutional: Reports: weakness Allergies: Coded Allergies: SULFAMETHOXAZOLE (Verified Allergy, Unknown, 07/13/17) TRIMETHOPRIM (Verified Allergy, Unknown, 07/13/17) All Systems: reviewed and negative except above Subjective trach vent asleep Objective Last 24 Hour Vital Signs Date Time Temp Pulse Resp B/P (MAP) Pulse Ox O2 Delivery O2 Flow Rate FiO2 09/24/17 13:16 98 T-piece 12.0 40 09/24/17 13:16 T-piece 12.0 40 09/24/17 12:00 96.8 75 18 123/72 96 96.8 09/24/17 08:00 97.2 72 12 111/66 99 97.2 09/24/17 07:55 T-piece 12.0 40 09/24/17 07:55 86 20 T-piece 12.0 40 09/24/17 07:54 98 T-piece 12.0 40 09/24/17 04:59 97.7 85 20 146/96 94 Room Air 97.7 09/24/17 04:00 T-piece 40 09/24/17 00:40 96.3 81 20 119/66 98 Room Air 96.3 09/24/17 00:00 T-piece 40 09/23/17 23:50 T-piece 12.0 40 09/23/17 23:50 98 T-piece 12.0 40 09/23/17 20:31 96.4 87 20 133/67 94 Room Air 96.4 09/23/17 20:00 T-piece 40 09/23/17 19:10 T-piece 12.0 40 09/23/17 19:10 98 T-piece 12.0 40 09/23/17 19:10 82 21 T-piece 12.0 40 09/23/17 15:59 97.6 89 21 132/77 98 97.6 Intake and Output 09/23/17 09/24/17 19:00 07:00 Intake Total 370.00 ml 1080.000 ml Output Total 450 ml 450 ml Balance -80.00 ml 630.000 ml Free Water 60 ml IV Total 305.00 ml 305.000 ml Tube Feeding 65 ml 715 ml Output Urine Total 450 ml 450 ml # Bowel Movements 4 Laboratory Tests 09/24/17 06:30: White Blood Count 8.4, Red Blood Count 4.00L, Hemoglobin 12.1, Hematocrit 35.5L , Mean Corpuscular Volume 89, Mean Corpuscular Hemoglobin 30.1, Mean Corpuscular Hemoglobin Concent 34.0, Red Cell Distribution Width 12.7, Platelet Count 273, Mean Platelet Volume 7.4, Neutrophils (%) (Auto) 56.4, Lymphocytes (% ) (Auto) 27.8, Monocytes (%) (Auto) 7.5, Eosinophils (%) (Auto) 6.9H, Basophils (%) (Auto) 1.4, Sodium Level 142, Potassium Level 4.4, Chloride Level 105, Carbon Dioxide Level 30, Anion Gap 8, Blood Urea Nitrogen 19H, Creatinine 0.6, Estimat Glomerular Filtration Rate , Glucose Level 126H, Calcium Level 9.7, Phosphorus Level 4.0, Magnesium Level 1.7L Height (Feet): 5 Height (Inches): 3.00 Weight (Pounds): 130 General Appearance: lethargic EENT: normal ENT inspection Neck: non-tender Cardiovascular: normal peripheral pulses, normal rate, regular rhythm Respiratory/Chest: chest wall non-tender, lungs clear, normal breath sounds Abdomen: normal bowel sounds, non tender, soft Extremities: normal inspection Edema: no edema noted Arm (L), no edema noted Arm (R), no edema noted Leg (L), no edema noted Leg (R), no edema noted Pedal (L), no edema noted Pedal (R), no edema noted Generalized Neurologic: motor weakness Skin: normal pigmentation, warm/dry KATIE MONTE Sep 24, 2017 14:30
[2017-09-24 15:53] VITALS: BP 100/64
--- NOTE | 2017-09-24 19:34 | Pulmonology Progress Note ---
Assessment/Plan Problems: (1) Aspiration pneumonia (2) Vomiting (3) CVA (cerebral vascular accident) (4) Tracheostomy in place (5) G tube feedings (6) Status post CVA Assessment/Plan check wbc improving respiratory treatment off abx check cultures tolerating feeding dvt prophylaxis. cxr is clear Subjective ROS Limited/Unobtainable: No Constitutional: Reports: no symptoms HEENT: Repors: no symptoms Respiratory: Reports: no symptoms Allergies: Coded Allergies: SULFAMETHOXAZOLE (Verified Allergy, Unknown, 07/13/17) TRIMETHOPRIM (Verified Allergy, Unknown, 07/13/17) Objective Last 24 Hour Vital Signs Date Time Temp Pulse Resp B/P (MAP) Pulse Ox O2 Delivery O2 Flow Rate FiO2 09/24/17 15:53 97.7 83 20 100/64 97 97.7 09/24/17 13:16 98 T-piece 12.0 40 09/24/17 13:16 T-piece 12.0 40 09/24/17 12:00 96.8 75 18 123/72 96 96.8 09/24/17 08:00 97.2 72 12 111/66 99 97.2 09/24/17 07:55 T-piece 12.0 40 09/24/17 07:55 86 20 T-piece 12.0 40 09/24/17 07:54 98 T-piece 12.0 40 09/24/17 04:59 97.7 85 20 146/96 94 Room Air 97.7 09/24/17 04:00 T-piece 40 09/24/17 00:40 96.3 81 20 119/66 98 Room Air 96.3 09/24/17 00:00 T-piece 40 09/23/17 23:50 T-piece 12.0 40 09/23/17 23:50 98 T-piece 12.0 40 09/23/17 20:31 96.4 87 20 133/67 94 Room Air 96.4 09/23/17 20:00 T-piece 40 Intake and Output 09/23/17 09/24/17 19:00 07:00 Intake Total 370.00 ml 1080.000 ml Output Total 450 ml 450 ml Balance -80.00 ml 630.000 ml Free Water 60 ml IV Total 305.00 ml 305.000 ml Tube Feeding 65 ml 715 ml Output Urine Total 450 ml 450 ml # Bowel Movements 4 Objective General Appearance: WD/WN HEENT: normocephalic, atraumatic, trach intact Respiratory/Chest: chest wall non-tender, lungs clear Breasts: no masses Cardiovascular: normal peripheral pulses, regular rhythm Abdomen: normal bowel sounds, soft, non tender, Gtube Genitourinary: normal external genitalia Extremities: no cyanosis Skin: no lesions Microbiology Date/Time Source Procedure Growth Status 09/22/17 15:05 Blood Blood Culture - Preliminary NO GROWTH AFTER 24 HOURS Resulted 09/22/17 15:00 Blood Blood Culture - Preliminary NO GROWTH AFTER 24 HOURS Resulted Laboratory Tests 09/24/17 06:30: White Blood Count 8.4, Red Blood Count 4.00L, Hemoglobin 12.1, Hematocrit 35.5L , Mean Corpuscular Volume 89, Mean Corpuscular Hemoglobin 30.1, Mean Corpuscular Hemoglobin Concent 34.0, Red Cell Distribution Width 12.7, Platelet Count 273, Mean Platelet Volume 7.4, Neutrophils (%) (Auto) 56.4, Lymphocytes (% ) (Auto) 27.8, Monocytes (%) (Auto) 7.5, Eosinophils (%) (Auto) 6.9H, Basophils (%) (Auto) 1.4, Sodium Level 142, Potassium Level 4.4, Chloride Level 105, Carbon Dioxide Level 30, Anion Gap 8, Blood Urea Nitrogen 19H, Creatinine 0.6, Estimat Glomerular Filtration Rate , Glucose Level 126H, Calcium Level 9.7, Phosphorus Level 4.0, Magnesium Level 1.7L Current Medications Medications (Trade) Dose Ordered Sig/Gavino Route PRN Reason Start Time Stop Time Status Last Admin Dose Admin Acetaminophen (Tylenol) 650 mg Q4H PRN ORAL fever 09/12/17 21:30 10/12/17 21:29 09/17/17 03:50 Al Hydroxide/Mg Hydroxide (Mylanta II) 30 ml Q6H PRN ORAL dyspepsia 09/12/17 21:30 10/12/17 21:29 Cefepime HCl 1 gm/ Sodium Chloride 55 ml @ 110 mls/hr Q12H IVPB 09/17/17 15:00 09/24/17 23:59 09/24/17 14:07 Clotrimazole (Lotrimin) 1 applic EVERY 12 HOURS TOPIC 09/15/17 09:00 10/15/17 08:59 09/24/17 08:48 Dextrose (Dextrose 50%) STAT PRN IV Hypoglycemia 09/12/17 21:30 10/12/17 21:29 Diphenhydramine HCl (Benadryl) 25 mg Q6H PRN ORAL Itching/Pruritis 09/12/17 21:30 10/12/17 21:29 Docusate Sodium (Colace) 100 mg BID GT 09/14/17 18:00 10/14/17 17:59 09/22/17 08:26 Heparin Sodium (Porcine) (Heparin 5000 units/ml) 5,000 units EVERY 12 HOURS SUBQ 09/13/17 09:00 10/13/17 08:59 09/24/17 08:46 Metoclopramide HCl (Reglan) 5 mg Q8HR GT 09/13/17 14:00 10/13/17 17:59 09/24/17 14:07 Nitroglycerin (Ntg) 0.4 mg Q5M X 3 DOSES PRN SL Prn Chest Pain 09/12/17 21:30 10/12/17 21:29 Ondansetron HCl (Zofran) 4 mg Q6H PRN IVP Nausea & Vomiting 09/12/17 21:30 10/12/17 21:29 Pantoprazole (Protonix) 40 mg DAILY IVP 09/13/17 09:00 10/13/17 08:59 09/24/17 08:44 Polyethylene Glycol (Miralax) 17 gm HSPRN PRN ORAL Constipation 09/12/17 21:30 10/12/17 21:29 Valerio Childs MD Sep 24, 2017 19:34
[2017-09-24 19:46] VITALS: BP 118/66
[2017-09-25 00:32] VITALS: BP 116/75
[2017-09-25 04:49] VITALS: BP 119/74
[2017-09-25] MEDS: Metoclopramide 10mg/10ml Liq GT SCH ×3 (05:39→20:47)
[2017-09-25 07:39] LABS: BASOPHILS % (AUTO) 0.9 % (0.0-2.0); EOSINOPHILS % (AUTO) 4.9 % (0.0-3.0); HEMATOCRIT 35.6 % (37.0-47.0); HEMOGLOBIN 12.5 G/DL (12.0-16.0); LYMPHOCYTES % (AUTO) 23.4 % (20.0-45.0); MEAN CORPUSCULAR VOLUME 89 FL (80-99); MONOCYTES % (AUTO) 6.3 % (1.0-10.0); NEUTROPHILS % (AUTO) 64.5 % (45.0-75.0); PLATELET COUNT 280 K/UL (150-450); RED BLOOD COUNT 4.02 M/UL (4.20-5.40); RED CELL DISTRIBUTION WIDTH 12.5 % (11.6-14.8); WHITE BLOOD COUNT 9.7 K/UL (4.8-10.8)
[2017-09-25 07:55] LABS: ALANINE AMINOTRANSFERASE 38 U/L (12-78); ALBUMIN 2.6 G/DL (3.4-5.0); ALBUMIN/GLOBULIN RATIO 0.6 (1.0-2.7); ALKALINE PHOSPHATASE 95 U/L (46-116); ANION GAP 7 mmol/L (5-15); ASPARTATE AMINO TRANSFERASE 27 U/L (15-37); BILIRUBIN,TOTAL 0.3 MG/DL (0.2-1.0); BLOOD UREA NITROGEN 18 mg/dL (7-18); CALCIUM 9.5 MG/DL (8.5-10.1); CARBON DIOXIDE 29 MMOL/L (21-32); CHLORIDE 103 MMOL/L (98-107); CREATININE 0.6 MG/DL (0.55-1.30); POTASSIUM 4.6 MMOL/L (3.5-5.1); SODIUM 139 MMOL/L (136-145)
[2017-09-25 08:00] VITALS: BP 138/68
[2017-09-25] MEDS: Pantoprazole Inj IVP SCH (08:19)
[2017-09-25] MEDS: Docusate 100mg/10ml Liq GT SCH ×3 (08:19→18:00)
[2017-09-25] MEDS: Heparin 5000 units/ml inj SUBQ SCH ×2 (08:20→20:47)
--- NOTE | 2017-09-25 11:16 | GI Progress Note ---
Assessment/Plan Problems: (1) G tube feedings ICD Codes: Z93.1 - Gastrostomy status SNOMED: 120834866, 612220796 (2) Vomiting ICD Codes: R11.10 - Vomiting, unspecified SNOMED: 505185310 Qualifiers: Qualified Codes: R11.10 - Vomiting, unspecified Status: unchanged Status Narrative Discussed with Dr. Jhaveri. Assessment/Plan symptomatic treatment / supportive care low dose reglan dc ppi, add H2B Imodium prn tolerating GTF monitor labs DVT prophylaxis pending dc planning Subjective Subjective limited Objective Last 24 Hour Vital Signs Date Time Temp Pulse Resp B/P (MAP) Pulse Ox O2 Delivery O2 Flow Rate FiO2 09/25/17 08:25 87 20 T-piece 12.0 40 09/25/17 08:25 97 T-piece 12.0 40 09/25/17 08:25 T-piece 12.0 40 09/25/17 08:00 97.6 79 20 138/68 98 97.6 09/25/17 04:49 97.5 88 20 119/74 97 Room Air 97.5 09/25/17 04:49 97 T-piece 09/25/17 01:11 98 T-piece 12.0 40 09/25/17 01:11 T-piece 12.0 40 09/25/17 00:32 97.6 88 20 116/75 96 T-piece 97.6 09/24/17 19:47 100 T-piece 09/24/17 19:47 97 T-piece 12.0 40 09/24/17 19:47 T-piece 12.0 40 09/24/17 19:46 97.7 78 20 118/66 100 Room Air 97.7 09/24/17 19:46 89 20 T-piece 12.0 40 09/24/17 15:53 97.7 83 20 100/64 97 97.7 09/24/17 13:16 98 T-piece 12.0 40 09/24/17 13:16 T-piece 12.0 40 09/24/17 12:00 96.8 75 18 123/72 96 96.8 Intake and Output 09/24/17 09/25/17 19:00 07:00 Intake Total 65 ml 900 ml Output Total 560 ml Balance -495 ml 900 ml Free Water 120 ml Tube Feeding 65 ml 780 ml Output Urine Total 560 ml # Bowel Movements 4 Laboratory Tests Test 09/25/17 06:10 White Blood Count 9.7 K/UL (4.8-10.8) Red Blood Count 4.02 M/UL (4.20-5.40) L Hemoglobin 12.5 G/DL (12.0-16.0) Hematocrit 35.6 % (37.0-47.0) L Mean Corpuscular Volume 89 FL (80-99) Mean Corpuscular Hemoglobin 31.2 PG (27.0-31.0) H Mean Corpuscular Hemoglobin Concent 35.2 G/DL (32.0-36.0) Red Cell Distribution Width 12.5 % (11.6-14.8) Platelet Count 280 K/UL (150-450) Mean Platelet Volume 6.9 FL (6.5-10.1) Neutrophils (%) (Auto) 64.5 % (45.0-75.0) Lymphocytes (%) (Auto) 23.4 % (20.0-45.0) Monocytes (%) (Auto) 6.3 % (1.0-10.0) Eosinophils (%) (Auto) 4.9 % (0.0-3.0) H Basophils (%) (Auto) 0.9 % (0.0-2.0) Sodium Level 139 MMOL/L (136-145) Potassium Level 4.6 MMOL/L (3.5-5.1) Chloride Level 103 MMOL/L (98-107) Carbon Dioxide Level 29 MMOL/L (21-32) Anion Gap 7 mmol/L (5-15) Blood Urea Nitrogen 18 mg/dL (7-18) Creatinine 0.6 MG/DL (0.55-1.30) Estimat Glomerular Filtration Rate mL/min (>60) Glucose Level 134 MG/DL (74-106) H Calcium Level 9.5 MG/DL (8.5-10.1) Total Bilirubin 0.3 MG/DL (0.2-1.0) Aspartate Amino Transf (AST/SGOT) 27 U/L (15-37) Alanine Aminotransferase (ALT/SGPT) 38 U/L (12-78) Alkaline Phosphatase 95 U/L (46-116) Pro-B-Type Natriuretic Peptide 103 pg/mL (0-125) Total Protein 6.9 G/DL (6.4-8.2) Albumin 2.6 G/DL (3.4-5.0) L Globulin 4.3 g/dL Albumin/Globulin Ratio 0.6 (1.0-2.7) L Height (Feet): 5 Height (Inches): 3.00 Weight (Pounds): 130 General Appearance: no apparent distress, alert Cardiovascular: normal rate Respiratory/Chest: normal breath sounds, no respiratory distress Abdominal Exam: normal bowel sounds, non tender, soft, GT site - c/d/i Extremities: non-tender Tiffanie Simeon N.P. Sep 25, 2017 11:16
--- NOTE | 2017-09-25 11:40 | General Progress Note ---
Assessment/Plan Assessment/Plan #. Nausea or vomiting, x1 episode. --> The patient has been seen by GI Service. Further recommendations to follow. --> Symptomatic treatment with low-dose Reglan as well as Zofran and continue G- tube feeds per dietary recommendations. --> Has improved. #. Status post tracheostomy. --> Continue to monitor. #. CVA history. Neurology has been consulted. #. Hyponatremia. #. Thrombocytosis, potentially secondary to reactive process. Continue to closely monitor. --> downtrended from yesterday and improved. --> Platelets now WNL #. Leukocytosis, potentially secondary to reactive process. --> Resolved today. --> On antibiotics. Monitor and trend cbc. Subjective Date patient seen: Sep 24, 2017 Constitutional: Denies: no symptoms, chills, diaphoresis, fever, malaise, weakness, other HEENT: Denies: no symptoms, eye pain, blurred vision, tearing, double vision, ear pain, ear discharge, nose pain, nose congestion, throat pain, throat swelling, mouth pain, mouth swelling, other Cardiovascular: Denies: no symptoms, chest pain, edema, irregular heart rate, lightheadedness, palpitations, syncope, other Respiratory: Denies: no symptoms, cough, orthopnea, shortness of breath, SOB with excertion, SOB at rest, sputum, stridor, wheezing, other Gastrointestinal/Abdominal: Denies: no symptoms, abdomen distended, abdominal pain, black stools, tarry stools, blood in stool, constipated, diarrhea, difficulty swallowing, nausea, poor appetite, poor fluid intake, rectal bleeding , vomiting, other Genitourinary: Denies: no symptoms, burning, discharge, frequency, flank pain, hematuria, incontinence, pain, urgency, other Neurologic/Psychiatric: Denies: no symptoms, anxiety, depressed, emotional problems, headache, numbness, paresthesia, pre-existing deficit, seizure, tingling, tremors, weakness, other Allergies: Coded Allergies: SULFAMETHOXAZOLE (Verified Allergy, Unknown, 07/13/17) TRIMETHOPRIM (Verified Allergy, Unknown, 07/13/17) Subjective On vent/trach. No major events. Resting in bed. Objective Last 24 Hour Vital Signs Date Time Temp Pulse Resp B/P (MAP) Pulse Ox O2 Delivery O2 Flow Rate FiO2 09/25/17 08:25 87 20 T-piece 12.0 40 09/25/17 08:25 97 T-piece 12.0 40 09/25/17 08:25 T-piece 12.0 40 09/25/17 08:00 97.6 79 20 138/68 98 97.6 09/25/17 04:49 97.5 88 20 119/74 97 Room Air 97.5 09/25/17 04:49 97 T-piece 09/25/17 01:11 98 T-piece 12.0 40 09/25/17 01:11 T-piece 12.0 40 09/25/17 00:32 97.6 88 20 116/75 96 T-piece 97.6 09/24/17 19:47 100 T-piece 09/24/17 19:47 97 T-piece 12.0 40 09/24/17 19:47 T-piece 12.0 40 09/24/17 19:46 97.7 78 20 118/66 100 Room Air 97.7 09/24/17 19:46 89 20 T-piece 12.0 40 09/24/17 15:53 97.7 83 20 100/64 97 97.7 09/24/17 13:16 98 T-piece 12.0 40 09/24/17 13:16 T-piece 12.0 40 09/24/17 12:00 96.8 75 18 123/72 96 96.8 Intake and Output 09/24/17 09/25/17 19:00 07:00 Intake Total 65 ml 900 ml Output Total 560 ml Balance -495 ml 900 ml Free Water 120 ml Tube Feeding 65 ml 780 ml Output Urine Total 560 ml # Bowel Movements 4 Laboratory Tests 09/25/17 06:10: White Blood Count 9.7, Red Blood Count 4.02L, Hemoglobin 12.5, Hematocrit 35.6L , Mean Corpuscular Volume 89, Mean Corpuscular Hemoglobin 31.2H, Mean Corpuscular Hemoglobin Concent 35.2, Red Cell Distribution Width 12.5, Platelet Count 280, Mean Platelet Volume 6.9, Neutrophils (%) (Auto) 64.5, Lymphocytes (% ) (Auto) 23.4, Monocytes (%) (Auto) 6.3, Eosinophils (%) (Auto) 4.9H, Basophils (%) (Auto) 0.9, Sodium Level 139, Potassium Level 4.6, Chloride Level 103, Carbon Dioxide Level 29, Anion Gap 7, Blood Urea Nitrogen 18, Creatinine 0.6, Estimat Glomerular Filtration Rate , Glucose Level 134H, Calcium Level 9.5, Total Bilirubin 0.3, Aspartate Amino Transf (AST/SGOT) 27, Alanine Aminotransferase (ALT/SGPT) 38, Alkaline Phosphatase 95, Pro-B-Type Natriuretic Peptide 103, Total Protein 6.9, Albumin 2.6L, Globulin 4.3, Albumin/Globulin Ratio 0.6L Height (Feet): 5 Height (Inches): 3.00 Weight (Pounds): 130 General Appearance: no apparent distress Respiratory/Chest: decreased breath sounds Abdomen: soft Nader Landis MD Sep 25, 2017 11:40
[2017-09-25 12:00] VITALS: BP 132/74
--- NOTE | 2017-09-25 12:27 | Diagnostic Imaging Report ---
Indication: Dyspnea Technique: One view of the chest Comparison: 09/20/2017 Findings: Better inspiration currently. Tracheostomy remains. Heart size is normal. The aorta is tortuous and ectatic. Findings are unchanged Impression: Unchanged, over 5 days, findings as above.
--- NOTE | 2017-09-25 15:01 | General Progress Note ---
Assessment/Plan Problem List: (1) Status post CVA ICD Codes: Z86.73 - Personal history of transient ischemic attack (TIA), and cerebral infarction without residual deficits SNOMED: 089979447 (2) Vomiting ICD Codes: R11.10 - Vomiting, unspecified SNOMED: 501510381 Qualifiers: Qualified Codes: R11.10 - Vomiting, unspecified (3) CVA (cerebral vascular accident) ICD Codes: I63.9 - Cerebral infarction, unspecified SNOMED: 374598781 (4) Tracheostomy in place ICD Codes: Z93.0 - Tracheostomy status SNOMED: 308341791 (5) G tube feedings ICD Codes: Z93.1 - Gastrostomy status SNOMED: 505451860, 742644763 (6) Aspiration pneumonia ICD Codes: J69.0 - Pneumonitis due to inhalation of food and vomit SNOMED: 806688957 (7) UTI (urinary tract infection) ICD Codes: N39.0 - Urinary tract infection, site not specified SNOMED: 86341302 Status: unchanged Assessment/Plan vent abx bp bs control cbc bmp am dc to snf if clear and if ok w family Subjective Constitutional: Reports: weakness Allergies: Coded Allergies: SULFAMETHOXAZOLE (Verified Allergy, Unknown, 07/13/17) TRIMETHOPRIM (Verified Allergy, Unknown, 07/13/17) All Systems: reviewed and negative except above Subjective trach vent asleep Objective Last 24 Hour Vital Signs Date Time Temp Pulse Resp B/P (MAP) Pulse Ox O2 Delivery O2 Flow Rate FiO2 09/25/17 13:12 98 T-piece 12.0 40 09/25/17 13:12 T-piece 12.0 40 09/25/17 12:00 98.1 83 20 132/74 97 98.1 09/25/17 08:25 87 20 T-piece 12.0 40 09/25/17 08:25 97 T-piece 12.0 40 09/25/17 08:25 T-piece 12.0 40 09/25/17 08:00 97.6 79 20 138/68 98 97.6 09/25/17 04:49 97.5 88 20 119/74 97 Room Air 97.5 09/25/17 04:49 97 T-piece 09/25/17 01:11 98 T-piece 12.0 40 09/25/17 01:11 T-piece 12.0 40 09/25/17 00:32 97.6 88 20 116/75 96 T-piece 97.6 09/24/17 19:47 100 T-piece 09/24/17 19:47 97 T-piece 12.0 40 09/24/17 19:47 T-piece 12.0 40 09/24/17 19:46 97.7 78 20 118/66 100 Room Air 97.7 09/24/17 19:46 89 20 T-piece 12.0 40 09/24/17 15:53 97.7 83 20 100/64 97 97.7 Intake and Output 09/24/17 09/25/17 19:00 07:00 Intake Total 65 ml 900 ml Output Total 560 ml Balance -495 ml 900 ml Free Water 120 ml Tube Feeding 65 ml 780 ml Output Urine Total 560 ml # Bowel Movements 4 Laboratory Tests 09/25/17 06:10: White Blood Count 9.7, Red Blood Count 4.02L, Hemoglobin 12.5, Hematocrit 35.6L , Mean Corpuscular Volume 89, Mean Corpuscular Hemoglobin 31.2H, Mean Corpuscular Hemoglobin Concent 35.2, Red Cell Distribution Width 12.5, Platelet Count 280, Mean Platelet Volume 6.9, Neutrophils (%) (Auto) 64.5, Lymphocytes (% ) (Auto) 23.4, Monocytes (%) (Auto) 6.3, Eosinophils (%) (Auto) 4.9H, Basophils (%) (Auto) 0.9, Sodium Level 139, Potassium Level 4.6, Chloride Level 103, Carbon Dioxide Level 29, Anion Gap 7, Blood Urea Nitrogen 18, Creatinine 0.6, Estimat Glomerular Filtration Rate , Glucose Level 134H, Calcium Level 9.5, Total Bilirubin 0.3, Aspartate Amino Transf (AST/SGOT) 27, Alanine Aminotransferase (ALT/SGPT) 38, Alkaline Phosphatase 95, Pro-B-Type Natriuretic Peptide 103, Total Protein 6.9, Albumin 2.6L, Globulin 4.3, Albumin/Globulin Ratio 0.6L Height (Feet): 5 Height (Inches): 3.00 Weight (Pounds): 130 General Appearance: lethargic EENT: normal ENT inspection Neck: normal alignment Cardiovascular: normal peripheral pulses, normal rate, regular rhythm Respiratory/Chest: chest wall non-tender, lungs clear, normal breath sounds Abdomen: normal bowel sounds, non tender, soft Extremities: normal inspection Edema: no edema noted Arm (L), no edema noted Arm (R), no edema noted Leg (L), no edema noted Leg (R), no edema noted Pedal (L), no edema noted Pedal (R), no edema noted Generalized Neurologic: motor weakness Skin: normal pigmentation, warm/dry KATIE MONTE Sep 25, 2017 15:01
[2017-09-25 16:00] VITALS: BP 125/80
--- NOTE | 2017-09-25 17:26 | Pulmonology Progress Note ---
Assessment/Plan Problems: (1) Aspiration pneumonia (2) Vomiting (3) CVA (cerebral vascular accident) (4) Tracheostomy in place (5) G tube feedings (6) Status post CVA Assessment/Plan clinically looks very good improving respiratory treatment off abx check cultures tolerating feeding dvt prophylaxis. cxr is clear Subjective ROS Limited/Unobtainable: No Constitutional: Reports: no symptoms HEENT: Repors: no symptoms Respiratory: Reports: no symptoms Allergies: Coded Allergies: SULFAMETHOXAZOLE (Verified Allergy, Unknown, 07/13/17) TRIMETHOPRIM (Verified Allergy, Unknown, 07/13/17) Objective Last 24 Hour Vital Signs Date Time Temp Pulse Resp B/P (MAP) Pulse Ox O2 Delivery O2 Flow Rate FiO2 09/25/17 16:00 97.7 93 20 125/80 96 97.7 09/25/17 13:12 98 T-piece 12.0 40 09/25/17 13:12 T-piece 12.0 40 09/25/17 12:00 98.1 83 20 132/74 97 98.1 09/25/17 08:25 87 20 T-piece 12.0 40 09/25/17 08:25 97 T-piece 12.0 40 09/25/17 08:25 T-piece 12.0 40 09/25/17 08:00 97.6 79 20 138/68 98 97.6 09/25/17 04:49 97.5 88 20 119/74 97 Room Air 97.5 09/25/17 04:49 97 T-piece 09/25/17 01:11 98 T-piece 12.0 40 09/25/17 01:11 T-piece 12.0 40 09/25/17 00:32 97.6 88 20 116/75 96 T-piece 97.6 09/24/17 19:47 100 T-piece 09/24/17 19:47 97 T-piece 12.0 40 09/24/17 19:47 T-piece 12.0 40 09/24/17 19:46 97.7 78 20 118/66 100 Room Air 97.7 09/24/17 19:46 89 20 T-piece 12.0 40 Intake and Output 09/24/17 09/25/17 19:00 07:00 Intake Total 65 ml 900 ml Output Total 560 ml Balance -495 ml 900 ml Free Water 120 ml Tube Feeding 65 ml 780 ml Output Urine Total 560 ml # Bowel Movements 4 Objective General Appearance: WD/WN HEENT: normocephalic, atraumatic, trach intact Respiratory/Chest: chest wall non-tender, lungs clear Breasts: no masses Cardiovascular: normal peripheral pulses, regular rhythm Abdomen: normal bowel sounds, soft, non tender, Gtube Genitourinary: normal external genitalia Extremities: no cyanosis Skin: no lesions Laboratory Tests 09/25/17 06:10: White Blood Count 9.7, Red Blood Count 4.02L, Hemoglobin 12.5, Hematocrit 35.6L , Mean Corpuscular Volume 89, Mean Corpuscular Hemoglobin 31.2H, Mean Corpuscular Hemoglobin Concent 35.2, Red Cell Distribution Width 12.5, Platelet Count 280, Mean Platelet Volume 6.9, Neutrophils (%) (Auto) 64.5, Lymphocytes (% ) (Auto) 23.4, Monocytes (%) (Auto) 6.3, Eosinophils (%) (Auto) 4.9H, Basophils (%) (Auto) 0.9, Sodium Level 139, Potassium Level 4.6, Chloride Level 103, Carbon Dioxide Level 29, Anion Gap 7, Blood Urea Nitrogen 18, Creatinine 0.6, Estimat Glomerular Filtration Rate , Glucose Level 134H, Calcium Level 9.5, Total Bilirubin 0.3, Aspartate Amino Transf (AST/SGOT) 27, Alanine Aminotransferase (ALT/SGPT) 38, Alkaline Phosphatase 95, Pro-B-Type Natriuretic Peptide 103, Total Protein 6.9, Albumin 2.6L, Globulin 4.3, Albumin/Globulin Ratio 0.6L Current Medications Medications (Trade) Dose Ordered Sig/Gavino Route PRN Reason Start Time Stop Time Status Last Admin Dose Admin Acetaminophen (Tylenol) 650 mg Q4H PRN ORAL fever 09/12/17 21:30 10/12/17 21:29 09/17/17 03:50 Al Hydroxide/Mg Hydroxide (Mylanta II) 30 ml Q6H PRN ORAL dyspepsia 09/12/17 21:30 10/12/17 21:29 Clotrimazole (Lotrimin) 1 applic EVERY 12 HOURS TOPIC 09/15/17 09:00 10/15/17 08:59 09/25/17 08:22 Dextrose (Dextrose 50%) STAT PRN IV Hypoglycemia 09/12/17 21:30 10/12/17 21:29 Diphenhydramine HCl (Benadryl) 25 mg Q6H PRN ORAL Itching/Pruritis 09/12/17 21:30 10/12/17 21:29 Docusate Sodium (Colace) 100 mg BID GT 09/14/17 18:00 10/14/17 17:59 09/22/17 08:26 Famotidine (Pepcid) 20 mg BID GT 09/25/17 18:00 10/25/17 17:59 Heparin Sodium (Porcine) (Heparin 5000 units/ml) 5,000 units EVERY 12 HOURS SUBQ 09/13/17 09:00 10/13/17 08:59 09/25/17 08:20 Loperamide HCl (Imodium) 2 mg Q6H PRN NG Diarrhea 09/25/17 12:30 10/25/17 12:29 Metoclopramide HCl (Reglan) 5 mg Q8HR GT 09/13/17 14:00 10/13/17 17:59 09/25/17 15:01 Nitroglycerin (Ntg) 0.4 mg Q5M X 3 DOSES PRN SL Prn Chest Pain 09/12/17 21:30 10/12/17 21:29 Ondansetron HCl (Zofran) 4 mg Q6H PRN IVP Nausea & Vomiting 09/12/17 21:30 10/12/17 21:29 Polyethylene Glycol (Miralax) 17 gm HSPRN PRN ORAL Constipation 09/12/17 21:30 10/12/17 21:29 Valerio Childs MD Sep 25, 2017 17:26
[2017-09-25 19:46] VITALS: BP 104/61
[2017-09-25] MEDS ORDERED: Tubing IV Secondary IV ONE (22:52)
[2017-09-26 00:10] VITALS: BP 94/54
[2017-09-26 04:00] VITALS: BP 149/85
[2017-09-26] MEDS: Metoclopramide 10mg/10ml Liq GT SCH ×2 (06:02→13:33)
[2017-09-26] MEDS: Docusate 100mg/10ml Liq GT SCH ×2 (08:28→17:17)
[2017-09-26] MEDS: Heparin 5000 units/ml inj SUBQ SCH (08:30)
[2017-09-26 08:36] VITALS: BP 110/67
[2017-09-26 08:46] LABS: BASOPHILS % (AUTO) 1.5 % (0.0-2.0); EOSINOPHILS % (AUTO) 3.9 % (0.0-3.0); HEMATOCRIT 36.3 % (37.0-47.0); HEMOGLOBIN 12.4 G/DL (12.0-16.0); LYMPHOCYTES % (AUTO) 26.6 % (20.0-45.0); MEAN CORPUSCULAR VOLUME 89 FL (80-99); MONOCYTES % (AUTO) 7.3 % (1.0-10.0); NEUTROPHILS % (AUTO) 60.8 % (45.0-75.0); PLATELET COUNT 259 K/UL (150-450); RED BLOOD COUNT 4.09 M/UL (4.20-5.40); WHITE BLOOD COUNT 10.5 K/UL (4.8-10.8)
[2017-09-26 09:10] LABS: ANION GAP 10 mmol/L (5-15); BLOOD UREA NITROGEN 17 mg/dL (7-18); CALCIUM 9.3 MG/DL (8.5-10.1); CARBON DIOXIDE 26 MMOL/L (21-32); CHLORIDE 104 MMOL/L (98-107); CREATININE 0.5 MG/DL (0.55-1.30); POTASSIUM 4.8 MMOL/L (3.5-5.1); SODIUM 140 MMOL/L (136-145)
--- NOTE | 2017-09-26 11:40 | GI Progress Note ---
Assessment/Plan Problems: (1) G tube feedings ICD Codes: Z93.1 - Gastrostomy status SNOMED: 024314101, 970948386 (2) Vomiting ICD Codes: R11.10 - Vomiting, unspecified SNOMED: 419541392 Qualifiers: Qualified Codes: R11.10 - Vomiting, unspecified Status: stable Status Narrative Discussed with Dr. Jhaveri. Assessment/Plan symptomatic treatment / supportive care low dose reglan dc ppi, add H2B Imodium prn tolerating GTF monitor labs DVT prophylaxis pending dc planning Subjective Subjective limited Objective Last 24 Hour Vital Signs Date Time Temp Pulse Resp B/P (MAP) Pulse Ox O2 Delivery O2 Flow Rate FiO2 09/26/17 08:36 97.3 86 20 110/67 96 97.3 09/26/17 07:55 88 20 T-piece 12.0 40 09/26/17 07:55 T-piece 12.0 40 09/26/17 07:55 97 T-piece 12.0 40 09/26/17 04:00 98.1 106 20 149/85 96 Room Air 98.1 09/26/17 00:10 98 T-piece 09/26/17 00:10 97.5 85 20 94/54 98 T-piece 97.5 09/25/17 23:17 T-piece 12.0 40 09/25/17 23:16 98 T-piece 12.0 40 09/25/17 20:29 T-piece 12.0 40 09/25/17 20:28 98 T-piece 12.0 40 09/25/17 20:28 85 20 T-piece 12.0 40 09/25/17 19:53 98 T-piece 09/25/17 19:46 97.5 85 20 104/61 98 Room Air 97.5 09/25/17 16:00 97.7 93 20 125/80 96 97.7 09/25/17 13:12 98 T-piece 12.0 40 09/25/17 13:12 T-piece 12.0 40 09/25/17 12:00 98.1 83 20 132/74 97 98.1 Intake and Output 09/25/17 09/26/17 19:00 07:00 Intake Total 520 ml 900 ml Output Total 300 ml Balance 220 ml 900 ml Free Water 120 ml Tube Feeding 520 ml 780 ml Output Urine Total 300 ml Laboratory Tests Test 09/26/17 07:07 White Blood Count 10.5 K/UL (4.8-10.8) Red Blood Count 4.09 M/UL (4.20-5.40) L Hemoglobin 12.4 G/DL (12.0-16.0) Hematocrit 36.3 % (37.0-47.0) L Mean Corpuscular Volume 89 FL (80-99) Mean Corpuscular Hemoglobin 30.4 PG (27.0-31.0) Mean Corpuscular Hemoglobin Concent 34.2 G/DL (32.0-36.0) Red Cell Distribution Width 13.0 % (11.6-14.8) Platelet Count 259 K/UL (150-450) Mean Platelet Volume 6.9 FL (6.5-10.1) Neutrophils (%) (Auto) 60.8 % (45.0-75.0) Lymphocytes (%) (Auto) 26.6 % (20.0-45.0) Monocytes (%) (Auto) 7.3 % (1.0-10.0) Eosinophils (%) (Auto) 3.9 % (0.0-3.0) H Basophils (%) (Auto) 1.5 % (0.0-2.0) Sodium Level 140 MMOL/L (136-145) Potassium Level 4.8 MMOL/L (3.5-5.1) Chloride Level 104 MMOL/L (98-107) Carbon Dioxide Level 26 MMOL/L (21-32) Anion Gap 10 mmol/L (5-15) Blood Urea Nitrogen 17 mg/dL (7-18) Creatinine 0.5 MG/DL (0.55-1.30) L Estimat Glomerular Filtration Rate mL/min (>60) Glucose Level 114 MG/DL (74-106) H Calcium Level 9.3 MG/DL (8.5-10.1) Height (Feet): 5 Height (Inches): 3.00 Weight (Pounds): 134 General Appearance: no apparent distress Cardiovascular: normal rate Respiratory/Chest: no respiratory distress Abdominal Exam: site - c/d/i Tiffanie Simeon N.P. Sep 26, 2017 11:40
[2017-09-26 12:30] VITALS: BP 110/64
--- NOTE | 2017-09-26 12:54 | General Progress Note ---
Assessment/Plan Assessment/Plan #. Nausea or vomiting, x1 episode. --> The patient has been seen by GI Service. Further recommendations to follow. --> Symptomatic treatment with low-dose Reglan as well as Zofran and continue G- tube feeds per dietary recommendations. --> Has improved. #. Status post tracheostomy. --> Continue to monitor. #. CVA history. Neurology has been consulted. #. Hyponatremia. #. Thrombocytosis, potentially secondary to reactive process. Continue to closely monitor. --> downtrended from yesterday and improved. --> Platelets now WNL #. Leukocytosis, potentially secondary to reactive process. --> Resolved today. --> On antibiotics. Monitor and trend cbc. Subjective Date patient seen: Sep 25, 2017 Allergies: Coded Allergies: SULFAMETHOXAZOLE (Verified Allergy, Unknown, 07/13/17) TRIMETHOPRIM (Verified Allergy, Unknown, 07/13/17) Subjective On vent/trach. No fever or chills. NAD. Objective Last 24 Hour Vital Signs Date Time Temp Pulse Resp B/P (MAP) Pulse Ox O2 Delivery O2 Flow Rate FiO2 09/26/17 12:30 98.0 78 20 110/64 98 98.0 09/26/17 08:36 97.3 86 20 110/67 96 97.3 09/26/17 07:55 88 20 T-piece 12.0 40 09/26/17 07:55 T-piece 12.0 40 09/26/17 07:55 97 T-piece 12.0 40 09/26/17 04:00 98.1 106 20 149/85 96 Room Air 98.1 09/26/17 00:10 98 T-piece 09/26/17 00:10 97.5 85 20 94/54 98 T-piece 97.5 09/25/17 23:17 T-piece 12.0 40 09/25/17 23:16 98 T-piece 12.0 40 09/25/17 20:29 T-piece 12.0 40 09/25/17 20:28 98 T-piece 12.0 40 09/25/17 20:28 85 20 T-piece 12.0 40 09/25/17 19:53 98 T-piece 09/25/17 19:46 97.5 85 20 104/61 98 Room Air 97.5 09/25/17 16:00 97.7 93 20 125/80 96 97.7 09/25/17 13:12 98 T-piece 12.0 40 09/25/17 13:12 T-piece 12.0 40 Intake and Output 09/25/17 09/26/17 19:00 07:00 Intake Total 520 ml 900 ml Output Total 300 ml Balance 220 ml 900 ml Free Water 120 ml Tube Feeding 520 ml 780 ml Output Urine Total 300 ml Laboratory Tests 09/26/17 07:07: White Blood Count 10.5, Red Blood Count 4.09L, Hemoglobin 12.4, Hematocrit 36.3L , Mean Corpuscular Volume 89, Mean Corpuscular Hemoglobin 30.4, Mean Corpuscular Hemoglobin Concent 34.2, Red Cell Distribution Width 13.0, Platelet Count 259, Mean Platelet Volume 6.9, Neutrophils (%) (Auto) 60.8, Lymphocytes (% ) (Auto) 26.6, Monocytes (%) (Auto) 7.3, Eosinophils (%) (Auto) 3.9H, Basophils (%) (Auto) 1.5, Sodium Level 140, Potassium Level 4.8, Chloride Level 104, Carbon Dioxide Level 26, Anion Gap 10, Blood Urea Nitrogen 17, Creatinine 0.5L, Estimat Glomerular Filtration Rate , Glucose Level 114H, Calcium Level 9.3 Height (Feet): 5 Height (Inches): 3.00 Weight (Pounds): 134 General Appearance: no apparent distress Respiratory/Chest: decreased breath sounds Abdomen: soft Nader Landis MD Sep 26, 2017 12:54
--- NOTE | 2017-09-26 14:50 | General Progress Note ---
Assessment/Plan Problem List: (1) Status post CVA ICD Codes: Z86.73 - Personal history of transient ischemic attack (TIA), and cerebral infarction without residual deficits SNOMED: 565283210 (2) Vomiting ICD Codes: R11.10 - Vomiting, unspecified SNOMED: 495270817 Qualifiers: Qualified Codes: R11.10 - Vomiting, unspecified (3) CVA (cerebral vascular accident) ICD Codes: I63.9 - Cerebral infarction, unspecified SNOMED: 763417986 (4) Tracheostomy in place ICD Codes: Z93.0 - Tracheostomy status SNOMED: 175793689 (5) G tube feedings ICD Codes: Z93.1 - Gastrostomy status SNOMED: 425831971, 893055853 (6) Aspiration pneumonia ICD Codes: J69.0 - Pneumonitis due to inhalation of food and vomit SNOMED: 892069719 (7) UTI (urinary tract infection) ICD Codes: N39.0 - Urinary tract infection, site not specified SNOMED: 33971801 Status: progressing Assessment/Plan vent abx bp bs control cbc bmp am dc to snf if clear and if ok w family Subjective Constitutional: Reports: weakness Allergies: Coded Allergies: SULFAMETHOXAZOLE (Verified Allergy, Unknown, 07/13/17) TRIMETHOPRIM (Verified Allergy, Unknown, 07/13/17) All Systems: reviewed and negative except above Subjective trach vent asleep Objective Last 24 Hour Vital Signs Date Time Temp Pulse Resp B/P (MAP) Pulse Ox O2 Delivery O2 Flow Rate FiO2 09/26/17 13:05 T-piece 12.0 40 09/26/17 13:05 96 T-piece 12.0 40 09/26/17 12:30 98.0 78 20 110/64 98 98.0 09/26/17 08:36 97.3 86 20 110/67 96 97.3 09/26/17 07:55 88 20 T-piece 12.0 40 09/26/17 07:55 T-piece 12.0 40 09/26/17 07:55 97 T-piece 12.0 40 09/26/17 04:00 98.1 106 20 149/85 96 Room Air 98.1 09/26/17 00:10 98 T-piece 09/26/17 00:10 97.5 85 20 94/54 98 T-piece 97.5 09/25/17 23:17 T-piece 12.0 40 09/25/17 23:16 98 T-piece 12.0 40 09/25/17 20:29 T-piece 12.0 40 09/25/17 20:28 98 T-piece 12.0 40 09/25/17 20:28 85 20 T-piece 12.0 40 09/25/17 19:53 98 T-piece 09/25/17 19:46 97.5 85 20 104/61 98 Room Air 97.5 09/25/17 16:00 97.7 93 20 125/80 96 97.7 Intake and Output 09/25/17 09/26/17 19:00 07:00 Intake Total 520 ml 900 ml Output Total 300 ml Balance 220 ml 900 ml Free Water 120 ml Tube Feeding 520 ml 780 ml Output Urine Total 300 ml Laboratory Tests 09/26/17 07:07: White Blood Count 10.5, Red Blood Count 4.09L, Hemoglobin 12.4, Hematocrit 36.3L , Mean Corpuscular Volume 89, Mean Corpuscular Hemoglobin 30.4, Mean Corpuscular Hemoglobin Concent 34.2, Red Cell Distribution Width 13.0, Platelet Count 259, Mean Platelet Volume 6.9, Neutrophils (%) (Auto) 60.8, Lymphocytes (% ) (Auto) 26.6, Monocytes (%) (Auto) 7.3, Eosinophils (%) (Auto) 3.9H, Basophils (%) (Auto) 1.5, Sodium Level 140, Potassium Level 4.8, Chloride Level 104, Carbon Dioxide Level 26, Anion Gap 10, Blood Urea Nitrogen 17, Creatinine 0.5L, Estimat Glomerular Filtration Rate , Glucose Level 114H, Calcium Level 9.3 Height (Feet): 5 Height (Inches): 3.00 Weight (Pounds): 134 General Appearance: lethargic EENT: normal ENT inspection Neck: normal alignment Cardiovascular: normal peripheral pulses, normal rate, regular rhythm Respiratory/Chest: chest wall non-tender, lungs clear, normal breath sounds Abdomen: normal bowel sounds, non tender, soft Extremities: normal inspection Edema: no edema noted Arm (L), no edema noted Arm (R), no edema noted Leg (L), no edema noted Leg (R), no edema noted Pedal (L), no edema noted Pedal (R), no edema noted Generalized Neurologic: motor weakness Skin: normal pigmentation, warm/dry KATIE MONTE Sep 26, 2017 14:49
[2017-09-26] MEDS ORDERED: ACETAMINOPHEN325 M1 GT (15:13)
[2017-09-26] MEDS ORDERED: CLOTRIMAZOLE15 GM TOPIC (15:14)
[2017-09-26] MEDS ORDERED: MYLANTA II30 ML GT (15:14)
[2017-09-26] MEDS ORDERED: BENADRYL25 M3 GT (15:15)
[2017-09-26] MEDS ORDERED: DOCUSATE SODIU100 MG GT (15:16)
[2017-09-26] MEDS ORDERED: LOPERAMIDE1 MG/5 ML GT (15:19)
[2017-09-26] MEDS ORDERED: METOCLOPRA10 MG/10 M GT (15:20)
[2017-09-26] MEDS ORDERED: ZOFRAN4 M1 ORAL (15:21)
[2017-09-26] MEDS ORDERED: NITROSTAT0.4 M1 SL (15:21)
[2017-09-26] MEDS ORDERED: MIRALAX17 G2 GT (15:22)
[2017-09-26 15:51] VITALS: BP 114/81
--- NOTE | 2017-09-26 16:37 | Infectious Diseases Prog Note ---
Assessment/Plan Assessment/Plan ASSESSMENT: The patient is a 76-year-old female with: Fever, SP leukocytosis (recurrent); SP f ?aspiration pneumonitis - resolved - no obvious PNA on CXR. Ucx with <10K MRSA, typically this organisms doesnt cause UTI but may cause with presence of regan catheter; also may represent seeding from blood; so far Bcx NTD -repeat u/a 09/16 wbc 15-20; ucx <10K MRSA (S Vanco, bactrim; R Tetracycline); rpeat u/a neg; ucx NTD -CXR 09/20: Retrocardiac atelectasis. No acute process otherwise -Bcx 09/16 NTeg; 09/22 NTD x4 -CXR: Very questionable minimal interstitial congestion. No acute process otherwise. -v. duplex no DVT 2d Echo,: (limited)no Veg C diff : neg ConS bacteremica 07/11; likelyu contaminant -09/20 + Previous Leukocytosis, mostly due to acute stress -u/a neg -Bcx NTD No evidence of pneumonia or urinary tract infection. Chest x-ray, no acute process Hypertension. COPD. Diabetes. History of CVA PLAN: - Continue to monitor off abx; ok to discharge to SNF from ID perspective -09/24 SP Cefepime #7, IV Vanco #5, PO Vanco #4 -f/u repeat bcx 09/22 Monitor blood culture. Monitor CBC. Monitor BMP. Subjective Allergies: Coded Allergies: SULFAMETHOXAZOLE (Verified Allergy, Unknown, 07/13/17) TRIMETHOPRIM (Verified Allergy, Unknown, 07/13/17) Subjective afebrile no leukocytosis repeat Bcx NTD off abx Objective Vital Signs Last 24 Hour Vital Signs Date Time Temp Pulse Resp B/P (MAP) Pulse Ox O2 Delivery O2 Flow Rate FiO2 09/26/17 15:51 98.2 87 20 114/81 98 98.2 09/26/17 13:05 T-piece 12.0 40 09/26/17 13:05 96 T-piece 12.0 40 09/26/17 12:30 98.0 78 20 110/64 98 98.0 09/26/17 08:36 97.3 86 20 110/67 96 97.3 09/26/17 07:55 88 20 T-piece 12.0 40 09/26/17 07:55 T-piece 12.0 40 09/26/17 07:55 97 T-piece 12.0 40 09/26/17 04:00 98.1 106 20 149/85 96 Room Air 98.1 09/26/17 00:10 98 T-piece 09/26/17 00:10 97.5 85 20 94/54 98 T-piece 97.5 09/25/17 23:17 T-piece 12.0 40 09/25/17 23:16 98 T-piece 12.0 40 09/25/17 20:29 T-piece 12.0 40 09/25/17 20:28 98 T-piece 12.0 40 09/25/17 20:28 85 20 T-piece 12.0 40 09/25/17 19:53 98 T-piece 09/25/17 19:46 97.5 85 20 104/61 98 Room Air 97.5 Height (Feet): 5 Height (Inches): 3.00 Weight (Pounds): 134 Objective General Appearance: lethargic EENT: normal ENT inspection Neck: normal alignment Cardiovascular: normal peripheral pulses, normal rate, regular rhythm Respiratory/Chest: decreased breath sounds Abdomen: normal bowel sounds, non tender, soft Extremities: normal inspection Edema: no edema noted Arm (L), no edema noted Arm (R), no edema noted Leg (L), no edema noted Leg (R), no edema noted Pedal (L), no edema noted Pedal (R), no edema noted Generalized Neurologic: motor weakness Skin: normal pigmentation, warm/dry Laboratory Tests Test 09/26/17 07:07 White Blood Count 10.5 K/UL (4.8-10.8) Red Blood Count 4.09 M/UL (4.20-5.40) L Hemoglobin 12.4 G/DL (12.0-16.0) Hematocrit 36.3 % (37.0-47.0) L Mean Corpuscular Volume 89 FL (80-99) Mean Corpuscular Hemoglobin 30.4 PG (27.0-31.0) Mean Corpuscular Hemoglobin Concent 34.2 G/DL (32.0-36.0) Red Cell Distribution Width 13.0 % (11.6-14.8) Platelet Count 259 K/UL (150-450) Mean Platelet Volume 6.9 FL (6.5-10.1) Neutrophils (%) (Auto) 60.8 % (45.0-75.0) Lymphocytes (%) (Auto) 26.6 % (20.0-45.0) Monocytes (%) (Auto) 7.3 % (1.0-10.0) Eosinophils (%) (Auto) 3.9 % (0.0-3.0) H Basophils (%) (Auto) 1.5 % (0.0-2.0) Sodium Level 140 MMOL/L (136-145) Potassium Level 4.8 MMOL/L (3.5-5.1) Chloride Level 104 MMOL/L (98-107) Carbon Dioxide Level 26 MMOL/L (21-32) Anion Gap 10 mmol/L (5-15) Blood Urea Nitrogen 17 mg/dL (7-18) Creatinine 0.5 MG/DL (0.55-1.30) L Estimat Glomerular Filtration Rate mL/min (>60) Glucose Level 114 MG/DL (74-106) H Calcium Level 9.3 MG/DL (8.5-10.1) Current Medications Medications (Trade) Dose Ordered Sig/Gavino Route PRN Reason Start Time Stop Time Status Last Admin Dose Admin Acetaminophen (Tylenol) 650 mg Q4H PRN ORAL fever 09/12/17 21:30 10/12/17 21:29 09/17/17 03:50 Al Hydroxide/Mg Hydroxide (Mylanta II) 30 ml Q6H PRN ORAL dyspepsia 09/12/17 21:30 10/12/17 21:29 Clotrimazole (Lotrimin) 1 applic EVERY 12 HOURS TOPIC 09/15/17 09:00 10/15/17 08:59 09/26/17 08:32 Dextrose (Dextrose 50%) STAT PRN IV Hypoglycemia 09/12/17 21:30 10/12/17 21:29 Diphenhydramine HCl (Benadryl) 25 mg Q6H PRN ORAL Itching/Pruritis 09/12/17 21:30 10/12/17 21:29 Docusate Sodium (Colace) 100 mg BID GT 09/14/17 18:00 10/14/17 17:59 09/22/17 08:26 Famotidine (Pepcid) 20 mg BID GT 09/25/17 18:00 10/25/17 17:59 09/26/17 08:28 Heparin Sodium (Porcine) (Heparin 5000 units/ml) 5,000 units EVERY 12 HOURS SUBQ 09/13/17 09:00 10/13/17 08:59 09/26/17 08:30 Loperamide HCl (Imodium) 2 mg Q6H PRN NG Diarrhea 09/25/17 12:30 10/25/17 12:29 09/25/17 17:59 Metoclopramide HCl (Reglan) 5 mg Q8HR GT 09/13/17 14:00 10/13/17 17:59 09/26/17 13:33 Nitroglycerin (Ntg) 0.4 mg Q5M X 3 DOSES PRN SL Prn Chest Pain 09/12/17 21:30 10/12/17 21:29 Ondansetron HCl (Zofran) 4 mg Q6H PRN IVP Nausea & Vomiting 09/12/17 21:30 10/12/17 21:29 Polyethylene Glycol (Miralax) 17 gm HSPRN PRN ORAL Constipation 09/12/17 21:30 10/12/17 21:29 Marion Conway M.D. Sep 26, 2017 16:36
[2017-09-26] MEDS ORDERED: NS 275ml ONE (18:19)
--- NOTE | 2017-09-26 22:38 | Pulmonology Progress Note ---
Assessment/Plan Problems: (1) Aspiration pneumonia (2) Vomiting (3) CVA (cerebral vascular accident) (4) Tracheostomy in place (5) G tube feedings (6) Status post CVA Assessment/Plan clinically looks very good improving respiratory treatment off abx check cultures tolerating feeding dvt prophylaxis. cxr is clear dc when bed available. Subjective ROS Limited/Unobtainable: No Allergies: Coded Allergies: SULFAMETHOXAZOLE (Verified Allergy, Unknown, 07/13/17) TRIMETHOPRIM (Verified Allergy, Unknown, 07/13/17) Objective Last 24 Hour Vital Signs Date Time Temp Pulse Resp B/P (MAP) Pulse Ox O2 Delivery O2 Flow Rate FiO2 09/26/17 15:51 98.2 87 20 114/81 98 98.2 09/26/17 13:05 T-piece 12.0 40 09/26/17 13:05 96 T-piece 12.0 40 09/26/17 12:30 98.0 78 20 110/64 98 98.0 09/26/17 08:36 97.3 86 20 110/67 96 97.3 09/26/17 07:55 88 20 T-piece 12.0 40 09/26/17 07:55 T-piece 12.0 40 09/26/17 07:55 97 T-piece 12.0 40 09/26/17 04:00 98.1 106 20 149/85 96 Room Air 98.1 09/26/17 00:10 98 T-piece 09/26/17 00:10 97.5 85 20 94/54 98 T-piece 97.5 09/25/17 23:17 T-piece 12.0 40 09/25/17 23:16 98 T-piece 12.0 40 Intake and Output 09/25/17 09/26/17 19:00 07:00 Intake Total 520 ml 900 ml Output Total 300 ml Balance 220 ml 900 ml Free Water 120 ml Tube Feeding 520 ml 780 ml Output Urine Total 300 ml Objective General Appearance: WD/WN HEENT: normocephalic, atraumatic, trach intact Respiratory/Chest: chest wall non-tender, lungs clear Breasts: no masses Cardiovascular: normal peripheral pulses, regular rhythm Abdomen: normal bowel sounds, soft, non tender, Gtube Genitourinary: normal external genitalia Extremities: no cyanosis Skin: no lesions Laboratory Tests 09/26/17 07:07: White Blood Count 10.5, Red Blood Count 4.09L, Hemoglobin 12.4, Hematocrit 36.3L , Mean Corpuscular Volume 89, Mean Corpuscular Hemoglobin 30.4, Mean Corpuscular Hemoglobin Concent 34.2, Red Cell Distribution Width 13.0, Platelet Count 259, Mean Platelet Volume 6.9, Neutrophils (%) (Auto) 60.8, Lymphocytes (% ) (Auto) 26.6, Monocytes (%) (Auto) 7.3, Eosinophils (%) (Auto) 3.9H, Basophils (%) (Auto) 1.5, Sodium Level 140, Potassium Level 4.8, Chloride Level 104, Carbon Dioxide Level 26, Anion Gap 10, Blood Urea Nitrogen 17, Creatinine 0.5L, Estimat Glomerular Filtration Rate , Glucose Level 114H, Calcium Level 9.3 Valerio Childs MD Sep 26, 2017 22:38
--- NOTE | 2017-09-27 14:02 | Discharge Summary ---
Discharge Summary Hospital Course Date of Admission Sep 12, 2017 at 20:55 Date of Discharge Sep 26, 2017 at 18:20 Admitting Diagnosis vomiting HPI Cierra Blair is a 76 year old female who was admitted on Sep 12, 2017 at 20: 55 for Vomiting Hospital Course [id number] Discharge Discharge Disposition Patient was discharged to SNF/Subacute Facility(03) Char Berger NP Sep 27, 2017 14:02
--- NOTE | 2017-09-27 23:35 | General Progress Note ---
Assessment/Plan Assessment/Plan #. Nausea or vomiting, x1 episode. --> The patient has been seen by GI Service. Further recommendations to follow. --> Symptomatic treatment with low-dose Reglan as well as Zofran and continue G- tube feeds per dietary recommendations. --> Has improved. #. Status post tracheostomy. --> Continue to monitor. #. CVA history. Neurology has been consulted. #. Hyponatremia. #. Thrombocytosis, potentially secondary to reactive process. Continue to closely monitor. --> downtrended from yesterday and improved. --> Platelets now WNL #. Leukocytosis, potentially secondary to reactive process. --> Resolved today. --> On antibiotics. Monitor and trend cbc. Subjective Date patient seen: Sep 26, 2017 Constitutional: Denies: no symptoms, chills, diaphoresis, fever, malaise, weakness, other HEENT: Denies: no symptoms, eye pain, blurred vision, tearing, double vision, ear pain, ear discharge, nose pain, nose congestion, throat pain, throat swelling, mouth pain, mouth swelling, other Cardiovascular: Denies: no symptoms, chest pain, edema, irregular heart rate, lightheadedness, palpitations, syncope, other Respiratory: Denies: no symptoms, cough, orthopnea, shortness of breath, SOB with excertion, SOB at rest, sputum, stridor, wheezing, other Gastrointestinal/Abdominal: Denies: no symptoms, abdomen distended, abdominal pain, black stools, tarry stools, blood in stool, constipated, diarrhea, difficulty swallowing, nausea, poor appetite, poor fluid intake, rectal bleeding , vomiting, other Genitourinary: Denies: no symptoms, burning, discharge, frequency, flank pain, hematuria, incontinence, pain, urgency, other Neurologic/Psychiatric: Denies: no symptoms, anxiety, depressed, emotional problems, headache, numbness, paresthesia, pre-existing deficit, seizure, tingling, tremors, weakness, other Allergies: Coded Allergies: SULFAMETHOXAZOLE (Verified Allergy, Unknown, 07/13/17) TRIMETHOPRIM (Verified Allergy, Unknown, 07/13/17) Subjective No events overnight. Stable. No fever. Objective Intake and Output 09/26/17 09/27/17 19:00 07:00 Intake Total 750 ml Output Total 200 ml Balance 550 ml Free Water 100 ml Tube Feeding 650 ml Output Urine Total 200 ml # Bowel Movements 1 Height (Feet): 5 Height (Inches): 3.00 Weight (Pounds): 134 General Appearance: no apparent distress Respiratory/Chest: lungs clear Abdomen: soft Nader Landis MD Sep 27, 2017 23:35
--- NOTE | 2017-09-28 02:00 | Discharge Summary 2 SIG ---
DATE OF ADMISSION: 09/12/2017 DATE OF DISCHARGE: 09/26/2017 CONSULTANTS: 1. Nader Landis M.D. 2. Erik Jhaveri M.D. 3. Valerio Childs M.D. 4. Marion Conway M.D. BRIEF HOSPITAL COURSE: The patient is a 76-year-old female with past medical history, of CVA and TIA on tracheostomy presented with one episode of vomiting at the correction. On evaluation at ED, the patient was given additional Zofran. Blood work showed slight leukocytosis, WBC was 13. Chest x-ray showed no acute process. She had a head CT that showed postsurgical changes on the occiput and the site of the cerebellum, there was right frontal focal encephalomalacia and other chronic age-related changes. Negative for acute intracranial bleed or mass effect. She was observed off antibiotic treatment, as initially there was no evidence of pneumonia or urinary tract infection. She underwent neurological evaluation by Dr. Mustafa. The patient had prior cerebellar stroke and was discharged from [facility] two months ago. She was continued on symptomatic treatment with Zofran and was eventually started on tube feedings. She was given proton-pump inhibitors and bowel regimen. The patient developed fever and leukocytosis. The patient was again re-cultured and was eventually started empirically on IV cefepime. Chest x-ray showed questionable minimal interstitial congestion with no acute process otherwise. Cefepime was discontinued. She was given IV vancomycin. Echocardiogram did not show any vegetations and repeat blood and urine culture did not isolate any growth. C. difficile was negative. She received 7 days of cefepime and 5 days IV vancomycin and 4 days p.o. vancomycin. Leukocytosis resolved and the patient had been afebrile. She was eventually cleared for discharge back to correction. FINAL DIAGNOSES: 1. Possible aspiration pneumonitis. 2. Old CVA. 3. Aspiration pneumonia. 4. Vomiting. 5. Tracheostomy in place. 6. COPD. 7. Hypertension. 8. Thrombocytosis secondary to reactive process. 9. Hyponatremia. 10. G-tube status. 11. Sacral coccygeal DTI pressure ulcer and alana with erosion on perineal area, present on admission. DISPOSITION: The patient was discharged to [facility]. DISCHARGE MEDICATIONS: Refer to medication list. Alexis Rodriguez D.O. I have been assigned to dictate discharge summary on this account and I was not involved in the patient's management. Char Berger N.P. DR: LAYTON JOB#: [id number] CC: [place]
== END 2017-09-26 18:20 | DRG 137 ==
LOC: EDBD 19:06 → EMR 20:48 → 4W 20:55 → EDBEDREQ 21:39
DX: J69.0 Pneumonitis due to inhalation of food and vomit (principal); E11.8 Type 2 diabetes mellitus with unspecified complications; Z43.0 Encounter for attention to tracheostomy; E87.1 Hypo-osmolality and hyponatremia; J44.9 Chronic obstructive pulmonary disease, unspecified; I10 Essential (primary) hypertension; R11.10 Vomiting, unspecified; Z66 Do not resuscitate; Z43.1 Encounter for attention to gastrostomy; Z86.73 Personal history of transient ischemic attack (TIA), and cerebral infarction without residual deficits; Z88.1 Allergy status to other antibiotic agents; D47.3 Essential (hemorrhagic) thrombocythemia; Z88.2 Allergy status to sulfonamides; E78.5 Hyperlipidemia, unspecified
CPT/HCPCS: 36415; 70450; 71045; 80048; 80053; 80061; 80202; 81003; 82150; 82550; 82553; 82607; 82962; 83605; 83690; 83735; 83880; 84100; 84484; 85007; 85025; 85730; 87040; 87070; 87081; 87086; 87181; 87205; 87324; 93005; 93306; 93970; 94664; 94760; 99285; J2405; S0077